=== PATIENT | female | born 1960 | race Caucasian/White ===

== ENCOUNTER 2020-06-01 06:10 | Outpatient (REF) | payer BC, SELFPAY ==
[2020-06-01 11:47] LABS: MANUAL DIFF FLAG NO
[2020-06-01 11:52] LABS: Basophils Absolute Auto 0.1 X10*3/uL (0.0-0.2); Basophils Percent Auto 0.5 % (0-2); Eosinophils Absolute Auto 0.5 X10*3/uL (0.0-0.4); Hematocrit 45.3 % (37-47); Hemoglobin 14.8 g/dl (12.0-16.0); Imm Gran Abs Auto 0.03 X10*3/uL (0.00-0.03); Imm Gran Pct Auto 0.3 % (0.0-0.4); Lymphocytes Percent Auto 22.1 % (20-40); Mean Corpuscular HGB Conc 32.7 g/dl (31.0-35.0); Mean Corpuscular Volume 98.1 fL (80-98); Mean Platelet Volume 10.1 fL (9.4-12.3); Monocytes Absolute Auto 1.1 X10*3/uL (0.1-1.2); Monocytes Percent Auto 11.9 % (2-11); Neutrophils Absolute Auto 5.6 X10*3/uL (2.0-8.3); Neutrophils Percent Auto 60.2 % (45-73); Platelet Count 428 X10*3/uL (160-400); Red Blood Count 4.62 X10*6/uL (4.20-5.50); White Blood Count 9.2 X10*3/uL (4.8-10.8)
[2020-06-01 12:35] LABS: Alanine Aminotransferase 58 U/L (0-31); Albumin Level 4.6 g/dL (3.5-5.0); Alkaline Phosphatase 88 U/L (39-117); Anion Gap 14 (12-20); Aspartate Amino Transferase 56 U/L (5-31); Bilirubin Direct 0.4 mg/dL (0.0-0.5); Blood Urea Nitrogen 12 mg/dL (9-16); Carbon Dioxide 30 mmol/L (22-29); Chloride 101 mmol/L (96-108); Cholesterol 298 mg/dL; Estimated Glomerular Filt Rate > 60; Glucose Fasting 94 mg/dL (60-99); HDL Cholesterol 83 mg/dL; LDL Cholesterol Calculated 194 mg/dl; Potassium 3.8 mmol/L (3.3-5.1); Sodium 141 mmol/L (135-145); Total Protein 7.8 g/dL (6.5-8.0); Triglycerides 105 mg/dL
[2020-06-01 12:50] LABS: TSH reflex Free T4 2.19 uIU/mL (0.32-4.0)
== END 2020-06-01 06:11 | disposition home or self-care (01) ==
LOC: HO.HMGCLDS 06:10
PROVIDERS: PCP Internal Medicine; Visit Provider Internal Medicine
DX: Z00.01 Encounter for general adult medical examination with abnormal findings (principal); R00.0 Tachycardia, unspecified; I10 Essential (primary) hypertension; L50.8 Other urticaria; F41.1 Generalized anxiety disorder; Z91.09 Other allergy status, other than to drugs and biological substances
CPT/HCPCS: 36415; 80048; 80061; 80076; 84443; 85025

== ENCOUNTER → 2020-07-14 09:27 | Outpatient (REF) | payer BC, SELFPAY ==
--- NOTE | 2020-07-14 09:31 | CA_ITS ---
Transthoracic Echocardiogram Patient (Last, First, Middle): Karen Mackenzie C Gender: Female Date of : 1960 Age: 59 Procedure Date: 07/14/2020 Procedure Type: Transthoracic Echocardiogram Location: OP Height: 157.48 cm Weight: 68.04 kg BSA: 1.69 m2 Heart Rate: bpm BP: 213 / 113 mmHg [employer] Teacher: JUAN PABLO Referring MD: Ros Lunsford MD Symptoms: R00.0 - Tachycardia, unspecified Study Quality: Fair ECG Rhythm: Sinus tachycardia Conclusions: - The left ventricular systolic function is normal. The visually estimated ejection fraction is between 60-65%. - No obvious valvular pathology seen on this study. Findings Left Ventricle Normal left ventricular cavity size. There is mildly increased left ventricular wall thickness. The left ventricular systolic function is normal. The visually estimated ejection fraction is between 60-65%. There is no evidence of regional wall motion abnormalities. Diastolic function is indeterminate on the basis of available data. Right Ventricle Normal right ventricular cavity size and systolic function. Atria The left atrium is normal in size. The right atrium is normal in size. Aortic Valve There is a normal trileaflet aortic valve. There is no aortic valve stenosis. There is no aortic valve regurgitation. Mitral Valve The mitral valve appears normal. There is trace mitral valve regurgitation. There is no mitral valve stenosis. Pulmonic Valve The pulmonic valve was not well visualized. Tricuspid Valve Normal tricuspid valve structure. There is trace tricuspid valve regurgitation. The pulmonary artery systolic pressure is normal. Great Vessels The aortic annulus, sinuses of valsalva, asc aorta, and aortic arch are normal in size. Venous The inferior vena cava was not well visualized. Pericardium/Pleural There is no evidence of pericardial effusion. Prior Study Comparison No prior study available for comparison. Recommendations, Care & Conclusions No obvious valvular pathology seen on this study. Measurements M-Mode Liner Measurements Normals - Women/Men AOV Cusps: 1.80 1.5-2.6 cm/m2 2D Linear Measurements IVSd: 1.20 0.6-0.9/0.6-1.0 cm LVIDd: 2.95 3.9-5.3/4.2-5.9 cm LVIDd Index: 1.75 2.4-3.2/2.2-3.1 cm/m2 LVIDs: 1.81 2.0-3.6 cm LVPWd: 1.17 0.7-1.1 cm Ao Root: 2.50 2.1-3.5 cm LA Diam: 3.20 2.7-3.8/3.0-4.0 cm LAIDs Index: 1.89 1.5-2.3 cm/m2 LV Mass: 129.89 67-162/88-224 g LV Mass Index: 76.86 43-95/49-115 g/m2 LVOT Diam: 1.90 3.0+(-)1.3 cm 2D Systolic Function EF 4C: 67.70 >55% EF 2C: 61.10 >55% EF BiP: 65.50 >55% Mitral Valve E'Lateral: 8.49 E'Medial: 8.49 Aortic Valve AoV Pk Jason: 1.51 AoV Pk Grad: 9.00 LVOT LVOT Pk Jason: 1.05 LVOT Mn Jason: 0.84 LVOT VTI: 0.19 LVOT Pk Grad: 4.00 LVOT Mn Grad: 3.00 LVOT Diam: 1.90 LVOT Area: 2.84 Diastolic Function E'Medial: 8.49 E' Laterial: 8.49 Tricuspid Valve TR Pk Jason: 2.58 TR Pk Grad: 27.00 Great Vessels Aorta Ao Root-2D: 2.50 2.0-3.7 cm Ao Asc: 2.80 2.1-3.4 cm Ao Arch: 2.80 Pulmonary Valve PV Pk Jason: 1.52 Peak PV Grad: 9.00 Updated in Other Vendor System with Status of Final Yves Alba MD electronically signed on 07/14/2020 11:59:40 AM with status of Final
== END ==
LOC: HO.CARD 09:27
PROVIDERS: Visit Provider Internal Medicine
DX: R00.0 Tachycardia, unspecified (principal); R94.31 Abnormal electrocardiogram [ECG] [EKG]
CPT/HCPCS: 93306

== ENCOUNTER 2020-07-14 10:31 | Emergency (ER) | payer BC, SELFPAY ==
--- NOTE | ~2020-07-14 | XR_ITS ---
EXAMINATION: XR CHEST CLINICAL INFORMATION: Chest pain COMPARISON: Chest radiographs 02/12/2016, 03/13/2015 TECHNIQUE: Portable upright AP view of the chest was obtained. FINDINGS: The lungs are clear. There is no pneumothorax, pleural reaction, infiltrate, or groundglass opacity. No effusion. The heart is normal in size. The vascularity is normal. The hilar and mediastinal contours are normal. There is calcific tendinosis in region of distal superior rotator cuff left shoulder. XR/XR chest 1V IMPRESSION: 1. Lungs clear. No acute intrathoracic disease. 2. Calcific tendinosis left shoulder.
[2020-07-14 10:41] VITALS: BP 204/112; PULSE 118; RESP 18; TEMP 36.8; O2SAT 96; BMI 28.3
--- NOTE | 2020-07-14 10:48 | ECG_ITS ---
Test Reason : TACHYCARDIA Blood Pressure : / mmHG Vent. Rate : 103 BPM Atrial Rate : 103 BPM P-R Int : 132 ms QRS Dur : 086 ms QT Int : 350 ms P-R-T Axes : 045 003 015 degrees QTc Int : 458 ms Sinus tachycardia Otherwise normal ECG When compared with ECG of 18-NOV-2018 18:36, No significant change was found Referred By: Generic ED Physician Electronically Signed By:ELIZABETH RAGLAND
[2020-07-14 11:09] LABS: MANUAL DIFF FLAG NO
[2020-07-14 11:11] LABS: Basophils Absolute Auto 0.1 X10*3/uL (0.0-0.2); Basophils Percent Auto 0.4 % (0-2); Eosinophils Absolute Auto 0.2 X10*3/uL (0.0-0.4); Eosinophils Percent Auto 1.9 % (0-4); Hematocrit 45.6 % (37-47); Hemoglobin 15.5 g/dl (12.0-16.0); Imm Gran Abs Auto 0.03 X10*3/uL (0.00-0.03); Imm Gran Pct Auto 0.3 % (0.0-0.4); Lymphocytes Absolute Auto 1.3 X10*3/uL (1.2-4.9); Lymphocytes Percent Auto 11.7 % (20-40); Mean Corpuscular Hemoglobin 32.5 pg (27.0-33.0); Mean Corpuscular Volume 95.6 fL (80-98); Mean Platelet Volume 8.9 fL (9.4-12.3); Monocytes Absolute Auto 1.1 X10*3/uL (0.1-1.2); Monocytes Percent Auto 9.6 % (2-11); Neutrophils Absolute Auto 8.5 X10*3/uL (2.0-8.3); Neutrophils Percent Auto 76.1 % (45-73); Platelet Count 366 X10*3/uL (160-400); Red Blood Count 4.77 X10*6/uL (4.20-5.50); Red Cell Distribution Width 11.7 % (11.0-16.0); White Blood Count 11.1 X10*3/uL (4.8-10.8)
[2020-07-14 11:29] LABS: Ethanol < 10 mg/dL
[2020-07-14 11:30] LABS: Anion Gap 19 (12-20); Blood Urea Nitrogen 18 mg/dL (9-16); Calcium 9.6 mg/dL (8.4-10.2); Carbon Dioxide 26 mmol/L (22-29); Chloride 99 mmol/L (96-108); Creatinine Clr Calc Pharmacy 70.4; Estimated Glomerular Filt Rate > 60; Glucose Random 113 mg/dL (60-115); Potassium 3.7 mmol/L (3.3-5.1); Sodium 140 mmol/L (135-145)
--- NOTE | 2020-07-14 11:55 | ED_ITS ---
HPI - Chest Pain General Chief Complaint: Chest Pain Stated Complaint: HIGH BLOOD PRESSURE Time Seen by Provider: 07/14/20 11:36 Source: patient Mode of arrival: wheelchair Limitations: no limitations History of Present Illness HPI narrative: 59 y/o female with history of recently diagnosed HTN, HLD, depression and daily ETOH abuse presents to the ER from ECHO lab with tachcardia w/ HR 110's and severe hypertension with BP 200/100. She was recently started on atenolol in May of this year after she was found to be tachycardic and hypertensive on her yearly visit. On repeat visit 06/24 her BP was still elevated in the 160s systolic so her atenolol was increased to 50 mg per day in combination with chlorthalidone 25 mg. She reports her pharmacy did not have this so she has not been taking it. She admits to continued absue of alcohol, drinking 5-8 nips of vodka per day, last drink was last night. She wants to stop drinking. She has never been through alcohol withdrawal before but is slightly tremulous on arrival. MD complaint: other (high blood pressure) Onset (ago): month(s) Timing of current episode: episodic Prior episodes: Yes Onset: awoke with symptoms and other (after not drinking alcohol since last night) Exacerbating factors: nothing Context: new medications and non compliance with medication Treatment prior to arrival: none Related Data Home Medications Medication Instructions Recorded Confirmed diphenhydramine HCl PO Q12H 05/27/20 06/24/20 omeprazole 20 mg tablet,delayed 20 mg PO DAILY 05/27/20 06/24/20 release Previous Rx's Medication Instructions Recorded cetirizine 10 mg tablet 10 mg PO DAILY PRN 90 Days #90 tab 05/11/20 montelukast 10 mg tablet 10 mg PO DAILY 90 Days #90 tab 05/11/20 venlafaxine 75 mg capsule,extended 75 mg PO DAILY #90 cap 05/11/20 release 24 hr prednisone 5 mg tablet 5 mg PO DAILY PRN 10 Days #10 tab 05/27/20 atenolol 50 mg-chlorthalidone 25 1 tab PO DAILY 90 Days #90 tab 06/24/20 mg tablet atorvastatin 40 mg tablet 40 mg PO BEDTIME 90 Days #90 tab 07/08/20 atenolol-chlorthalidone 1 tab PO DAILY #14 tab 07/14/20 Allergies Allergy/AdvReac Type Severity Reaction Status Date / Time bupropion [From WELLBUTRIN] Allergy Unknown HIVES Verified 06/24/20 12:30 hydroxychloroquine Allergy Unknown hives Verified 06/24/20 12:30 [Plaquenil] tramadol Allergy Unknown hives, rash Verified 06/24/20 12:30 ENVIRONMENTAL Allergy Unknown ITCHY EYES Uncoded 01/09/20 15:34 Review of Systems Review of Systems: Constitutional: No Fever, No Chills ENT/Mouth: No sore throat, No Rhinorrhea, No Swallowing Difficulty Cardiovascular: No Chest Pain, No SOB, No Orthopnea, No Edema Respiratory: No Cough, No Sputum, No Wheezing, No dyspnea Gastrointestinal: No Nausea, No Vomiting, No Diarrhea, No abdominal Pain Genitourinary: No Dysuria, No Urinary Frequency, No Hematuria Musculoskeletal: No joint pain, No Myalgias Skin: No Skin Lesions, No rash Neuro: No Weakness, No Numbness, No Dizziness, No Headache, +tremor Psych: + Anxiety/Panic, + Depression Heme/Lymph: No Bruising, No Lymphadenopathy PMFSH Past Medical History Attestation statement: The following information was validated with the patient. Medical History Anxiety, generalized Hives Surgical History History of left oophorectomy (09/07/11) History of right breast biopsy (10/31/11) Hx of basal cell carcinoma excision (2011) Hx of colonoscopy (08/30/11) Hx of left inguinal hernia repair (02/25/13) Hx of right inguinal hernia repair (2003) Family History Family History Father Cardiac disease Mother Cardiac disease HTN (hypertension) Social History Social History Alcohol intake: current Alcohol intake frequency: 3 or more drinks per day Alcohol type: hard liquor Smoking Status: Former smoker Use of substances other than those prescribed or required for medical reasons: Yes Substance Use Type: Marijuana Advance Directives: Yes Advance Directives Information Provided: Yes Advance Directives on File: No Physical Exam Vital Signs: Vital Signs: Last Vital Signs Temp 98.2 F 07/14/20 10:41 Pulse 82 07/14/20 14:00 Resp 18 07/14/20 10:41 BP 136/106 H 07/14/20 14:00 Pulse Ox 96 07/14/20 10:41 Body Mass Index 28.3 Appearance: Alert. Oriented X3. No acute distress. Eyes: Pupils equal, round and reactive to light. ENT: Pharynx normal. Neck: Normal inspection. Neck supple. CVS: tachycardic, regular rhythm. Pulses normal. Respiratory: No respiratory distress. Breath sounds normal. Abdomen: Soft and nontender. +BS x4 Skin: Skin warm and dry. Normal skin color. Normal skin turgor. No rashes. Extremities: No lower extremity edema. Neuro: Oriented X 3. No motor deficit. No sensory deficit. Mild resting tremor of bilateral hands. Course Course Course Narrative: 59 y/o female with history of recently diagnosed HTN and daily ETOH abuse presents to the ED with tachycardia and severe HTN. She denies chest pain, SOB, headache or vision changes. She has not been taking her newly uptitrated atenolol/chlorthaladone combination and it does not sound like she has been taking the atenolol 25 mg either. She comes with a list of medications that she has been taking daily and it is not on there - she thought her atrovastatin was for blood pressure. HR low 100s with BP 200/110 on arrival, slightly improved 180s/100s. Concern early alcohol withdrawal is contributing. Will give 1 mg PO ativan as well as 50 mg atenolol now and reassess. She does not appear to be in hypertensive crisis. Reevaluation(s) Reevaluation #1: Lab workup is unremarkable. VS improved after atenolol 50 mg PO. HR 70s and BP 167/89 Reevaluation #2: UA showing hematuria - results discussed with patient and need for follow up. Explained importance of compliance with BP meds, monitoring BP at home and f/u with PCP. She agrees with plan and expressed understanding. Stable for d/c. MDM - Chest Pain Medical Records Data Attestation: I reviewed the patient's medical records. Lab Data Attestation: I reviewed the patient's lab results. Result diagrams: 07/14/20 11:02 07/14/20 11:01 Labs: Lab Results 07/14/20 07/14/20 07/14/20 Range/Units 11:01 11:01 11:02 WBC 11.1 H (4.8-10.8) X10*3/uL RBC 4.77 (4.20-5.50) X10*6/uL Hgb 15.5 (12.0-16.0) g/dl Hct 45.6 (37-47) % MCV 95.6 (80-98) fL MCH 32.5 (27.0-33.0) pg MCHC 34.0 (31.0-35.0) g/dl RDW 11.7 (11.0-16.0) % Plt Count 366 (160-400) X10*3/uL MPV 8.9 L (9.4-12.3) fL Immature Gran % (Auto) 0.3 (0.0-0.4) % Neut % (Auto) 76.1 H (45-73) % Lymph % (Auto) 11.7 L (20-40) % Allen % (Auto) 9.6 (2-11) % Eos % (Auto) 1.9 (0-4) % Baso % (Auto) 0.4 (0-2) % Lymph # (Auto) 1.3 (1.2-4.9) X10*3/uL Allen # (Auto) 1.1 (0.1-1.2) X10*3/uL Eos # (Auto) 0.2 (0.0-0.4) X10*3/uL Baso # (Auto) 0.1 (0.0-0.2) X10*3/uL Abs Immat Gran (auto) 0.03 (0.00-0.03) X10*3/uL Absolute Neuts (auto) 8.5 H (2.0-8.3) X10*3/uL Absolute Nucleated RBC 0.000 (0.0-0.012) X10*3/uL Nucleated RBC % (auto) 0.0 (0.0-0.2) /100WBC Hold Blue Top Sodium 140 (135-145) mmol/L Potassium 3.7 (3.3-5.1) mmol/L Chloride 99 (96-108) mmol/L Carbon Dioxide 26 (22-29) mmol/L Anion Gap 19 (12-20) BUN 18 H (9-16) mg/dL Creatinine 0.74 (0.5-1.4) mg/dL Estim Creat Clear Calc 70.4 Estimated GFR > 60 Random Glucose 113 (60-115) mg/dL Calcium 9.6 D (8.4-10.2) mg/dL Troponin I High Sens < 3.5 (<3.5-17.0) ng/L Urine Color Urine Appearance Urine pH (5.0-8.0) Ur Specific [place] (1.005-1.025) Urine Protein (NEG-TRACE) MG/DL Urine Glucose (UA) (NEG) MG/DL Urine Ketones (NEG) MG/DL Urine Blood (NEG) Urine Nitrite (NEG) Ur Leukocyte Esterase (NEG) Urine RBC (0) /HPF Urine WBC (0-4) /HPF Ur Squamous Epith Cells /LPF Urine Bacteria /LPF Urine Mucus /LPF Ethyl Alcohol mg/dL 07/14/20 07/14/20 07/14/20 Range/Units 11:02 11:05 14:19 WBC (4.8-10.8) X10*3/uL RBC (4.20-5.50) X10*6/uL Hgb (12.0-16.0) g/dl Hct (37-47) % MCV (80-98) fL MCH (27.0-33.0) pg MCHC (31.0-35.0) g/dl RDW (11.0-16.0) % Plt Count (160-400) X10*3/uL MPV (9.4-12.3) fL Immature Gran % (Auto) (0.0-0.4) % Neut % (Auto) (45-73) % Lymph % (Auto) (20-40) % Allen % (Auto) (2-11) % Eos % (Auto) (0-4) % Baso % (Auto) (0-2) % Lymph # (Auto) (1.2-4.9) X10*3/uL Allen # (Auto) (0.1-1.2) X10*3/uL Eos # (Auto) (0.0-0.4) X10*3/uL Baso # (Auto) (0.0-0.2) X10*3/uL Abs Immat Gran (auto) (0.00-0.03) X10*3/uL Absolute Neuts (auto) (2.0-8.3) X10*3/uL Absolute Nucleated RBC (0.0-0.012) X10*3/uL Nucleated RBC % (auto) (0.0-0.2) /100WBC Hold Blue Top SEE NOTE Sodium (135-145) mmol/L Potassium (3.3-5.1) mmol/L Chloride (96-108) mmol/L Carbon Dioxide (22-29) mmol/L Anion Gap (12-20) BUN (9-16) mg/dL Creatinine (0.5-1.4) mg/dL Estim Creat Clear Calc Estimated GFR Random Glucose (60-115) mg/dL Calcium (8.4-10.2) mg/dL Troponin I High Sens (<3.5-17.0) ng/L Urine Color DARK YELLOW Urine Appearance HAZY Urine pH 6.5 (5.0-8.0) Ur Specific [place] 1.025 (1.005-1.025) Urine Protein TRACE (NEG-TRACE) MG/DL Urine Glucose (UA) NEG (NEG) MG/DL Urine Ketones 5 (NEG) MG/DL Urine Blood 2+ H (NEG) Urine Nitrite NEG (NEG) Ur Leukocyte Esterase NEG (NEG) Urine RBC 10-14 H (0) /HPF Urine WBC 0 (0-4) /HPF Ur Squamous Epith Cells 1+ /LPF Urine Bacteria NONE /LPF Urine Mucus 2+ /LPF Ethyl Alcohol < 10 mg/dL ECG Data ECG #1: Attestation: I personally reviewed and interpreted this ECG as follows: ECG interpretation date: 07/14/20 ECG interpretation time: 09:59 Interpretation: sinus tachycardia, HR 103 bpm, normal IA interval 132 ms, normal QRS 86 ms, normal QTc, no ST segment elevations Discharge Plan Discharge Clinical Impression: Alcohol abuse, Asymptomatic microscopic hematuria Hypertension Qualifiers: Hypertension type: unspecified Qualified Code(s): I10 - Essential (primary) hypertension Patient Disposition: Home, Self-Care Instructions: Hematuria (ED), Low-Sodium Diet (ED), Hypertension (ED), Alcohol Use Disorder (ED) Additional Instructions: Your lab workup in the ER today was unremarkable. Your blood pressure and heart rate improved significantly after you were given a dose of your increased blood pressure medication. Recommend continuing ATENOLOL-CHLORTHALIDONE 50mg/25mg for BP control. This was previously prescribed by your doctor on 06/24/20. A two week supply was sent to your pharmacy if you cannot locate the bottle at home. Your urine test showed a small amount of blood. You will need follow up for this. Follow up with your doctor this week. DO NOT DRINK ALCOHOL. Recommend detox. If you feel worsening symptoms of alcohol withdrawal or develop chest pain, shortness of breath, or any other concerning symptom come back to the ER for further evaluation. Prescriptions: New atenolol-chlorthalidone 50-25 mg tablet 1 tab PO DAILY Qty: 14 RF: 0 No Action venlafaxine 75 mg capsule,extended release 24hr 75 mg PO DAILY Qty: 90 RF: 0 cetirizine [All Day Allergy (cetirizine)] 10 mg tablet 10 mg PO DAILY PRN (Reason: allergy symptoms) 90 Days Qty: 90 RF: 0 montelukast 10 mg tablet 10 mg PO DAILY 90 Days Qty: 90 RF: 0 atorvastatin 40 mg tablet 40 mg PO BEDTIME 90 Days Qty: 90 RF: 0 omeprazole 20 mg tablet,delayed release (DR/EC) 20 mg PO DAILY RF: 0 diphenhydramine HCl PO Q12H RF: 0 prednisone 5 mg tablet 5 mg PO DAILY PRN (Reason: rash) 10 Days Qty: 10 RF: 0 atenolol-chlorthalidone 50-25 mg tablet 1 tab PO DAILY 90 Days Qty: 90 RF: 0
[2020-07-14 12:24] LABS: Troponin-I High Sensitivity < 3.5 ng/L (<3.5-17.0)
[2020-07-14 12:43] VITALS: BP 202/96; PULSE 100
[2020-07-14] MEDS: LORazepam 1 MG TABLET PO (12:43)
[2020-07-14] MEDS: atenoloL 50 MG TABLET PO (12:43)
[2020-07-14 14:00] VITALS: BP 136/106; PULSE 82
[2020-07-14 14:47] LABS: Glucose Urine UA NEG (NEG); Leukocyte Esterase Urine NEG (NEG); Nitrite Urine NEG (NEG); PH 6.5 (5.0-8.0); Specific Gravity - Urine 1.025 (1.005-1.025); Urine Blood 2+ (NEG); Urine Ketones 5 MG/DL (NEG); Urine Protein TRACE MG/DL (NEG-TRACE)
[2020-07-14 14:52] LABS: Appearance Urine HAZY; Color Urine DARK YELLOW
[2020-07-14 14:59] LABS: Mucus Urine 2+ /LPF; Squamous Epithelial Cell Urine 1+ /LPF; WBC Urine 0 /HPF (0-4)
== END 2020-07-14 15:39 | disposition home or self-care (01) ==
PROVIDERS: Physician Assistant; Emergency Provider Emergency Medicine Emergency Medical Services; PCP Internal Medicine
DX: F10.129 Alcohol abuse with intoxication, unspecified (principal); R07.9 Chest pain, unspecified; R00.0 Tachycardia, unspecified; R31.21 Asymptomatic microscopic hematuria; I10 Essential (primary) hypertension; Y90.0 Blood alcohol level of less than 20 mg/100 ml; Z79.899 Other long term (current) drug therapy; Z87.891 Personal history of nicotine dependence; F12.90 Cannabis use, unspecified, uncomplicated
CPT/HCPCS: 36415; 71045; 80048; 80320; 81001; 84484; 85025; 93005; 99283; 99284

== ENCOUNTER 2020-08-13 10:20 | Outpatient (REF) | payer BC, SELFPAY ==
--- NOTE | ~2020-08-13 | MM_ITS ---
EXAMINATION: MM SCREENING DIGITAL BREAST TOMOSYNTHESIS, BILATERAL CLINICAL INFORMATION: Screening. Asymptomatic. The lifetime risk of breast cancer based on the Tyrer-Cuzick Model is 6%. COMPARISON: Mammography: 05/05/2017, 01/23/2014 TECHNIQUE: Digital breast tomosynthesis is performed in both the craniocaudal and mediolateral oblique views along with computer-aided detection (CAD). Synthesized 2D images are generated from the tomosynthesis. FINDINGS: There are scattered areas of fibroglandular density (ACR BI-RADS breast composition Category b). There are no significant masses, abnormal calcifications, or other abnormalities. There is incidental intramammary node upper outer right breast mid depth. The axilla and skin contours are unremarkable. No significant changes. MM/MM tomosynthesis screening BI IMPRESSION: No mammographic evidence of malignancy. ASSESSMENT: BI-RADS 2: Benign RECOMMENDATION: Routine annual mammography screening. This patient's information was entered into a reminder system with a target due date for their next mammogram.
== END 2020-08-13 10:21 | disposition home or self-care (01) ==
LOC: HO.MAMMO 10:20
PROVIDERS: Visit Provider Internal Medicine
DX: Z12.31 Encounter for screening mammogram for malignant neoplasm of breast (principal)
CPT/HCPCS: 77063; 77067

== ENCOUNTER 2020-12-23 03:03 | Emergency (ER) | payer BC, SELFPAY ==
--- NOTE | ~2020-12-23 | XR_ITS ---
EXAMINATION: XR CHEST CLINICAL INFORMATION: Chest pain COMPARISON: Chest x-ray 07/14/2020 TECHNIQUE: Frontal portable view of the chest was obtained. 0330 hours FINDINGS: No significant abnormality is noted involving the heart, lungs, mediastinum, bony thorax or soft tissues. XR/XR chest 1V IMPRESSION: Unremarkable examination.
--- NOTE | 2020-12-23 03:14 | ECG_ITS ---
Test Reason : CHEST PAIN Blood Pressure : / mmHG Vent. Rate : 084 BPM Atrial Rate : 084 BPM P-R Int : 148 ms QRS Dur : 084 ms QT Int : 394 ms P-R-T Axes : 044 013 000 degrees QTc Int : 465 ms Normal sinus rhythm Nonspecific ST abnormality Abnormal ECG When compared with ECG of 14-JUL-2020 09:54, Nonspecific ST abnormality is now Present Heart rate has decreased Referred By: Radha Dsouza Electronically Signed By:MAJO TORRES
[2020-12-23 03:15] VITALS: BP 144/114; BP 176/116; PULSE 88; PULSE 93; RESP 20; TEMP 37.1; O2SAT 98; BMI 27.4
--- NOTE | 2020-12-23 03:16 | ED_ITS ---
HPI - Chest Pain General Chief Complaint: Chest Pain Stated Complaint: hypertension/cp Time Seen by Provider: 12/23/20 03:14 Source: patient and EMS Mode of arrival: EMS Limitations: no limitations History of Present Illness HPI narrative: 60-year-old female came in for evaluation of hypertension/chest pain. 60-year-old female came in by ambulance after having chest pain 1 hour ago pain lasted for about 2 seconds felt like tension the mid chest, no radiation. No relieving factor, no worsening factor patient was resting when the chest pain happened, no other associated symptoms. Patient also had a history of hypertension and has been compliant with her medication for hypertension, been having high blood pressure. Patient is a daily alcohol drinker last time she would drink was 24 hours ago patient is feeling early symptoms of withdrawal, patient with tremors and tongue fasciculation. Related Data Home Medications Medication Instructions Recorded Confirmed diphenhydramine HCl [Benadryl] PO Q12H 05/27/20 06/24/20 omeprazole 20 mg tablet,delayed 20 mg PO DAILY 05/27/20 06/24/20 release Previous Rx's Medication Instructions Recorded prednisone 5 mg tablet 5 mg PO DAILY PRN 10 Days #10 tab 05/27/20 venlafaxine 75 mg capsule,extended 75 mg PO DAILY #90 cap 09/03/20 release 24 hr atorvastatin 40 mg tablet 40 mg PO BEDTIME 90 Days #90 tab 09/24/20 atenolol 50 mg-chlorthalidone 25 1 tab PO DAILY #90 tab 11/03/20 mg tablet cetirizine 10 mg tablet (All Day 10 mg PO DAILY PRN 90 Days #90 tab 11/10/20 Allergy (cetirizine)) montelukast 10 mg tablet 10 mg PO DAILY #90 tab 11/18/20 atenolol 50 mg-chlorthalidone 25 1 tab PO DAILY #14 tab 12/09/20 mg tablet lorazepam 1 mg tablet (Ativan) 1 mg PO TID PRN #10 tab 12/23/20 Allergies Allergy/AdvReac Type Severity Reaction Status Date / Time bupropion [From WELLBUTRIN] Allergy Unknown HIVES Verified 06/24/20 12:30 hydroxychloroquine Allergy Unknown hives Verified 06/24/20 12:30 [Plaquenil] tramadol Allergy Unknown hives, rash Verified 06/24/20 12:30 ENVIRONMENTAL Allergy Unknown ITCHY EYES Uncoded 01/09/20 15:34 Review of Systems Review of Systems: All other systems are reviewed and are negative Constitutional: Reports as per HPI and Reports no additional constitutional complaints Eyes: Reports as per HPI and Reports no additional eye complaints Reports system reviewed and no additional complaints, except as documented Cardiovascular: Reports as per HPI and Reports no additional cardiovascular complaints Respiratory: Reports as per HPI and Reports no additional respiratory complaints Gastrointestinal: Reports as per HPI and Reports no additional gastrointestinal complaints Genitourinary: Reports no additional female genitourinary complaints Musculoskeletal: Reports no additional musculoskeletal complaints Skin/Breast: Reports system reviewed and no additional complaints, except as docu Psychiatric: Reports no additional psychiatric complaints Endocrine: Reports no additional endocrine complaints Hematologic/Lymphatic: Reports no additional hematologic/lymphatic complaints Allergic/Immunologic: Reports no additional allergic/immunologic complaints Reports system reviewed and no additional complaints, except as documented and Reports Abnormal speech present [facility] Past Medical History Medical History Anxiety, generalized Hives Surgical History History of left oophorectomy (09/07/11) History of right breast biopsy (10/31/11) Hx of basal cell carcinoma excision (2011) Hx of colonoscopy (08/30/11) Hx of left inguinal hernia repair (02/25/13) Hx of right inguinal hernia repair (2003) Family History Family History Father Cardiac disease Mother Cardiac disease HTN (hypertension) Social History Social History Alcohol intake: current Alcohol intake frequency: 3 or more drinks per day Alcohol type: hard liquor Patient Tobacco Use Status: Former Tobacco user Use of substances other than those prescribed or required for medical reasons: No Substance Use Type: Marijuana Any prior treatment program specific to substance use: No Advance Directives: No Advance Directives Information Provided: No Patient : No Physical Exam Vital Signs: Vital Signs: Last Vital Signs Temp 98.7 F 12/23/20 03:15 Pulse 96 12/23/20 06:30 Resp 17 12/23/20 06:30 BP 164/89 H 12/23/20 06:30 Pulse Ox 94 12/23/20 06:30 Body Mass Index 27.4 Vital signs have been reviewed as appeared to be correct. Blood pressure hypertension. Heart rate normal. Respiration rate normal. Temperature normal. Oxygen saturation normal. Appearance: Alert. Oriented X3. No acute distress. Anxious Head: Normal external exam. Normocephalic. Atraumatic. No Yanez signs noted. No raccoon eyes noted Eyes: PERRLA. EOMI. Conjunctiva and sclera normal. Eyelids normal. ENT: TM's Normal. Pharynx normal. Uvula midline. Moist mucous membranes. No trismus noted. No drooling noted. No muffled voice noted. Neck: Normal inspection. Neck supple. FROM. No adenopathy. Thyroid Normal. No meningeal signs. No neck mass noted. CVS: Normal heart rate and rhythm. Heart sound normal. No murmurs noted. Pulses normal throughout. Respiratory: No respiratory distress. Painless inspiration. Breath sounds n ormal. No wheezes/rales/rhonchi noted. Chest nontender. No accessory muscle usage noted or decreased air movement noted. Abdomen: Soft and nontender. Bowel sounds normal in all 4 quadrants. No diste ntion noted. No organomegaly noted. No visible injury noted. Back: No CVA tenderness. Full range of motion noted. Skin: Skin warm and dry. Normal skin color. Normal skin turgor. No rashes/lesions/lacerations noted. Extremities: No lower extremity edema. Extremities exhibit normal range of m otion. Extremities nontender. Neuro: Oriented X 3. With tremors and tongue fasciculation. Cranial nerve exam: II-XII are grossly intact No motor deficit. No sensory deficit. Reflexes normal. Course Course Course Narrative: Assessment and plan. 60-year-old female came in with chest pain and elevated blood pressure, and mild symptoms of alcohol withdrawal. Patient was given Ativan in the ED with resolution of patient's symptoms and improvement of patient's vital signs including blood pressure, also tremor and tongue fasciculation improved with Ativan, patient is asking for help to stop drinking alcohol, patient was offered admission for alcohol withdrawal and she declined admission patient has to care for her at home. Noncardiac chest pain with unremarkable EKG and 2-troponin with 3 hours apart. Will discharge home with prescription of Ativan to help patient's symptoms of quitting alcohol. MDM - Chest Pain Lab Data Attestation: I reviewed the patient's lab results. Result diagrams: 12/23/20 03:38 12/23/20 03:38 Labs: Lab Results 12/23/20 12/23/20 12/23/20 Range/Units 03:38 03:38 03:38 WBC 9.0 (4.8-10.8) X10*3/uL RBC 4.59 (4.20-5.50) X10*6/uL Hgb 14.8 (12.0-16.0) g/dl Hct 42.2 (37-47) % MCV 91.9 (80-98) fL MCH 32.2 (27.0-33.0) pg MCHC 35.1 H (31.0-35.0) g/dl RDW 11.6 (11.0-16.0) % Plt Count 363 (160-400) X10*3/uL MPV 8.7 L (9.4-12.3) fL Immature Gran % (Auto) 0.3 (0.0-0.4) % Neut % (Auto) 63.3 (45-73) % Lymph % (Auto) 18.3 L (20-40) % [place] % (Auto) 13.2 H (2-11) % Eos % (Auto) 4.2 H (0-4) % Baso % (Auto) 0.7 (0-2) % Lymph # (Auto) 1.7 (1.2-4.9) X10*3/uL [place] # (Auto) 1.2 (0.1-1.2) X10*3/uL Eos # (Auto) 0.4 (0.0-0.4) X10*3/uL Baso # (Auto) 0.1 (0.0-0.2) X10*3/uL Abs Immat Gran (auto) 0.03 (0.00-0.03) X10*3/uL Absolute Neuts (auto) 5.7 (2.0-8.3) X10*3/uL Absolute Nucleated RBC 0.000 (0.0-0.012) X10*3/uL Nucleated RBC % (auto) 0.0 (0.0-0.2) /100WBC Sodium 139 (135-145) mmol/L Potassium 2.8 L D (3.3-5.1) mmol/L Chloride 93 L (96-108) mmol/L Carbon Dioxide 29 (22-29) mmol/L Anion Gap 20 (12-20) BUN 16 (9-16) mg/dL Creatinine 0.63 (0.5-1.4) mg/dL Estim Creat Clear Calc 83.7 Estimated GFR > 60 Random Glucose 124 H (60-115) mg/dL Calcium 9.7 (8.4-10.2) mg/dL Troponin I High Sens < 3.5 (<3.5-17.0) ng/L 12/23/20 Range/Units 06:30 WBC (4.8-10.8) X10*3/uL RBC (4.20-5.50) X10*6/uL Hgb (12.0-16.0) g/dl Hct (37-47) % MCV (80-98) fL MCH (27.0-33.0) pg MCHC (31.0-35.0) g/dl RDW (11.0-16.0) % Plt Count (160-400) X10*3/uL MPV (9.4-12.3) fL Immature Gran % (Auto) (0.0-0.4) % Neut % (Auto) (45-73) % Lymph % (Auto) (20-40) % [place] % (Auto) (2-11) % Eos % (Auto) (0-4) % Baso % (Auto) (0-2) % Lymph # (Auto) (1.2-4.9) X10*3/uL [place] # (Auto) (0.1-1.2) X10*3/uL Eos # (Auto) (0.0-0.4) X10*3/uL Baso # (Auto) (0.0-0.2) X10*3/uL Abs Immat Gran (auto) (0.00-0.03) X10*3/uL Absolute Neuts (auto) (2.0-8.3) X10*3/uL Absolute Nucleated RBC (0.0-0.012) X10*3/uL Nucleated RBC % (auto) (0.0-0.2) /100WBC Sodium (135-145) mmol/L Potassium (3.3-5.1) mmol/L Chloride (96-108) mmol/L Carbon Dioxide (22-29) mmol/L Anion Gap (12-20) BUN (9-16) mg/dL Creatinine (0.5-1.4) mg/dL Estim Creat Clear Calc Estimated GFR Random Glucose (60-115) mg/dL Calcium (8.4-10.2) mg/dL Troponin I High Sens < 3.5 (<3.5-17.0) ng/L Imaging Data Chest x-ray: Radiologist's impression: Unremarkable examination. ECG Data ECG #1: Interpretation: Normal sinus rhythm at 84 beats per minutes, normal intervals, nonspecific T-wave changes. Discharge Plan Discharge Clinical Impression: Anxiety, Chest pain Alcohol withdrawal Qualifiers: Complication of substance-induced condition: uncomplicated Qualified Code(s): F10.230 - Alcohol dependence with withdrawal, uncomplicated Patient Disposition: Home, Self-Care Instructions: Alcohol Withdrawal (ED) Prescriptions: New lorazepam [Ativan] 1 mg tablet 1 mg PO TID PRN (Reason: alcohol withdrawal) Qty: 10 RF: 0 No Action venlafaxine 75 mg capsule,extended release 24hr 75 mg PO DAILY Qty: 90 RF: 0 atorvastatin 40 mg tablet 40 mg PO BEDTIME 90 Days Qty: 90 RF: 0 atenolol-chlorthalidone 50-25 mg tablet 1 tab PO DAILY Qty: 90 RF: 0 cetirizine [All Day Allergy (cetirizine)] 10 mg tablet 10 mg PO DAILY PRN (Reason: allergy symptoms) 90 Days Qty: 90 RF: 0 montelukast 10 mg tablet 10 mg PO DAILY Qty: 90 RF: 0 atenolol-chlorthalidone 50-25 mg tablet 1 tab PO DAILY Qty: 14 RF: 0 omeprazole 20 mg tablet,delayed release (DR/EC) 20 mg PO DAILY RF: 0 diphenhydramine HCl PO Q12H RF: 0 prednisone 5 mg tablet 5 mg PO DAILY PRN (Reason: rash) 10 Days Qty: 10 RF: 0 Referrals: Ros Lunsford MD [Primary Care Provider] - 2 days
[2020-12-23] MEDS: LORazepam 2 MG/ML VIAL 1 MG IVPUSH (03:26)
[2020-12-23 03:30] VITALS: PULSE 88
--- NOTE | 2020-12-23 03:41 | PC.NURSE ---
pt a&O, no sob or active chest pain at this time. no n/v. medicated per Emar. pt on monitor. Normal sinus rhythm.
[2020-12-23 03:43] LABS: Basophils Absolute Auto 0.1 X10*3/uL (0.0-0.2); Basophils Percent Auto 0.7 % (0-2); Eosinophils Absolute Auto 0.4 X10*3/uL (0.0-0.4); Eosinophils Percent Auto 4.2 % (0-4); Hematocrit 42.2 % (37-47); Hemoglobin 14.8 g/dl (12.0-16.0); Imm Gran Abs Auto 0.03 X10*3/uL (0.00-0.03); Imm Gran Pct Auto 0.3 % (0.0-0.4); Lymphocytes Absolute Auto 1.7 X10*3/uL (1.2-4.9); Lymphocytes Percent Auto 18.3 % (20-40); MANUAL DIFF FLAG NO; Mean Corpuscular HGB Conc 35.1 g/dl (31.0-35.0); Mean Corpuscular Hemoglobin 32.2 pg (27.0-33.0); Mean Corpuscular Volume 91.9 fL (80-98); Mean Platelet Volume 8.7 fL (9.4-12.3); Monocytes Absolute Auto 1.2 X10*3/uL (0.1-1.2); Monocytes Percent Auto 13.2 % (2-11); Neutrophils Absolute Auto 5.7 X10*3/uL (2.0-8.3); Neutrophils Percent Auto 63.3 % (45-73); Platelet Count 363 X10*3/uL (160-400); Red Blood Count 4.59 X10*6/uL (4.20-5.50); Red Cell Distribution Width 11.6 % (11.0-16.0)
[2020-12-23 03:57] VITALS: BP 164/97; PULSE 81; RESP 18
[2020-12-23 04:13] LABS: Anion Gap 20 (12-20); Blood Urea Nitrogen 16 mg/dL (9-16); Calcium 9.7 mg/dL (8.4-10.2); Carbon Dioxide 29 mmol/L (22-29); Chloride 93 mmol/L (96-108); Creatinine Clr Calc Pharmacy 83.7; Estimated Glomerular Filt Rate > 60; Glucose Random 124 mg/dL (60-115); Potassium 2.8 mmol/L (3.3-5.1); Sodium 139 mmol/L (135-145)
[2020-12-23 04:18] LABS: Troponin-I High Sensitivity < 3.5 ng/L (<3.5-17.0)
[2020-12-23 05:34] VITALS: BP 154/79; PULSE 84; RESP 18; O2SAT 98
--- NOTE | 2020-12-23 05:34 | PC.NURSE ---
pt is sleeping at time. no chest pain at this time. pt shows no signs of distress.
[2020-12-23 06:30] VITALS: BP 164/89; PULSE 96; RESP 17; O2SAT 94
[2020-12-23 06:58] LABS: Troponin-I High Sensitivity < 3.5 ng/L (<3.5-17.0)
== END 2020-12-23 08:20 | disposition home or self-care (01) ==
PROVIDERS: Emergency Provider Emergency Medicine; PCP Internal Medicine
DX: R07.9 Chest pain, unspecified (principal); F41.9 Anxiety disorder, unspecified; F10.230 Alcohol dependence with withdrawal, uncomplicated; Y90.9 Presence of alcohol in blood, level not specified; I10 Essential (primary) hypertension; Z79.899 Other long term (current) drug therapy
CPT/HCPCS: 36415; 71045; 80048; 84484; 85025; 93005; 96374; 99284; 99285; J2060

== ENCOUNTER 2020-12-30 09:26 | Outpatient (REF) | payer BC, SELFPAY ==
[2020-12-30 12:02] LABS: Anion Gap 14 (12-20); Blood Urea Nitrogen 11 mg/dL (9-16); Carbon Dioxide 28 mmol/L (22-29); Chloride 102 mmol/L (96-108); Estimated Glomerular Filt Rate > 60; Potassium 3.4 mmol/L (3.3-5.1); Sodium 141 mmol/L (135-145)
== END 2020-12-30 09:27 | disposition home or self-care (01) ==
LOC: HO.HMGCLDS 09:26
PROVIDERS: PCP Internal Medicine; Visit Provider Internal Medicine
DX: E87.6 Hypokalemia (principal); F41.1 Generalized anxiety disorder
CPT/HCPCS: 36415; 80051; 82565; 84520

== ENCOUNTER 2021-06-04 12:29 | Outpatient (REF) | payer BC, SELFPAY ==
[2021-06-04 14:08] LABS: MANUAL DIFF FLAG NO
[2021-06-04 14:16] LABS: Basophils Absolute Auto 0.1 X10*3/uL (0.0-0.2); Basophils Percent Auto 0.5 % (0-2); Eosinophils Absolute Auto 0.4 X10*3/uL (0.0-0.4); Eosinophils Percent Auto 3.2 % (0-4); Hematocrit 41.7 % (37.0-47.0); Hemoglobin 14.2 g/dl (12.0-16.0); Imm Gran Abs Auto 0.06 X10*3/uL (0.00-0.03); Imm Gran Pct Auto 0.5 % (0.0-0.4); Lymphocytes Absolute Auto 1.8 X10*3/uL (1.2-4.9); Lymphocytes Percent Auto 14.1 % (20-40); Mean Corpuscular HGB Conc 34.1 g/dl (31.0-35.0); Mean Corpuscular Hemoglobin 32.8 pg (27.0-33.0); Mean Corpuscular Volume 96.3 fL (80.0-98.0); Mean Platelet Volume 9.7 fL (9.4-12.3); Monocytes Absolute Auto 1.3 X10*3/uL (0.1-1.2); Monocytes Percent Auto 10.5 % (2-11); Neutrophils Percent Auto 71.2 % (45-73); Platelet Count 480 X10*3/uL (160-400); Red Blood Count 4.33 X10*6/uL (4.20-5.50); Red Cell Distribution Width 11.7 % (11.0-16.0); White Blood Count 12.7 X10*3/uL (4.8-10.8)
[2021-06-04 14:35] LABS: Alanine Aminotransferase 36 U/L (0-31); Albumin Level 4.4 g/dL (3.5-5.0); Alkaline Phosphatase 70 U/L (39-117); Anion Gap 13 (12-20); Aspartate Amino Transferase 33 U/L (5-31); Bilirubin Total 0.7 mg/dL (0.0-1.0); Blood Urea Nitrogen 16 mg/dL (9-16); Calcium 9.9 mg/dL (8.4-10.2); Carbon Dioxide 31 mmol/L (22-29); Chloride 95 mmol/L (96-108); Estimated Glomerular Filt Rate > 60; Glucose Random 103 mg/dL (60-115); Potassium 3.6 mmol/L (3.3-5.1); Sodium 135 mmol/L (135-145); Total Protein 7.6 g/dL (6.5-8.0)
== END 2021-06-04 12:30 | disposition home or self-care (01) ==
LOC: HO.HMGCLDS 12:29
PROVIDERS: Visit Provider Internal Medicine
DX: I10 Essential (primary) hypertension (principal); F41.1 Generalized anxiety disorder; Z91.09 Other allergy status, other than to drugs and biological substances
CPT/HCPCS: 36415; 80053; 85025

== ENCOUNTER 2021-07-28 10:38 | Outpatient (REF) | payer BC, SELFPAY ==
--- NOTE | ~2021-07-28 | XR_ITS ---
EXAMINATION: XR SOFT TISSUE NECK CLINICAL INDICATION: Palpable lump left trapezius COMPARISON: None TECHNIQUE: 2 views of the soft tissue neck were obtained. FINDINGS: Soft tissue films of the neck demonstrate a normal larynx, pharynx and upper trachea. No soft tissue swelling or opaque foreign body is demonstrated. Straightening of normal cervical curvature which may be secondary to patient positioning versus muscle spasm. Grade 1 anterolisthesis of C4 on C5. Multilevel degenerative changes of the cervical spine. XR/XR soft tissue neck IMPRESSION: 1. Straightening of normal cervical curvature which may be secondary to patient positioning versus muscle spasm. 2. Grade 1 anterolisthesis of C4 on C5. 3. Multilevel degenerative changes of the cervical spine.
--- NOTE | ~2021-07-28 | XR_ITS ---
EXAMINATION: XR CHEST CLINICAL INFORMATION: Localized swelling mass lump of trunk COMPARISON: Chest radiograph from 07/14/2020 TECHNIQUE: 2 views of the chest were obtained. FINDINGS: No focal consolidation. No pneumothorax. Trachea is midline. Cardiomediastinal silhouette is not enlarged. Aorta demonstrates mild tortuosity. No large pleural effusion. Degenerative changes of the thoracolumbar spine. Soft tissues are unremarkable. XR/XR chest 2V IMPRESSION: No acute cardiopulmonary process.
== END 2021-07-28 10:39 | disposition home or self-care (01) ==
LOC: HO.XRAY 10:38
PROVIDERS: PCP Internal Medicine; Visit Provider Internal Medicine
DX: R22.2 Localized swelling, mass and lump, trunk (principal)
CPT/HCPCS: 70360; 71046

== ENCOUNTER 2021-08-06 06:24 | Inpatient (IN) | payer BC, SELFPAY ==
[2021-08-06] VITALS (8 sets, daily range): BP systolic 131–163; BP diastolic 69–98; PULSE 56–70; RESP 16–18; TEMP 36.6–37.1; O2SAT 93–98; BMI 25.0
--- NOTE | ~2021-08-06 | CT_ITS ---
Examination: CT gi bleed abd pel wo/w con EXAMINATION: CT ABDOMEN AND PELVIS WITH CONTRAST CLINICAL INFORMATION: lower abdominal pain, bleeding per rectum COMPARISON: None. TECHNIQUE: Multidetector volumetric imaging was performed from the superior aspect of the liver through the pubic symphysis initially without contrast and then following administration of 100 mL Omnipaque 300 intravenous contrast. Arterial phase and portal venous phase timing utilized. Sagittal and coronal reformatted images were obtained on the technologist workstation.. This CT examination was performed using dose optimization techniques as appropriate, variously including the following: *Automated exposure control *Adjustment of mA and/or kV according to patient size (this includes techniques or standardized protocols for targeted exams where dose is matched to indication/reason for exam; i.e. extremities or head) *Use of iterative reconstruction technique DLP: 1173 mGy-cm FINDINGS: LUNG BASES: Bibasilar scarring or atelectasis more so at the right base. LIVER, GALLBLADDER, AND BILIARY TREE: There is diffuse fatty infiltration the liver more so in the right lobe. No suspicious focal hepatic lesions nor biliary ductal dilatation. The gallbladder is unremarkable with no evidence of radiopaque gallstones, gallbladder wall thickening, or obvious pericholecystic inflammatory changes. PANCREAS: Unremarkable. SPLEEN: Unremarkable. ADRENAL GLANDS: Unremarkable. KIDNEYS AND URETERS: Subcentimeter low-attenuation cortical cyst in the lateral midpole of the right kidney. There are several low-attenuation probable cortical cysts in the left kidney but these are too small to characterize as well. Otherwise the kidneys are normal in size, shape, and attenuation. No hydronephrosis, hydroureter, or calculi seen. No perinephric stranding. BLADDER: Unremarkable. GASTROINTESTINAL TRACT: There is diffuse colonic wall thickening with pericolonic inflammatory change more so in the region of the splenic flexure to the sigmoid colon. The distribution suggests more likely infectious or inflammatory causes of colitis. There is scattered diverticulosis seen throughout the colon but no obvious focal diverticulitis. No obstructive changes seen. I do not appreciate any evidence for active contrast extravasation on the arterial phase portion the study and no puddling of blood products on the delayed phases. ABDOMINAL WALL: Small fat-containing periumbilical hernia LYMPHOVASCULAR STRUCTURES: No bulky retroperitoneal or mesenteric adenopathy. Minimal vascular calcification in the aorta PELVIC VISCERA: Unremarkable. OSSEOUS STRUCTURES: Unremarkable. CT/CT gi bleed abd pel wo/w con IMPRESSION: Diffuse colonic wall thickening more so from the splenic flexure to the sigmoid colon with mild associated pericolonic inflammatory change. The distribution and appearance is most consistent with sequela of infectious or inflammatory colitis. There is scattered diverticulosis but no focal evidence for diverticulitis. No obstructive changes to the bowel. I do not appreciate any active contrast extravasation on the arterial phase portion the study or delayed pooling of blood products on the delayed phase imaging. Chronic appearing changes otherwise including fatty infiltration of the liver.
--- NOTE | 2021-08-06 06:34 | ED.GIBLEED ---
HPI - GI Bleed General Chief complaint: Abdominal Pain Stated complaint: vaginal bleeding Time Seen by Provider: 08/06/21 06:34 Source: patient Mode of arrival: ambulatory Limitations: no limitations History of Present Illness MD complaint: gross hematochezia and other (lower abdominal pain) Onset (ago): day(s) (1) Pain Consistency: intermittent Severity: moderate Relieving factors: none Exacerbating factors: none Context: other (denies a known cause) Associated symptoms: abdominal pain and malaise Treatments Prior to Arrival: none Related Data Home Medications Medication Instructions Recorded Confirmed omeprazole 20 mg tablet,delayed 20 mg PO DAILY 05/27/20 07/27/21 release Previous Rx's Medication Instructions Recorded amlodipine 5 mg tablet 5 mg PO DAILY 90 Days #90 tab 06/04/21 atenolol 50 mg-chlorthalidone 25 1 tab PO DAILY 90 Days #90 tab 06/04/21 mg tablet atorvastatin 40 mg tablet 40 mg PO BEDTIME 90 Days #90 tab 06/04/21 cetirizine 10 mg tablet (All Day 10 mg PO DAILY PRN 90 Days #90 tab 06/04/21 Allergy (cetirizine)) montelukast 10 mg tablet 10 mg PO DAILY #90 tab 06/04/21 topiramate 25 mg tablet 25 mg PO BID 90 Days #180 tab 06/04/21 venlafaxine 75 mg capsule,extended 75 mg PO DAILY #90 cap 06/04/21 release 24 hr Allergies Allergy/AdvReac Type Severity Reaction Status Date / Time bupropion [From WELLBUTRIN] Allergy Unknown HIVES Verified 08/06/21 06:32 hydroxychloroquine Allergy Unknown hives Verified 08/06/21 06:32 [Plaquenil] tramadol Allergy Unknown hives, rash Verified 08/06/21 06:32 ENVIRONMENTAL Allergy Unknown ITCHY EYES Uncoded 08/06/21 06:32 Review of Systems Review of Systems: Constitutional : No Weight loss, No Fever, No Chills ENT/Mouth : No sore throat, No Rhinorrhea Eyes: No Swelling, No Redness Cardiovascular : No Chest Pain, No SOB, NoEdema Respiratory : No Cough, No Sputum, No Wheezing Gastrointestinal :no Nausea, no Vomiting, positive Diarrhea, positive abdominal Pain, pos Hematochezia, No Melena Genitourinary : No Dysuria, No Urinary Frequency, No Hematuria, No Urgency Musculoskeletal : No joint pain, No Myalgias, No Joint Swelling Skin : No Skin Lesions, No rash Neuro : No Weakness, No Numbness, No Dizziness, No Headache Psych : No Anxiety/Panic, No Depression Heme/Lymph: No Bruising, No Lymphadenopathy Endocrine : No Polyuria, No Polydipsia All other systems reviewed and are negative. [facility] Past Medical History Attestation statement: The following information was validated with the patient. Medical History Anxiety, generalized Hives Surgical History History of left oophorectomy (09/07/11) History of right breast biopsy (10/31/11) Hx of basal cell carcinoma excision (2011) Hx of colonoscopy (08/30/11) Hx of left inguinal hernia repair (02/25/13) Hx of right inguinal hernia repair (2003) Family History Family History Father Cardiac disease Mother Cardiac disease HTN (hypertension) Other Substance use disorder Social History Social History Housing: House Alcohol intake: former Patient Tobacco Use Status: Former Tobacco user Use of substances other than those prescribed or required for medical reasons: Yes Substance Use Type: Marijuana Advance Directives: No Advance Directives Information Provided: Yes Patient : No Current occupational status: employed Cognitive needs: No Hearing needs: No Vision needs: No Physical Exam Vital Signs: Vital Signs: Last Vital Signs Temp 98.4 F 08/06/21 09:35 Pulse 56 08/06/21 09:35 Resp 17 08/06/21 09:35 BP 132/96 H 08/06/21 09:35 Pulse Ox 96 08/06/21 09:35 BMI result Body Mass Index 25.0 Appearance: Alert. Oriented X3. No acute distress. Eyes: Pupils equal, round and reactive to light. ENT: Pharynx normal. Neck: Normal inspection. Neck supple. CVS: Normal heart rate and rhythm. Pulses normal. Respiratory: No respiratory distress. Breath sounds normal. Abdomen: Soft and mild lower abdominal ttp no rebound or guarding Rectal: brown stool no bleeding hemorrhoids seen Skin: Skin warm and dry. Normal skin color. Normal skin turgor. Extremities: No lower extremity edema. No calf ttp Neuro: Oriented X 3. No motor deficit. No sensory deficit. Course Course Course Narrative: 10am - delay in CT scan reads, repeat calls at this time given leukocytosis and appearance of colitis on CT scan will start antibiotics - infection suspected 1041am K being repleted, given GIB symptoms, diffuse colitis - will admit for observation MDM - GI Bleed MDM Narrative Medical decision making narrative: 60 yo female with hx of HTN, anxiety, alcohol abuse here with c/o lower abdominal pain and feeling like she has to go the bathroom then brbpr several times since yesterday - denies food exposures, prior bouts, prior colonoscopy, no antibiotic use. At this time will need labs, guiac study, CT scan for colitis/diverticulitis. Dispo per results and findings. Lab Data Result diagrams: 08/06/21 06:50 08/06/21 06:50 Labs: Lab Results 08/06/21 08/06/21 08/06/21 Range/Units 06:50 06:50 06:50 WBC 16.2 H (4.8-10.8) X10*3/uL RBC 4.86 (4.20-5.50) X10*6/uL Hgb 15.7 (12.0-16.0) g/dl Hct 44.6 (37.0-47.0) % MCV 91.8 (80.0-98.0) fL MCH 32.3 (27.0-33.0) pg MCHC 35.2 H (31.0-35.0) g/dl RDW 11.3 (11.0-16.0) % Plt Count 442 H (160-400) X10*3/uL MPV 8.6 L (9.4-12.3) fL Immature Gran % (Auto) 0.4 (0.0-0.4) % Neut % (Auto) 81.3 H (45-73) % Lymph % (Auto) 8.1 L (20-40) % [place] % (Auto) 9.4 (2-11) % Eos % (Auto) 0.5 (0-4) % Baso % (Auto) 0.3 (0-2) % Lymph # (Auto) 1.3 (1.2-4.9) X10*3/uL [place] # (Auto) 1.5 H (0.1-1.2) X10*3/uL Eos # (Auto) 0.1 (0.0-0.4) X10*3/uL Baso # (Auto) 0.1 (0.0-0.2) X10*3/uL Abs Immat Gran (auto) 0.07 H (0.00-0.03) X10*3/uL Absolute Neuts (auto) 13.2 H (2.0-8.3) x10*3/uL Absolute Nucleated RBC 0.000 (0.0-0.012) X10*3/uL Nucleated RBC % (auto) 0.0 (0.0-0.2) /100WBC Smear Tech's Comments VERIFIED PT 12.3 (9.9-13.0) SEC INR 1.1 (0.9-1.1) Sodium 134 L (135-145) mmol/L Potassium 2.7 L D (3.3-5.1) mmol/L Chloride 93 L (96-108) mmol/L Carbon Dioxide 26 (22-29) mmol/L Anion Gap 18 (12-20) BUN 18 H (9-16) mg/dL Creatinine 0.75 (0.5-1.4) mg/dL Estim Creat Clear Calc 67.4 Estimated GFR > 60 Random Glucose 145 H (60-115) mg/dL Lactic Acid (0.5-2.0) mmol/L Calcium 10.2 (8.4-10.2) mg/dL Magnesium 2.4 (1.6-2.6) mg/dL Total Bilirubin 2.3 H (0.0-1.0) mg/dL Direct Bilirubin 0.8 H (0.0-0.5) mg/dL AST 39 H (5-31) U/L ALT 31 (0-31) U/L Alkaline Phosphatase 93 D (39-117) U/L Total Protein 8.4 H (6.5-8.0) g/dL Albumin 4.8 (3.5-5.0) g/dL Lipase 37 (8-78) U/L Stool Occult Blood (NEGATIVE) 08/06/21 08/06/21 Range/Units 06:50 07:29 WBC (4.8-10.8) X10*3/uL RBC (4.20-5.50) X10*6/uL Hgb (12.0-16.0) g/dl Hct (37.0-47.0) % MCV (80.0-98.0) fL MCH (27.0-33.0) pg MCHC (31.0-35.0) g/dl RDW (11.0-16.0) % Plt Count (160-400) X10*3/uL MPV (9.4-12.3) fL Immature Gran % (Auto) (0.0-0.4) % Neut % (Auto) (45-73) % Lymph % (Auto) (20-40) % [place] % (Auto) (2-11) % Eos % (Auto) (0-4) % Baso % (Auto) (0-2) % Lymph # (Auto) (1.2-4.9) X10*3/uL [place] # (Auto) (0.1-1.2) X10*3/uL Eos # (Auto) (0.0-0.4) X10*3/uL Baso # (Auto) (0.0-0.2) X10*3/uL Abs Immat Gran (auto) (0.00-0.03) X10*3/uL Absolute Neuts (auto) (2.0-8.3) x10*3/uL Absolute Nucleated RBC (0.0-0.012) X10*3/uL Nucleated RBC % (auto) (0.0-0.2) /100WBC Smear Tech's Comments PT (9.9-13.0) SEC INR (0.9-1.1) Sodium (135-145) mmol/L Potassium (3.3-5.1) mmol/L Chloride (96-108) mmol/L Carbon Dioxide (22-29) mmol/L Anion Gap (12-20) BUN (9-16) mg/dL Creatinine (0.5-1.4) mg/dL Estim Creat Clear Calc Estimated GFR Random Glucose (60-115) mg/dL Lactic Acid 1.6 (0.5-2.0) mmol/L Calcium (8.4-10.2) mg/dL Magnesium (1.6-2.6) mg/dL Total Bilirubin (0.0-1.0) mg/dL Direct Bilirubin (0.0-0.5) mg/dL AST (5-31) U/L ALT (0-31) U/L Alkaline Phosphatase (39-117) U/L Total Protein (6.5-8.0) g/dL Albumin (3.5-5.0) g/dL Lipase (8-78) U/L Stool Occult Blood POSITIVE (NEGATIVE) Discharge Plan Discharge Clinical Impression: Leukocytosis, Acute hypokalemia, Colitis Patient Disposition: Admitted As Inpatient Prescriptions: No Action omeprazole 20 mg tablet,delayed release (DR/EC) 20 mg PO DAILY 0RF amlodipine 5 mg tablet 5 mg PO DAILY 90 Days Qty: 90 0RF atenolol-chlorthalidone 50-25 mg tablet 1 tab PO DAILY 90 Days Qty: 90 0RF atorvastatin 40 mg tablet 40 mg PO BEDTIME 90 Days Qty: 90 0RF cetirizine [All Day Allergy (cetirizine)] 10 mg tablet 10 mg PO DAILY PRN (Reason: allergy symptoms) 90 Days Qty: 90 0RF montelukast 10 mg tablet 10 mg PO DAILY Qty: 90 0RF topiramate 25 mg tablet 25 mg PO BID 90 Days Qty: 180 0RF venlafaxine 75 mg capsule,extended release 24hr 75 mg PO DAILY Qty: 90 0RF
[2021-08-06 06:55] LABS: Basophils Absolute Auto 0.1 X10*3/uL (0.0-0.2); Basophils Percent Auto 0.3 % (0-2); Eosinophils Absolute Auto 0.1 X10*3/uL (0.0-0.4); Eosinophils Percent Auto 0.5 % (0-4); Hematocrit 44.6 % (37.0-47.0); Hemoglobin 15.7 g/dl (12.0-16.0); Imm Gran Abs Auto 0.07 X10*3/uL (0.00-0.03); Imm Gran Pct Auto 0.4 % (0.0-0.4); Lymphocytes Absolute Auto 1.3 X10*3/uL (1.2-4.9); Lymphocytes Percent Auto 8.1 % (20-40); MANUAL DIFF FLAG SCAN; Mean Corpuscular HGB Conc 35.2 g/dl (31.0-35.0); Mean Corpuscular Hemoglobin 32.3 pg (27.0-33.0); Mean Corpuscular Volume 91.8 fL (80.0-98.0); Mean Platelet Volume 8.6 fL (9.4-12.3); Monocytes Absolute Auto 1.5 X10*3/uL (0.1-1.2); Monocytes Percent Auto 9.4 % (2-11); Neutrophils Absolute Auto 13.2 x10*3/uL (2.0-8.3); Neutrophils Percent Auto 81.3 % (45-73); Platelet Count 442 X10*3/uL (160-400); Red Blood Count 4.86 X10*6/uL (4.20-5.50); Red Cell Distribution Width 11.3 % (11.0-16.0); SCAN SMEAR FLAG 1; White Blood Count 16.2 X10*3/uL (4.8-10.8)
[2021-08-06 07:01] LABS: INTERNATIONAL NORM RATIO 1.1 (0.9-1.1); Prothrombin Time 12.3 SEC (9.9-13.0)
[2021-08-06 07:04] LABS: Lactic Acid 1.6 mmol/L (0.5-2.0)
[2021-08-06 07:15] LABS: SLIDE REVIEW VERIFIED
[2021-08-06 07:26] LABS: Alanine Aminotransferase 31 U/L (0-31); Albumin Level 4.8 g/dL (3.5-5.0); Alkaline Phosphatase 93 U/L (39-117); Anion Gap 18 (12-20); Aspartate Amino Transferase 39 U/L (5-31); Bilirubin Direct 0.8 mg/dL (0.0-0.5); Bilirubin Total 2.3 mg/dL (0.0-1.0); Blood Urea Nitrogen 18 mg/dL (9-16); Calcium 10.2 mg/dL (8.4-10.2); Carbon Dioxide 26 mmol/L (22-29); Chloride 93 mmol/L (96-108); Creatinine Clr Calc Pharmacy 67.4; Estimated Glomerular Filt Rate > 60; Glucose Random 145 mg/dL (60-115); Lipase 37 U/L (8-78); Magnesium 2.4 mg/dL (1.6-2.6); Potassium 2.7 mmol/L (3.3-5.1); Sodium 134 mmol/L (135-145); Total Protein 8.4 g/dL (6.5-8.0)
[2021-08-06] MEDS: 0.9 % Sodium Chloride 1,000 ML 999 ML IVCONT (07:26)
[2021-08-06 07:35] LABS: OBS Int Ctl Valid YES; OBS1 POSITIVE (NEGATIVE)
--- NOTE | 2021-08-06 07:37 | PC.NURSE ---
pt axox3. skin pwd. no palor lower conjunctiva. reports hx of daily drinking. had diarrhea with merle blood since yesterday am and since last night only blood. no stool. no tachipnea. denies dizziness/lightheadedness/thinners/ abd pain.
[2021-08-06] MEDS: iohexoL 350 MG/ML 100 ML INFUS..BTL IV (08:09)
[2021-08-06] MEDS: Potassium Chloride/H20 10 MEQ/100 ML PIGGYBACK 100 MEQ IV ×2 (08:58→10:19)
[2021-08-06] MEDS: Potassium Chloride ER 20 MEQ TAB.ER.PRT 40 MEQ PO (08:58)
--- NOTE | 2021-08-06 11:12 | PC.NURSE ---
awaits ct reading. reports feeling hungry. allowed clear liquids. no bleeding since arrival to ed.
[2021-08-06] MEDS: Piperacillin Sodium/Tazobactam 3.375 GM in 0.9 % Sodium Chloride 50 ML IV ×2 (11:38→19:10)
--- NOTE | 2021-08-06 13:31 | PHA.MEDREC ---
Pharmacy Consult ? Medication Reconciliation Pharmacy has completed the medication reconciliation.
--- NOTE | 2021-08-06 13:47 | P.HPHOSP_ITS ---
History of Present Illness Date of Service: 08/06/21 Chief Complaint: abodminal pain, bloody diarrhea This is a 60 yo F with a PMH as outlined below who presents to the ED with complaints of crampy, mid abdominal pain, severe in intensity, non-radiating with associated bright red blood per rectum and nausea (not vomiting) of 3 days duration. Patient reports that prior to this, she was at her baseline. She reports that her and her have eaten the same meals and he does not have symptoms. She denies any fevers or chills. She denies any chest pain or sob. No known sick contacts. She reports a loss of appetite for the previous 2 days. She reports that she presented to the ED today due to continued crampy abdominal pain, bleeding and most importantly she was feeling extremely weak and fatigued. She reports that she has moved her bowels in the ED, and she did not noticed any blood for the first time in several days. Patient endorses that she used to drink daily but tapered herself off and has not had a drink in about 1 month. In the ED, she was found to have leukocytosis and hyperbilirubinemia. She was hypokelamic. CT scan showed diffuse colonic wall thickening from the splenic flexure to the sigmoid colon with pericolonic inflammatory changes. She was given IVF, PO+IV potassium replacement, IV zosyn and admission was requested. Review of Systems Review of Systems: negative except HPI [facility] Medical History Anxiety, generalized GERD (gastroesophageal reflux disease) Hives Hyperlipidemia Hypertension, essential Family History Father Cardiac disease Mother Cardiac disease HTN (hypertension) Other Substance use disorder Surgical History History of left oophorectomy (09/07/11) History of right breast biopsy (10/31/11) Hx of basal cell carcinoma excision (2011) Hx of colonoscopy (08/30/11) Hx of left inguinal hernia repair (02/25/13) Hx of right inguinal hernia repair (2003) Social History Housing: House Alcohol intake: former Patient Tobacco Use Status: Former Tobacco user Use of substances other than those prescribed or required for medical reasons: Yes Substance Use Type: Marijuana Advance Directives: No Advance Directives Information Provided: Yes Patient : No Current occupational status: employed Cognitive needs: No Hearing needs: No Vision needs: No Meds Allergies Allergy/AdvReac Type Severity Reaction Status Date / Time bupropion [From WELLBUTRIN] Allergy Unknown HIVES Verified 08/06/21 06:32 hydroxychloroquine Allergy Unknown hives Verified 08/06/21 06:32 [Plaquenil] tramadol Allergy Unknown hives, rash Verified 08/06/21 06:32 ENVIRONMENTAL Allergy Unknown ITCHY EYES Uncoded 08/06/21 06:32 Active Medications: Current Medications Acetaminophen (Acetaminophen 325 Mg Tablet) 650 mg PO Q6H PRN PRN Reason: Pain, Mild (Pain Scale 1-3) Dextrose/Sodium Chloride (D5ns) 1,000 mls @ 100 mls/hr IVCONT .Q10H [facility] Piperacillin Sod/Tazobactam (Sod 3.375 gm/ Sodium Chloride) 50 mls @ 100 mls/hr IV Q6H [facility] Ondansetron HCl (Ondansetron Hcl 4 Mg/2 Ml Vial) 4 mg IVPUSH Q8H PRN PRN Reason: Nausea and Vomiting Pharmacy Consult (Consult Rx Perform Med Rec) 1 each MISCELLANE ONCE PRN PRN Reason: Consult order Sodium Chloride (0.9 % Sodium Chloride Flush 3 Ml Syringe) 3 ml IVFLUSH QSHIFT [facility] Home Medications Medication Instructions Recorded Confirmed Last Taken Type omeprazole 20 mg tablet,delayed 20 mg PO DAILY 05/27/20 08/06/21 08/06/21 History release Physical Exam Vital Signs and Narrative: Vital Signs: Last Vital Signs Temp 98.4 F 08/06/21 09:35 Pulse 56 08/06/21 09:35 Resp 17 08/06/21 09:35 BP 132/96 H 08/06/21 09:35 Pulse Ox 96 08/06/21 09:35 BMI result Body Mass Index 25.0 Const: Other: Constitutional - Awake and Alert, No apparent distress Eyes - PERRLA, EOMI Cardiovascular - S1S2, RRR, No edema Respiratory - Normal lung expansion, Normal respiratory effort, No respiratory distress, CTA bilaterally Gastrointestinal - mild diffuse TTP without rebound or guarding - No CVA tenderness Extremities - no calf tenderness bilaterally, no swelling Musculoskeletal - Normal inspection, normal ROM Skin - Warm/Dry Neurological - Alert & oriented x3, No focal deficit Psychological - Appropriate affect Results Labs CBC and Chem 7: 08/06/21 06:50 08/06/21 06:50 Labs: Laboratory Results - last 24 hr 08/06/21 08/06/21 08/06/21 06:50 06:50 06:50 MCV 91.8 MCH 32.3 MCHC 35.2 H RDW 11.3 Plt Count 442 H MPV 8.6 L Immature Gran % (Auto) 0.4 Neut % (Auto) 81.3 H Lymph % (Auto) 8.1 L [place] % (Auto) 9.4 Eos % (Auto) 0.5 Baso % (Auto) 0.3 Lymph # (Auto) 1.3 [place] # (Auto) 1.5 H Eos # (Auto) 0.1 Baso # (Auto) 0.1 Abs Immat Gran (auto) 0.07 H Absolute Neuts (auto) 13.2 H Absolute Nucleated RBC 0.000 Nucleated RBC % (auto) 0.0 Smear Tech's Comments VERIFIED PT 12.3 INR 1.1 Anion Gap 18 Estim Creat Clear Calc 67.4 Estimated GFR > 60 Random Glucose 145 H Lactic Acid Calcium 10.2 Magnesium 2.4 Total Bilirubin 2.3 H Direct Bilirubin 0.8 H AST 39 H ALT 31 Alkaline Phosphatase 93 D Total Protein 8.4 H Albumin 4.8 Lipase 37 Stool Occult Blood 08/06/21 08/06/21 06:50 07:29 MCV MCH MCHC RDW Plt Count MPV Immature Gran % (Auto) Neut % (Auto) Lymph % (Auto) [place] % (Auto) Eos % (Auto) Baso % (Auto) Lymph # (Auto) [place] # (Auto) Eos # (Auto) Baso # (Auto) Abs Immat Gran (auto) Absolute Neuts (auto) Absolute Nucleated RBC Nucleated RBC % (auto) Smear Tech's Comments PT INR Anion Gap Estim Creat Clear Calc Estimated GFR Random Glucose Lactic Acid 1.6 Calcium Magnesium Total Bilirubin Direct Bilirubin AST ALT Alkaline Phosphatase Total Protein Albumin Lipase Stool Occult Blood POSITIVE Imaging Radiologist's Impressions: Impressions Abdomen/Pelvis CT 08/06/21 08:11 IMPRESSION: Diffuse colonic wall thickening more so from the splenic flexure to the sigmoid colon with mild associated pericolonic inflammatory change. The distribution and appearance is most consistent with sequela of infectious or inflammatory colitis. There is scattered diverticulosis but no focal evidence for diverticulitis. No obstructive changes to the bowel. I do not appreciate any active contrast extravasation on the arterial phase portion the study or delayed pooling of blood products on the delayed phase imaging. Chronic appearing changes otherwise including fatty infiltration of the liver. Assessment and Plan (1) Colitis: Status: Acute (2) Acute hypokalemia: Status: Acute Plan This is a 60 yo F with a PMH of prior daily EtOH use (now sober >1 month), HTN, GERD, Anxiety/Depression, amongst others who presents to the hospital with a 2 day history of mid-abdominal, crampy pain with associated rectal bleeding, diarrhea and nausea. Her presentation and work up are consistent with significant colitis. She will be admitted for further treatment. 1. Colitis 1a. Acute lower Gi bleed (not anemic, thus far) from splenic flexure to sigmoid infectious vs inflammatory vs ischemic send stool studies, repeat h/h now IV zosyn IVF IV analgesics Trial of clear liquids, if unable to tolerate -- keep NPO GI consult 2. Hyperbilirubinemia No evidence of obstruction on imaging possibly related to acute infection She denies active EtOh use and her prior bili wnl hold statin for now 3. Hypokalemia given 20meq IV and 40 PO in the ED; will give an additional 40meq this evening Mag wnl 4. HTN hold her antihypertensive for now in light of GI bleed if stable, resume likely tomorrow 5. GERD PPI Full Code DVT pptx, mechanical due to GI bleed HCP -- endorses her son. In light of the patients extensive colitis with associated lower GI bleed, I anticipate a medically necessary inpatient admission likely to span at least 2 midnights for treatment, expert consultation and monitoring of response. This cannot be completed in a less acute setting. Quality Stroke Does the patient have a stroke diagnosis?: No VTE Prior VTE?: No VTE Risk Level:: Medical - moderate - high VTE Device Contraindication: N/A - Device Ordered VTE Drug Contraindication: Treatment Not Indicated
[2021-08-06 14:09] LABS: Hematocrit 39.7 % (37.0-47.0); Hemoglobin 13.8 g/dl (12.0-16.0)
[2021-08-06] MEDS: Dextrose 5 % and 0.9 % NaCl 1,000 ML 100 ML IVCONT (14:46)
[2021-08-06 14:51] LABS: COVID-19 Test Negative (Negative)
--- NOTE | 2021-08-06 16:25 | PC.NURSE ---
report Carmen on [employer]
--- NOTE | 2021-08-06 17:50 | PM.EVENT ---
Event Note Date of Service: 08/06/21 Event Note: GI Consult-Full note dictated Imp: I suspect this represents an episode of acute ischemic colitis given the specific distribution of the colonic involvement on the CT scan, the acute onset, and the rapid improvement. A less likely possibility is infectious. I don't think this reflects IBD. She is presently feeling much better already and her abdominal exam is benign. She has had no bleeding nor diarrhea since early this morning. She is hungry. Rec: Advance to clear liqs and F/U labs in AM. Check stool specimens if they become available. If she continues to do well her diet can be advanced tomorrow and she can be discharged over the weekend. I don't think she will need to go home on antibiotics. I will then follow her up in the office to set up a colonoscopy both for screening and in regard to this acute illness. Please call me if problems or questions over the weekend. Thanks.
--- NOTE | 2021-08-06 20:32 | PC.NURSE ---
patient states she took a couple of benadryl from her purse to help her sleep
[2021-08-06] MEDS: Topiramate 25 MG TABLET PO (20:41)
[2021-08-07] MEDS: Piperacillin Sodium/Tazobactam 3.375 GM in 0.9 % Sodium Chloride 50 ML IV ×2 (00:11→06:16)
[2021-08-07] MEDS: Dextrose 5 % and 0.9 % NaCl 1,000 ML 100 ML IVCONT (01:51)
--- NOTE | 2021-08-07 02:10 | CONS_ITS ---
DATE OF SERVICE: 08/06/2021 REASON FOR CONSULTATION: Abdominal pain, diarrhea, hematochezia, and abnormal CT scan of GI tract HISTORY OF PRESENT ILLNESS: This has been obtained from the patient and the medical record. The patient is a 60-year-old female who was in her usual state of health up until early in the morning on the day prior to admission. At that point, she was awakened with abdominal cramping and discomfort. This was followed by diarrhea and rectal bleeding. She describes that the blood was red. These symptoms persisted throughout the whole day prior to admission, and she finally came to the ER this morning due to weakness and ongoing issues with the diarrhea and bleeding. Prior to being awakened with her symptoms, she reports that she had been feeling well. She denies any chronic history of abdominal pain nor diarrhea. Prior to becoming ill, she was enjoying a good appetite without any chronic heartburn nor dysphagia. Her bowel movements have been regular and without any hematochezia nor melena before this illness. She denies any ill contacts at home or at work, antibiotic use, nor any new medication. She does not use any significant amounts of NSAIDs. She does not smoke. She describes that she was a somewhat heavy drinker, but has not used alcohol in at least 1 month. She denies any known family history of colorectal cancer nor inflammatory bowel disease. Since arriving in the ER early this morning she does report that she is definitely feeling better. She is no longer having any abdominal pain. She has had no bowel movements nor any further bleeding. She is hungry. MEDICATIONS: Her medications at home included amlodipine, atenolol with chlorthalidone, atorvastatin, montelukast, omeprazole, and topiramate. Her medications here in the hospital include IV Zosyn, acetaminophen, Claritin, montelukast, omeprazole, Zofran, and Topamax. PAST MEDICAL HISTORY: Hypertension, removal of 1 ovary, inguinal hernia surgery, breast surgery with removal of suspicious cells for which she was treated with tamoxifen. She had a negative screening colonoscopy [place] [address] Luna. She had an upper endoscopy in approximately 2014 with the finding of a distal esophageal ring, but no other significant abnormalities. She has a history of anxiety. Hyperlipidemia. She denies history of [place], diabetes, nor stroke. 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 She is . She does not smoke. Alcohol as above. FAMILY HISTORY: Noncontributory. REVIEW OF SYSTEMS: Constitutional she has been feeling well prior to becoming acutely ill. SKIN: No rash. No pruritus. CARDIAC: No chest pain. PULMONARY: No cough, no hemoptysis. GI: As above. PHYSICAL EXAMINATION: GENERAL: The patient is a pleasant, alert, comfortable-appearing female. She has been afebrile. SKIN: Warm and dry. Anicteric sclerae. NECK: Supple. CARDIAC: Normal S1, S2. ABDOMEN: Soft, nondistended. Normal bowel sounds. Nontender without palpable mass nor organomegaly. LABORATORY DATA: White blood cell count 16.2, hemoglobin 15.7, platelets 442,000 PT 12.3 with INR 1.1. Sodium 134, potassium 2.7, chloride 93, CO2 26, BUN 18, creatinine 0.8, total bilirubin is 2.3 with a direct bilirubin of 0.8, AST 39, ALT 31, alkaline phosphatase 93, albumin 4.8. Stool was Hemoccult positive. She did have a CT scan of the abdomen and pelvis today, which is notable for the finding of some colonic wall thickening, but with the majority of this located in the region of the splenic flexure and reaching down to the sigmoid colon. There is some diverticulosis but no reported diverticulitis. There is no evidence of any intraabdominal abscess nor fluid collection. IMPRESSION: Given the patient's clinical history and CT scan findings, I would be most suspicious that this represents an episode of ischemic colitis. I do not think this represents infectious colitis given the acute onset and very rapid improvement in her symptoms. I do not think this reflects inflammatory bowel disease either given the clinical history. At this point since she is significantly improved and her abdominal exam is benign, I think she can be started on a clear liquid diet. I would check all stool specimens, including C difficile, if they become available. If she continues to improve in this manner and is tolerating her liquid diet then I think she can be started on food tomorrow and then be discharged over the weekend if things are stable. I do not think she will need to go on antibiotics at this point. I did review with her in detail that I would like to see her in the office for a followup visit and could then schedule a followup colonoscopy as she is due for that, anyway as her last exam was about 10 years ago. Certainly if anything changes with recurrent symptoms and persistent problems, we can proceed with inpatient colonoscopy. However in general, I would like to hold off on that until the acute situation is improved. This has been discussed with the patient in detail. Thank you for the consultation. MD MAYA Huang/MELYSSA / [phone] MTDBari
[2021-08-07 03:24] VITALS: BP 116/62; PULSE 63; RESP 18; TEMP 36.4; O2SAT 97
[2021-08-07 06:30] LABS: Hematocrit 41.8 % (37.0-47.0); Hemoglobin 14.3 g/dl (12.0-16.0); Mean Corpuscular HGB Conc 34.2 g/dl (31.0-35.0); Mean Corpuscular Hemoglobin 32.1 pg (27.0-33.0); Mean Corpuscular Volume 93.7 fL (80.0-98.0); Platelet Count 423 X10*3/uL (160-400); Red Blood Count 4.46 X10*6/uL (4.20-5.50); Red Cell Distribution Width 11.3 % (11.0-16.0); White Blood Count 10.6 X10*3/uL (4.8-10.8)
[2021-08-07 06:52] LABS: Anion Gap 14 (12-20); Blood Urea Nitrogen 9 mg/dL (9-16); Calcium 9.2 mg/dL (8.4-10.2); Carbon Dioxide 26 mmol/L (22-29); Chloride 100 mmol/L (96-108); Creatinine Clr Calc Pharmacy 74.3; Estimated Glomerular Filt Rate > 60; Glucose Random 135 mg/dL (60-115); Potassium 3.1 mmol/L (3.3-5.1); Sodium 137 mmol/L (135-145)
[2021-08-07 07:27] VITALS: BP 126/72; PULSE 70; RESP 18; TEMP 36; O2SAT 95
[2021-08-07] MEDS: Topiramate 25 MG TABLET PO (08:11)
[2021-08-07] MEDS: Venlafaxine HCl ER 75 MG CAP.ER.24H PO (08:11)
[2021-08-07] MEDS: Montelukast Sodium 10 MG TABLET PO (08:11)
[2021-08-07] MEDS: Omeprazole 20 MG CAPSULE.DR PO (08:16)
[2021-08-07 08:26] LABS: Leukocytes Stool Qualitative NEGATIVE (NEGATIVE)
[2021-08-07 10:12] LABS: CDiff Gene PCR POSITIVE (Negative)
--- NOTE | 2021-08-07 10:33 | HO.PM.IMPN ---
Subjective Subjective Date of Service: 08/07/21 Review of Systems Follow up abd pain, bloody stool No pain or further blood noted Physical Exam Vital Signs: Vital Signs: Last Vital Signs Temp 96.8 F 08/07/21 07:27 Pulse 70 08/07/21 07:27 Resp 18 08/07/21 07:27 BP 126/72 08/07/21 07:27 Pulse Ox 95 08/07/21 07:27 BMI result Body Mass Index 25.0 Appearing in no acute distress lung sounds are clear to auscultation heart regular rate rhythm, clear S1, S2 positive bowel sounds, abdomen is soft, nontender neuro patient is alert x3, no focal deficits Objective Data Active Medications Acetaminophen (Acetaminophen 325 Mg Tablet) 650 mg PO Q6H PRN PRN Reason: Pain, Mild (Pain Scale 1-3) Dextrose/Sodium Chloride (D5ns) 1,000 mls @ 100 mls/hr IVCONT .Q10H [facility] Last Admin: 08/07/21 01:51 Dose: 100 mls/hr Documented by: HELGA Loratadine (Loratadine 10 Mg Tablet) 10 mg PO DAILY PRN PRN Reason: allergy symptoms Montelukast Sodium (Montelukast Sodium 10 Mg Tablet) 10 mg PO DAILY [facility] Last Admin: 08/07/21 08:11 Dose: 10 mg Documented by: BERNARD Omeprazole (Omeprazole 20 Mg Capsule.Dr) 20 mg PO DAILY [facility] Last Admin: 08/07/21 08:16 Dose: 20 mg Documented by: BERNARD Ondansetron HCl (Ondansetron Hcl 4 Mg/2 Ml Vial) 4 mg IVPUSH Q8H PRN PRN Reason: Nausea and Vomiting Pharmacy Consult (Consult Rx Perform Med Rec) 1 each MISCELLANE ONCE PRN PRN Reason: Consult order Sodium Chloride (0.9 % Sodium Chloride Flush 3 Ml Syringe) 3 ml IVFLUSH QSHIFT [facility] Last Admin: 08/07/21 08:17 Dose: Not Given Documented by: BERNARD Non-Admin Reason: IV Running Topiramate (Topiramate 25 Mg Tablet) 25 mg PO BID [facility] Last Admin: 08/07/21 08:11 Dose: 25 mg Documented by: BERNARD Venlafaxine HCl (Venlafaxine Hcl Er 75 Mg Cap.Er.24h) 75 mg PO DAILY [facility] Last Admin: 08/07/21 08:11 Dose: 75 mg Documented by: BERNARD Labs CBC & Chem 7: 08/07/21 06:09 08/07/21 06:09 Labs: Laboratory Results - last 24 hr 08/06/21 08/07/21 08/07/21 14:10 06:09 06:09 MCV 93.7 MCH 32.1 MCHC 34.2 RDW 11.3 Plt Count 423 H MPV 9.0 L Absolute Nucleated RBC 0.000 Nucleated RBC % (auto) 0.0 Anion Gap 14 Estim Creat Clear Calc 74.3 Estimated GFR > 60 Random Glucose 135 H Calcium 9.2 D Stool Leukocytes, Qual C. difficile Tox B Gene COVID-19 ([facility]USH) Negative COVID-19 Clin Com See Note 08/07/21 08/07/21 07:34 07:34 MCV MCH MCHC RDW Plt Count MPV Absolute Nucleated RBC Nucleated RBC % (auto) Anion Gap Estim Creat Clear Calc Estimated GFR Random Glucose Calcium Stool Leukocytes, Qual NEGATIVE C. 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 Her presentation and work up are consistent with significant colitis. She will be admitted for further treatment. Ischemic Colitis with acute lower Gi bleed (not anemic, thus far) stable HH stop IV zosyn as per GI IVF IV analgesics Trial of clear liquids, if unable to tolerate -- keep NPO Hyperbilirubinemia No evidence of obstruction on imaging possibly related to acute infection She denies active EtOh use and her prior bili wnl hold statin for now Hypokalemia Repleted follow BMP HTN hold her antihypertensive for now in light of GI bleed if stable, resume likely tomorrow GERD PPI Full Code DVT pptx, mechanical due to GI bleed HCP -- endorses her son. Attending Dr. [place] Quality Stroke Does the patient have a stroke diagnosis?: No VTE Prior VTE?: No VTE Risk Level:: Medical - moderate - high VTE Device Contraindication: N/A - Device Ordered VTE Drug Contraindication: Treatment Not Indicated
--- NOTE | 2021-08-07 10:45 | P.DS_ITS ---
DS: Providers Provider Date of Service: 08/07/21 Date of admission: 08/06/21 13:42 Primary care physician: Ros Lunsford MD Consults: 08/06/21 13:46 Consult to Gastroenterology Routine Consulting Provider: Sandeep Thurston Reason for consultation: lower gi bleed, colitis Attending physician on discharge: [facility] Discharging clinician: Stefany Kaiser DS: Diagnosis Discharge Diagnosis (1) Colitis: Status: Acute (2) Acute hypokalemia: Status: Acute DS: Summary Hospital Course Hospital Course: HP as per admitting provider This is a 60 yo F with a PMH as outlined below who presents to the ED with complaints of crampy, mid abdominal pain, severe in intensity, non-radiating with associated bright red blood per rectum and nausea (not vomiting) of 3 days duration. Patient reports that prior to this, she was at her baseline. She reports that her and her have eaten the same meals and he does not have symptoms. She denies any fevers or chills. She denies any chest pain or sob. No known sick contacts. She reports a loss of appetite for the previous 2 days. She reports that she presented to the ED today due to continued crampy abdominal pain, bleeding and most importantly she was feeling extremely weak and fatigued. She reports that she has moved her bowels in the ED, and she did not noticed any blood for the first time in several days. Patient endorses that she used to drink daily but tapered herself off and has not had a drink in about 1 month. In the ED, she was found to have leukocytosis and hyperbilirubinemia. She was hypokelamic. CT scan showed diffuse colonic wall thickening from the splenic flexure to the sigmoid colon with pericolonic inflammatory changes. She was given IVF, PO+IV potassium replacement, IV zosyn and admission was requested . Cdiff positive diarrhea resolved oral vancomycin 4 times daily for 10 days Ischemic Colitis Acute lower Gi bleed without anemia Initially treated with IV zosyn, IVF, IV analgesics Trial of clear liquids advanced to regular diet will need o/p colonoscopy scheduled check as o/p Hyperbilirubinemia No evidence of obstruction on imaging possibly related to acute infection She denies active EtOh use and her prior bili wnl statin held check liver panel as o/p Hypokalemia Repleted HTN antihypetensives held initally but then continued GERD PPI Time Spent with Patient Time attestation: Total time spent providing and/or coordinating discharge services: Discharge coordination time: Greater than 30 minutes Quality: Safe Use of Opioids Does Pt have an Active Cancer Diagnosis on the Problem List?: No Quality: Stroke Does the patient have a stroke diagnosis?: No Physical Exam Vital Signs: Vital Signs: Last Vital Signs Temp 96.8 F 08/07/21 07:27 Pulse 70 08/07/21 07:27 Resp 18 08/07/21 07:27 BP 126/72 08/07/21 07:27 Pulse Ox 95 08/07/21 07:27 BMI result Body Mass Index 25.0 Appearing in no acute distress head is normocephalic atraumatic eyes pupils are PERRLA sclera is anicteric mouth throat mucous membranes are intact and moist neck is supple no lymphadenopathy, no JVD noted lung sounds are clear to auscultation heart regular rate rhythm, clear S1, S2 positive bowel sounds, abdomen is soft, nontender neuro patient is alert x3, no focal deficits DS: Data Data Completed and Pending Labs on day of discharge: Laboratory Results - last 24 hr 08/06/21 08/06/21 08/07/21 14:02 14:10 06:09 WBC 10.6 RBC 4.46 Hgb 13.8 14.3 Hct 39.7 41.8 MCV 93.7 MCH 32.1 MCHC 34.2 RDW 11.3 Plt Count 423 H MPV 9.0 L Absolute Nucleated RBC 0.000 Nucleated RBC % (auto) 0.0 Sodium Potassium Chloride Carbon Dioxide Anion Gap BUN Creatinine Estim Creat Clear Calc Estimated GFR Random Glucose Calcium Stool Leukocytes, Qual C. difficile Tox B Gene COVID-19 ([facility]) Negative COVID-19 Clin Com See Note 08/07/21 08/07/21 08/07/21 06:09 07:34 07:34 WBC RBC Hgb Hct MCV MCH MCHC RDW Plt Count MPV Absolute Nucleated RBC Nucleated RBC % (auto) Sodium 137 Potassium 3.1 L Chloride 100 Carbon Dioxide 26 Anion Gap 14 BUN 9 Creatinine 0.68 Estim Creat Clear Calc 74.3 Estimated GFR > 60 Random Glucose 135 H Calcium 9.2 D Stool Leukocytes, Qual NEGATIVE C. difficile Tox B Gene POSITIVE A* COVID-19 ([facility]) COVID-19 Clin Com Discharge Plan Discharge Anticipated Discharge Date/Time: 08/07/21 10:39 Patient Disposition: Home, Self-Care Discharge Diagnosis: Ischemic colitis Hypokalemia Cdiff Referrals: Ros Lunsford MD [Primary Care Provider] - 1 Week Sandeep Thurston [Physician] - 1 Week ( schedule for colonoscopy) Discharge Medications: New vancomycin 125 mg Capsule 125 mg PO Q6H Qty: 39 0RF Continued omeprazole 20 mg tablet,delayed release (DR/EC) 20 mg PO DAILY 0RF amlodipine 5 mg tablet 5 mg PO DAILY 90 Days Qty: 90 0RF atenolol-chlorthalidone 50-25 mg tablet 1 tab PO DAILY 90 Days Qty: 90 0RF atorvastatin 40 mg tablet 40 mg PO BEDTIME 90 Days Qty: 90 0RF cetirizine [All Day Allergy (cetirizine)] 10 mg tablet 10 mg PO DAILY PRN (Reason: allergy symptoms) 90 Days Qty: 90 0RF montelukast 10 mg tablet 10 mg PO DAILY Qty: 90 0RF topiramate 25 mg tablet 25 mg PO BID 90 Days Qty: 180 0RF venlafaxine 75 mg capsule,extended release 24hr 75 mg PO DAILY Qty: 90 0RF Discharge Orders: Discharge Order (Routine); Ordered 08/07/21 Ordered By: Stefany Kaiser Diet: advance to usual diet Activity on Discharge: As tolerated Stand Alone Forms: Patient Portal Discharge page, Work/School Release Other Ambulatory Orders: Basic Metabolic Panel (Routine) Timeframe: 20210809 Facility: [facility] - Location: Laboratory Ordered By: Stefany Kaiser Hemoglobin and Hematocrit (Routine) Timeframe: 20210809 Facility: [facility] - Location: Laboratory Ordered By: Stefany Kaiser Liver Panel (Routine) Timeframe: 20210809 Facility: [facility] - Location: Laboratory Ordered By: Stefany Kaiser Care Plan Goals: resolution of symptoms Health Concerns: Ischemic colitis Hypokalemia Cdiff: go to this website for more information regarding cdiff https://www.cdc.gov/cdiff/what-is.html C. diff?germs are carried from person to person in poop. If someone with?C. diff?(or caring for someone with?C. diff) doesn?t clean their hands with soap and water after using the bathroom, they can spread the germs to people and things they touch. C. diff?can also live on people?s skin. People who touch an infected person?s skin can [employer] the germs on their hands. Taking a shower with soap and water can reduce the?C. diff?on your skin and lessen the chance of it spreading. C. diff?germs are so small relative to our size that if you were the size of the [facility], a germ would be the size of a baseball home plate. There?s no way you can see?C. diff?germs on your hands, but that doesn?t mean they?re not there. Washing with soap and water is the best way to prevent the spread from person to person. Remember: you can come in contact with?C. diff?germs?and even carry them on, or in, your body?and not get sick. But that doesn?t mean you can?t spread the germs to others. Plan of Treatment: Follow-up with [facility] for scheduling a colonoscopy Check labs next week Take all medications as prescribed Assessment: see discharge summary
[2021-08-07] MEDS: vancomycin HCL 125 MG CAPSULE PO (11:15)
[2021-08-07 11:27] LABS: CDiff Toxin Negative (Negative)
[2021-08-07 11:28] LABS: CDIFF Internal ctrl Dots and bkg OK (V)
[2021-08-07 11:35] VITALS: BP 148/80; PULSE 81; RESP 17; TEMP 36.1; O2SAT 97
--- NOTE | 2021-08-07 13:15 | MHC.CM.PN ---
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
== END 2021-08-07 04:00 | disposition home or self-care (01) | DRG 246 ==
LOC: HO.ED 11:51 → HO.EDOVER 13:52 → HO.S3 14:54
PROVIDERS: Internal Medicine; Admitting Provider Family Medicine; Emergency Provider Emergency Medicine; PCP Internal Medicine; Visit Provider Nurse Practitioner Acute Care
DX: K55.9 Vascular disorder of intestine, unspecified (principal); A04.72 Enterocolitis due to Clostridium difficile, not specified as recurrent; I10 Essential (primary) hypertension; E87.6 Hypokalemia; E78.5 Hyperlipidemia, unspecified; K21.9 Gastro-esophageal reflux disease without esophagitis; Z20.822 Contact with and (suspected) exposure to COVID-19; Z88.5 Allergy status to narcotic agent; Z85.828 Personal history of other malignant neoplasm of skin; Z87.891 Personal history of nicotine dependence; Z79.899 Other long term (current) drug therapy
CPT/HCPCS: 36415; 74178; 80048; 80076; 82272; 83605; 83690; 83735; 85014; 85018; 85025; 85027; 85610; 87040; 87045; 87046; 87324; 87493; 87635; 89055; 96361; 96365; 96366; 96367; 99285; J2543; Q9967

== ENCOUNTER 2021-08-11 08:43 | Outpatient (REF) | payer BC, SELFPAY ==
[2021-08-11 11:23] LABS: MANUAL DIFF FLAG NO
[2021-08-11 11:36] LABS: Basophils Absolute Auto 0.1 X10*3/uL (0.0-0.2); Basophils Percent Auto 0.6 % (0-2); Eosinophils Absolute Auto 0.3 X10*3/uL (0.0-0.4); Eosinophils Percent Auto 3.5 % (0-4); Hematocrit 41.3 % (37.0-47.0); Hemoglobin 14.3 g/dl (12.0-16.0); Imm Gran Abs Auto 0.03 X10*3/uL (0.00-0.03); Imm Gran Pct Auto 0.3 % (0.0-0.4); Lymphocytes Absolute Auto 1.4 X10*3/uL (1.2-4.9); Lymphocytes Percent Auto 14.5 % (20-40); Mean Corpuscular HGB Conc 34.6 g/dl (31.0-35.0); Mean Corpuscular Hemoglobin 32.6 pg (27.0-33.0); Mean Corpuscular Volume 94.1 fL (80.0-98.0); Mean Platelet Volume 9.6 fL (9.4-12.3); Monocytes Absolute Auto 1.3 X10*3/uL (0.1-1.2); Monocytes Percent Auto 13.5 % (2-11); Neutrophils Absolute Auto 6.6 x10*3/uL (2.0-8.3); Neutrophils Percent Auto 67.6 % (45-73); Platelet Count 494 X10*3/uL (160-400); Red Blood Count 4.39 X10*6/uL (4.20-5.50); Red Cell Distribution Width 11.5 % (11.0-16.0); White Blood Count 9.8 X10*3/uL (4.8-10.8)
[2021-08-11 11:53] LABS: Alanine Aminotransferase 39 U/L (0-31); Albumin Level 4.3 g/dL (3.5-5.0); Alkaline Phosphatase 77 U/L (39-117); Anion Gap 12 (12-20); Aspartate Amino Transferase 38 U/L (5-31); Bilirubin Direct 0.4 mg/dL (0.0-0.5); Bilirubin Total 0.9 mg/dL (0.0-1.0); Blood Urea Nitrogen 14 mg/dL (9-16); Calcium 9.8 mg/dL (8.4-10.2); Carbon Dioxide 29 mmol/L (22-29); Chloride 98 mmol/L (96-108); Estimated Glomerular Filt Rate > 60; Glucose Random 129 mg/dL (60-115); Potassium 3.2 mmol/L (3.3-5.1); Sodium 136 mmol/L (135-145); Total Protein 7.6 g/dL (6.5-8.0)
== END 2021-08-11 08:44 | disposition home or self-care (01) ==
LOC: HO.HMGCLDS 08:43
PROVIDERS: Absent Provider Nurse Practitioner Acute Care; PCP Internal Medicine; Visit Provider Internal Medicine
DX: D72.829 Elevated white blood cell count, unspecified (principal); E87.6 Hypokalemia; K52.9 Noninfective gastroenteritis and colitis, unspecified; E80.6 Other disorders of bilirubin metabolism
CPT/HCPCS: 36415; 80053; 82248; 85025

== ENCOUNTER → 2021-09-09 11:25 | Outpatient (BNVA) | payer BC, SELFPAY | PROVIDERS: PCP Internal Medicine; Referring Provider Internal Medicine; Visit Provider Surgery | DX: R22.2 Localized swelling, mass and lump, trunk (principal) ==

== ENCOUNTER 2022-01-07 10:46 | Outpatient (REF) | payer BC, SELFPAY ==
[2022-01-07 14:16] LABS: Alanine Aminotransferase 31 U/L (0-31); Albumin Level 4.7 g/dL (3.5-5.0); Alkaline Phosphatase 131 U/L (39-117); Anion Gap 19 (12-20); Aspartate Amino Transferase 41 U/L (5-31); Bilirubin Total 1.2 mg/dL (0.0-1.0); Blood Urea Nitrogen 14 mg/dL (9-16); Calcium 10.2 mg/dL (8.4-10.2); Carbon Dioxide 28 mmol/L (22-29); Chloride 94 mmol/L (96-108); Estimated Glomerular Filt Rate > 60; Glucose Random 127 mg/dL (60-115); Potassium 3.2 mmol/L (3.3-5.1); Sodium 138 mmol/L (135-145); Total Protein 8.5 g/dL (6.5-8.0)
== END 2022-01-07 10:47 | disposition home or self-care (01) ==
LOC: HO.HMGCLDS 10:46
PROVIDERS: PCP Internal Medicine; Visit Provider Internal Medicine
DX: I10 Essential (primary) hypertension (principal); F41.1 Generalized anxiety disorder; R94.31 Abnormal electrocardiogram [ECG] [EKG]; E87.6 Hypokalemia; F10.20 Alcohol dependence, uncomplicated; Z91.09 Other allergy status, other than to drugs and biological substances
CPT/HCPCS: 36415; 80053

== ENCOUNTER 2022-07-29 10:55 | Outpatient (REF) | payer BC, SELFPAY ==
[2022-07-29 14:04] LABS: Hematocrit 42.9 % (37.0-47.0); Hemoglobin 14.9 g/dl (12.0-16.0)
[2022-07-29 14:21] LABS: Alanine Aminotransferase 38 U/L (0-31); Albumin Level 4.2 g/dL (3.5-5.0); Alkaline Phosphatase 117 U/L (39-117); Anion Gap 14 (12-20); Aspartate Amino Transferase 62 U/L (5-31); Bilirubin Total 0.8 mg/dL (0.0-1.0); Blood Urea Nitrogen 15 mg/dL (9-16); Calcium 9.5 mg/dL (8.4-10.2); Carbon Dioxide 29 mmol/L (22-29); Chloride 99 mmol/L (96-108); Estimated Glomerular Filt Rate > 60; Glucose Random 107 mg/dL (60-115); Potassium 3.3 mmol/L (3.3-5.1); Sodium 139 mmol/L (135-145); Total Protein 7.4 g/dL (6.5-8.0)
[2022-07-30 17:13] LABS: LDL Cholesterol Direct 84 mg/dL (<100)
== END 2022-07-29 10:56 | disposition home or self-care (01) ==
LOC: HO.HMGCLDS 10:55
PROVIDERS: PCP Internal Medicine; Visit Provider Internal Medicine
DX: Z00.01 Encounter for general adult medical examination with abnormal findings (principal); F41.1 Generalized anxiety disorder; E78.9 Disorder of lipoprotein metabolism, unspecified; I10 Essential (primary) hypertension; Z91.09 Other allergy status, other than to drugs and biological substances
CPT/HCPCS: 36415; 80053; 83721; 85014; 85018

== ENCOUNTER 2022-08-05 11:51 | Outpatient (REF) | payer BC, SELFPAY ==
[2022-08-05 14:25] LABS: Appearance Urine Cloudy; Color Urine Yellow; Glucose Urine UA Negative (Negative); Leukocyte Esterase Urine Large (3+) (Negative); Nitrite Urine Negative (Negative); PH 8.5 (5.0-9.0); Specific Gravity - Urine 1.015 (1.005-1.025); UMIC TRIGGER UACC YES; Urine Blood Small (1+) (Negative); Urine Ketones Negative (Negative); Urine Protein 30 (1+) mg/dL (Neg-Trace)
[2022-08-05 14:29] LABS: Bacteria Urine 4+ (None Seen); UACC Culture Trigger YES; WBC Urine >50 /HPF (0-5)
== END 2022-08-05 11:52 | disposition home or self-care (01) ==
LOC: HO.LAB 11:51
PROVIDERS: Visit Provider Internal Medicine
DX: N30.90 Cystitis, unspecified without hematuria (principal)
CPT/HCPCS: 81001; 87086

== ENCOUNTER 2022-11-29 09:54 | Outpatient (AMB) | payer BC, SELFPAY ==
--- NOTE | 2022-11-29 09:57 | A.OFFPC_ITS ---
Vital Signs 11/29/22 10:01 Height 5 ft 2 in Weight 129 lb 4 oz BMI 23.6 BP 124/66 Blood Pressure Location Rt brachial Position Sitting Pulse 84 Pulse Source Pulse Oximeter Pulse Oximetry (%) 95 Oxygen Delivery Method Room Air Intake Visit Reasons: Overdue for Follow Up ~ Allergies bupropion [From WELLBUTRIN] Allergy (Unknown, Verified 11/29/22 10:00) HIVES hydroxychloroquine [Plaquenil] Allergy (Unknown, Verified 11/29/22 10:00) hives tramadol Allergy (Unknown, Verified 11/29/22 10:00) hives, rash ENVIRONMENTAL Allergy (Unknown, Uncoded 08/05/22 11:46) ITCHY EYES Medication List - Last Reconciled 11/29/22 by Ros Lunsford MD amlodipine 5 mg PO DAILY 90 days atenolol-chlorthalidone 50-25 mg 1 tab PO DAILY 90 days atorvastatin 40 mg PO BEDTIME 90 days cetirizine (All Day Allergy (cetirizine)) 10 mg PO DAILY PRN 90 days montelukast 10 mg PO DAILY naproxen 500 mg PO BID nitrofurantoin monohyd/m-cryst 100 mg (Macrobid) 100 mg PO Q12H 5 days omeprazole 20 mg PO DAILY phenazopyridine (Pyridium) 200 mg PO TID PRN 2 days topiramate 25 mg PO BID 90 days venlafaxine ER 75 mg PO DAILY Tobacco use date assessed: 11/29/22 Fall risk assessment: 1 Fall in past year Last assessed Fall Risk: 11/29/22 Dental Screening Dental Screen Date: 11/29/22 Did you have a dental visit in the last 12 months?: No Did you have a dental problem in the last 6 months where you did not have access to dental care?: No Was dental information given to patient?: No HPI Overdue for Follow Up ~ HPI Details Patient is 62-year-old female came in today for her regular follow-up appointment Hypertension: Blood pressure is stable, patient is on amlodipine 5 mg, atenolol chlorthalidone 50-25 mg, tolerating medication. Anxiety is stable with venlafaxine 75 mg and Topamax 25 mg b.i.d. which also helps her with migraine headaches Allergies are stable visit take and montelukast Continue atorvastatin 40 mg for lipid control. Labs were done early August she is due for another set of lab order placed to be done fasting Patient also have elevated liver enzymes She continued to drink and is trying to stop. 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 Follow-up 3 months [facility] Medical History Anxiety, generalized GERD (gastroesophageal reflux disease) Hives Hyperlipidemia Hypertension, essential Supraclavicular mass Surgical History History of left oophorectomy (09/07/11) History of right breast biopsy (10/31/11) Hx of basal cell carcinoma excision (2011) Hx of colonoscopy (08/30/11) Hx of left inguinal hernia repair (02/25/13) Hx of right inguinal hernia repair (2003) Family History Father Cardiac disease Mother Cardiac disease HTN (hypertension) Other Substance use disorder Social History Household Members: Spouse Housing: House Do you presently have visiting nurse or other home services: No Alcohol intake: former Patient Tobacco Use Status: Former Tobacco user e-Cigarette/Vaping Use: Never Used Substance Use Type: Marijuana service: No Current occupational status: employed Cognitive needs: No Hearing needs: No Vision needs: No Questionnaire PHQ-9 Over the last 2 weeks, how often have you been bothered by any of the following problems? 1. Little interest or pleasure in doing things: several days 2. Feeling down, depressed, or hopeless: several days 3. Trouble falling or staying asleep, or sleeping too much: several days 4. Feeling tired or having little energy: several days 5. Poor appetite or overeating: several days 6. Feeling bad about yourself - or that you are a failure or have let yourself or your family down: not at all 7. Trouble concentrating on things, such as reading the newspaper or watching television: not at all 8. Moving or speaking so slowly that other people could have noticed. Or the opposite - being so fidgety or restless that you have been moving around a lot more than usual: not at all 9. Thoughts that you would be better off or of hurting yourself in some way: not at all Total score: 5 Depression Screening Interpretation: Negative 94721 - PHQ-9 Billing: Yes Source: Developed by Drs. Sandeep Fletcher, Karen Fonseca, Adan Calle and colleagues, with an educational la from [employer]. Thrive Questionnaire Date Thrive assessed: 11/29/22 I am a: Patient What is your living situation today?: I have a steady place to live Within the past 12 months, did the food you bought not last and you didn't have the money to get more?: Never true Within the past 12 months, did you worry whether your food would run out before you got money to buy more?: Never true Do you have trouble paying for medicines?: No Do you have trouble getting transportation to medical appointments?: No Do you have trouble paying your heating and electricity bill?: No Do you have trouble taking care of your child, family member or friend?: No Do you have trouble with day-to-day activities such as bathing, preparing meals, shopping, managing finances, etc.?: No Are you currently unemployed and looking for a job?: No Are you interested in more education?: No AUDIT C Alcohol Use Questionnaire (AUDIT-C) 1. How often do you have a drink containing alcohol?: 2-4 times a month 2. How many drinks containing alcohol do you have on a typical day when you are drinking?: 1 or 2 3. How often do you have six or more drinks on one occasion?: Never Total Score: 2 Score Reviewed/Action Taken: Yes RENEE-7 AMB Questionnaire RENEE-7 Date RENEE - 7 assessed: 11/29/22 Feeling nervous, anxious, or on edge: 1 = Several days Not being able to stop or control worryin = Several days Worrying too much about different things: 1 = Several days Trouble relaxin = Several days Being so restless that it is hard to sit still: 1 = Several days Becoming easily annoyed or irritable: 1 = Several days Feeling afraid as if something awful might happen: 1 = Several days Total RENEE-7 score (0-4 normal; 5-9 mild; 10-14 moderate; 15-21 severe): 7 Source: Developed by Drs. Sandeep Fletcher, Karen Fonseca, Adan Calle and colleagues, with an educational la from [employer]. RENEE-7 Assessment Billing RENEE-7 Assessment Tool: RENEE-7 Assessment 21306 Review of Systems Const Denies chills and Denies fever(s) ENT Denies epistaxis and Denies nasal discharge Card Denies chest pain Resp Denies chest congestion, Denies cough and Denies hemoptysis GI Denies diarrhea and Denies nausea Skin/Breast Denies rash Neuro Reports no additional complaints Psych Reports no additional complaints Endo Reports no additional complaints Physical exam (Primary Care) Vital Signs: Last Vital Signs Pulse 84 11/29/22 10:01 BP 124/66 11/29/22 10:01 Pulse Ox 95 11/29/22 10:01 Oxygen Delivery Method Room Air 11/29/22 10:01 BMI result Body Mass Index 23.6 Tobacco/Smoking Status: Tobacco use Status Tobacco use date assessed 11/29/22 11/29/22 10:02 Patient Tobacco Use Status Former Tobacco user 11/29/22 09:58 e-Cigarette/Vaping Use Never Used 11/29/22 09:58 PHQ-9: PHQ-9 Score PHQ-9: Total score 5 11/29/22 10:22 Depression Screening Interpretation: Negative Thrive Assessment: Date of Thrive Assessment Date Thrive assessed 11/29/22 11/29/22 10:22 Const General: cooperative, comfortable and no acute distress Orientation/consciousness: patient oriented x3 HENMT Head: Yes normocephalic Eyes General: appearance normal, both eyes and all related structures Neck Neck: Yes supple Resp Effort & Inspection: normal respiratory effort, no cough and no stridor Cardio Rhythm: regular rhythm Heart sounds: S1 normal heart sound present and S2 normal heart sound present Skin General skin exam: turgor normal Neuro General: patient oriented x3, tone normal and moves all extremities Extrem Right lower extremity: no edema Left lower extremity: no edema Assessment and Plan Assessment & Plan (1) Anxiety, generalized: Code(s): F41.1 - Generalized anxiety disorder (2) Environmental allergies: Code(s): Z91.09 - Other allergy status, other than to drugs and biological substances (3) Lipid disorder: Code(s): E78.9 - Disorder of lipoprotein metabolism, unspecified (4) Alcoholism: Code(s): F10.20 - Alcohol dependence, uncomplicated (5) Dyspepsia: Code(s): R10.13 - Epigastric pain (6) Hypertension, essential: Code(s): I10 - Essential (primary) hypertension Plan Patient is 62-year-old female came in today for her regular follow-up appointment Hypertension: Blood pressure is stable, patient is on amlodipine 5 mg, atenolol chlorthalidone 50-25 mg, tolerating medication. Anxiety is stable with venlafaxine 75 mg and Topamax 25 mg b.i.d. which also helps her with migraine headaches Allergies are stable visit take and montelukast Continue atorvastatin 40 mg for lipid control. Labs were done early August she is due for another set of lab order placed to be done fasting Patient also have elevated liver enzymes She continued to drink and is trying to stop. 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 Follow-up 3 months Orders: Orders Comprehensive [place]. Panel Fast Today E78.9 - Disorder of lipoprotein metabolism, unspecified, F10.20 - Alcohol dependence, uncomplicated, F41.1 - Generalized anxiety disorder, I10 - Essential (primary) hypertension, R10.13 - Epigastric pain, Z91.09 - Other allergy status, other than to drugs and biological substances Lipid Panel Today E78.9 - Disorder of lipoprotein metabolism, unspecified, F10.20 - Alcohol dependence, uncomplicated, F41.1 - Generalized anxiety disorder, I10 - Essential (primary) hypertension, R10.13 - Epigastric pain, Z91.09 - Other allergy status, other than to drugs and biological substances Complete Blood Count Auto Diff Today E78.9 - Disorder of lipoprotein metabolism, unspecified, F10.20 - Alcohol dependence, uncomplicated, F41.1 - Generalized anxiety disorder, I10 - Essential (primary) hypertension, R10.13 - Epigastric pain, Z91.09 - Other allergy status, other than to drugs and biological substances Medications: Refilled amlodipine 5 mg PO DAILY 90 tabs 0RF 90 days atenolol-chlorthalidone 50-25 mg 1 tab PO DAILY 90 tabs 0RF 90 days atorvastatin 40 mg PO BEDTIME 90 tabs 0RF 90 days E78.9 - Disorder of lipoprotein metabolism, unspecified montelukast 10 mg PO DAILY 90 tabs 0RF topiramate 25 mg PO BID 180 tabs 0RF 90 days venlafaxine ER 75 mg PO DAILY 90 caps 0RF Coding Level of Care Code Est Pt Level 4 (88299) Diagnoses Anxiety, generalized F41.1 Environmental allergies Z91.09 Lipid disorder E78.9 Alcoholism F10.20 Dyspepsia R10.13 Hypertension, essential I10 Additional Codes RENEE-7 Assessment Billing - RENEE-7 Assessment Tool: RENEE-7 Assessment [id number] ([id number])
[2022-11-29 10:01] VITALS: BP 124/66; PULSE 84; O2SAT 95; BMI 23.6
== END 2022-11-29 10:22 | disposition home or self-care (01) ==
PROVIDERS: PCP Internal Medicine; Visit Provider Internal Medicine
DX: F41.1 Generalized anxiety disorder (principal); Z91.09 Other allergy status, other than to drugs and biological substances; F10.20 Alcohol dependence, uncomplicated; I10 Essential (primary) hypertension; E78.9 Disorder of lipoprotein metabolism, unspecified; R10.13 Epigastric pain
CPT/HCPCS: 99214

== ENCOUNTER 2023-01-02 06:56 | Outpatient (REF) | payer BC, SELFPAY ==
[2023-01-02 11:16] LABS: MANUAL DIFF FLAG NO
[2023-01-02 11:40] LABS: Appearance Urine Clear; Color Urine Dark Yellow; Glucose Urine UA Negative (Negative); Leukocyte Esterase Urine Trace (Negative); Nitrite Urine Negative (Negative); Specific Gravity - Urine 1.025 (1.005-1.025); UMIC TRIGGER UACC YES; Urine Blood Negative (Negative); Urine Ketones Trace mg/dL (Negative); Urine Protein Trace mg/dL (Neg-Trace)
[2023-01-02 11:57] LABS: Bacteria Urine 1+ (None Seen); Hyaline Casts Urine 0-2 /LPF (0-2); WBC Urine 0-5 /HPF (0-5)
[2023-01-02 12:15] LABS: Alanine Aminotransferase 23 U/L (0-31); Albumin Level 4.6 g/dL (3.5-5.0); Alkaline Phosphatase 108 U/L (39-117); Anion Gap 17 (12-20); Aspartate Amino Transferase 37 U/L (5-31); Bilirubin Total 1.2 mg/dL (0.0-1.0); Blood Urea Nitrogen 13 mg/dL (9-16); Calcium 10.2 mg/dL (8.4-10.2); Carbon Dioxide 29 mmol/L (22-29); Chloride 95 mmol/L (96-108); Cholesterol 211 mg/dL (<200); Estimated Glomerular Filt Rate > 60; Glucose Fasting 98 mg/dL (60-99); HDL Cholesterol 69 mg/dL (>40); LDL Cholesterol Calculated 106 mg/dL (<100); Sodium 138 mmol/L (135-145); Total Protein 8.4 g/dL (6.5-8.0); Triglycerides 184 mg/dL (<150)
[2023-01-02 13:02] LABS: Basophils Absolute Auto 0.1 X10*3/uL (0.0-0.2); Eosinophils Absolute Auto 0.3 X10*3/uL (0.0-0.4); Eosinophils Percent Auto 3.9 % (0-4); Hematocrit 44.7 % (37.0-47.0); Imm Gran Abs Auto 0.11 X10*3/uL (0.00-0.03); Imm Gran Pct Auto 1.4 % (0.0-0.4); Lymphocytes Absolute Auto 1.5 X10*3/uL (1.2-4.9); Lymphocytes Percent Auto 18.6 % (20-40); Mean Corpuscular HGB Conc 33.6 g/dl (31.0-35.0); Mean Corpuscular Volume 98.2 fL (80.0-98.0); Mean Platelet Volume 9.2 fL (9.4-12.3); Monocytes Absolute Auto 1.1 X10*3/uL (0.1-1.2); Neutrophils Absolute Auto 4.9 x10*3/uL (2.0-8.3); Neutrophils Percent Auto 61.1 % (45-73); Platelet Count 502 X10*3/uL (160-400); Red Blood Count 4.55 X10*6/uL (4.20-5.50)
== END 2023-01-02 06:57 | disposition home or self-care (01) ==
LOC: HO.HMGCLDS 06:56
PROVIDERS: PCP Internal Medicine; Visit Provider Internal Medicine
DX: N30.90 Cystitis, unspecified without hematuria (principal); F41.1 Generalized anxiety disorder; Z91.09 Other allergy status, other than to drugs and biological substances; E78.9 Disorder of lipoprotein metabolism, unspecified; F10.20 Alcohol dependence, uncomplicated; R10.13 Epigastric pain; I10 Essential (primary) hypertension
CPT/HCPCS: 36415; 80053; 80061; 81001; 85025

== ENCOUNTER 2023-03-03 04:05 | Emergency (ER) | payer BC, SELFPAY ==
--- NOTE | ~2023-03-03 | XR_ITS ---
EXAMINATION: XR HAND, RIGHT CLINICAL INFORMATION: Pain. COMPARISON: None available. TECHNIQUE: PA, lateral, and oblique views of the right hand. FINDINGS: The bony structures are mildly osteopenic. There is diffuse interphalangeal degenerative change with mild loss of joint space and mild subchondral sclerosis as well as osteophyte formation. There is no fracture. The soft tissues are grossly unremarkable. A surgical pin is seen extending through the distal phalanx distal interphalangeal joint and middle phalanx. XR/XR hand RT min 3V IMPRESSION: Interphalangeal degenerative change. No acute osseous abnormality.
[2023-03-03 04:08] VITALS: BP 139/91; PULSE 77; RESP 16; TEMP 36.7; O2SAT 98; BMI 23.8
--- NOTE | 2023-03-03 04:53 | PC.NURSE ---
Assumed care of pt. Pt sts hit thumb 2-3 days [employer], also sts was scratched by cat on hand several days [employer]. No active bleeding, scabbing over scratch berry. Swelling to R thumb area, pt unable to fully flex/extend thumb.
[2023-03-03 06:21] VITALS: BP 126/69; PULSE 62; RESP 13; TEMP 36.6; O2SAT 94
--- NOTE | 2023-03-03 06:34 | ED_ITS ---
HPI - General Adult General Chief complaint: General Medical Stated complaint: Hand swelling Time Seen by Provider: 03/03/23 06:26 Source: patient Mode of arrival: ambulatory Limitations: no limitations History of Present Illness HPI narrative: Patient is a 62-year-old [id number]-lbvb-ydbrez[place] female presenting with complaint of right thumb pain for the past 2 days. She states that she accidentally jammed her thumb 2 days ago prior to onset of symptoms, but reports that her cat also bites her in her sleep. She reports that her cat bites her often and that the bites typically do not get infected. States that she recently began walking her cat out of her room due to the biting. She states that the cat is indoors and is up-to-date on rabies vaccinations. She denies any fevers. Denies any numbness or tingling to hand or fingers. MD complaint: Right thumb pain Onset (ago): day(s) Location: right and upper extremity Radiation: non-radiation Severity: moderate Quality: aching Pain Consistency: constant Relieving factors: rest Exacerbating factors: movement Associated symptoms: denies other symptoms Treatments prior to arrival: none Related Data Home Medications Medication Instructions Recorded Confirmed omeprazole 20 mg tablet,delayed 20 mg PO DAILY 05/27/20 11/29/22 release Previous Rx's Medication Instructions Recorded naproxen 500 mg tablet 500 mg PO BID #14 tabs 05/04/22 nitrofurantoin 100 mg PO Q12H 5 days #10 caps 08/05/22 monohydrate/macrocrystals 100 mg capsule (Macrobid) phenazopyridine 200 mg tablet 200 mg PO TID PRN pain 2 days #6 08/05/22 (Pyridium) tabs amlodipine 5 mg tablet 5 mg PO DAILY 90 days #90 tabs 11/29/22 atenolol 50 mg-chlorthalidone 25 1 tab PO DAILY 90 days #90 tabs 11/29/22 mg tablet atorvastatin 40 mg tablet 40 mg PO BEDTIME 90 days #90 tabs 11/29/22 montelukast 10 mg tablet 10 mg PO DAILY #90 tabs 11/29/22 topiramate 25 mg tablet 25 mg PO BID 90 days #180 tabs 11/29/22 venlafaxine 75 mg capsule,extended 75 mg PO DAILY #90 caps 11/29/22 release 24 hr cetirizine 10 mg tablet (All Day 10 mg PO DAILY PRN allergy 02/21/23 Allergy (cetirizine)) symptoms 90 days #90 tabs amoxicillin 875 mg-potassium 1 tab PO BID #20 tabs 03/03/23 clavulanate 125 mg tablet naproxen 500 mg tablet 500 mg PO BID #14 tabs 03/03/23 Allergies Allergy/AdvReac Type Severity Reaction Status Date / Time bupropion [From WELLBUTRIN] Allergy Unknown HIVES Verified 11/29/22 10:00 hydroxychloroquine Allergy Unknown hives Verified 11/29/22 10:00 [Plaquenil] tramadol Allergy Unknown hives, rash Verified 11/29/22 10:00 ENVIRONMENTAL Allergy Unknown ITCHY EYES Uncoded 08/05/22 11:46 Review of Systems 2 Review of Systems: As per HPI. Yes all other systems are reviewed and are negative Constitutional: Constitutional: Reports as per HPI PMFSH Past Medical History Medical History Anxiety, generalized GERD (gastroesophageal reflux disease) Hives Hyperlipidemia Hypertension, essential Supraclavicular mass Surgical History History of left oophorectomy (09/07/11) History of right breast biopsy (10/31/11) Hx of basal cell carcinoma excision (2011) Hx of colonoscopy (08/30/11) Hx of left inguinal hernia repair (02/25/13) Hx of right inguinal hernia repair (2003) Family History Family History Father Cardiac disease Mother Cardiac disease HTN (hypertension) Other Substance use disorder Social History Social History Household Members: Spouse Housing: House Do you presently have visiting nurse or other home services: No Alcohol intake: former Patient Tobacco Use Status: Former Tobacco user Smoked in Last 30 Days: No e-Cigarette/Vaping Use: Never Used Use of substances other than those prescribed or required for medical reasons: Yes Substance Use Type: Marijuana Advance Directives: No Advance Directives Information Provided: No Patient : No service: No Current occupational status: employed Cognitive needs: No Hearing needs: No Vision needs: No Physical Exam ED Vital Signs: Vital Signs - 24 hr 03/03/23 04:08 03/03/23 06:21 Temperature 98.1 F 98 F Pulse Rate 77 62 Respiratory Rate 16 13 Blood Pressure 139/91 H 126/69 Pulse Oximetry 98 94 Oxygen Delivery Method Room Air Room Air BMI result Body Mass Index 23.8 Vital signs have been reviewed and appear to be correct. Blood pressure normal. Heart rate normal. Respiratory rate normal. Temperature normal. Oxygen saturation normal. Const General: cooperative, healthy appearing and no acute distress Orientation/consciousness: oriented to person, oriented to place, oriented to time and patient oriented x3 Limitations: no limitations HENMT Head: Yes normocephalic and Yes atraumatic Ears: external ears normal General nose exam: Normal external nose present Face and sinus: Yes face symmetric Mouth: oropharynx normal and moist mucous membranes Throat: Yes uvula midline Eyes Pupils: Equal, round and reactive pupils present Neck Neck: Yes normal visual inspection and Yes supple Resp Effort & Inspection: normal respiratory effort and able to speak in complete sentences Auscultation: clear to auscultation bilaterally Cardio Rate: regular rate Rhythm: regular rhythm Heart sounds: S1 normal heart sound present and S2 normal heart sound present Skin General skin exam: elasticity normal and turgor normal Neuro General: oriented to person, oriented to place, oriented to time, patient oriented x3, moves all extremities, no focal motor deficits and CN's II-XI intact bilaterally Cranial nerves: Yes Equal, round and reactive pupils present Cognition (Neuro): normal cognition Extrem Other: General: Yes full ROM, Yes no pedal edema and Yes no calf tenderness Right upper extremity: Extremity exam: right hand (erythema and mild swelling to thenar eminence as well as 2 puncture wounds) Details: normal capillary refill, neuromotor exam normal, neurosensory exam normal, tendon exam normal, tenderness Location: of the thumb Location: at the thenar eminence and at the MCP joint, vascular exam Details: radial pulse present and normal capillary refill, normal ROM of fingers, warmth Location: of the thumb Location: at the thenar eminence and swelling Location: of the thumb Location: at the MCP joint (mild) Psych Mental Status: mental status grossly normal Affect: normal affect Thought process: Normal thought process present Medical Decision Making Medical Decision Making MDM Narrative: Patient is a 62-year-old oagih-gare-afulvaxc female presenting with complaint of right thumb pain for the past 2 days. On exam patient is awake, A+Ox3, VS WNL, afebrile, normal neurological exam without focal deficits, physical exam findings as above. Given reported symptoms and physical exam findings, initial differential includes cellulitis, contusion, fracture, degenerative changes. X- ray notable for degenerative changes, no fracture. My interpretation is in agreement with the radiologist's interpretation. Given erythema, warmth and mild swelling around puncture wounds will treat cat bites with Augmentin. Will also prescribe naproxen for pain. Advised patient to so can in warm water with Epsom salt several times daily and to monitor the area daily for signs of worsening infection. Strict return precautions discussed with patient. Rabies vaccine deferred as patient states cat is up-to-date on vaccinations. Instructed patient to follow-up with primary care provider. Patient verbalized understanding of and agreement plan. Differential Diagnosis Differential Diagnoses: The differential diagnosis associated with the presentation includes As per MDM. Independent Interpretation I performed an independent interpretation of an: Plain X-Ray Interpretation: No acute fracture, degenerative changes Radiology Impression Discussion of test interpretation with radiology: I have reviewed the radiologist's reading. Radiologist Impression: XR/XR hand RT min 3V IMPRESSION: Interphalangeal degenerative change. No acute osseous abnormality. External Record Review External record reviewed: Inpatient record, Office record and Outpatient record Prescription Management I considered prescription management with: Antibiotic Discharge Plan Discharge Clinical Impression: Cat bite of hand Qualifiers: Encounter type: initial encounter Laterality: right Qualified Code(s): S61.451A - Open bite of right hand, initial encounter Contusion of right thumb Qualifiers: Encounter type: initial encounter Damage to nail status: without damage Q ualified Code(s): S60.011A - Contusion of right thumb without damage to nail, initial encounter Patient Disposition: Home, Self-Care Instructions: Animal Bite (ED), Contusion in Adults (ED), R.I.C.E. Treatment (ED) Additional Instructions: You were evaluated in the emergency department today for right thumb pain which is likely related to a contusion but you are also being treated with antibiotics for cat bite. Please complete the full course of antibiotics as prescribed. You can soak your hand in warm water with Epsom salt several times daily. You should monitor the area daily for any signs of worsening infection. Return to the emergency department if you develop increasing pain, redness, swelling, thick yellow drainage, redness streaking up your arm, fever 100.4? F, or any other concerning symptoms. Please follow-up with your primary care provider this week. Prescriptions: New naproxen 500 mg tablet 500 mg PO BID Qty: 14 0RF amoxicillin-pot clavulanate 875-125 mg tablet 1 tab PO BID Qty: 20 0RF No Action cetirizine [All Day Allergy (cetirizine)] 10 mg tablet 10 mg PO DAILY PRN (Reason: allergy symptoms) 90 Days Qty: 90 0RF omeprazole 20 mg tablet,delayed release (DR/EC) 20 mg PO DAILY phenazopyridine [Pyridium] 200 mg tablet 200 mg PO TID PRN (Reason: pain) 2 Days Qty: 6 0RF nitrofurantoin monohyd/m-cryst [Macrobid] 100 mg capsule 100 mg PO Q12H 5 Days Qty: 10 0RF Rx Instructions: must administer with a meal/food naproxen 500 mg tablet 500 mg PO BID Qty: 14 0RF amlodipine 5 mg tablet 5 mg PO DAILY 90 Days Qty: 90 0RF atenolol-chlorthalidone 50-25 mg tablet 1 tab PO DAILY 90 Days Qty: 90 0RF atorvastatin 40 mg tablet 40 mg PO BEDTIME 90 Days Qty: 90 0RF montelukast 10 mg tablet 10 mg PO DAILY Qty: 90 0RF topiramate 25 mg tablet 25 mg PO BID 90 Days Qty: 180 0RF venlafaxine 75 mg capsule,extended release 24hr 75 mg PO DAILY Qty: 90 0RF Stand Alone Forms: Work/School Release
== END 2023-03-03 06:46 | disposition home or self-care (01) ==
PROVIDERS: Emergency Provider Emergency Medicine Emergency Medical Services; PCP Internal Medicine
DX: S61.451A Open bite of right hand, initial encounter (principal); S60.011A Contusion of right thumb without damage to nail, initial encounter; R60.0 Localized edema; M79.641 Pain in right hand; Z87.891 Personal history of nicotine dependence; W55.01XA Bitten by cat, initial encounter; Y93.9 Activity, unspecified; Y92.003 Bedroom of unspecified non-institutional (private) residence as the place of occurrence of the external cause; Y99.9 Unspecified external cause status
CPT/HCPCS: 73130; 99283; 99284

== ENCOUNTER 2023-03-04 05:51 | Emergency (ER) | payer BC, SELFPAY ==
--- NOTE | ~2023-03-04 | CT_ITS ---
EXAMINATION: CT HEAD WITHOUT CONTRAST CT CERVICAL SPINE WITHOUT CONTRAST CLINICAL INFORMATION: Fall. COMPARISON: None TECHNIQUE: CT of the head and cervical spine were performed without intravenous contrast. Multiplanar reformats were rendered and reviewed. This CT examination was performed using dose optimization techniques as appropriate, variously including the following: *Automated exposure control *Adjustment of mA and/or kV according to patient size (this includes techniques or standardized protocols for targeted exams where dose is matched to indication/reason for exam; i.e. extremities or head) *Use of iterative reconstruction technique DLP: 1448 mGy-cm. FINDINGS: CT head: No intracranial hemorrhage, large infarction, or mass lesion is seen. No extra-axial collection is appreciated. The ventricles are normal in size and configuration without evidence of hydrocephalus. Mild mucosal thickening involving the maxillary sinuses. The mastoid air cells are clear. Deviation of the nasal septum toward the right. CT cervical spine: The vertebral body heights appear maintained. No cervical spine fracture is seen. Moderate to severe disc degenerative change at C5-C7, with mild anterior osteophyte formation at these levels. Facet degenerative changes most notable at C2-C6. Approximately 2 mm anterior subluxation of C4 on C5 and C7 on T1 mild bilateral neuroforaminal narrowing at C6-C7. Mild neuroforaminal narrowing at C3-C4, C4-C5, and C5-C6 on the right. The paraspinal soft tissues appear within normal limits. The partially imaged lung apices appear clear. CT/CT head/brain wo IV con IMPRESSION: CT head: No acute intracranial finding. CT cervical spine: No cervical spine fracture or traumatic malalignment identified.
--- NOTE | ~2023-03-04 | CT_ITS ---
EXAMINATION: CT LUMBAR SPINE WITHOUT CONTRAST CLINICAL INFORMATION: Pain following fall COMPARISON: CT abdomen from 08/06/2021 TECHNIQUE: A spiral CT scan of the lumbar spine was obtained without administration of IV contrast. Contiguous transverse, coronal and sagittal bone algorithm images were reconstructed at 2-mm increments This CT examination was performed using dose optimization techniques as appropriate, variously including the following: *Automated exposure control *Adjustment of mA and/or kV according to patient size (this includes techniques or standardized protocols for targeted exams where dose is matched to indication/reason for exam; i.e. extremities or head) *Use of iterative reconstruction technique DLP; 355 mGy-cm FINDINGS: When compared to the previous examination there is more prominent deformity of L1 vertebral body with approximately 25% loss of height anterior and more prominent Schmorl's hernias. There is no retropulsion. The rest of vertebral bodies reveal diffuse osteopenia but no compression deformities or significant degenerative changes. Partially visualized retroperitoneal is unremarkable. CT/CT lumbar spine wo IV con IMPRESSION: Mild compression deformity of L1 vertebral body with 25% loss of height and as known from CT scan of the chest there is fracture of T10 vertebral body also.
--- NOTE | ~2023-03-04 | CT_ITS ---
EXAMINATION: CT HEAD WITHOUT CONTRAST CT CERVICAL SPINE WITHOUT CONTRAST CLINICAL INFORMATION: Fall. COMPARISON: None TECHNIQUE: CT of the head and cervical spine were performed without intravenous contrast. Multiplanar reformats were rendered and reviewed. This CT examination was performed using dose optimization techniques as appropriate, variously including the following: *Automated exposure control *Adjustment of mA and/or kV according to patient size (this includes techniques or standardized protocols for targeted exams where dose is matched to indication/reason for exam; i.e. extremities or head) *Use of iterative reconstruction technique DLP: 1448 mGy-cm. FINDINGS: CT head: No intracranial hemorrhage, large infarction, or mass lesion is seen. No extra-axial collection is appreciated. The ventricles are normal in size and configuration without evidence of hydrocephalus. Mild mucosal thickening involving the maxillary sinuses. The mastoid air cells are clear. Deviation of the nasal septum toward the right. CT cervical spine: The vertebral body heights appear maintained. No cervical spine fracture is seen. Moderate to severe disc degenerative change at C5-C7, with mild anterior osteophyte formation at these levels. Facet degenerative changes most notable at C2-C6. Approximately 2 mm anterior subluxation of C4 on C5 and C7 on T1 mild bilateral neuroforaminal narrowing at C6-C7. Mild neuroforaminal narrowing at C3-C4, C4-C5, and C5-C6 on the right. The paraspinal soft tissues appear within normal limits. The partially imaged lung apices appear clear. CT/CT cervical spine wo IV con IMPRESSION: CT head: No acute intracranial finding. CT cervical spine: No cervical spine fracture or traumatic malalignment identified.
--- NOTE | ~2023-03-04 | CT_ITS ---
EXAMINATION: CT CHEST WITHOUT CONTRAST CLINICAL INFORMATION: Pain following fall this morning COMPARISON: None available. TECHNIQUE: Multidetector volumetric CT imaging of the chest was done. Axial MIP volume rendering provided. Sagittal and coronal reformatted images were obtained. This CT examination was performed using dose optimization techniques as appropriate, variously including the following: *Automated exposure control *Adjustment of mA and/or kV according to patient size (this includes techniques or standardized protocols for targeted exams where dose is matched to indication/reason for exam; i.e. extremities or head) *Use of iterative reconstruction technique DLP: 214.7 mGy-cm FINDINGS: LABOR RELATIONS SPECIALIST: Unremarkable LUNGS: Lungs are clear with bibasilar atelectasis, no evidence of pneumothorax, pleural effusion, lung nodules or consolidation. MEDIASTINUM: The mediastinum is normal. CORONARY ARTERY CALCIFICATION: None visualized on this study. PLEURA: There is no pleural effusion. No pleural mass or thickening. AXILLA: No lymphadenopathy. UPPER ABDOMEN: Liver is of low attenuation due to hepatic steatosis without hepatic masses or ductal dilatation. Spleen unremarkable. There is small hiatal hernia. There is no adrenal megaly. Visualized pancreas, kidneys are unremarkable. OSSEOUS STRUCTURES: There is compression deformity of T10 vertebral body without retropulsion of fragments, new since CT scan of the abdomen from 08/06/2021. There is healed fracture of ribs #4 on the left with callus formation CT/CT chest wo IV con IMPRESSION: 1. No acute abnormalities. 2. Hepatic steatosis. 3. Small hiatal hernia. 4. Compression deformity of T10 vertebral body, new since 2021. 5. Healed fracture of ribs #4 on the left. Fleischner guidelines were followed.
[2023-03-04 05:59] VITALS: BP 132/76; BP 155/84; PULSE 83; PULSE 86; RESP 14; TEMP 36.7; O2SAT 94; O2SAT 98; BMI 25.6
--- NOTE | 2023-03-04 06:31 | ED.GENADULT ---
HPI - General Adult General Chief complaint: Fall Stated complaint: FALL, LOWER BACK PAIN Time Seen by Provider: 03/04/23 06:31 Source: patient and EMS Mode of arrival: EMS Limitations: no limitations History of Present Illness HPI narrative: Patient is a 62 year old assigned female at with a history of HTN, anxiety, and alcohol abuse presenting to the emergency department today with low back pain after a trip and fall. Patient states that she fell on 03/03/2023, landed on her back, and has been having back pain ever since. Patient denies hitting her head or any loss of consciousness. Patient denies any dizziness, lightheadedness, abdominal pain, nausea, vomiting, fever, chills, blurry vision, double vision, loss of vision, chest pain, difficulty breathing, shortness of breath, night sweats, pain with urination, increased urinary frequency, increased urinary urgency, blood in her urine or stool, syncope or a near syncopal episode, bowel incontinence, bladder incontinence, bowel retention, bladder retention, or any other complaints at this time. Onset (ago): day(s) (1) Location: back Radiation: non-radiation Severity: mild Severity scale (1-10): 3 Quality: aching and dull Pain Consistency: constant Relieving factors: immobilization Exacerbating factors: movement Associated symptoms: denies other symptoms Treatments prior to arrival: none Related Data Home Medications Medication Instructions Recorded Confirmed omeprazole 20 mg tablet,delayed 20 mg PO DAILY 05/27/20 11/29/22 release Previous Rx's Medication Instructions Recorded naproxen 500 mg tablet 500 mg PO BID #14 tabs 05/04/22 nitrofurantoin 100 mg PO Q12H 5 days #10 caps 08/05/22 monohydrate/macrocrystals 100 mg capsule (Macrobid) phenazopyridine 200 mg tablet 200 mg PO TID PRN pain 2 days #6 08/05/22 (Pyridium) tabs amlodipine 5 mg tablet 5 mg PO DAILY 90 days #90 tabs 11/29/22 atenolol 50 mg-chlorthalidone 25 1 tab PO DAILY 90 days #90 tabs 11/29/22 mg tablet atorvastatin 40 mg tablet 40 mg PO BEDTIME 90 days #90 tabs 11/29/22 montelukast 10 mg tablet 10 mg PO DAILY #90 tabs 11/29/22 topiramate 25 mg tablet 25 mg PO BID 90 days #180 tabs 11/29/22 venlafaxine 75 mg capsule,extended 75 mg PO DAILY #90 caps 11/29/22 release 24 hr cetirizine 10 mg tablet (All Day 10 mg PO DAILY PRN allergy 02/21/23 Allergy (cetirizine)) symptoms 90 days #90 tabs amoxicillin 875 mg-potassium 1 tab PO BID #20 tabs 03/03/23 clavulanate 125 mg tablet naproxen 500 mg tablet 500 mg PO BID #14 tabs 03/03/23 oxycodone 5 mg tablet 5 mg PO Q6H PRN pain #5 tabs 03/04/23 Allergies Allergy/AdvReac Type Severity Reaction Status Date / Time bupropion [From WELLBUTRIN] Allergy Unknown HIVES Verified 11/29/22 10:00 hydroxychloroquine Allergy Unknown hives Verified 11/29/22 10:00 [Plaquenil] tramadol Allergy Unknown hives, rash Verified 11/29/22 10:00 ENVIRONMENTAL Allergy Unknown ITCHY EYES Uncoded 08/05/22 11:46 Review of Systems Constitutional: Constitutional: Reports no additional constitutional complaints, Denies chills, Denies fever(s) and Denies night sweats Eyes: Eyes: Reports no additional eye complaints, Denies blurry vision, Denies change in vision, Denies diplopia, Denies eye discharge, Denies loss of vision and Denies eye pain ENT: Denies dizziness Cardiovascular: Cardiovascular: Reports no additional cardiovascular complaints, Denies chest pain, Denies lightheadedness, Denies Loss of Consciousness and Denies dyspnea Respiratory: Respiratory: Reports no additional respiratory complaints and Denies dyspnea Gastrointestinal: Gastrointestinal: Reports no additional gastrointestinal complaints, Denies abdominal pain, Denies melena, Denies hematochezia, Denies change in bowel habits and Denies change in stool character Genitourinary: Genitourinary: Denies hematuria, Denies urinary frequency, Denies dysuria, Denies urinary incontinence, Denies urinary hesitancy and Denies urinary urgency Musculoskeletal: Musculoskeletal: Reports no additional musculoskeletal complaints, Reports back pain, Denies numbness and Denies tingling Neurologic: Denies dizziness, Denies loss of vision, Denies numbness and Denies tingling Psychiatric: Psychiatric: Reports no additional psychiatric complaints Endocrine: Endocrine: Reports no additional endocrine complaints Hematologic/Lymphatic: Hematologic/Lymphatic: Reports no additional hematologic/lymphatic complaints Allergic/Immunologic: Allergic/Immunologic: Reports no additional allergic/immunologic complaints FOR[facility], [facility] Past Medical History Attestation statement: The following information was validated with the patient. Source: old records reviewed and nursing notes reviewed Medical History Positive colorectal cancer screening using Cologuard test Cystitis Papanicolaou smear declined Colonoscopy refused Mammogram declined Muscle spasm Lumbar pain Hospital discharge follow-up Acute hypokalemia Fall Hematoma Alcohol use disorder, mild, in early remission, abuse Alcoholism Hospital discharge follow-up Hypokalemia Uncontrolled hypertension Abnormal EKG Breast screening Encounter for general adult medical examination with abnormal findings Supraclavicular mass Hyperlipidemia GERD (gastroesophageal reflux disease) Hypertension, essential Anxiety, generalized Hives Surgical History Hx of colonoscopy (08/30/11) History of right breast biopsy (10/31/11) Hx of left inguinal hernia repair (02/25/13) Hx of basal cell carcinoma excision (2011) History of left oophorectomy (09/07/11) Hx of right inguinal hernia repair (2003) Family History Family History Father Cardiac disease Mother Cardiac disease HTN (hypertension) Other Substance use disorder Social History Social History Household Members: Spouse Housing: House Do you presently have visiting nurse or other home services: No Alcohol intake: current Alcohol intake frequency: 3 or more drinks per day Alcohol type: hard liquor Patient Tobacco Use Status: Former Tobacco user Smoked in Last 30 Days: No e-Cigarette/Vaping Use: Never Used Use of substances other than those prescribed or required for medical reasons: No Substance Use Type: Marijuana Advance Directives: No Advance Directives Information Provided: No Patient : No service: No Current occupational status: employed Cognitive needs: No Hearing needs: No Vision needs: No Physical Exam ED Vital Signs: Vital Signs - 24 hr 03/04/23 05:59 03/04/23 09:31 03/04/23 11:17 Temperature 98.0 F Pulse Rate 86 95 101 H Respiratory Rate 14 20 18 Blood Pressure 155/84 H 163/86 H 176/101 H Pulse Oximetry 94 95 94 Oxygen Delivery Method Room Air Room Air Room Air BMI result Body Mass Index 25.6 Const General: cooperative, no acute distress, alert and awake Nutritional Appearance: well nourished Orientation/consciousness: patient oriented x3 Limitations: no limitations HENMT Head: Yes normal to inspection and Yes atraumatic Ears: hearing grossly normal bilaterally and external ears normal General nose exam: Normal external nose present, no nasal discharge noted and no epistaxis Face and sinus: Yes normal facial exam, No abrasion and No laceration Mouth: Normal oral and palatal mucosa present, no drooling and no muffled voice Eyes General: appearance normal, both eyes and all related structures Periorbital: periorbital findings normal Eyelids: Yes eyelids normal Conjunctivae: conjunctivae normal Pupils: Equal, round and reactive pupils present EOM: EOMs intact bilaterally Neck Neck: Yes normal visual inspection, Yes full ROM and Yes no lymphadenopathy Chest Chest palpation & inspection: normal inspection of the chest Resp Effort & Inspection: normal respiratory effort and able to speak in complete sentences GI Inspection: Yes normal to inspection General: Yes no CVA tenderness Back/Spine/Pelvis Other: pain with any movement of back Back: no CVA tenderness Cervical Spine: normal cervical lordosis and cervical ROM normal Thoracic/Lumbar Spine: thoracic and lumbar spine normal to inspection and thoraco-lumbar ROM normal Neuro General: patient oriented x3 and moves all extremities Cranial nerves: Yes Equal, round and reactive pupils present Cognition (Neuro): normal cognition Motor exam (neuro): 5/5 motor strength present throughout Sensory Exam: Normal double simultaneous stimulation for sensation Coordination: [id number] test normal Extrem General: Yes normal to inspection, Yes full ROM and Yes capillary refill normal Psych Appearance: grossly normal Mental Status: mental status grossly normal Affect: normal affect Attitude: cooperative Thought process: Normal thought process present Thought content: Normal thought content present Insight: Good insight present (Psych) Medications Administered Discontinued Medications Generic Name Dose Route Start Last Admin Trade Name Freq PRN Reason Stop Dose Admin Amoxicillin/Clavulanate Potassium 875 mg 03/04/23 11:02 03/04/23 11:06 Amoxicillin/Potassium Clav 875 Mg Tablet PO 03/04/23 11:03 875 mg ONCE ONE Administration Hydromorphone HCl 1 mg 03/04/23 09:25 03/04/23 09:33 Hydromorphone Hcl 1 Mg/Ml Syringe IVPUSH 03/04/23 09:26 1 mg ONCE ONE Administration Protocol Morphine Sulfate 4 mg 03/04/23 06:41 03/04/23 06:54 Morphine Sulfate 4 Mg/Ml Cartridge IVPUSH 03/04/23 06:42 4 mg ONCE ONE Administration Protocol Ondansetron HCl 4 mg 03/04/23 06:41 03/04/23 06:54 Ondansetron Hcl 4 Mg/2 Ml Vial IVPUSH 03/04/23 06:42 4 mg ONCE ONE Administration Medical Decision Making Medical Decision Making MDM Narrative: Patient is a 62 year old assigned female at with a history of alcohol abuse and HTN presenting to the emergency department today with back pain after a fall. Patient's physical exam was as noted in the physical exam portion of this note. Patient's head and c-spine CTs showed no acute process. Patient's chest and lumbar CTs showed evidence of a compression fractures of T10 and L1. I explained my physical exam findings as well as all test results to the patient. I answered all questions asked by the patient. Patient received pain medication while in the department which she stated helped her pain significantly. I stressed the importance of the patient taking her medication as prescribed. I stressed the importance of the patient following up with her primary care provider and a recruiting specialist. I stressed the importance of the patient returning to the emergency department immediately if her symptoms were to worsen or if she were to develop any dizziness, shortness of breath, difficulty breathing, chest pain, blurry vision, loss of vision, nausea, vomiting, abdominal pain, fever, chills, back pain, or any other complaints. Patient verbalized agreement and understanding with this treatment plan and discharge. Differential Diagnosis Differential Diagnoses: The differential diagnosis associated with the presentation includes Fall Vertebral fracture Admission/Observation Consideration of admission/observation: Escalation of care including admission/observation considered Patient would have been admitted to the hospital had her work up had any findings where hospital admission was appropriate and her clinical presentation warranted hospital admission. Independent Interpretation I performed an independent interpretation of an: CT Scan Interpretation: My interpretation is in agreement with the radiologist's impression of these imaging studies. EXAMINATION: CT HEAD WITHOUT CONTRAST CT CERVICAL SPINE WITHOUT CONTRAST CLINICAL INFORMATION: Fall. COMPARISON: None TECHNIQUE: CT of the head and cervical spine were performed without intravenous contrast. Multiplanar reformats were rendered and reviewed. This CT examination was performed using dose optimization techniques as appropriate, variously including the following: *Automated exposure control *Adjustment of mA and/or kV according to patient size (this includes techniques or standardized protocols for targeted exams where dose is matched to indication/reason for exam; i.e. extremities or head) *Use of iterative reconstruction technique DLP: 1448 mGy-cm. FINDINGS: CT head: No intracranial hemorrhage, large infarction, or mass lesion is seen. No extra-axial collection is appreciated. The ventricles are normal in size and configuration without evidence of hydrocephalus. Mild mucosal thickening involving the maxillary sinuses. The mastoid air cells are clear. Deviation of the nasal septum toward the right. CT cervical spine: The vertebral body heights appear maintained. No cervical spine fracture is seen. Moderate to severe disc degenerative change at C5-C7, with mild anterior osteophyte formation at these levels. Facet degenerative changes most notable at C2-C6. Approximately 2 mm anterior subluxation of C4 on C5 and C7 on T1 mild bilateral neuroforaminal narrowing at C6-C7. Mild neuroforaminal narrowing at C3-C4, C4-C5, and C5-C6 on the right. The paraspinal soft tissues appear within normal limits. The partially imaged lung apices appear clear. CT/CT cervical spine wo IV con IMPRESSION: CT head: No acute intracranial finding. CT cervical spine: No cervical spine fracture or traumatic malalignment identified. Dictated By: All Vilchis Signed By: Electronically signed by All Vilchis 03/04/23 0904 EXAMINATION: CT CHEST WITHOUT CONTRAST CLINICAL INFORMATION: Pain following fall this morning COMPARISON: None available. TECHNIQUE: Multidetector volumetric CT imaging of the chest was done. Axial MIP volume rendering provided. Sagittal and coronal reformatted images were obtained. This CT examination was performed using dose optimization techniques as appropriate, variously including the following: *Automated exposure control *Adjustment of mA and/or kV according to patient size (this includes techniques or standardized protocols for targeted exams where dose is matched to indication/reason for exam; i.e. extremities or head) *Use of iterative reconstruction technique DLP: 214.7 mGy-cm FINDINGS: HEALTH IT SPECIALIST: Unremarkable LUNGS: Lungs are clear with bibasilar atelectasis, no evidence of pneumothorax, pleural effusion, lung nodules or consolidation. MEDIASTINUM: The mediastinum is normal. CORONARY ARTERY CALCIFICATION: None visualized on this study. PLEURA: There is no pleural effusion. No pleural mass or thickening. AXILLA: No lymphadenopathy. UPPER ABDOMEN: Liver is of low attenuation due to hepatic steatosis without hepatic masses or ductal dilatation. Spleen unremarkable. There is small hiatal hernia. There is no adrenal megaly. Visualized pancreas, kidneys are unremarkable. OSSEOUS STRUCTURES: There is compression deformity of T10 vertebral body without retropulsion of fragments, new since CT scan of the abdomen from 08/06/2021. There is healed fracture of ribs #4 on the left with callus formation CT/CT chest wo IV con IMPRESSION: 1. No acute abnormalities. 2. Hepatic steatosis. 3. Small hiatal hernia. 4. Compression deformity of T10 vertebral body, new since 2021. 5. Healed fracture of ribs #4 on the left. Fleischner guidelines were followed. Dictated By: Keith Gonzales MD Signed By: Electronically signed by Keith Gonzales MD 03/04/23 9837 EXAMINATION: CT LUMBAR SPINE WITHOUT CONTRAST CLINICAL INFORMATION: Pain following fall COMPARISON: CT abdomen from 08/06/2021 TECHNIQUE: A spiral CT scan of the lumbar spine was obtained without administration of IV contrast. Contiguous transverse, coronal and sagittal bone algorithm images were reconstructed at 2-mm increments This CT examination was performed using dose optimization techniques as appropriate, variously including the following: *Automated exposure control *Adjustment of mA and/or kV according to patient size (this includes techniques or standardized protocols for targeted exams where dose is matched to indication/reason for exam; i.e. extremities or head) *Use of iterative reconstruction technique DLP; 355 mGy-cm FINDINGS: When compared to the previous examination there is more prominent deformity of L1 vertebral body with approximately 25% loss of height anterior and more prominent Schmorl's hernias. There is no retropulsion. The rest of vertebral bodies reveal diffuse osteopenia but no compression deformities or significant degenerative changes. Partially visualized retroperitoneal is unremarkable. CT/CT lumbar spine wo IV con IMPRESSION: Mild compression deformity of L1 vertebral body with 25% loss of height and as known from CT scan of the chest there is fracture of T10 vertebral body also. Dictated By: Keith Gonzales MD Signed By: Electronically signed by Keith Gonzales MD 03/04/23 1036 Radiology Impression Discussion of test interpretation with radiology: I have reviewed the radiologist's reading. Independent Historian Clinical information obtained from an independent historian. History obtained from or confirmed by: EMS (EMS provided additional history and confirmed the history provided by the patient.) Prescription Management I considered prescription management with: Pain Medication (patient prescribed pain medication.) Chronic Conditions Patient?s care impacted by: Hypertension and Other (alcohol abuse) Critical Care Time Critical Care Time Critical Care Time: Yes Total Critical Care Time: 45 Attestation: I spent 45 minutes of Critical Care Time with this patient. This does not include time spent on separately reported billable procedures. Discharge Plan Discharge Clinical Impression: Fracture of thoracic spine, Fracture of lumbar spine Patient Disposition: Home, Self-Care Instructions: Vertebral Compression Fracture (ED) Additional Instructions: Follow up with your primary care provider and a recruiting specialist. DO NOT DRINK ALCOHOL OR USE OTHER SUBSTANCES WHILE ON PAIN MEDICATION. Return to the emergency department immediately if your symptoms worsen or if you develop any dizziness, shortness of breath, difficulty breathing, chest pain, blurry vision, loss of vision, nausea, vomiting, abdominal pain, fever, chills, back pain, or any other complaints. Prescriptions: New oxycodone 5 mg tablet 5 mg PO Q6H PRN (Reason: pain) Qty: 5 0RF Rx Instructions: Partial Fill upon patient request. No Action cetirizine [All Day Allergy (cetirizine)] 10 mg tablet 10 mg PO DAILY PRN (Reason: allergy symptoms) 90 Days Qty: 90 0RF naproxen 500 mg tablet 500 mg PO BID Qty: 14 0RF amoxicillin-pot clavulanate 875-125 mg tablet 1 tab PO BID Qty: 20 0RF omeprazole 20 mg tablet,delayed release (DR/EC) 20 mg PO DAILY phenazopyridine [Pyridium] 200 mg tablet 200 mg PO TID PRN (Reason: pain) 2 Days Qty: 6 0RF nitrofurantoin monohyd/m-cryst [Macrobid] 100 mg capsule 100 mg PO Q12H 5 Days Qty: 10 0RF Rx Instructions: must administer with a meal/food naproxen 500 mg tablet 500 mg PO BID Qty: 14 0RF amlodipine 5 mg tablet 5 mg PO DAILY 90 Days Qty: 90 0RF atenolol-chlorthalidone 50-25 mg tablet 1 tab PO DAILY 90 Days Qty: 90 0RF atorvastatin 40 mg tablet 40 mg PO BEDTIME 90 Days Qty: 90 0RF montelukast 10 mg tablet 10 mg PO DAILY Qty: 90 0RF topiramate 25 mg tablet 25 mg PO BID 90 Days Qty: 180 0RF venlafaxine 75 mg capsule,extended release 24hr 75 mg PO DAILY Qty: 90 0RF Referrals: [facility] [Provider Group] (Call to establish and follow up with a recruiting specialist. ) Ros Lunsford MD [Primary Care Provider] - Interventions: ED Discharge Assessment Last Done: 03/04/23 11:18 Discharge Date/Time: 03/04/23 11:19 Print Language: Czech
[2023-03-04] MEDS: Morphine Sulfate 4 MG/ML CARTRIDGE IVPUSH (06:54)
[2023-03-04] MEDS: ondansetron HCL 4 MG/2 ML VIAL IVPUSH (06:54)
--- NOTE | 2023-03-04 07:49 | PC.NURSE ---
ASSUMED CARE OF THIS PT. PT SUPINE IN STRETCHER, STATES SLIGHT RELIEF FROM LUMBAR PAIN AFTER MOP, THOUGH PAIN 10/[address] AWAITING CT SCAN
[2023-03-04 09:31] VITALS: BP 163/86; PULSE 95; RESP 20; O2SAT 95
[2023-03-04] MEDS: HYDROmorphone HCl 1 MG/ML SYRINGE IVPUSH (09:33)
--- NOTE | 2023-03-04 09:57 | PC.NURSE ---
PT UP TO COMMODE, INDEPENDENTLY TRANSFERRING PER PCT. C/O INC PAIN AFTER RETURN TO BED, PROVIDER NOTIFIED. ENDORSES PAIN WRAPPING AROUND TO BILAT RIBS, DENIES PARESTHESIAS.
[2023-03-04] MEDS: Amoxicillin/Potassium Clav 875 MG TABLET PO (11:06)
[2023-03-04 11:17] VITALS: BP 176/101; PULSE 101; RESP 18; O2SAT 94
== END 2023-03-04 11:19 | disposition home or self-care (01) ==
PROVIDERS: Emergency Provider Internal Medicine; PCP Internal Medicine
DX: S22.070A Wedge compression fracture of T9-T10 vertebra, initial encounter for closed fracture (principal); S32.010A Wedge compression fracture of first lumbar vertebra, initial encounter for closed fracture; W18.30XA Fall on same level, unspecified, initial encounter; I10 Essential (primary) hypertension; E78.5 Hyperlipidemia, unspecified; F10.10 Alcohol abuse, uncomplicated; Y90.9 Presence of alcohol in blood, level not specified; Z87.891 Personal history of nicotine dependence; Y93.9 Activity, unspecified; Y92.9 Unspecified place or not applicable; Y99.9 Unspecified external cause status
CPT/HCPCS: 70450; 71250; 72125; 72131; 96374; 96375; 99284; J1170; J2270; J2405

== ENCOUNTER 2023-03-05 11:55 | Emergency (ER) | payer BC, SELFPAY ==
[2023-03-05 11:59] VITALS: BP 167/95; PULSE 121; O2SAT 98
[2023-03-05 12:04] VITALS: BP 155/82; PULSE 100; RESP 18; TEMP 36.8; O2SAT 97; BMI 22.9
[2023-03-05] MEDS: Lidocaine 4 % Patch ADH..PATCH 1 PATCH TRANSDERMA (12:22)
[2023-03-05] MEDS: Ketorolac Tromethamine 15 MG/ML VIAL IM (12:22)
[2023-03-05] MEDS: oxyCODONE HCl Immed Release 5 MG TABLET PO (12:22)
[2023-03-05] MEDS: Cyclobenzaprine HCl 10 MG TABLET PO (12:22)
--- NOTE | 2023-03-05 12:27 | ED_ITS ---
HPI - Back Pain/Injury General Chief Complaint: Back Pain/Injury Stated Complaint: BACK PAIN Time Seen by Provider: 03/05/23 12:06 Source: patient and EMS Mode of arrival: EMS Limitations: no limitations History of Present Illness HPI Narrative: 62-year-old female with history of hypertension, alcohol use disorder presents the ER with complaints of lower back pain. Of note patient reports she was seen here yesterday after fall and was diagnosed with than lumbar compression fracture. She was sent home with 5 tablets of oxycodone with recommendations to follow-up with her primary care doctor. Patient reports she has taken Tylenol and all 5 tablets of her oxycodone since being home with continued pain. She denies any radiation of pain. No numbness or tingling of the extremities. No numbness in the groin. No bowel or bladder incontinence. No fevers or chills. Patient is quite tremulous. Patient reports that she drinks 3 glasses of vodka 3 times a week. Denies additional substance use. Of note, patient was offered additional services for intractable pain yesterday but she declined this. Patient reports that she takes care of her at home who is disabled and this is why she could not stay. Also currently being treated for a cat bite to the right hand with oral Augmentin however patient reports she has been intermittently compliant Related Data Home Medications Medication Instructions Recorded Confirmed omeprazole 20 mg tablet,delayed 20 mg PO DAILY 05/27/20 11/29/22 release Previous Rx's Medication Instructions Recorded naproxen 500 mg tablet 500 mg PO BID #14 tabs 05/04/22 nitrofurantoin 100 mg PO Q12H 5 days #10 caps 08/05/22 monohydrate/macrocrystals 100 mg capsule (Macrobid) phenazopyridine 200 mg tablet 200 mg PO TID PRN pain 2 days #6 08/05/22 (Pyridium) tabs amlodipine 5 mg tablet 5 mg PO DAILY 90 days #90 tabs 11/29/22 atenolol 50 mg-chlorthalidone 25 1 tab PO DAILY 90 days #90 tabs 11/29/22 mg tablet atorvastatin 40 mg tablet 40 mg PO BEDTIME 90 days #90 tabs 11/29/22 montelukast 10 mg tablet 10 mg PO DAILY #90 tabs 11/29/22 topiramate 25 mg tablet 25 mg PO BID 90 days #180 tabs 11/29/22 venlafaxine 75 mg capsule,extended 75 mg PO DAILY #90 caps 11/29/22 release 24 hr cetirizine 10 mg tablet (All Day 10 mg PO DAILY PRN allergy 02/21/23 Allergy (cetirizine)) symptoms 90 days #90 tabs amoxicillin 875 mg-potassium 1 tab PO BID #20 tabs 03/03/23 clavulanate 125 mg tablet naproxen 500 mg tablet 500 mg PO BID #14 tabs 03/03/23 oxycodone 5 mg tablet 5 mg PO Q6H PRN pain #5 tabs 03/04/23 cyclobenzaprine 10 mg tablet 10 mg PO TID PRN muscle spasm #10 03/05/23 tabs ketorolac 10 mg tablet 10 mg PO Q8H PRN pain #10 tabs 03/05/23 lidocaine 5 % topical patch 1 patch topical DAILY #15 ea 03/05/23 (Lidoderm) oxycodone 5 mg tablet 5 mg PO Q8H PRN pain #3 tabs 03/05/23 Allergies Allergy/AdvReac Type Severity Reaction Status Date / Time bupropion [From WELLBUTRIN] Allergy Unknown HIVES Verified 11/29/22 10:00 hydroxychloroquine Allergy Unknown hives Verified 11/29/22 10:00 [Plaquenil] tramadol Allergy Unknown hives, rash Verified 11/29/22 10:00 ENVIRONMENTAL Allergy Unknown ITCHY EYES Uncoded 08/05/22 11:46 Review of Systems Review of Systems: Yes all other systems are reviewed and are negative Constitutional: Constitutional: Reports no additional constitutional complaints, Denies body ache(s), Denies chills, Denies fever(s), Denies headache(s) and Denies weakness Eyes: Eyes: Reports no additional eye complaints and Denies change in vision ENT: Reports system reviewed and no additional complaints, except as documented, Denies dizziness, Denies headache(s), Denies nasal congestion, Denies nasal discharge and Denies neck pain Cardiovascular: Cardiovascular: Reports no additional cardiovascular complaints, Denies chest pain, Denies leg edema and Denies dyspnea Respiratory: Respiratory: Reports no additional respiratory complaints, Denies cough and Denies dyspnea Gastrointestinal: Gastrointestinal: Reports no additional gastrointestinal complaints, Denies abdominal pain, Denies diarrhea, Denies nausea and Denies vomiting Genitourinary: Genitourinary: Reports no additional female genitourinary complaints and Denies urinary incontinence Musculoskeletal: Musculoskeletal: Reports no additional musculoskeletal complaints, Reports back pain, Denies arthralgias, Denies joint swelling, Denies neck pain, Denies numbness and Denies tingling Integumentary/Breasts: Skin/Breast: Reports system reviewed and no additional complaints, except as docu and Denies rash Neurologic: Reports system reviewed and no additional complaints, except as documented, Denies Abnormal speech present, Denies dizziness, Denies headache(s), Denies numbness, Denies tingling and Denies weakness PMFSH Past Medical History Attestation statement: The following information was validated with the patient. Source: old records reviewed and nursing notes reviewed Medical History Positive colorectal cancer screening using Cologuard test Cystitis Papanicolaou smear declined Colonoscopy refused Mammogram declined Muscle spasm Lumbar pain Hospital discharge follow-up Acute hypokalemia Fall Hematoma Alcohol use disorder, mild, in early remission, abuse Alcoholism Hospital discharge follow-up Hypokalemia Uncontrolled hypertension Abnormal EKG Breast screening Encounter for general adult medical examination with abnormal findings Supraclavicular mass Hyperlipidemia GERD (gastroesophageal reflux disease) Hypertension, essential Anxiety, generalized Hives Surgical History Hx of colonoscopy (08/30/11) History of right breast biopsy (10/31/11) Hx of left inguinal hernia repair (02/25/13) Hx of basal cell carcinoma excision (2011) History of left oophorectomy (09/07/11) Hx of right inguinal hernia repair (2003) Family History Family History Father Cardiac disease Mother Cardiac disease HTN (hypertension) Other Substance use disorder Social History Social History Household Members: Spouse Housing: House Do you presently have visiting nurse or other home services: No Alcohol intake: current Alcohol intake frequency: 3 or more drinks per day Alcohol type: hard liquor Patient Tobacco Use Status: Former Tobacco user e-Cigarette/Vaping Use: Never Used Substance Use Type: Marijuana Advance Directives: No Advance Directives Information Provided: No service: No Current occupational status: employed Cognitive needs: No Hearing needs: No Vision needs: No Physical Exam Vital Signs: Vital Signs: Last Vital Signs Temp 98.7 F 03/05/23 13:56 Pulse 92 03/05/23 13:56 Resp 18 03/05/23 13:56 BP 144/82 H 03/05/23 13:56 Pulse Ox 94 03/05/23 13:56 O2 Del Method Room Air 03/05/23 13:56 BMI result Body Mass Index 22.9 Const: General: cooperative, healthy appearing, comfortable and no acute distress Orientation/consciousness: patient oriented x3 Limitations: no limitations HEENT: Head: Yes normal to inspection Ears: hearing grossly normal bilaterally General nose exam: Normal external nose present Face and sinus: Yes normal facial exam Mouth: Normal oral and palatal mucosa present Throat: Yes posterior oropharynx normal Eyes: General: appearance normal, both eyes and all related structures Pupils: Equal, round and reactive pupils present Neck: Neck: Yes normal visual inspection Chest: Chest palpation & inspection: normal inspection of the chest Resp: Effort & Inspection: normal respiratory effort Auscultation: clear to auscultation bilaterally Cardio: Rate: regular rate Rhythm: regular rhythm Peripheral pulses: Peripheral pulses 2+ throughout GI: Inspection: Yes normal to inspection Palpation (GI): Soft to palpation and nontender Auscultation: normal bowel sounds Back/Spine/Pelvis: Other: TTP to lumbar mid spine with no step offs or deformities Thoracic/Lumbar Spine: thoracic and lumbar spine normal to inspection Skin: General skin exam: no rashes or lesions noted Neuro: General: patient oriented x3, no focal motor deficits, normal sensation to monofilament and Unable to assess gait Cranial nerves: Yes Equal, round and reactive pupils present Cognition (Neuro): normal cognition Speech: No Abnormal speech present Gait exam (Neuro): Unable to assess gait Motor exam (neuro): 5/5 motor strength present throughout Sensory Exam: Normal double simultaneous stimulation for sensation Deep tendon reflexes (DTR's): Right patellar reflex intensity grade: 2+ and Left patellar reflex intensity grade: 2+ Extrem: Other: To the right hand there is erythema, swelling over the thenar and the dorsal aspect with full range of motion General: Yes normal to inspection, Yes no pedal edema and Yes no calf tenderness Course Course Course Narrative: 1400-pain is improved, plan for discharge home with additional pain medication. Patient tells me she is not mixing alcohol with her medications. We did discuss that this can be dangerous. Reviewed worrisome signs and symptoms of delfino lawson to return to the emergency room. Comfortable plan for discharge home. Medications Administered Discontinued Medications Generic Name Dose Route Start Last Admin Trade Name Shant PRN Reason Stop Dose Admin Cyclobenzaprine HCl 10 mg 03/05/23 12:14 03/05/23 12:22 Cyclobenzaprine Hcl 10 Mg Tablet PO 03/05/23 12:15 10 mg ONCE ONE Administration Ketorolac Tromethamine 15 mg 03/05/23 12:14 03/05/23 12:22 Ketorolac Tromethamine 15 Mg/Ml Vial IM 03/05/23 12:15 15 mg ONCE ONE Administration Lidocaine 1 patch 03/05/23 12:14 03/05/23 12:22 Lidocaine 4 % Patch Adh..Patch TRANSDERMA 03/05/23 12:15 1 patch ONCE ONE Administration Protocol Oxycodone HCl 5 mg 03/05/23 12:14 03/05/23 12:22 Oxycodone Hcl Immed Release 5 Mg Tablet PO 03/05/23 12:15 5 mg ONCE ONE Administration Medical Decision Making Medical Decision Making MDM Narrative: 62-year-old female with history of hypertension, alcohol use disorder presents the ER with complaints of lower back pain.? Of note patient reports she was seen here yesterday after fall and was diagnosed with than lumbar compression fracture.? She was sent home with 5 tablets of oxycodone with recommendations to follow-up with her primary care doctor.? Patient reports she has taken Tylenol and all 5 tablets of her oxycodone since being home with continued pain.? She denies any radiation of pain.? No numbness or tingling of the extremities.? No numbness in the groin.? No bowel or bladder incontinence.? No fevers or chills.? Patient is quite tremulous.? Patient reports that she drinks 3 glasses of vodka 3 times a week. Denies additional substance use.? Of note, patient was offered additional services for intractable pain yesterday but she declined this.? Patient reports that she takes care of her at home who is disabled and this is why she could not stay.? Also currently being treated for a cat bite to the right hand with oral Augmentin however patient reports she has been intermittently compliant On exam patient has TTP to lumbar mid spine with no step offs or deformities Normal neuro exam with no focal neurological deficits or red flag symptoms. Patient has a mild tremor. Patient is requesting to receive IV Dilaudid as this seemed to help her pain yesterday. She did take all 5 tablets of her oxycodone since being released last evening from our emergency room. She has only tried Tylenol be side this. I am concerned the patient may be drinking more alcohol than she is telling me as well as taking the oxycodone more frequently than prescribed. In this patient be beneficial to try to avoid narcotic pain medicine. Therefore we will give her Toradol, flexeril, oral oxycodone and salon pas. Differential Diagnosis Differential Diagnoses: The differential diagnosis associated with the presentation includes Compression fracture Low concern for cord compression, cauda equina, epidural abscess, malignancy with normal neurological exam, no risk factors, no red flag symptoms Admission/Observation Consideration of admission/observation: Escalation of care including admission/observation considered Pain improved with oral medication. Patient can be discharged home with same Independent Historian Clinical information obtained from an independent historian. History obtained from or confirmed by: EMS External Record Review External record reviewed: Outside ED record Tests considered The following testing was considered but not selected: No neurological deficits or red flag symptoms suggest need for MRI Discharge Plan Discharge Clinical Impression: Compression fx, lumbar spine Patient Disposition: Home, Self-Care Instructions: Vertebral Compression Fracture (ED) Additional Instructions: Please take your antibiotics as prescribed for your hands We do not recommend mixing these medications with alcohol as that could cause you to become quite severe to fall and have an additional injury. You need to call your primary care doctor tomorrow to establish an appointment to follow-up. Prescriptions: New cyclobenzaprine 10 mg tablet 10 mg PO TID PRN (Reason: muscle spasm) Qty: 10 0RF lidocaine [Lidoderm] 5 % adhesive patch,medicated 1 patch topical DAILY Qty: 15 0RF Rx Instructions: leave on most painful area for up to 12 hrs ketorolac 10 mg tablet 10 mg PO Q8H PRN (Reason: pain) Qty: 10 0RF Rx Instructions: received first dose in the ER oxycodone 5 mg tablet 5 mg PO Q8H PRN (Reason: pain) Qty: 3 0RF Rx Instructions: Partial Fill upon patient request. No Action cetirizine [All Day Allergy (cetirizine)] 10 mg tablet 10 mg PO DAILY PRN (Reason: allergy symptoms) 90 Days Qty: 90 0RF naproxen 500 mg tablet 500 mg PO BID Qty: 14 0RF amoxicillin-pot clavulanate 875-125 mg tablet 1 tab PO BID Qty: 20 0RF oxycodone 5 mg tablet 5 mg PO Q6H PRN (Reason: pain) Qty: 5 0RF Rx Instructions: Partial Fill upon patient request. omeprazole 20 mg tablet,delayed release (DR/EC) 20 mg PO DAILY phenazopyridine [Pyridium] 200 mg tablet 200 mg PO TID PRN (Reason: pain) 2 Days Qty: 6 0RF nitrofurantoin monohyd/m-cryst [Macrobid] 100 mg capsule 100 mg PO Q12H 5 Days Qty: 10 0RF Rx Instructions: must administer with a meal/food naproxen 500 mg tablet 500 mg PO BID Qty: 14 0RF amlodipine 5 mg tablet 5 mg PO DAILY 90 Days Qty: 90 0RF atenolol-chlorthalidone 50-25 mg tablet 1 tab PO DAILY 90 Days Qty: 90 0RF atorvastatin 40 mg tablet 40 mg PO BEDTIME 90 Days Qty: 90 0RF montelukast 10 mg tablet 10 mg PO DAILY Qty: 90 0RF topiramate 25 mg tablet 25 mg PO BID 90 Days Qty: 180 0RF venlafaxine 75 mg capsule,extended release 24hr 75 mg PO DAILY Qty: 90 0RF Referrals: Ros Lunsford MD [Primary Care Provider] - 2 days Discharge Date/Time: 03/05/23 14:04
[2023-03-05 13:56] VITALS: BP 144/82; PULSE 92; RESP 18; TEMP 37.1; O2SAT 94
== END 2023-03-05 14:04 | disposition home or self-care (01) ==
PROVIDERS: Emergency Provider Emergency Medicine Emergency Medical Services; PCP Internal Medicine
DX: M54.50 Low back pain, unspecified (principal); M48.56XD Collapsed vertebra, not elsewhere classified, lumbar region, subsequent encounter for fracture with routine healing
CPT/HCPCS: 96372; 99284; J1885

== ENCOUNTER 2023-03-10 14:59 | Outpatient (AMB) | payer BC, SELFPAY ==
[2023-03-10 15:01] VITALS: BP 142/78; PULSE 111; O2SAT 96; BMI 22.7
--- NOTE | 2023-03-10 15:01 | A.OFFPC_ITS ---
Vital Signs 03/10/23 15:01 Height 5 ft 2 in Weight 124 lb BMI 22.7 BP 142/78 H Blood Pressure Location Rt brachial Position Sitting Pulse 111 H Pulse Source Pulse Oximeter Pulse Oximetry (%) 96 Oxygen Delivery Method Room Air Intake Visit Reasons: ED Follow up Allergies bupropion [From WELLBUTRIN] Allergy (Unknown, Verified 03/10/23 15:02) HIVES hydroxychloroquine [Plaquenil] Allergy (Unknown, Verified 03/10/23 15:02) hives tramadol Allergy (Unknown, Verified 03/10/23 15:02) hives, rash ENVIRONMENTAL Allergy (Unknown, Uncoded 08/05/22 11:46) ITCHY EYES Medication List - Last Reconciled 03/10/23 by Ros Lunsford MD amlodipine 5 mg PO DAILY 90 days amoxicillin-pot clavulanate 875-125 mg 1 tab PO BID atenolol-chlorthalidone 50-25 mg 1 tab PO DAILY 90 days atorvastatin 40 mg PO BEDTIME 90 days cetirizine (All Day Allergy (cetirizine)) 10 mg PO DAILY PRN 90 days cyclobenzaprine 10 mg PO TID PRN ketorolac 10 mg PO Q8H PRN lidocaine 5% (Lidoderm) 1 patch topical DAILY montelukast 10 mg PO DAILY naproxen 500 mg PO BID naproxen 500 mg PO BID omeprazole 20 mg PO DAILY oxycodone 5 mg PO Q6H PRN oxycodone 5 mg PO Q8H PRN topiramate 25 mg PO BID 90 days venlafaxine ER 75 mg PO DAILY Tobacco use date assessed: 03/10/23 Fall risk assessment: 1 Fall in past year Last assessed Fall Risk: 03/10/23 Dental Screening Dental Screen Date: 03/10/23 Did you have a dental visit in the last 12 months?: No Did you have a dental problem in the last 6 months where you did not have access to dental care?: No Was dental information given to patient?: Patient has dentist HPI ED Follow up HPI Details 62-year-old female came in today to be e valuated after hospital discharge dated 04 of March at [facility] Patient have a history of alcohol use disorder, presented to emergency room with lower back pain. She fell and had a lumbar compression fracture. She was discharge with oxycodone and was told to follow up with primary care doctor Patient also have history of hypertension, anxiety She had a CT scan of abdomen done in the emergency room, which showed fatty liver Small hiatal hernia In compression deformity of T10 vertebral body which was my since 2021 And healed fracture of 4th rib on left I have sent Percocet for the pain management and cyclobenzaprine I would be booking her appointment with pain management as well I see that she never had bone density scan I will be ordering that once she started feeling better I would recommend to start wearing back brace, she is to get that [id number] Follow-up 2 weeks [facility] Medical History Positive colorectal cancer screening using Cologuard test Cystitis Papanicolaou smear declined Colonoscopy refused Mammogram declined Muscle spasm Lumbar pain Hospital discharge follow-up Acute hypokalemia Fall Hematoma Alcohol use disorder, mild, in early remission, abuse Alcoholism Hospital discharge follow-up Hypokalemia Uncontrolled hypertension Abnormal EKG Breast screening Encounter for general adult medical examination with abnormal findings Supraclavicular mass Hyperlipidemia GERD (gastroesophageal reflux disease) Hypertension, essential Anxiety, generalized Hives Surgical History Hx of colonoscopy (08/30/11) History of right breast biopsy (10/31/11) Hx of left inguinal hernia repair (02/25/13) Hx of basal cell carcinoma excision (2011) History of left oophorectomy (09/07/11) Hx of right inguinal hernia repair (2003) Family History Father Cardiac disease Mother Cardiac disease HTN (hypertension) Other Substance use disorder Social History Household Members: Spouse Housing: House Do you presently have visiting nurse or other home services: No Alcohol intake: current Alcohol intake frequency: 3 or more drinks per day Alcohol type: hard liquor Patient Tobacco Use Status: Former Tobacco user e-Cigarette/Vaping Use: Never Used Substance Use Type: Marijuana service: No Current occupational status: employed Cognitive needs: No Hearing needs: No Vision needs: No Questionnaire Thrive Questionnaire Date Thrive assessed: 11/29/22 RENEE-7 AMB Questionnaire RENEE-7 Date RENEE - 7 assessed: 11/29/22 Source: Developed by Drs. Sandeep Fletcher, Karen Fonseca, Adan Calle and colleagues, with an educational la from [employer]. Review of Systems Const Denies chills and Denies fever(s) ENT Denies epistaxis and Denies nasal discharge Card Denies chest pain Resp Denies chest congestion, Denies cough and Denies hemoptysis GI Denies diarrhea and Denies nausea Skin/Breast Denies rash Neuro Reports no additional complaints Psych Reports no additional complaints Endo Reports no additional complaints Physical exam (Primary Care) Vital Signs: Last Vital Signs Pulse 111 H 03/10/23 15:01 BP 142/78 H 03/10/23 15:01 Pulse Ox 96 03/10/23 15:01 Oxygen Delivery Method Room Air 03/10/23 15:01 BMI result Body Mass Index 22.7 Tobacco/Smoking Status: Tobacco use Status Tobacco use date assessed 03/10/23 03/10/23 15:06 Patient Tobacco Use Status Former Tobacco user 03/10/23 15:06 e-Cigarette/Vaping Use Never Used 03/10/23 15:06 Thrive Assessment: Date of Thrive Assessment Date Thrive assessed 11/29/22 03/10/23 15:06 Const Other: Sitting now in wheelchair hunched forward General: cooperative and no acute distress Orientation/consciousness: patient oriented x3 HENMT Head: Yes normocephalic Eyes General: appearance normal, both eyes and all related structures Neck Neck: Yes supple Resp Effort & Inspection: normal respiratory effort, no cough and no stridor Cardio Rhythm: regular rhythm Heart sounds: S1 normal heart sound present and S2 normal heart sound present Back/Spine/Pelvis Other: Tender over T10 vertebra with pressure Skin General skin exam: turgor normal Neuro General: patient oriented x3, tone normal and moves all extremities Extrem Right lower extremity: no edema Left lower extremity: no edema Assessment and Plan Assessment & Plan (1) Fracture of thoracic spine: Code(s): S22.009A - Unspecified fracture of unspecified thoracic vertebra, initial encounter for closed fracture Qualifiers: Encounter type: initial encounter Fracture morphology: other fracture Fracture type: closed Thoracic vertebra fracture level: T10 Qualified Code(s): S22.078A - Other fracture of T9-T10 vertebra, initial encounter for closed fracture (2) Pain management: Code(s): R52 - Pain, unspecified (3) Thoracic vertebral fracture: Code(s): S22.009A - Unspecified fracture of unspecified thoracic vertebra, initial encounter for closed fracture Plan 62-year-old female came in today to be evaluated after hospital discharge dated 04 of March at [facility] Patient have a history of alcohol use disorder, presented to emergency room with lower back pain. She fell and had a lumbar compression fracture. She was discharge with oxycodone and was told to follow up with primary care doctor Patient also have history of hypertension, anxiety She had a CT scan of abdomen done in the emergency room, which showed fatty liver Small hiatal hernia In compression deformity of T10 vertebral body which was my since 2021 And healed fracture of 4th rib on left I have sent Percocet for the pain management and cyclobenzaprine I would be booking her appointment with pain management as well I see that she never had bone density scan I will be ordering that once she started feeling better I would recommend to start wearing back brace, she is to get that [id number] Follow-up 2 weeks Orders: Referrals Pain Management Referral S22.009A - Unspecified fracture of unspecified thoracic vertebra, initial encounter for closed fracture Medications: New oxycodone-acetaminophen 5-325 mg (Percocet) Partial Fill upon patient request. 1 tab PO TID PRN 21 tabs 0RF pain 7 days cyclobenzaprine 10 mg PO TID PRN 60 tabs 0RF muscle spasm 30 days Coding Level of Care Code Est Pt Level 4 (60244) Diagnoses Other closed fracture of tenth thoracic vertebra, initial encounter S22.078A Encounter type: initial encounter Fracture morphology: other fracture Fracture type: closed Thoracic vertebra fracture level: T10 Pain management R52
== END 2023-03-10 15:26 | disposition home or self-care (01) ==
PROVIDERS: PCP Internal Medicine; Visit Provider Internal Medicine
DX: S22.078A Other fracture of T9-T10 vertebra, initial encounter for closed fracture (principal); R52 Pain, unspecified; S22.009A Unspecified fracture of unspecified thoracic vertebra, initial encounter for closed fracture
CPT/HCPCS: 99214

== ENCOUNTER 2023-03-21 09:10 | Outpatient (AMB) | payer BC, SELFPAY ==
--- NOTE | 2023-03-21 09:20 | A.OFFVIS_ITS ---
Intake Vital Signs 03/21/23 09:21 Height 5 ft 2 in Weight 126 lb 6 oz BMI 23.1 BP 132/82 Blood Pressure Location Lt brachial Position Sitting Respiration 16 Pulse 90 Pulse Source Pulse Oximeter Pulse Oximetry (%) 96 Oxygen Delivery Method Room Air Intake Visit Reasons: Unspecified fracture of thoracic vertabrae/confirm Allergies bupropion [From WELLBUTRIN] Allergy (Unknown, Verified 03/10/23 15:02) HIVES hydroxychloroquine [Plaquenil] Allergy (Unknown, Verified 03/10/23 15:02) hives tramadol Allergy (Unknown, Verified 03/10/23 15:02) hives, rash ENVIRONMENTAL Allergy (Unknown, Uncoded 08/05/22 11:46) ITCHY EYES HPI HPI Comments History of Present Illness Details Karen is a very pleasant 62-year-old female who presents to the office today for evaluation management of her acute back pain. Patient reports on March 04 2023 she tripped and fell at home landing on her back. She was evaluated in the emergency room and underwent a CT scan which revealed compression fracture of her thoracic spine. She subsequently was evaluated in the ER for continued pain and was prescribed oxycodone. Last weeks she had a follow up with her primary care doctor, was prescribed cyclobenzap rine and Percocet. Referral was placed to our office that time. Patient has been using a back brace since her follow-up appoint with her primary care doctor. She reports that the back brace provides her some pain relief. She states the pain medicine only provide short-term relief but then the pain quickly returns. She denies radiation of the pain. Denies weakness, numbness, tingling of the lower extremities. Patient denies red flag symptoms including new loss of bowel, bladder or saddle anesthesia. In terms of muscle damage condition is described as burning, stabbing. Pain is negatively impacting patient's ability to sleep, perform activities daily living, care for self, function normally and work. Patient works at the [employer], she has been out of work due to the injury and is hoping to return as soon as she is feeling better. [facility] Medical History Positive colorectal cancer screening using Cologuard test Cystitis Papanicolaou smear declined Colonoscopy refused Mammogram declined Muscle spasm Lumbar pain Hospital discharge follow-up Acute hypokalemia Fall Hematoma Alcohol use disorder, mild, in early remission, abuse Alcoholism Hospital discharge follow-up Hypokalemia Uncontrolled hypertension Abnormal EKG Breast screening Encounter for general adult medical examination with abnormal findings Supraclavicular mass Hyperlipidemia GERD (gastroesophageal reflux disease) Hypertension, essential Anxiety, generalized Hives Surgical History Hx of colonoscopy (08/30/11) History of right breast biopsy (10/31/11) Hx of left inguinal hernia repair (02/25/13) Hx of basal cell carcinoma excision (2011) History of left oophorectomy (09/07/11) Hx of right inguinal hernia repair (2003) Family History Father Cardiac disease Mother Cardiac disease HTN (hypertension) Other Substance use disorder Household Members: Spouse Housing: House Do you presently have visiting nurse or other home services: No Alcohol intake: current Alcohol intake frequency: 3 or more drinks per day Alcohol type: hard liquor Patient Tobacco Use Status: Former Tobacco user e-Cigarette/Vaping Use: Never Used Substance Use Type: Marijuana service: No Current occupational status: employed Cognitive needs: No Hearing needs: No Vision needs: No Review of Systems Const All systems reviewed & are unremarkable except as noted in HPI and below Physical Exam Vital Signs: Last Vital Signs Pulse 90 03/21/23 09:21 Resp 16 03/21/23 09:21 BP 132/82 03/21/23 09:21 Pulse Ox 96 03/21/23 09:21 Oxygen Delivery Method Room Air 03/21/23 09:21 BMI result Body Mass Index 23.1 General: awake, alert, oriented. Answers questions appropriately. Fully engaged in examination. Skin: warm, dry, intact HEENT: Normocephalic. Hearing intact. Cardiac: External chest normal in appearance. Respiratory: No cough, audible wheezing or stridor. Abdomen: without gross distension. MS: maintains forward flexed siting position during exam Able to stand on bilateral tiptoes and bilateral heels.? Able to transition from sit to stand unassisted. Ambulates with bilaterally normal heel strike and toe off Tender to palpation over Thoracic and lumbar midline vertebrae and paraspinal muscles Neurological: Oriented to person, place, time and situation. Thought process intact. Psychiatric: Appropriate mood and affect. Good judgment and insight. Results Reviewed Results Reviewed: 03/04/2023 CT/CT lumbar spine wo IV con FINDINGS: When compared to the previous examination there is more prominent deformity of L1 vertebral body with approximately 25% loss of height anterior and more prominent Schmorl's hernias. There is no retropulsion. The rest of vertebral bodies reveal diffuse osteopenia but no compression deformities or significant degenerative changes. Partially visualized retroperitoneal is unremarkable. IMPRESSION: Mild compression deformity of L1 vertebral body with 25% loss of height and as known from CT scan of the chest there is fracture of T10 vertebral body also. Assessment & Plan Assessment & Plan (1) Thoracic vertebral fracture: Code(s): S22.009A - Unspecified fracture of unspecified thoracic vertebra, initial encounter for closed fracture Plan Karen presented to the office today for evaluation and management of her acute back pain s/p fall 03/04/2023 with T10 and L1 compression fractures. MRI LS and MRI TS ordered STAT today for further evaluation. Discussed options for treatment, pending MRI will plan for Kyphoplasty. C/W medications as prescribed by pcp Traumatic vertebral fractures, no DEXA scan required for kyphoplasty. Per pcp note plan for DEXA once patient is feeling better. All questions and concerns were answered during the visit, patient agrees with plan. Patient expecting a call to schedule MRI, follow up with the office after MRI to review results. Orders: Orders MR lumbar spine wo con Today S22.009A - Unspecified fracture of unspecified thoracic vertebra, initial encounter for closed fracture MR thoracic spine wo con Today M47.816 - Spondylosis without myelopathy or radiculopathy, lumbar region, S22.009A - Unspecified fracture of unspecified thoracic vertebra, initial encounter for closed fracture Coding Level of Care Code New Pt Level 4 (96956) Diagnoses Thoracic vertebral fracture S22.009A
[2023-03-21 09:21] VITALS: BP 132/82; PULSE 90; RESP 16; O2SAT 96; BMI 23.1
== END 2023-03-21 09:42 | disposition home or self-care (01) ==
PROVIDERS: PCP Internal Medicine; Referring Provider Internal Medicine; Visit Provider Registered Nurse Emergency
DX: S22.009A Unspecified fracture of unspecified thoracic vertebra, initial encounter for closed fracture (principal)
CPT/HCPCS: 99204

== ENCOUNTER → 2023-03-21 09:10 | Outpatient (BNVA) | payer BC, SELFPAY | PROVIDERS: PCP Internal Medicine; Visit Provider Registered Nurse Emergency ==

== ENCOUNTER 2023-03-24 10:43 | Outpatient (AMB) | payer BC, SELFPAY ==
[2023-03-24 10:46] VITALS: BP 146/66; PULSE 110; O2SAT 97
--- NOTE | 2023-03-24 10:46 | A.OFFPC_ITS ---
Vital Signs 03/24/23 10:46 Height 5 ft 2 in BMI Reason not done Patient refused/unable BP 146/66 H Blood Pressure Location Lt brachial Position Sitting Pulse 110 H Pulse Source Pulse Oximeter Pulse Oximetry (%) 97 Oxygen Delivery Method Room Air Intake Visit Reasons: 2 Wk Follow Up~ Allergies amoxicillin Allergy (Mild, Verified 03/24/23 10:56) Rash bupropion [From WELLBUTRIN] Allergy (Unknown, Verified 03/24/23 10:46) HIVES hydroxychloroquine [Plaquenil] Allergy (Unknown, Verified 03/24/23 10:46) hives tramadol Allergy (Unknown, Verified 03/24/23 10:46) hives, rash ENVIRONMENTAL Allergy (Unknown, Uncoded 08/05/22 11:46) ITCHY EYES Medication List - Last Reconciled 03/24/23 by Ros Lunsford MD amlodipine 5 mg PO DAILY 90 days atenolol-chlorthalidone 50-25 mg 1 tab PO DAILY 90 days atorvastatin 40 mg PO BEDTIME 90 days cetirizine (All Day Allergy (cetirizine)) 10 mg PO DAILY PRN 90 days cyclobenzaprine 10 mg PO TID PRN cyclobenzaprine 10 mg PO TID PRN 30 days ketorolac 10 mg PO Q8H PRN lidocaine 5% (Lidoderm) 1 patch topical DAILY montelukast 10 mg PO DAILY naproxen 500 mg PO BID naproxen 500 mg PO BID omeprazole 20 mg PO DAILY oxycodone-acetaminophen 5-325 mg (Percocet) 1 tab PO TID PRN 3 days topiramate 25 mg PO BID 90 days venlafaxine ER 75 mg PO DAILY Tobacco use date assessed: 03/24/23 Fall risk assessment: 1 Fall in past year Last assessed Fall Risk: 03/24/23 Dental Screening Dental Screen Date: 03/24/23 Did you have a dental visit in the last 12 months?: No Did you have a dental problem in the last 6 months where you did not have access to dental care?: No Was dental information given to patient?: Patient has dentist HPI 2 Wk Follow Up~ HPI Details Previous note from March 10 is as following ........ 62-year-old female came in today to be e valuated after hospital discharge dated 04 of March at [facility] [place] Patient have a history of alcohol use disorder, presented to emergency room with lower back pain. She fell and had a lumbar compression fracture. She was discharge with oxycodone and was told to follow up with primary care doctor Patient also have history of hypertension, anxiety She had a CT scan of abdomen done in the emergency room, which showed fatty liver Small hiatal hernia In compression deformity of T10 vertebral body which was my since 2021 And healed fracture of 4th rib on left I have sent Percocet for the pain management and cyclobenzaprine I would be booking her appointment with pain management as well I see that she never had bone density scan I will be ordering that once she started feeling better I would recommend to start wearing back brace, she is to get that over-the- counter ......... Patient had MRI of back scheduled through pain management yesterday but she could not lay down because of pain I see that pain management has sent 7 tablets of Percocet which patient has picked up I would recommend to take 2 Percocet 1 hour before procedure with to Valery which I have sent for her Also placed lidocaine patch before the procedure. [facility] Medical History Positive colorectal cancer screening using Cologuard test Cystitis Papanicolaou smear declined Colonoscopy refused Mammogram declined Muscle spasm Lumbar pain Hospital discharge follow-up Acute hypokalemia Fall Hematoma Alcohol use disorder, mild, in early remission, abuse Alcoholism Hospital discharge follow-up Hypokalemia Uncontrolled hypertension Abnormal EKG Breast screening Encounter for general adult medical examination with abnormal findings Supraclavicular mass Hyperlipidemia GERD (gastroesophageal reflux disease) Hypertension, essential Anxiety, generalized Hives Surgical History Hx of colonoscopy (08/30/11) History of right breast biopsy (10/31/11) Hx of left inguinal hernia repair (02/25/13) Hx of basal cell carcinoma excision (2011) History of left oophorectomy (09/07/11) Hx of right inguinal hernia repair (2003) Family History Father Cardiac disease Mother Cardiac disease HTN (hypertension) Other Substance use disorder Social History Household Members: Spouse Housing: House Do you presently have visiting nurse or other home services: No Alcohol intake: current Alcohol intake frequency: 3 or more drinks per day Alcohol type: hard liquor Patient Tobacco Use Status: Former Tobacco user e-Cigarette/Vaping Use: Never Used Substance Use Type: Marijuana service: No Current occupational status: employed Cognitive needs: No Hearing needs: No Vision needs: No Questionnaire Thrive Questionnaire Date Thrive assessed: 11/29/22 RENEE-7 AMB Questionnaire RENEE-7 Date RENEE - 7 assessed: 11/29/22 Source: Developed by Drs. Sandeep Fletcher, Karen Fonseca, Adan Calle and colleagues, with an educational la from [employer]. Review of Systems Const Denies chills and Denies fever(s) ENT Denies epistaxis and Denies nasal discharge Card Denies chest pain Resp Denies chest congestion, Denies cough and Denies hemoptysis GI Denies diarrhea and Denies nausea Skin/Breast Denies rash Neuro Reports no additional complaints Psych Reports no additional complaints Endo Reports no additional complaints Physical exam (Primary Care) Vital Signs: Last Vital Signs Pulse 110 H 03/24/23 10:46 BP 146/66 H 03/24/23 10:46 Pulse Ox 97 03/24/23 10:46 Oxygen Delivery Method Room Air 03/24/23 10:46 Tobacco/Smoking Status: Tobacco use Status Tobacco use date assessed 03/24/23 03/24/23 10:53 Patient Tobacco Use Status Former Tobacco user 03/24/23 10:53 e-Cigarette/Vaping Use Never Used 03/24/23 10:53 Thrive Assessment: Date of Thrive Assessment Date Thrive assessed 11/29/22 03/24/23 10:53 Const Other: Sitting now in wheelchair hunched forward General: cooperative and no acute distress Orientation/consciousness: patient oriented x3 HENMT Head: Yes normocephalic Eyes General: appearance normal, both eyes and all related structures Neck Neck: Yes supple Resp Effort & Inspection: normal respiratory effort, no cough and no stridor Cardio Rhythm: regular rhythm Heart sounds: S1 normal heart sound present and S2 normal heart sound present Back/Spine/Pelvis Other: Tender over T10 vertebra with pressure Skin General skin exam: turgor normal Neuro General: patient oriented x3, tone normal and moves all extremities Extrem Right lower extremity: no edema Left lower extremity: no edema Assessment and Plan Assessment & Plan (1) Fracture of thoracic spine: Code(s): S22.009A - Unspecified fracture of unspecified thoracic vertebra, initial encounter for closed fracture Qualifiers: Encounter type: initial encounter Fracture morphology: other fracture Fracture type: closed Thoracic vertebra fracture level: T10 Qualified Code(s): S22.078A - Other fracture of T9-T10 vertebra, initial encounter for closed fracture Plan Previous note from March 10 is as following ........ 62-year-old female came in today to be evaluated after hospital discharge dated 04 of March at [facility], [place] Patient have a history of alcohol use disorder, presented to emergency room with lower back pain. She fell and had a lumbar compression fracture. She was discharge with oxycodone and was told to follow up with primary care doctor Patient also have history of hypertension, anxiety She had a CT scan of abdomen done in the emergency room, which showed fatty liver Small hiatal hernia In compression deformity of T10 vertebral body which was my since 2021 And healed fracture of 4th rib on left I have sent Percocet for the pain management and cyclobenzaprine I would be booking her appointment with pain management as well I see that she never had bone density scan I will be ordering that once she started feeling better I would recommend to start wearing back brace, she is to get that [id number] ......... Patient had MRI of back scheduled through pain management yesterday but she could not lay down because of pain I see that pain management has sent 7 tablets of Percocet which patient has picked up I would recommend to take 2 Percocet 1 hour before procedure with to Zofran which I have sent for her Also placed lidocaine patch before the procedure. Medications: New ondansetron HCl 4 mg PO Q8H PRN 14 tabs 0RF nausea and vomiting 7 days R11.0 - N ausea Coding Level of Care Code Est Pt Level 3 (78231) Diagnoses Other closed fracture of tenth thoracic vertebra, initial encounter S22.078A Encounter type: initial encounter Fracture morphology: other fracture Fracture type: closed Thoracic vertebra fracture level: T10
== END 2023-03-24 14:02 | disposition home or self-care (01) ==
PROVIDERS: PCP Internal Medicine; Visit Provider Internal Medicine
DX: S22.078A Other fracture of T9-T10 vertebra, initial encounter for closed fracture (principal)
CPT/HCPCS: 99213

== ENCOUNTER 2023-03-28 13:27 | Outpatient (AMB) | payer BC, SELFPAY ==
--- NOTE | 2023-03-28 13:30 | HO.SPINEOV ---
Intake Intake Visit Reasons: thoracic spine fx Intake Note: Ms. Pan is here today c/o mid back pain. MRI done @ [facility]. Mobile Mechanic Required: No Allergies amoxicillin Allergy (Mild, Verified 03/24/23 10:56) Rash bupropion [From WELLBUTRIN] Allergy (Unknown, Verified 03/24/23 10:46) HIVES hydroxychloroquine [Plaquenil] Allergy (Unknown, Verified 03/24/23 10:46) hives tramadol Allergy (Unknown, Verified 03/24/23 10:46) hives, rash ENVIRONMENTAL Allergy (Unknown, Uncoded 08/05/22 11:46) ITCHY EYES Assessment & Plan Assessment & Plan (1) Back pain: Code(s): M54.9 - Dorsalgia, unspecified (2) Thoracic vertebral fracture: Code(s): S22.009A - Unspecified fracture of unspecified thoracic vertebra, initial encounter for closed fracture Plan Deahoracio Kurtz and Dr Barnett, Thank you for referring MRs Parada to our office today. She is a 62-year-old female who sustained a fall about 3 weeks ago at her home. She tripped over a rug when she was stepping backwards and fell onto her bottom. She was seen in the emergency room [place], diagnosed with a T10 compression fracture, and L1 compression fracture on CT scans and was sent out with conservative treatment. Unfortunately the pain is only continued to escalate. It is centered around her thoracolumbar junction down into her lumbar spine. She had been prescribed some oxycodone by the emergency room but she has ran out of those. She is otherwise just been trying to do Lidoderm patches and get by with avoiding stressors and trying to minimize activity. Unfortunately things are only escalating, she was seen in your office and underwent a thoracic MRI showing further collapse of the T10 vertebrae compared to the previous thoracic CT and some mild retropulsion into the spinal canal. She came to us for surgical opinion. She has no symptoms radiating down the legs, no bowel or bladder incontinence. PMH: She has a history of osteoporosis although it is never been diagnosed, based on her CT scan imaging she has the diagnosis. History of hypertension, cholesterol, depression, asthma, hernia surgery, finger surgery. She denies any heart attacks, strokes, bleeding disorders, kidney problems Social hx: She quit smoking many years ago, but does smoke marijuana daily. Denies any regular alcohol use. Medications: Venlafaxine, omeprazole, atorvastatin, cetirizine, Singulair, atenolol, amlodipine, Topamax Allergies: Wellbutrin and amoxicillin give her rash Physical exam: Frail appearing middle-aged woman no acute distress but sitting uncomfortably in a flexed posture, she has full strength of bilateral lower extremities. Slightly hyper reflexes in the knees. Imaging review: She has Multi Modal imaging done at [place] as well as [facility]. At [place] we can see on her thoracic CT at T10 compression fracture with no extension into the posterior elements. There is also a lumbar CT showing a mild L1 compression fracture. Standing x-rays done in the office today do not show any signs of instability at these segments. However, on her MRI done at [facility] there is evidence of ongoing compression and collapse of the T10 vertebral body with some retropulsion and stir hyperintensity seen along the length of the vertebral body and even some into the posterior elements. There is no spinal cord compression. There is no STIR hyperintensity at the L1 compression fracture meaning otherwise it is an old fracture and not currently involved in her symptoms. Impression: 62-year-old female history of osteoporosis, status post fall 3 weeks ago presents with acute fracture of T10 which is further collapsing over time as seen on her imaging. Her pain levels are severely elevated and she is having a hard time functioning anything getting around. She is neurologically intact. We do not think treatment with just a kyphoplasty would be enough to stabilize this area. Dr. Veliz and I have met with her and discussed the option of T10 kyphoplasty with T9-T11 posterior fusion and pedicle screw placement, we reserve the option to go from T8-T12 at the time of surgery depending on the quality of the screw placement with her deteriorating bone. Pt was given risk and benefits of surgery including but not limited to infection, hematoma , nerve injury,durotomy, weakness,bowel/bladder injury, persistent pain, hardware failure as well as the option to continue with conservative treatment and patient wishes to proceed with surgery. Pt is aware they should stop their motrin, aspirin 7 days prior to surgery. All questions were answered to the best of our ability. If there is anything about this patients medical history that we have overlooked or concerns you have about us proceeding with surgery we would appreciate any input you can offer. Thank you for allowing us to care for your patient. The total time spent with this visit with this patient was 45 minutes reviewing history, physical exam, thoracic and lumbar imaging review, and implementation of treatment plan or further diagnostic testing Thai Veliz MD,PhD [facility] Orders: Orders XR lumbar spine 4V min Today M54.9 - Dorsalgia, unspecified XR thoracic spine 2V Today M54.9 - Dorsalgia, unspecified Medications: New oxycodone Partial Fill upon patient request. 5 mg PO Q6H PRN 30 tabs 0RF pain Coding Level of Care Code New Pt Level 4 (08541) Diagnoses Back pain M54.9 Thoracic vertebral fracture S22.009A
== END 2023-03-28 14:36 | disposition home or self-care (01) ==
PROVIDERS: PCP Internal Medicine; Referring Provider Registered Nurse Emergency; Visit Provider Physician Assistant
DX: M54.9 Dorsalgia, unspecified (principal); S22.009A Unspecified fracture of unspecified thoracic vertebra, initial encounter for closed fracture
CPT/HCPCS: 99204

== ENCOUNTER 2023-03-28 13:27 | Outpatient (REF) | payer BC, SELFPAY ==
--- NOTE | ~2023-03-28 | XR_ITS ---
EXAMINATION: XR THORACOLUMBAR SPINE CLINICAL INFORMATION: Dorsalgia COMPARISON: CT scan from 03/04/2023 TECHNIQUE: AP and lateral views of thoracic spine FINDINGS: There is more than 50% loss of height of T8 T10 vertebral body are consistent with fracture when compared to CT scan degree of compression is more prominent. There is no retropulsion seen on radiograph. The rest of vertebral bodies demonstrate osteopenia but no fractures. XR/XR thoracic spine 2V IMPRESSION: Compression deformity of T10 vertebral body, likely more prominent than on the recent CT scan.
--- NOTE | ~2023-03-28 | XR_ITS ---
EXAMINATION: XR LUMBOSACRAL SPINE WITH OBLIQUES CLINICAL INFORMATION: Low back pain COMPARISON: CT scan of lumbar spine from 03/04/2023 TECHNIQUE: AP, both oblique, and lateral views of the lumbar spine. Lateral view of the lumbosacral junction. FINDINGS: There is mild diffuse osteopenia and mild wedge-shaped compression deformity of L1 vertebral body as seen on CT scan. There is no instability on flexion or extension views. Pedicles are preserved. There is mild levoscoliosis. XR/XR lumbar spine 4V min IMPRESSION: Diffuse osteopenia and stable mild wedge-shaped deformity of L1 vertebral body
== END 2023-03-28 13:28 | disposition home or self-care (01) ==
LOC: HO.HOSX 13:27
PROVIDERS: PCP Internal Medicine; Visit Provider Physician Assistant
DX: M54.9 Dorsalgia, unspecified (principal); S22.009A Unspecified fracture of unspecified thoracic vertebra, initial encounter for closed fracture
CPT/HCPCS: 72070; 72110

== ENCOUNTER → 2023-04-04 13:52 | Outpatient (BNV) | payer BC, SELFPAY | PROVIDERS: Admitting Provider Neurological Surgery; PCP Internal Medicine; Visit Provider Internal Medicine Cardiovascular Disease | DX: R00.1 Bradycardia, unspecified (principal) | CPT/HCPCS: 93010 ==

== ENCOUNTER 2023-04-10 09:21 | Observation (INO) | payer BC, SELFPAY ==
--- NOTE | 2023-04-04 | ECG_ITS ---
Test Reason : PREOP Blood Pressure : / mmHG Vent. Rate : 059 BPM Atrial Rate : 059 BPM P-R Int : 146 ms QRS Dur : 086 ms QT Int : 470 ms P-R-T Axes : 000 -07 -01 degrees QTc Int : 465 ms Sinus bradycardia Otherwise normal ECG When compared with ECG of 23-DEC-2020 03:22, No significant change was found Referred By: Ashli Moss Electronically Signed By:Luis Glez
[2023-04-04 13:10] VITALS: BP 146/83; PULSE 60; RESP 16; O2SAT 97; BMI 22.9
--- NOTE | 2023-04-04 13:24 | P.CONAN_ITS ---
Documented by User: Ashli Moss NP 04/07/23 08:11 HPI - Anesthesia Eval Consult details Narrative: 62yo F for T9-T11 Posterior Fusion Thoracic with pedical screws (poss T8-T12), T 10 Kyphoplasty No recent illness No CP/SOB with >4 mets prior to back injury ETOH. Previous heavy use. Now ~ 2-3 vodkas 3 x weekly GERD. PPI ~QOD with good effect Hx Hypokalemia PMFSH Active Problems Active Problems: All Active Problems (Updated 03/28/23 @ 13:45 by CHARLOTTE Chanel) Back pain (Acute) Lumbar spondylosis (Acute) Thoracic vertebral fracture (Acute) Pain management (Acute) Hypertension, essential (Acute) Hyperbilirubinemia (Acute) Ischemic colitis (Acute) Supraclavicular fossa fullness (Acute) Dyspepsia (Acute) Alcohol abuse (Acute) Lipid disorder (Acute) Tachycardia (Acute) Recurrent urticaria (Acute) Environmental allergies (Acute) Supraclavicular mass (Acute) Anxiety, generalized (Acute) Hives (Acute) Past Medical History Medical History Constipation Positive colorectal cancer screening using Cologuard test Cystitis Papanicolaou smear declined Colonoscopy refused Mammogram declined Muscle spasm Lumbar pain Supraclavicular mass Hospital discharge follow-up Hyperlipidemia GERD (gastroesophageal reflux disease) Acute hypokalemia Fall Hematoma Alcohol use disorder, mild, in early remission, abuse Alcoholism Hospital discharge follow-up Hypokalemia Uncontrolled hypertension Abnormal EKG Hypertension, essential Breast screening Encounter for general adult medical examination with abnormal findings Anxiety, generalized Hives Family History Family History Father Cardiac disease Mother Cardiac disease HTN (hypertension) Other Substance use disorder Family history of problems with anesthesia: No Surgical History Surgical History Hx of hand surgery Hx of colonoscopy (08/30/11) History of right breast biopsy (10/31/11) Hx of left inguinal hernia repair (02/25/13) Hx of basal cell carcinoma excision (2011) History of left oophorectomy (09/07/11) Hx of right inguinal hernia repair (2003) History of Problems with Anesthesia: No Social History Social History Household Members: Spouse Housing: House Are you a primary healthcare management to a significant other at home: Yes () Alcohol intake: current Alcohol intake frequency: 3 or more drinks per day Alcohol type: hard liquor Patient Tobacco Use Status: Former Tobacco user Quit Date: 1991 Tobacco use type: Cigarette e-Cigarette/Vaping Use: Never Used Use of substances other than those prescribed or required for medical reasons: Yes Substance Use Type: Marijuana Substance Use Frequency: Daily Have you been hit, kicked, punched, or otherwise hurt by someone within the past year? If so, by whom?: No Are you DNR?: No Advance Directives: No Advance Directives Information Provided: Yes Advance Directives on File: No Recently lost weight without trying: Yes How much weight loss: 2-13 pounds Eating poorly because of decreased appetite: Yes Nutrition screen score: 4 Nutrition Risks: No Nutritional Risk service: No Current occupational status: employed Cognitive needs: No Hearing needs: No Vision needs: No Meds Allergies Allergy/AdvReac Type Severity Reaction Status Date / Time hydroxychloroquine Allergy Severe hives Verified 04/04/23 13:05 [Plaquenil] bupropion [From WELLBUTRIN] Allergy Intermediate HIVES Verified 04/04/23 13:05 amoxicillin Allergy Mild Rash Verified 04/04/23 13:05 tramadol Allergy Unknown hives, rash Verified 04/04/23 13:05 ENVIRONMENTAL Allergy Unknown ITCHY EYES Uncoded 04/04/23 13:05 Home Medications Medication Instructions Recorded Confirmed Last Taken Type omeprazole 20 mg tablet,delayed 20 mg PO DAILY PRN Gastric Reflux 05/27/20 04/04/23 04/10/23 History release acetaminophen 500 mg tablet 1,000 mg PO Q6H PRN Pain 04/04/23 04/04/23 04/09/23 History Exam Height,Weight and Vital Signs: Height 5 ft 2 in Weight 56.699 kg Last Vital Signs Pulse 60 04/04/23 13:10 Resp 16 04/04/23 13:10 BP 146/83 H 04/04/23 13:10 Pulse Ox 97 04/04/23 13:10 O2 Del Method Room Air 04/04/23 13:10 Pertinent Lab Results Pertinent Lab Results: Lab Results 04/04/23 Range/Units 13:46 WBC 7.7 (4.8-10.8) X10*3/uL RBC 4.24 (4.20-5.50) X10*6/uL Hgb 14.0 (12.0-16.0) g/dl Hct 41.1 (37.0-47.0) % MCV 96.9 (80.0-98.0) fL MCH 33.0 (27.0-33.0) pg MCHC 34.1 (31.0-35.0) g/dl RDW 12.1 (11.0-16.0) % Plt Count 481 H (160-400) X10*3/uL MPV 8.7 L (9.4-12.3) fL Absolute Nucleated RBC 0.000 (0.0-0.012) X10*3/uL Nucleated RBC % (auto) 0.0 (0.0-0.2) /100WBC PT 10.8 L (11.1-13.3) SEC INR 0.9 (0.9-1.1) Sodium 137 (135-145) mmol/L Potassium 3.2 L (3.3-5.1) mmol/L Chloride 95 L (96-108) mmol/L Carbon Dioxide 31 H (22-29) mmol/L Anion Gap 14 (12-20) BUN 14 (9-16) mg/dL Creatinine 0.63 (0.5-1.4) mg/dL Estim Creat Clear Calc 71.3 Estimated GFR > 60 Random Glucose 115 (60-115) mg/dL Calcium 9.7 (8.4-10.2) mg/dL Total Bilirubin 0.6 (0.0-1.0) mg/dL AST 39 H (5-31) U/L ALT 24 (0-31) U/L Alkaline Phosphatase 122 H (39-117) U/L Total Protein 7.5 (6.5-8.0) g/dL Albumin 4.1 (3.5-5.0) g/dL Narrative Narrative: EKG 03/2023 Vent. Rate : 059 BPM Atrial Rate : 059 BPM P-R Int : 146 ms QRS Dur : 086 ms QT Int : 470 ms P-R-T Axes : 000 -07 -01 degrees QTc Int : 465 ms Sinus bradycardia Otherwise normal ECG When compared with ECG of 23-DEC-2020 03:22, No significant change was found Airway Mallampati Class: III TM Dist: >3cm Neck ROM: Full Loose/Missing/Broken Teeth: Yes (missing molar, left upper implant) Heart: RRR Lungs: CTAB Assessment and Plan Assessment Anesthesia Assessment: Anesthesia Plan Discussed and PAT Visit Final Anesthetic Review Family History of Problems with Anesthesia: No History of Problems with Anesthesia: No Documented by User: Lina Sellers MD 04/10/23 10:11 PMFSH Past Medical History Medical History Constipation Positive colorectal cancer screening using Cologuard test Cystitis Papanicolaou smear declined Colonoscopy refused Mammogram declined Muscle spasm Lumbar pain Supraclavicular mass Hospital discharge follow-up Hyperlipidemia GERD (gastroesophageal reflux disease) Acute hypokalemia Fall Hematoma Alcohol use disorder, mild, in early remission, abuse Alcoholism Hospital discharge follow-up Hypokalemia Uncontrolled hypertension Abnormal EKG Hypertension, essential Breast screening Encounter for general adult medical examination with abnormal findings Anxiety, generalized Hives Family History Family History Father Cardiac disease Mother Cardiac disease HTN (hypertension) Other Substance use disorder Surgical History Surgical History Hx of hand surgery Hx of colonoscopy (08/30/11) History of right breast biopsy (10/31/11) Hx of left inguinal hernia repair (02/25/13) Hx of basal cell carcinoma excision (2011) History of left oophorectomy (09/07/11) Hx of right inguinal hernia repair (2003) Social History Social History Household Members: Spouse Housing: House Are you a primary healthcare management to a significant other at home: Yes () Alcohol intake: current Alcohol intake frequency: 3 or more drinks per day Alcohol type: hard liquor Patient Tobacco Use Status: Former Tobacco user Quit Date: 1991 Tobacco use type: Cigarette e-Cigarette/Vaping Use: Never Used Use of substances other than those prescribed or required for medical reasons: Yes Substance Use Type: Marijuana Substance Use Frequency: Daily Have you been hit, kicked, punched, or otherwise hurt by someone within the past year? If so, by whom?: No Are you DNR?: No Advance Directives: No Advance Directives Information Provided: Yes Advance Directives on File: No Recently lost weight without trying: Yes How much weight loss: 2-13 pounds Eating poorly because of decreased appetite: Yes Nutrition screen score: 4 Nutrition Risks: No Nutritional Risk service: No Current occupational status: employed Cognitive needs: No Hearing needs: No Vision needs: No Meds Allergies Allergy/AdvReac Type Severity Reaction Status Date / Time hydroxychloroquine Allergy Severe hives Verified 04/04/23 13:05 [Plaquenil] bupropion [From WELLBUTRIN] Allergy Intermediate HIVES Verified 04/04/23 13:05 amoxicillin Allergy Mild Rash Verified 04/04/23 13:05 tramadol Allergy Unknown hives, rash Verified 04/04/23 13:05 ENVIRONMENTAL Allergy Unknown ITCHY EYES Uncoded 04/04/23 13:05 Home Medications Medication Instructions Recorded Confirmed Last Taken Type omeprazole 20 mg tablet,delayed 20 mg PO DAILY PRN Gastric Reflux 05/27/20 04/04/23 04/10/23 History release acetaminophen 500 mg tablet 1,000 mg PO Q6H PRN Pain 04/04/23 04/04/23 04/09/23 History Assessment and Plan Final Anesthetic Review NPO: Yes ASA Class: III Final Preanesthetic Review: No Changes in Pt Med Stat, Meds/Allgs Chart Reviewed, Consent Obtained/Reviewed and Anes Risks/Benef Reviewed Patient Risk: Intermediate Procedure Risk: Intermediate Anesthetic Plan Anesthetic Plan: GA Disposition: Standard PACU
[2023-04-04 14:04] LABS: Hematocrit 41.1 % (37.0-47.0); Mean Corpuscular HGB Conc 34.1 g/dl (31.0-35.0); Mean Corpuscular Volume 96.9 fL (80.0-98.0); Mean Platelet Volume 8.7 fL (9.4-12.3); Platelet Count 481 X10*3/uL (160-400); Red Blood Count 4.24 X10*6/uL (4.20-5.50); Red Cell Distribution Width 12.1 % (11.0-16.0); White Blood Count 7.7 X10*3/uL (4.8-10.8)
[2023-04-04 14:10] LABS: INTERNATIONAL NORM RATIO 0.9 (0.9-1.1); Prothrombin Time 10.8 SEC (11.1-13.3)
[2023-04-04 14:50] LABS: Alanine Aminotransferase 24 U/L (0-31); Albumin Level 4.1 g/dL (3.5-5.0); Alkaline Phosphatase 122 U/L (39-117); Anion Gap 14 (12-20); Aspartate Amino Transferase 39 U/L (5-31); Bilirubin Total 0.6 mg/dL (0.0-1.0); Blood Urea Nitrogen 14 mg/dL (9-16); Calcium 9.7 mg/dL (8.4-10.2); Carbon Dioxide 31 mmol/L (22-29); Chloride 95 mmol/L (96-108); Creatinine Clr Calc Pharmacy 71.3; Estimated Glomerular Filt Rate > 60; Glucose Random 115 mg/dL (60-115); Potassium 3.2 mmol/L (3.3-5.1); Sodium 137 mmol/L (135-145); Total Protein 7.5 g/dL (6.5-8.0)
[2023-04-10] VITALS (14 sets, daily range): BP systolic 113–170; BP diastolic 58–105; PULSE 88–104; RESP 12–22; TEMP 36.3–37.3; O2SAT 93–99; BMI 22.2
--- NOTE | 2023-04-10 | ECG_ITS ---
Test Reason : hypokalemia Blood Pressure : / mmHG Vent. Rate : 081 BPM Atrial Rate : 081 BPM P-R Int : 154 ms QRS Dur : 090 ms QT Int : 392 ms P-R-T Axes : 031 -08 -07 degrees QTc Int : 455 ms Normal sinus rhythm Normal ECG When compared with ECG of 04-APR-2023 13:52, No significant change was found Referred By: Lina Sellers Electronically Signed By:ANNALISE LOZADA MD
--- NOTE | ~2023-04-10 | FL_ITS ---
EXAMINATION: XR FLUOROSCOPY WITH IMAGES CLINICAL INFORMATION: Fluoroscopic guidance provided to Dr. Veliz during fusion of T9-T12 and placement of vertebroplasty cement in T10. COMPARISON: None available. TECHNIQUE: Fluoroscopy Supervised By: Dr. Veliz. Fluoroscopy Time: 1.4 minutes. Cumulative Dose: 29.8 mGy. DAP: 2.26130 Gycm2. Images: 1. FINDINGS: Solitary lateral image demonstrates transpedicular screws with posterior connecting rods spanning T9-T11, with kyphoplasty of T10. FL/FL guidance in OR IMPRESSION: Fluoroscopic guidance as detailed during lower thoracic fusion. T10 kyphoplasty.
--- NOTE | 2023-04-10 07:12 | P.HPSUR_ITS ---
Pre-Procedural Eval Section A Date of Service: 04/10/23 The patient is an INPATIENT: No Changes since office visit: No Cold of Flu in the past 2 weeks, No New Medical Problems, No Changes in Medication and No Patient answered all questions The History & Physical has been completed within 30 days and I have reviewed it.: No Section B Chief Complaint: Unspecified fracture of unspecified thoracic,dorsa Allergies: Allergies Allergy/AdvReac Type Severity Reaction Status Date / Time hydroxychloroquine Allergy Severe hives Verified 04/04/23 13:05 [Plaquenil] bupropion [From WELLBUTRIN] Allergy Intermediate HIVES Verified 04/04/23 13:05 amoxicillin Allergy Mild Rash Verified 04/04/23 13:05 tramadol Allergy Unknown hives, rash Verified 04/04/23 13:05 ENVIRONMENTAL Allergy Unknown ITCHY EYES Uncoded 04/04/23 13:05 Review of Systems Sugical H&P ROS: Negative: Constitution, Cardiovascular, Respiratory, Neurological, Psychiatric, Hem-Onc, Allergic/Immunologic, Gastrointestinal, Genitourinary, Musculoskeletal, Integumentary, Endocrine and Eyes/Ears/Nose/Throat Exam Surgical H&P Exam: Not Evaluated: HEENT, Not Evaluated: Heart, Not Evaluated: Lungs, Not Evaluated: Extremities, Not Evaluated: Abdomen, Not Evaluated: Skin and Not Evaluated: Neurological Plan Diagnosis/Plan: Unchanged I have reviewed the history and physical and performed a pertinent physical examination on my patient. No changes have occurred unless specified. T10 kyphoplasty with T9-T11 posterior fusion and pedicle screw placement, possible T8-T12 depending on the quality of the screw placement with her de teriorating bone at time of surgery . Time Spent With Patient Time: Total time managing care of this patient today _10___ minutes.
[2023-04-10] MEDS: Gabapentin 300 MG CAPSULE PO (10:16)
[2023-04-10] MEDS: methocarbamoL 750 MG TABLET PO (10:16)
[2023-04-10] MEDS: vancomycin HCL 1,000 MG in 0.9 % Sodium Chloride 250 ML 270 MG IV (10:20)
[2023-04-10 10:36] LABS: Anion Gap 17 (12-20); Carbon Dioxide 26 mmol/L (22-29); Chloride 93 mmol/L (96-108); Potassium 2.7 mmol/L (3.3-5.1); Sodium 133 mmol/L (135-145)
--- NOTE | 2023-04-10 11:01 | PHA.MEDREC ---
Pharmacy Consult ? Medication Reconciliation Pharmacy has completed the medication reconciliation. Reviewed med rec done by nursing
[2023-04-10] MEDS: Potassium Chloride ER 20 MEQ TAB.ER.PRT 40 MEQ PO (11:40)
[2023-04-10] MEDS: Potassium Chloride/H20 10 MEQ/100 ML PIGGYBACK 100 MEQ IV (11:42)
--- NOTE | 2023-04-10 14:26 | W.PM.OPN ---
Operative Note Operative Note Date of Service: 04/10/23 Narrative: Preop diagnosis: T10 traumatic compression fracture with deformity and pain Postop diagnosis: Same Procedure: T9 to T11 posterior instrumented fusion; T10 kyphoplasty Surgeon: Cameron Veliz MD Assist: Thai PORTER Description of procedure: By[age]kk[age]-old female suffered a T10 compression fracture. She continues to suffer from severe amount of thoracic pain. She also has osteoporosis. It was decided to offer her a posterior T9-T11 posterior instrumented fusion and an T10 kyphoplasty to stabilize the fracture and posterior column. The procedure complications were explained. The patient was consented. The patient was brought to the operating room and endotracheally intubated. The patient was turned in a prone position on the Leo spine table. Two C- arms were installed for fluoroscopy. Prepping and draping were done followed by time-out. Two paramedian incisions were made lateral from the T9-T11 pedicles. the following steps were done for pedicle screw placement; First a transpedicular trajectory was made into the vertebral body with a tap; a K-wire was inserted. The steps were done for the bilateral T9 and T11 pedicles. Then preparations were taken for the kyphoplasty. A Jamshidi needle was inserted and advanced transpedicular into the vertebral body. This was done bilaterally. A drill was advanced towards the posterior 1/3 of the vertebral body through the canula bilaterally. Accordingly, dilating balloons were inserted bilaterally and inflated under AP and lateral fluoroscopic guidance. The balloons were deflated and the cavities were filled with cement under fluoroscopic guidance. The injection of cement was stopped when a minimal amount of cement appeared in the disc space . K-wires were placed through the Jamshidi needles after which a 5.5 x 35 mm screws were inserted bilaterally. the posterolateral gutter from T9-T11 was decorticated with a high-speed drill followed by placement of a 6.5 x 40 mm screw in the bilateral T9 and T11 pedicles. The pedicle screws were connected with a 60 mm edy bilaterally. Finally, the posterolateral fusion was completed by laying down allograft in the posterolateral gutter from T9-T11. Hemostasis was done. The paramedianincisions were closed in 2 layers . Steri-Strips were used to approximate the incisions. An Oppsite with tegaderm was used to cover the incision. All sponge and needle counts were correct. Patient was extubated and transported in stable to recovery room. The physician production administrative assistant helped with the interpretation intraoperative x-rays, place pedicle screws and closed the paramedian incisions. Anesthesia: General Estimated blood loss: 20 mL Specimen: None Surgical time: 90 minutes Deposition: Discharged home
[2023-04-10] MEDS: HYDROmorphone HCl 0.5 MG/0.5 ML SYRINGE IVPUSH ×3 (15:10→20:24)
[2023-04-10] MEDS: fentaNYL citrate/PF 100 MCG/2 ML VIAL 25 MCG IVPUSH (15:45)
[2023-04-10] MEDS: Acetaminophen 1,000 MG/100 ML PIGGYBACK 400 MG IV ×2 (17:08→21:50)
[2023-04-10] MEDS: Ketorolac Tromethamine 15 MG/ML VIAL IVPUSH ×2 (17:09→20:20)
[2023-04-10] MEDS: oxyCODONE HCl Immed Release 5 MG TABLET 10 MG PO (17:39)
[2023-04-10] MEDS: 0.9 % Sodium Chloride 1,000 ML 75 ML IVCONT (17:44)
[2023-04-10] MEDS: Docusate Sodium 100 MG CAPSULE PO (20:24)
[2023-04-10] MEDS: Topiramate 25 MG TABLET PO (20:24)
[2023-04-10] MEDS: Atorvastatin Calcium 40 MG TABLET PO (20:24)
[2023-04-10] MEDS: ceFAZolin Sodium/Dextrose,Iso 2 GM/50 ML PIGGYBACK IV (20:30)
[2023-04-11] MEDS: HYDROmorphone HCl 0.5 MG/0.5 ML SYRINGE IVPUSH (00:26)
[2023-04-11] MEDS: ceFAZolin Sodium/Dextrose,Iso 2 GM/50 ML PIGGYBACK IV ×2 (00:26→06:34)
[2023-04-11] MEDS: Ketorolac Tromethamine 15 MG/ML VIAL IVPUSH ×2 (02:52→08:39)
[2023-04-11] MEDS: Acetaminophen 1,000 MG/100 ML PIGGYBACK 400 MG IV (02:52)
[2023-04-11 03:25] VITALS: BP 140/65; PULSE 80; RESP 14; TEMP 36.2; O2SAT 93
[2023-04-11] MEDS: 0.9 % Sodium Chloride 1,000 ML 75 ML IVCONT (06:28)
[2023-04-11] MEDS: oxyCODONE HCl Immed Release 5 MG TABLET 10 MG PO ×3 (06:33→15:16)
[2023-04-11 07:13] VITALS: BP 147/65; PULSE 80; RESP 18; TEMP 36.4; O2SAT 95
[2023-04-11] MEDS: Docusate Sodium 100 MG CAPSULE PO (08:38)
[2023-04-11] MEDS: Topiramate 25 MG TABLET PO (08:38)
[2023-04-11] MEDS: Venlafaxine HCl ER 75 MG CAP.ER.24H PO (08:38)
[2023-04-11] MEDS: atenoloL 50 MG TABLET PO (08:38)
[2023-04-11] MEDS: amLODIPine Besylate 5 MG TABLET PO (08:39)
[2023-04-11] MEDS: Montelukast Sodium 10 MG TABLET PO (08:39)
[2023-04-11 09:17] VITALS: BP 147/65; PULSE 80; O2SAT 95
--- NOTE | 2023-04-11 09:17 | HO.NEURO.PN ---
Neurosurgery Operative Note Date of Service: 04/11/23 Narrative: Status post T10 kyphoplasty with T9-T11 percutaneous pedicle screws patient reports she has back discomfort, denies any tingling weakness or numbness down her legs. She is tolerating a diet. She has been up walking to the bathroom, voiding okay. Afebrile, vital signs stable Physical exam: Patient is awake alert oriented, bilateral lower extremity strength is full, back dressing is clean and dry. Impression: Status post T10 kyphoplasty with T9-T11 percutaneous pedicle screws for burst fracture of the T10 vertebral body. Patient is neurologically intact. Her pain is relatively well managed, she has been up walking around. I will have her see physical therapy at discharge her home today. Patient seen at bedside with Dr. Veliz.
--- NOTE | 2023-04-11 09:18 | P.DS_ITS ---
DS: Providers Provider Date of Service: 04/10/23 Date of admission: 04/10/23 09:21 Date of discharge: 04/11/23 Primary care physician: Ros Lunsford MD Admitting clinician: Cameron Veliz DS: Diagnosis Discharge Diagnosis (1) Thoracic vertebral fracture: Status: Acute DS: Summary Time Attestation Discharge coordination time: Less than 30 minutes Quality: Safe Use of Opioids Does Pt have an Active Cancer Diagnosis on the Problem List?: No Quality: Stroke Does the patient have a stroke diagnosis?: No Physical Exam Vital Signs: Vital Signs: Last Vital Signs Temp 97.5 F 04/11/23 07:13 Pulse 80 04/11/23 07:13 Resp 18 04/11/23 07:13 BP 147/65 H 04/11/23 07:13 Pulse Ox 95 04/11/23 07:13 O2 Del Method Room Air 04/11/23 07:13 O2 Flow Rate 3 04/10/23 16:20 BMI result Body Mass Index 22.2 DS: Data Data Completed and Pending Labs on day of discharge: Laboratory Results - last 24 hr 04/10/23 10:16 Sodium 133 L Potassium 2.7 L Chloride 93 L Carbon Dioxide 26 Anion Gap 17 Discharge Plan Discharge Anticipated Discharge Date/Time: 04/11/23 13:00 Patient Disposition: Home, Self-Care Discharge Diagnosis: T10 burst fracture Hypokalemia Referrals: Ros Lunsford MD [Primary Care Provider] - 1 Week Discharge Medications: New docusate sodium [Colace] 100 mg capsule 100 mg PO BID Qty: 20 0RF oxycodone 5 mg tablet 5 mg PO Q4H PRN (Reason: pain) Qty: 30 0RF Rx Instructions: Partial Fill upon patient request. Continued cetirizine [All Day Allergy (cetirizine)] 10 mg tablet 10 mg PO DAILY PRN (Reason: allergy symptoms) 90 Days Qty: 90 0RF cyclobenzaprine 10 mg tablet 10 mg PO TID PRN (Reason: muscle spasm) Qty: 10 0RF lidocaine [Lidoderm] 5 % adhesive patch,medicated 1 patch topical DAILY Qty: 15 0RF Rx Instructions: leave on most painful area for up to 12 hrs acetaminophen 500 mg Tablet 1,000 mg PO Q6H PRN (Reason: Pain) omeprazole 20 mg tablet,delayed release (DR/EC) 20 mg PO DAILY PRN (Reason: Gastric Reflux) ondansetron HCl 4 mg tablet 4 mg PO Q8H PRN (Reason: nausea and vomiting) 7 Days Qty: 14 0RF amlodipine 5 mg tablet 5 mg PO DAILY 90 Days Qty: 90 0RF atenolol-chlorthalidone 50-25 mg tablet 1 tab PO DAILY 90 Days Qty: 90 0RF atorvastatin 40 mg tablet 40 mg PO BEDTIME 90 Days Qty: 90 0RF montelukast 10 mg tablet 10 mg PO DAILY Qty: 90 0RF topiramate 25 mg tablet 25 mg PO BID 90 Days Qty: 180 0RF venlafaxine 75 mg capsule,extended release 24hr 75 mg PO DAILY Qty: 90 0RF oxycodone 5 mg tablet 5 mg PO Q6H PRN (Reason: pain) Qty: 30 0RF Rx Instructions: Partial Fill upon patient request. Discharge Orders: Discharge Order (Routine); Ordered 04/11/23 Ordered By: Thai Grant Diet: Advance to usual diet Activity on Discharge: As tolerated Stand Alone Forms: Patient Portal Discharge page Activity Restrictions/Additional Instructions: After your spinal surgery we ask you to observe the following restrictions/guidelines: YOUR POTASSIUM WAS FOUND TO BE SLIGHTLY LOW PREOPERATIVELY. WE GAVE YOU SUPPLEMENTS TO HELP IT BUT YOU SHOULD FOLLOW UP WITH YOUR PCP SOMETIME IN THE NEXT FEW WEEKS ABOUT THIS TO DISCUSS Activity: It is normal to feel some discomfort as you increase your activity, but that will improve with time. We ask you avoid heavy lifting or acitivities that cause pain. As a general ru le, 8lbs is a safe limit for lifting right after surgery. Walk as much as you feel comfortable but not to exhaustion. You will feel extra tired the first few days after surgery. Stay well hydrated. It is OK to walk up and down stairs You may return to driving when you are off narcotics (such as vicodin, oxycodone, dilaudid, etc), and you are back to normal functional capacity. If you have any concerns please check with office before driving. Return to work is specific to each patient and each surgery, so please speak with your doctor/PA at first follow up. Please bring paperwork such as FMLA at that time if you need it filled out. Medications: For optimum pain control, it is best to start with a combination of 500 mg of Tylenol every 4 hours with 600 mg of Motrin every 8 hours, and use narcotics as needed in between for breakthrough pain. We will give you a short supply of narcotics after surgery (usually one weeks worth). If you need more please call the office but do not use more than prescribed. You will need to give our office 48 hours notice if you need narcotics refilled and we do not fill narcotics on weekends or evenings. If you are on a narcotic, it is a good idea to take a stool softener such as colace or senna to avoid constipation If you take blood thinner such as aspirin, Plavix, Coumadin, Effient, Eliquis etc for conditions such as Afib, DVT, Pulmonary embolus, coronary disease, stents etc please speak with your surgeon about specific details as to when you can resume these medications. You can resume NSAIDs on post op day 1 (eg: Motrin, Naproxen, etc). Follow up: Please call the office, , after surgery to arrange a 3 week follow up for wound check. Wound Care: You may remove your dressing on the first day after surgery. You may leave open to air. Please do not remove the steri strips underneath. they will fall off on their own in one week. IT IS NORMAL FOR THE WOUND TO OOZE OR BE BLOODY FOR A FEW DAYS AFTER SURGERY. IF THIS HAPPENS JUST PLACE NEW DRESSING OVER IT TO AVOID STAINING CLOTHES. You may shower on post op day # 1 We ask that you do not let the water soak the wound. If it does get wet, just towel dry lightly. Please do not scrub your incision or place any type of chemical/ointment on the wound. No tub baths, pools or jacuzzis for one month. If you have any leaking or redness from your wound, or fevers, please call office Care Plan Goals: discharge home Health Concerns: patient will follow-up with her PCP regarding hypokalemia Plan of Treatment: discharge home Assessment: stable
[2023-04-11] MEDS: hydroCHLOROthiazide 50 MG TABLET PO (09:24)
--- NOTE | 2023-04-11 09:38 | P.DS_ITS ---
DS: Providers Provider Date of Service: 04/11/23 Date of admission: 04/10/23 09:21 Primary care physician: Ros Lunsford MD DS: Diagnosis Discharge Diagnosis (1) Thoracic vertebral fracture: Status: Acute DS: Summary Time Attestation Discharge coordination time: Less than 30 minutes Quality: Safe Use of Opioids Does Pt have an Active Cancer Diagnosis on the Problem List?: No Quality: Stroke Does the patient have a stroke diagnosis?: No Physical Exam Vital Signs: Vital Signs: Last Vital Signs Temp 97.5 F 04/11/23 07:13 Pulse 80 04/11/23 09:17 Resp 18 04/11/23 07:13 BP 147/65 H 04/11/23 09:17 Pulse Ox 95 04/11/23 09:17 O2 Del Method Room Air 04/11/23 07:13 O2 Flow Rate 3 04/10/23 16:20 BMI result Body Mass Index 22.2 DS: Data Data Completed and Pending Labs on day of discharge: Laboratory Results - last 24 hr 04/10/23 10:16 Sodium 133 L Potassium 2.7 L Chloride 93 L Carbon Dioxide 26 Anion Gap 17 Discharge Plan Discharge Anticipated Discharge Date/Time: 04/11/23 13:00 Patient Disposition: Home, Self-Care Discharge Diagnosis: T10 burst fracture Hypokalemia Referrals: Ros Lunsford MD [Primary Care Provider] - 1 Week Discharge Medications: New docusate sodium [Colace] 100 mg capsule 100 mg PO BID Qty: 20 0RF oxycodone 5 mg tablet 5 mg PO Q4H PRN (Reason: pain) Qty: 30 0RF Rx Instructions: Partial Fill upon patient request. Continued cetirizine [All Day Allergy (cetirizine)] 10 mg tablet 10 mg PO DAILY PRN (Reason: allergy symptoms) 90 Days Qty: 90 0RF cyclobenzaprine 10 mg tablet 10 mg PO TID PRN (Reason: muscle spasm) Qty: 10 0RF lidocaine [Lidoderm] 5 % adhesive patch,medicated 1 patch topical DAILY Qty: 15 0RF Rx Instructions: leave on most painful area for up to 12 hrs acetaminophen 500 mg Tablet 1,000 mg PO Q6H PRN (Reason: Pain) omeprazole 20 mg tablet,delayed release (DR/EC) 20 mg PO DAILY PRN (Reason: Gastric Reflux) ondansetron HCl 4 mg tablet 4 mg PO Q8H PRN (Reason: nausea and vomiting) 7 Days Qty: 14 0RF amlodipine 5 mg tablet 5 mg PO DAILY 90 Days Qty: 90 0RF atenolol-chlorthalidone 50-25 mg tablet 1 tab PO DAILY 90 Days Qty: 90 0RF atorvastatin 40 mg tablet 40 mg PO BEDTIME 90 Days Qty: 90 0RF montelukast 10 mg tablet 10 mg PO DAILY Qty: 90 0RF topiramate 25 mg tablet 25 mg PO BID 90 Days Qty: 180 0RF venlafaxine 75 mg capsule,extended release 24hr 75 mg PO DAILY Qty: 90 0RF oxycodone 5 mg tablet 5 mg PO Q6H PRN (Reason: pain) Qty: 30 0RF Rx Instructions: Partial Fill upon patient request. Discharge Orders: Discharge Order (Routine); Ordered 04/11/23 Ordered By: Thai Grant Diet: Advance to usual diet Activity on Discharge: As tolerated Stand Alone Forms: Patient Portal Discharge page Activity Restrictions/Additional Instructions: After your spinal surgery we ask you to observe the following restrictions/guidelines: YOUR POTASSIUM WAS FOUND TO BE SLIGHTLY LOW PREOPERATIVELY. WE GAVE YOU SUPPLEMENTS TO HELP IT BUT YOU SHOULD FOLLOW UP WITH YOUR PCP SOMETIME IN THE NEXT FEW WEEKS ABOUT THIS TO DISCUSS Activity: It is normal to feel some discomfort as you increase your activity, but that will improve with time. We ask you avoid heavy lifting or acitivities that cause pain. As a general rule, 8lbs is a safe limit for lifting right after surgery. Walk as much as you feel comfortable but not to exhaustion. You will feel extra tired the first few days after surgery. Stay well hydrated. It is OK to walk up and down stairs You may return to driving when you are off narcotics (such as vicodin, oxycod one, dilaudid, etc), and you are back to normal functional capacity. If you have any concerns please check with office before driving. Return to work is specific to each patient and each surgery, so please speak with your doctor/PA at first follow up. Please bring paperwork such as FMLA at that time if you need it filled out. Medications: For optimum pain control, it is best to start with a combination of 500 mg of Tylenol every 4 hours with 600 mg of Motrin every 8 hours, and use narcotics as needed in between for breakthrough pain. We will give you a short supply of narcotics after surgery (usually one weeks worth). If you need more please call the office but do not use more than prescribed. You will need to give our office 48 hours notice if you need narcoti cs refilled and we do not fill narcotics on weekends or evenings. If you are on a narcotic, it is a good idea to take a stool softener such as colace or senna to avoid constipation If you take blood thinner such as aspirin, Plavix, Coumadin, Effient, Eliquis etc for conditions such as Afib, DVT, Pulmonary embolus, coronary disease, stents etc please speak with your surgeon about specific details as to when you can resume these medications. You can resume NSAIDs on post op day 1 (eg: Motrin, Naproxen, etc). Follow up: Please call the office, , after surgery to arrange a 3 week follow up for wound check. Wound Care: You may remove your dressing on the first day after surgery. You may leave open to air. Please do not remove the steri strips underneath. they will fall off on their own in one week. IT IS NORMAL FOR THE WOUND TO OOZE OR BE BLOODY FOR A FEW DAYS AFTER SURGERY. IF THIS HAPPENS JUST PLACE NEW DRESSING OVER IT TO AVOID STAINING CLOTHES. You may shower on post op day # 1 We ask that you do not let the water soak the wound. If it does get wet, just towel dry lightly. Please do not scrub your incision or place any type of chemical/ointment on the wound. No tub baths, pools or jacuzzis for one month. If you have any leaking or redness from your wound, or fevers, please call office Care Plan Goals: discharge home Health Concerns: patient will follow-up with her PCP regarding hypokalemia Plan of Treatment: discharge home Assessment: stable
--- NOTE | 2023-04-11 10:08 | MHC.CM.PN ---
FEMALE S/P T10-T11 FUSION She lives by herself. She is independent at baseline. She has access to a walker at home. A new referral has been sent to [facility]. home with new [facility] and family assist. Patient has arranged for transportation home.. She is discharged today.
[2023-04-11 11:48] VITALS: BP 114/53; PULSE 78; RESP 20; TEMP 36.4; O2SAT 95
--- NOTE | 2023-04-11 12:27 | P.DS_ITS ---
DS: Providers Provider Date of Service: 04/11/23 Date of admission: 04/10/23 09:21 Primary care physician: Ros Lunsford MD DS: Diagnosis Discharge Diagnosis (1) Thoracic vertebral fracture: Status: Acute DS: Summary Time Attestation Discharge coordination time: Less than 30 minutes Quality: Safe Use of Opioids Does Pt have an Active Cancer Diagnosis on the Problem List?: No Quality: Stroke Does the patient have a stroke diagnosis?: No Physical Exam Vital Signs: Vital Signs: Last Vital Signs Temp 97.6 F 04/11/23 11:48 Pulse 78 04/11/23 11:48 Resp 20 04/11/23 11:48 BP 114/53 L 04/11/23 11:48 Pulse Ox 95 04/11/23 11:48 O2 Del Method Room Air 04/11/23 11:48 O2 Flow Rate 3 04/10/23 16:20 BMI result Body Mass Index 22.2 Discharge Plan Discharge Anticipated Discharge Date/Time: 04/11/23 13:00 Patient Disposition: Home, Self-Care Discharge Diagnosis: T10 burst fracture Hypokalemia Referrals: Ros Lunsford MD [Primary Care Provider] - 1 Week Discharge Medications: New docusate sodium [Colace] 100 mg capsule 100 mg PO BID Qty: 20 0RF oxycodone 5 mg tablet See Rx Instructions .ROUTE .COMPLEX PRN (Reason: pain) Qty: 40 0RF Rx Instructions: 1-2 tabs po q4 hours prn pain; Partial Fill upon patient request. Continued cetirizine [All Day Allergy (cetirizine)] 10 mg tablet 10 mg PO DAILY PRN (Reason: allergy symptoms) 90 Days Qty: 90 0RF cyclobenzaprine 10 mg tablet 10 mg PO TID PRN (Reason: muscle spasm) Qty: 10 0RF lidocaine [Lidoderm] 5 % adhesive patch,medicated 1 patch topical DAILY Qty: 15 0RF Rx Instructions: leave on most painful area for up to 12 hrs acetaminophen 500 mg Tablet 1,000 mg PO Q6H PRN (Reason: Pain) omeprazole 20 mg tablet,delayed release (DR/EC) 20 mg PO DAILY PRN (Reason: Gastric Reflux) ondansetron HCl 4 mg tablet 4 mg PO Q8H PRN (Reason: nausea and vomiting) 7 Days Qty: 14 0RF amlodipine 5 mg tablet 5 mg PO DAILY 90 Days Qty: 90 0RF atenolol-chlorthalidone 50-25 mg tablet 1 tab PO DAILY 90 Days Qty: 90 0RF atorvastatin 40 mg tablet 40 mg PO BEDTIME 90 Days Qty: 90 0RF montelukast 10 mg tablet 10 mg PO DAILY Qty: 90 0RF topiramate 25 mg tablet 25 mg PO BID 90 Days Qty: 180 0RF venlafaxine 75 mg capsule,extended release 24hr 75 mg PO DAILY Qty: 90 0RF Discontinued oxycodone 5 mg tablet 5 mg PO Q6H PRN (Reason: pain) Qty: 30 0RF Rx Instructions: Partial Fill upon patient request. Discharge Orders: Discharge Order (Routine); Ordered 04/11/23 Ordered By: Thai Grant Diet: Advance to usual diet Activity on Discharge: As tolerated Stand Alone Forms: Patient Portal Discharge page Activity Restrictions/Additional Instructions: After your spinal surgery we ask you to observe the following restr ictions/guidelines: YOUR POTASSIUM WAS FOUND TO BE SLIGHTLY LOW PREOPERATIVELY. WE GAVE YOU SUPPLEMENTS TO HELP IT BUT YOU SHOULD FOLLOW UP WITH YOUR PCP SOMETIME IN THE NEXT FEW WEEKS ABOUT THIS TO DISCUSS Activity: It is normal to feel some discomfort as you increase your activity, but that will improve with time. We ask you avoid heavy lifting or acitivities that cause pain. As a general rule, 8lbs is a safe limit for lifting right after surgery. Walk as much as you feel comfortable but not to exhaustion. You will feel extra tired the first few days after surgery. Stay well hydrated. It is OK to walk up and down stairs You may return to driving when you are off narcotics (such as vicodin, oxycodone, dilaudid, etc), and you are back to normal functional capacity. If you have any concerns please check with office before driving. Return to work is specific to each patient and each surgery, so please speak with your doctor/PA at first follow up. Please bring paperwork such as FMLA at that time if you need it filled out. Medications: For optimum pain control, it is best to start with a combination of 500 mg of Tylenol every 4 hours with 600 mg of Motrin every 8 hours, and use narcotics as needed in between for breakthrough pain. We will give you a short supply of narcotics after surgery (usually one weeks worth). If you need more please call the office but do not use more than prescribed. You will need to give our office 48 hours notice if you need narcotics refilled and we do not fill narcotics on weekends or evenings. If you are on a narcotic, it is a good idea to take a stool softener such as colace or senna to avoid constipation If you take blood thinner such as aspirin, Plavix, Coumadin, Effient, Eliquis etc for conditions such as Afib, DVT, Pulmonary embolus, coronary disease, stents etc please speak with your surgeon about specific details as to when you can resume these medications. You can resume NSAIDs on post op day 1 (eg: Motrin, Naproxen, etc). Follow up: Please call the office, , after surgery to arrange a 3 week follow up for wound check. Wound Care: You may remove your dressing on the first day after surgery. You may leave open to air. Please do not remove the steri strips underneath. they will fall off on their own in one week. IT IS NORMAL FOR THE WOUND TO OOZE OR BE BLOODY FOR A FEW DAYS AFTER SURGERY. IF THIS HAPPENS JUST PLACE NEW DRESSING OVER IT TO AVOID STAINING CLOTHES. You may shower on post op day # 1 We ask that you do not let the water soak the wound. If it does get wet, just towel dry lightly. Please do not scrub your incision or place any type of chemical/ointment on the wound. No tub baths, pools or jacuzzis for one month. If you have any leaking or redness from your wound, or fevers, please call office Care Plan Goals: discharge home Health Concerns: patient will follow-up with her PCP regarding hypokalemia Plan of Treatment: discharge home Assessment: stable
--- NOTE | 2023-04-11 12:32 | PC.NURSE ---
Pt refusing to wear non slip socks.
--- NOTE | 2023-04-11 13:55 | HO.POSTANES ---
Post Anesthesia Evaluation Post Anesthesia Evaluation Date of Service: 04/11/23 Vital Signs: Vital Signs Temp Pulse Resp BP Pulse Ox O2 Del Method 04/11/23 11:48 97.6 F 78 20 114/53 L 95 Room Air 04/11/23 09:17 80 147/65 H 95 04/11/23 07:13 97.5 F 80 18 147/65 H 95 Room Air 04/11/23 03:25 97.2 F 80 14 140/65 H 93 Room Air Anesthesia: General Endotracheal-GETA Mental Status: Awake Pain Control: Satisfactory Nausea/Vomiting: None Hydration: Adequate Anesthesia-Related Issues: No Anes. Related Issues
== END 2023-04-11 15:44 | disposition home or self-care (01) ==
LOC: HO.S3 04-11 09:25 → HO.SSSA 04-11 10:03
PROVIDERS: Anesthesiology; Nurse Practitioner; Admitting Provider Neurological Surgery; PCP Internal Medicine; Visit Provider Neurological Surgery
PROC: (CPT 22513; principal; 2023-04-10 10:50)
PROC: (CPT 22513; 2023-04-10 10:50)
DX: S22.071A Stable burst fracture of T9-T10 vertebra, initial encounter for closed fracture (principal); X58.XXXA Exposure to other specified factors, initial encounter; Y93.9 Activity, unspecified; Y92.9 Unspecified place or not applicable; Y99.9 Unspecified external cause status; E87.6 Hypokalemia; M47.816 Spondylosis without myelopathy or radiculopathy, lumbar region; I10 Essential (primary) hypertension; E80.6 Other disorders of bilirubin metabolism
CPT/HCPCS: 22513; 36415; 80051; 80053; 85027; 85610; 93005; 96361; 96365; 96366; 96367; 96375; 96376; 97162; 99024; 99221; C1713; J0131; J0690; J1100; J1170; J1885; J2250; J2405; J2704; J3010; J3370; J3480; L8699; Q9967

== ENCOUNTER 2023-04-10 09:21 | Outpatient (BNV) | payer BC, SELFPAY | END 2023-04-10 11:33 | PROVIDERS: Admitting Provider Neurological Surgery; PCP Internal Medicine; Visit Provider Internal Medicine Cardiovascular Disease | DX: E87.6 Hypokalemia (principal) | CPT/HCPCS: 93010 ==

== ENCOUNTER → 2023-04-10 09:21 | Outpatient (BNV) | payer BC, SELFPAY | PROVIDERS: Admitting Provider Neurological Surgery; PCP Internal Medicine; Visit Provider Neurological Surgery | DX: S22.070A Wedge compression fracture of T9-T10 vertebra, initial encounter for closed fracture (principal); M54.9 Dorsalgia, unspecified | CPT/HCPCS: 22513; 22612; 22614; 22840; 99499 ==

== ENCOUNTER 2023-04-11 23:09 | Emergency (ER) | payer BC, SELFPAY ==
[2023-04-11 23:13] VITALS: BP 101/66; BP 105/60; PULSE 80; PULSE 89; RESP 20; TEMP 36.6; O2SAT 98; O2SAT 99; BMI 21.9
--- NOTE | 2023-04-11 23:24 | ED.BACK ---
HPI - Back Pain/Injury General Chief Complaint: Back Pain/Injury Stated Complaint: mid back pain, surgery yesterday Source: patient and old records reviewed Mode of arrival: EMS Limitations: no limitations History of Present Illness HPI Narrative: 62 yo female with PMH Of HTN, anxiety, chronic back pain s/p T9 to T11 posterior instrument fusion with pedicle screws and T10 kyphoplasty on 03/[address] Veliz for repair of T10 burst fracture in the setting of pain and osteoporosis. She was discharged home today on PRN 5mg oxycodone. She comes back to the ED with c/o worsening pain. She has no numbness, weakness, loss of control of bowel or bladder. She has had no pain medications since discharge at 3pm. 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 She notes no one could go to the pharmacy to get her medications. She is crying in pain. She isn't sure how she is going to do this. MD elicited complaint: back pain Pertinent past history: other (s/p surgery 04/10) Onset (ago): day(s) (1) Timing: constant Severity: severe Similar Symptoms Previously: Yes Quality: spasming and throbbing Location: thoracic spine Radiation: none Exacerbating factors: movement and coughing/sneezing Relieving factors: immobilization Context: other Associated symptoms: other (nauseated due to pain) Work related injury: No Related Data Home Medications Medication Instructions Recorded Confirmed omeprazole 20 mg tablet,delayed 20 mg PO DAILY PRN Gastric Reflux 05/27/20 04/04/23 release acetaminophen 500 mg tablet 1,000 mg PO Q6H PRN Pain 04/04/23 04/04/23 Previous Rx's Medication Instructions Recorded amlodipine 5 mg tablet 5 mg PO DAILY 90 days #90 tabs 11/29/22 atenolol 50 mg-chlorthalidone 25 1 tab PO DAILY 90 days #90 tabs 11/29/22 mg tablet atorvastatin 40 mg tablet 40 mg PO BEDTIME 90 days #90 tabs 11/29/22 montelukast 10 mg tablet 10 mg PO DAILY #90 tabs 11/29/22 topiramate 25 mg tablet 25 mg PO BID 90 days #180 tabs 11/29/22 venlafaxine 75 mg capsule,extended 75 mg PO DAILY #90 caps 08/08/23 release 24 hr cetirizine 10 mg tablet (All Day 10 mg PO DAILY PRN allergy 02/21/23 Allergy (cetirizine)) symptoms 90 days #90 tabs cyclobenzaprine 10 mg tablet 10 mg PO TID PRN muscle spasm #10 03/05/23 tabs lidocaine 5 % topical patch 1 patch topical DAILY #15 ea 03/05/23 (Lidoderm) ondansetron HCl 4 mg tablet 4 mg PO Q8H PRN nausea and 03/24/23 vomiting 7 days #14 tabs docusate sodium 100 mg capsule 100 mg PO BID #20 caps 04/11/23 (Colace) oxycodone 5 mg tablet 5 mg PO Q4H PRN pain #40 tabs 04/12/23 Allergies Allergy/AdvReac Type Severity Reaction Status Date / Time hydroxychloroquine Allergy Severe hives Verified 04/11/23 23:20 [Plaquenil] bupropion [From WELLBUTRIN] Allergy Intermediate HIVES Verified 04/11/23 23:20 amoxicillin Allergy Mild Rash Verified 04/11/23 23:20 tramadol Allergy Unknown hives, rash Verified 04/11/23 23:20 ENVIRONMENTAL Allergy Unknown ITCHY EYES Uncoded 04/04/23 13:05 Review of Systems Review of Systems: Constitutional : No Weight loss, No Fever, No Chills, ENT/Mouth : No Hearing loss, No Ear Pain, No Nasal Congestion, No Sinus Pain, No Hoarseness, No sore throat, No Rhinorrhea, No Swallowing Difficulty Cardiovascular : No Chest Pain, No SOB Respiratory : No Cough, No Dyspnea Gastrointestinal : pos Nausea, No Vomiting, No Diarrhea, No abdominal Pain, No Hematochezia, No Melena Genitourinary : No Dysuria, No Urinary Frequency, No Hematuria, No Urinary Incontinence, Musculoskeletal : positive back pain Skin : No Skin Lesions, No rash Neuro : No Weakness, No Numbness, No Paresthesias, no loss of bowel or bladder incontinence, no saddle anesthesia All other systems reviewed and are negative [facility] Past Medical History Attestation statement: The following information was validated with the patient. Source: old records reviewed Medical History Constipation Positive colorectal cancer screening using Cologuard test Cystitis Papanicolaou smear declined Colonoscopy refused Mammogram declined Muscle spasm Lumbar pain Supraclavicular mass Hospital discharge follow-up Hyperlipidemia GERD (gastroesophageal reflux disease) Acute hypokalemia Fall Hematoma Alcohol use disorder, mild, in early remission, abuse Alcoholism Hospital discharge follow-up Hypokalemia Uncontrolled hypertension Abnormal EKG Hypertension, essential Breast screening Encounter for general adult medical examination with abnormal findings Anxiety, generalized Hives Surgical History Hx of hand surgery Hx of colonoscopy (08/30/11) History of right breast biopsy (10/31/11) Hx of left inguinal hernia repair (02/25/13) Hx of basal cell carcinoma excision (2011) History of left oophorectomy (09/07/11) Hx of right inguinal hernia repair (2003) Family History Family History Father Cardiac disease Mother Cardiac disease HTN (hypertension) Other Substance use disorder Social History Social History Household Members: Family Housing: House Are you a primary careers adviser to a significant other at home: Yes () Do you presently have visiting nurse or other home services: No Alcohol intake: current Alcohol intake frequency: a few times a week Alcohol type: hard liquor Patient Tobacco Use Status: Former Tobacco user Quit Date: 1991 Tobacco use type: Cigarette Smoked in Last 30 Days: No e-Cigarette/Vaping Use: Never Used Use of substances other than those prescribed or required for medical reasons: No Substance Use Type: Marijuana Advance Directives: No Advance Directives Information Provided: No Patient : No service: No Current occupational status: employed Cognitive needs: No Hearing needs: No Vision needs: No Physical Exam Vital Signs: Vital Signs: Last Vital Signs Temp 98.3 F 04/12/23 05:33 Pulse 80 04/12/23 05:33 Resp 16 04/12/23 05:33 BP 138/77 04/12/23 05:33 Pulse Ox 96 04/12/23 05:33 O2 Del Method Room Air 04/12/23 05:33 BMI result Body Mass Index 21.9 Appearance: Alert. Oriented X3. Mild acute distress. Dry heaving, appears very uncomfortable Eyes: Pupils equal, round and reactive to light. ENT: Pharynx normal. Neck: Normal inspection. Neck supple. CVS: Normal heart rate and rhythm. Pulses normal. Respiratory: No respiratory distress. Breath sounds normal. Abdomen: Soft and nontender. Back: dressing is c/d/i Skin: Skin warm and dry. Normal skin color. Normal skin turgor. Extremities: No lower extremity edema. No calf ttp Neuro: Oriented X 3. No motor deficit. No sensory deficit. intact in both UE and LE Course Course Course Narrative: patient does not want rehab plan will be to fill Rx here at [facility] and they can hand it to her here in AM Reevaluation(s) Reevaluation #1: Physician observation started at 114am. Patient placed in physician observation because the patient needed more time for help with meds in AM- Rx put in [facility] pharmacy will need this filled prior to DC At the time observation was started the patient's vitals were stable, patient is alert and oriented much more comfortable, Neuro: nonfocal, CV RRR, Lungs clear Reevaluation #2: pain markedly improved can be DC after Rx picked up. Marilin PORTER to cancel prior Rx. Medications Administered Generic Name Dose Route Start Last Admin Trade Name Freq PRN Reason Stop Dose Admin Oxycodone HCl 10 mg 04/12/23 01:14 04/12/23 02:08 Oxycodone Hcl Immed Release 5 Mg Tablet PO 10 mg Q4H PRN Administration Pain, Moderate(Pain Scale 4-6) Discontinued Medications Generic Name Dose Route Start Last Admin Trade Name Freq PRN Reason Stop Dose Admin Hydromorphone HCl 0.5 mg 04/11/23 23:29 04/11/23 23:45 Hydromorphone Hcl 0.5 Mg/0.5 Ml Syringe IVPUSH 04/11/23 23:30 0.5 mg ONCE ONE Administration Protocol Ondansetron HCl 4 mg 04/11/23 23:29 04/11/23 23:45 Ondansetron Hcl 4 Mg/2 Ml Vial IVPUSH 04/11/23 23:30 4 mg ONCE ONE Administration Oxycodone HCl 5 mg 04/11/23 23:29 04/11/23 23:45 Oxycodone Hcl Immed Release 5 Mg Tablet PO 04/11/23 23:30 5 mg ONCE ONE Administration Medical Decision Making Medical Decision Making [facility] Narrative: 62 yo female with PMH Of HTN, anxiety, chronic back pain s/p T9 to T11 posterior instrument fusion with pedicle screws and T10 kyphoplasty on 03/[address] Veliz for repair of T10 burst fracture in the setting of pain and osteoporosis here with pain as expected in the setting of no access to post surgical pain medications. She relays she has no help at home and no one filled her Rx. She has no signs of infection she is NV intact, she has not fallen. I am not suspecting hardware failure/fracture or infection/compression she has no signs of radiculopathy or myelopathy. She is just in pain from not having medications and in fact has had pain since surgery and before surgery. IV and PO medications ordered and possible acute rehab discussions. Differential Diagnosis Differential Diagnoses: The differential diagnosis associated with the presentation includes pain post surgery - did not have pain medications at home Admission/Observation Consideration of admission/observation: Escalation of care including admission/observation considered obs until AM with DC plan External Record Review External record reviewed: Inpatient record Prescription Management I considered prescription management with: Pain Medication Discharge Plan Discharge Clinical Impression: Thoracic back pain Qualifiers: Chronicity: acute Back pain laterality: bilateral Qualified Code(s): M54.6 - Pain in thoracic spine Patient Disposition: Still a Patient Instructions: Thoracic Pain (ED) Additional Instructions: return for weakness, numbness, fevers, unable to tolerate pain or any other concerns. if you change your mind about rehab please come back please follow up with your surgeon as planned Prescriptions: New oxycodone 5 mg tablet 5 mg PO Q4H PRN (Reason: pain) Qty: 40 0RF Rx Instructions: Can take 1-2 tabs every 4 hours for pain. Partial Fill upon patient request. Discontinued oxycodone 5 mg tablet See Rx Instructions .ROUTE .COMPLEX PRN (Reason: pain) Qty: 40 0RF Rx Instructions: 1-2 tabs po q4 hours prn pain; Partial Fill upon patient request. No Action cetirizine [All Day Allergy (cetirizine)] 10 mg tablet 10 mg PO DAILY PRN (Reason: allergy symptoms) 90 Days Qty: 90 0RF cyclobenzaprine 10 mg tablet 10 mg PO TID PRN (Reason: muscle spasm) Qty: 10 0RF lidocaine [Lidoderm] 5 % adhesive patch,medicated 1 patch topical DAILY Qty: 15 0RF Rx Instructions: leave on most painful area for up to 12 hrs acetaminophen 500 mg Tablet 1,000 mg PO Q6H PRN (Reason: Pain) docusate sodium [Colace] 100 mg capsule 100 mg PO BID Qty: 20 0RF omeprazole 20 mg tablet,delayed release (DR/EC) 20 mg PO DAILY PRN (Reason: Gastric Reflux) ondansetron HCl 4 mg tablet 4 mg PO Q8H PRN (Reason: nausea and vomiting) 7 Days Qty: 14 0RF amlodipine 5 mg tablet 5 mg PO DAILY 90 Days Qty: 90 0RF atenolol-chlorthalidone 50-25 mg tablet 1 tab PO DAILY 90 Days Qty: 90 0RF atorvastatin 40 mg tablet 40 mg PO BEDTIME 90 Days Qty: 90 0RF montelukast 10 mg tablet 10 mg PO DAILY Qty: 90 0RF topiramate 25 mg tablet 25 mg PO BID 90 Days Qty: 180 0RF venlafaxine 75 mg capsule,extended release 24hr 75 mg PO DAILY Qty: 90 0RF
[2023-04-11] MEDS: HYDROmorphone HCl 0.5 MG/0.5 ML SYRINGE IVPUSH (23:45)
[2023-04-11] MEDS: ondansetron HCL 4 MG/2 ML VIAL IVPUSH (23:45)
[2023-04-11] MEDS: oxyCODONE HCl Immed Release 5 MG TABLET PO (23:45)
[2023-04-12] VITALS (7 sets, daily range): BP systolic 102–138; BP diastolic 56–77; PULSE 80–93; RESP 15–18; TEMP 36.6–36.8; O2SAT 91–98
--- NOTE | 2023-04-12 01:45 | PC.NURSE ---
pt ambulated independently to the bathroom, gait even and steady at this time
[2023-04-12] MEDS: oxyCODONE HCl Immed Release 5 MG TABLET 10 MG PO ×2 (02:08→07:59)
--- NOTE | 2023-04-12 04:46 | PC.NURSE ---
This medical underwriter assumed care of this Pt at 0300. Pt appears to be sleeping comfortably, no apparent distress, equal, non labored respirations.
--- NOTE | 2023-04-12 06:42 | PC.NURSE ---
Pt reports 8/10 mid back pain, ice packs given per request. Pt ambulated to BR with steady gait.
== END 2023-04-12 12:46 | disposition home or self-care (01) ==
PROVIDERS: Emergency Provider Emergency Medicine; PCP Internal Medicine
DX: M54.6 Pain in thoracic spine (principal); I10 Essential (primary) hypertension; E78.5 Hyperlipidemia, unspecified; Z87.891 Personal history of nicotine dependence; Z79.02 Long term (current) use of antithrombotics/antiplatelets; Z79.899 Other long term (current) drug therapy
CPT/HCPCS: 96374; 96375; 99284; J1170; J2405

== ENCOUNTER 2023-05-10 11:27 | Outpatient (REF) | payer BC, SELFPAY ==
--- NOTE | ~2023-05-10 | XR_ITS ---
EXAMINATION: XR THORACIC SPINE CLINICAL INFORMATION: Dorsalgia, unspecified COMPARISON: None available. TECHNIQUE: AP, lateral and lateral flexion and extension views of the thoracic spine were obtained. FINDINGS: Diffuse osteopenia is noted. There is been interval vertebroplasty of a marked compression fracture of the T10 vertebral body. There is now mild compression of the T9 vertebral body. There has been interval placement of transpedicular screws and fusion rods from T8-T11. There is no evidence of hardware complication. No change in mild compression of the L1 vertebral body. There is no change in alignment with flexion and extension. Round back posture is noted. There is no abnormality of the paraspinal soft tissues. XR/XR thoracic spine 3V IMPRESSION: 1. Interval vertebroplasty of T10 vertebral body. 2. Interval placement of transpedicular screws and fusion rods from T8-T11 without evidence of hardware complication. 3. Mild compression of the T9 vertebral body. 4. No change in alignment with flexion and extension.
== END 2023-05-10 11:28 | disposition home or self-care (01) ==
LOC: HO.HOSX 11:27
PROVIDERS: PCP Internal Medicine; Visit Provider Physician Assistant
DX: M54.9 Dorsalgia, unspecified (principal)
CPT/HCPCS: 72072

== ENCOUNTER 2023-05-10 11:27 | Outpatient (AMB) | payer BC, SELFPAY ==
--- NOTE | 2023-05-10 11:33 | MHC.OFFVIS ---
Intake Intake Visit Reasons: pt had sx 04/10/23 never follow up/sever back pain Communications Representative Required: No Allergies hydroxychloroquine [Plaquenil] Allergy (Severe, Verified 04/11/23 23:20) hives bupropion [From WELLBUTRIN] Allergy (Intermediate, Verified 04/11/23 23:20) HIVES amoxicillin Allergy (Mild, Verified 04/11/23 23:20) Rash tramadol Allergy (Unknown, Verified 04/11/23 23:20) hives, rash ENVIRONMENTAL Allergy (Unknown, Uncoded 04/04/23 13:05) ITCHY EYES PFSH Medical History Constipation Positive colorectal cancer screening using Cologuard test Cystitis Papanicolaou smear declined Colonoscopy refused Mammogram declined Muscle spasm Lumbar pain Supraclavicular mass Hospital discharge follow-up Hyperlipidemia GERD (gastroesophageal reflux disease) Acute hypokalemia Fall Hematoma Alcohol use disorder, mild, in early remission, abuse Alcoholism Hospital discharge follow-up Hypokalemia Uncontrolled hypertension Abnormal EKG Hypertension, essential Breast screening Encounter for general adult medical examination with abnormal findings Anxiety, generalized Hives Surgical History Hx of hand surgery Hx of colonoscopy (08/30/11) History of right breast biopsy (10/31/11) Hx of left inguinal hernia repair (02/25/13) Hx of basal cell carcinoma excision (2011) History of left oophorectomy (09/07/11) Hx of right inguinal hernia repair (2003) Family History Father Cardiac disease Mother Cardiac disease HTN (hypertension) Other Substance use disorder Social History Household Members: Family Housing: House Are you a primary managed care director to a significant other at home: Yes () Do you presently have visiting nurse or other home services: No Alcohol intake: current Alcohol intake frequency: a few times a week Alcohol type: hard liquor Patient Tobacco Use Status: Former Tobacco user Quit Date: 1991 Tobacco use type: Cigarette e-Cigarette/Vaping Use: Never Used Substance Use Type: Marijuana service: No Current occupational status: employed Cognitive needs: No Hearing needs: No Vision needs: No Assessment & Plan Assessment & Plan (1) Back pain: Code(s): M54.9 - Dorsalgia, unspecified Plan Procedure: T9 Kyphoplasty with T8-10 posterior instrumented fusion. Karen comes in today for her 1st postoperative visit. She reports that she has had continued pain in her mid back since before her surgery. She reports no relief of her symptoms after surgery. She is concerned that she either has some kind of complication from the surgery, or continues to have an unresolved fracture related problem. She has been attempting to utilize CBD cream and cannabis tincture to help alleviate her symptoms with minimal relief. She reports that she has not followed up with any other providers, and has also not followed up with her primary care provider thus far. She states that the pain is preventing her from sleeping and is limiting her ability to complete her ADLs. No new neurological deficits. Sensation grossly intact. Patient endorses pain with ambulation but was able to walk herself into clinic from her car today. She reports pain to direct palpation of the thoracic spine near her incision sites. On inspection her incision sites are well approximated, well healing, with no signs of drainage or edema. Unfortunately one of the incision site scabs seems to have peeled off, and her surrounding skin was sticky, which she reports is a result of her spreading CBD ointment all over / around her incision sites. The area of scabbing which was pulled off was cleaned with isopropyl alcohol and I applied Exofin over the area. aKren will be sent for a set of thoracic spine x-rays to evaluate for stable placement of her thoracic instrumentation, and to ensure there is no obvious evidence of subsequent fracture. If this is unremarkable I will send her for a thoracic CT scan to get a more definitive view of bone orientation / potential fracture / instrumentation placement. She has no neurological symptoms which tells me this is likely an osseous or muscular issue, which may simply be prolonged pain from fracture healing. I will send her in a short prescription of methocarbamol to aid with muscle spasm/muscular relief. The patient understands that she can not drive or operate machinery while taking this medication as it can sedate her. Solomon Veliz MD,PhD [facility] Orders: Orders XR thoracic spine 3V Today M54.9 - Dorsalgia, unspecified Medications: New methocarbamol 750 mg PO TID PRN 30 tabs 0RF muscle spasms Coding Level of Care Code Global (39076) Diagnoses Back pain M54.9
== END 2023-05-10 12:20 | disposition home or self-care (01) ==
PROVIDERS: PCP Internal Medicine; Visit Provider Physician Assistant
DX: M54.9 Dorsalgia, unspecified (principal)
CPT/HCPCS: 99024

== ENCOUNTER 2023-05-26 11:54 | Outpatient (AMB) | payer BC, SELFPAY ==
--- NOTE | 2023-05-26 11:56 | A.OFFPC_ITS ---
Vital Signs 05/26/23 12:00 Height 5 ft 2 in Weight 119 lb 4 oz BMI 21.8 BP 114/70 Blood Pressure Location Rt brachial Position Sitting Pulse 81 Pulse Source Pulse Oximeter Pulse Oximetry (%) 98 Oxygen Delivery Method Room Air Intake Visit Reasons: 6m f/u Allergies hydroxychloroquine [Plaquenil] Allergy (Severe, Verified 05/26/23 12:02) hives bupropion [From WELLBUTRIN] Allergy (Intermediate, Verified 05/26/23 12:02) HIVES amoxicillin Allergy (Mild, Verified 05/26/23 12:02) Rash tramadol Allergy (Unknown, Verified 05/26/23 12:02) hives, rash ENVIRONMENTAL Allergy (Unknown, Uncoded 04/04/23 13:05) ITCHY EYES Medication List - Last Reconciled 05/26/23 by Ros Lunsford MD acetaminophen 1,000 mg PO Q6H PRN amlodipine 5 mg PO DAILY 90 days atenolol-chlorthalidone 50-25 mg 1 tab PO DAILY 90 days atorvastatin 40 mg PO BEDTIME 90 days cetirizine (All Day Allergy (cetirizine)) 10 mg PO DAILY PRN 90 days cyclobenzaprine 10 mg PO TID PRN docusate sodium (Colace) 100 mg PO BID methocarbamol 750 mg PO TID PRN montelukast 10 mg PO DAILY omeprazole 20 mg PO DAILY PRN ondansetron HCl 4 mg PO Q8H PRN 7 days topiramate 25 mg PO BID 90 days venlafaxine ER 75 mg PO DAILY Tobacco use date assessed: 05/26/23 Fall risk assessment: No Falls in past year Last assessed Fall Risk: 05/26/23 Dental Screening Dental Screen Date: 05/26/23 Did you have a dental visit in the last 12 months?: No Did you have a dental problem in the last 6 months where you did not have access to dental care?: No Was dental information given to patient?: Patient has dentist HPI 6m f/u HPI Details Patient is 62-year-old female came in today for her regular follow-up appointment Patient had vertebral fracture, currently she is being managed through pain management Patient says that she does not have any follow-up appointment coming up and continued to have the pain She is asking me for the pain medication. However she also continued to drink, we had a merle conversation about it As long as patient is drinking I will not be able to help her with strong pain medication. Even after it will be advisable for her to discuss it further with the pain management. Hypertension: Blood pressure is stable, patient is on amlodipine 5 mg, atenolol chlorthalidone 50-25 mg, patient was in hospital mid March and her potassium was 2.7 I am changing her blood pressure medication to atenolol 50 mg, and amlodipine 10 mg we will be stopping the chlorthalidone Anxiety is stable with venlafaxine 75 mg and Topamax 25 mg b.i.d. which also helps her with migraine headaches Allergies are stable visit take and montelukast Continue atorvastatin 40 mg for lipid control. Taking care of her who had stroke Follow-up 3 months [facility] Medical History Constipation Positive colorectal cancer screening using Cologuard test Cystitis Papanicolaou smear declined Colonoscopy refused Mammogram declined Muscle spasm Lumbar pain Supraclavicular mass Hospital discharge follow-up Hyperlipidemia GERD (gastroesophageal reflux disease) Acute hypokalemia Fall Hematoma Alcohol use disorder, mild, in early remission, abuse Alcoholism Hospital discharge follow-up Hypokalemia Uncontrolled hypertension Abnormal EKG Hypertension, essential Breast screening Encounter for general adult medical examination with abnormal findings Anxiety, generalized Hives Surgical History Hx of hand surgery Hx of colonoscopy (08/30/11) History of right breast biopsy (10/31/11) Hx of left inguinal hernia repair (02/25/13) Hx of basal cell carcinoma excision (2011) History of left oophorectomy (09/07/11) Hx of right inguinal hernia repair (2003) Family History Father Cardiac disease Mother Cardiac disease HTN (hypertension) Other Substance use disorder Social History Household Members: Family Housing: House Are you a primary career professional to a significant other at home: Yes () Do you presently have visiting nurse or other home services: No Alcohol intake: current Alcohol intake frequency: a few times a week Alcohol type: hard liquor Patient Tobacco Use Status: Former Tobacco user Quit Date: 1991 Tobacco use type: Cigarette e-Cigarette/Vaping Use: Never Used Substance Use Type: Marijuana service: No Current occupational status: employed Cognitive needs: No Hearing needs: No Vision needs: No Questionnaire Thrive Questionnaire Date Thrive assessed: 04/11/23 AUDIT C Alcohol Use Questionnaire (AUDIT-C) 1. How often do you have a drink containing alcohol?: 2-4 times a month 2. How many drinks containing alcohol do you have on a typical day when you are drinking?: 1 or 2 3. How often do you have six or more drinks on one occasion?: Never Total Score: 2 Score Reviewed/Action Taken: Yes RENEE-7 AMB Questionnaire RENEE-7 Date RENEE - 7 assessed: 11/29/22 Source: Developed by Drs. Sandeep Fletcher, Karen Fonseca, Adan Calle and colleagues, with an educational la from [employer]. Review of Systems Const Denies chills and Denies fever(s) ENT Denies epistaxis and Denies nasal discharge Card Denies chest pain Resp Denies chest congestion, Denies cough and Denies hemoptysis GI Denies diarrhea and Denies nausea Skin/Breast Denies rash Neuro Reports no additional complaints Psych Reports no additional complaints Endo Reports no additional complaints Physical exam (Primary Care) Vital Signs: Last Vital Signs Pulse 81 05/26/23 12:00 BP 114/70 05/26/23 12:00 Pulse Ox 98 05/26/23 12:00 Oxygen Delivery Method Room Air 05/26/23 12:00 BMI result Body Mass Index 21.8 Tobacco/Smoking Status: Tobacco use Status Tobacco use date assessed 05/26/23 05/26/23 12:03 Patient Tobacco Use Status Former Tobacco user 05/26/23 11:58 Tobacco use type Cigarette 05/26/23 11:58 e-Cigarette/Vaping Use Never Used 05/26/23 11:58 Thrive Assessment: Date of Thrive Assessment Date Thrive assessed 04/11/23 05/26/23 11:58 Const General: cooperative, comfortable and no acute distress Orientation/consciousness: patient oriented x3 HENMT Head: Yes normocephalic Eyes General: appearance normal, both eyes and all related structures Neck Neck: Yes supple Resp Effort & Inspection: normal respiratory effort, no cough and no stridor Cardio Rhythm: regular rhythm Heart sounds: S1 normal heart sound present and S2 normal heart sound present Skin General skin exam: turgor normal Neuro General: patient oriented x3, tone normal and moves all extremities Extrem Right lower extremity: no edema Left lower extremity: no edema Assessment and Plan Assessment & Plan (1) Electrolyte abnormality: Code(s): E87.8 - Other disorders of electrolyte and fluid balance, not elsewhere classified (2) Anxiety, generalized: Code(s): F41.1 - Generalized anxiety disorder (3) Environmental allergies: Code(s): Z91.09 - Other allergy status, other than to drugs and biological substances (4) Lipid disorder: Code(s): E78.9 - Disorder of lipoprotein metabolism, unspecified (5) Alcoholism: Code(s): F10.20 - Alcohol dependence, uncomplicated (6) Dyspepsia: Code(s): R10.13 - Epigastric pain (7) Hypertension, essential: Code(s): I10 - Essential (primary) hypertension Plan Patient is 62-year-old female came in today for her regular follow-up appointment Patient had vertebral fracture, currently she is being managed through pain jimmie gaona Patient says that she does not have any follow-up appointment coming up and continued to have the pain She is asking me for the pain medication. However she also continued to drink, we had a merle conversation about it As long as patient is drinking I will not be able to help her with strong pain medication. Even after it will be advisable for her to discuss it further with the pain tj waters. Hypertension: Blood pressure is stable, patient is on amlodipine 5 mg, atenolol chlorthalidone 50-25 mg, patient was in hospital mid March and her potassium was 2.7 I am changing her blood pressure medication to atenolol 50 mg, and amlodipine 10 mg we will be stopping the chlorthalidone Anxiety is stable with venlafaxine 75 mg and Topamax 25 mg b.i.d. which also helps her with migraine headaches Allergies are stable visit take and montelukast Continue atorvastatin 40 mg for lipid control. Taking care of her who had stroke Follow-up 3 months Orders: Orders Basic Metabolic Panel Today E87.8 - Other disorders of electrolyte and fluid balance, not elsewhere classified Medications: Changed From amlodipine 5 mg PO DAILY 90 days 90 tabs 0RF To amlodipine 10 mg PO DAILY 90 tabs 0RF 90 days Discontinued atenolol-chlorthalidone 50-25 mg Discontinued Reason: Doctor's Order 1 tab PO DAILY 90 days 90 tabs 0RF Coding Level of Care Code Est Pt Level 4 (86905) Diagnoses Electrolyte abnormality E87.8 Anxiety, generalized F41.1 Environmental allergies Z91.09 Lipid disorder E78.9 Alcoholism F10.20 Dyspepsia R10.13 Hypertension, essential I10
[2023-05-26 12:00] VITALS: BP 114/70; PULSE 81; O2SAT 98; BMI 21.8
== END 2023-05-26 16:04 | disposition home or self-care (01) ==
PROVIDERS: PCP Internal Medicine; Visit Provider Internal Medicine
DX: E87.8 Other disorders of electrolyte and fluid balance, not elsewhere classified (principal); F10.20 Alcohol dependence, uncomplicated; F41.1 Generalized anxiety disorder; Z91.09 Other allergy status, other than to drugs and biological substances; E78.9 Disorder of lipoprotein metabolism, unspecified; R10.13 Epigastric pain; I10 Essential (primary) hypertension
CPT/HCPCS: 99214

== ENCOUNTER 2023-05-26 12:18 | Outpatient (REF) | payer BC, SELFPAY ==
[2023-05-26 15:20] LABS: Anion Gap 16 (12-20); Blood Urea Nitrogen 14 mg/dL (9-16); Calcium 9.1 mg/dL (8.4-10.2); Carbon Dioxide 32 mmol/L (22-29); Chloride 92 mmol/L (96-108); Estimated Glomerular Filt Rate > 60; Glucose Random 112 mg/dL (60-115); Potassium 2.2 mmol/L (3.3-5.1); Sodium 138 mmol/L (135-145)
== END 2023-05-26 12:19 | disposition home or self-care (01) ==
LOC: HO.HMGCLDS 12:18
PROVIDERS: PCP Internal Medicine; Visit Provider Internal Medicine
DX: E87.8 Other disorders of electrolyte and fluid balance, not elsewhere classified (principal)
CPT/HCPCS: 36415; 80048

== ENCOUNTER 2023-05-26 15:46 | Inpatient (IN) | payer BC, SELFPAY ==
--- NOTE | 2023-05-26 15:51 | ED_ITS ---
HPI - General Adult General Chief complaint: Recheck/Abnormal Lab/Rx Stated complaint: Low potassium Time Seen by Provider: 05/26/23 16:27 Source: patient Mode of arrival: ambulatory Limitations: no limitations History of Present Illness HPI narrative: 62-year-old female with history of hypertension, hyperlipidemia, depression, anxiety, ischemic bowel, hypokalemia of unclear etiology who presents emergency department for evaluation of a low potassium. The patient states that she was not feeling ill but followed up with her PCP to have her potassium checked. She was contacted by your PCP and advised to go to the emergency department for low potassium. Patient's outpatient potassium was 2.2. Repeat here in the emergency department was 2.2 as well pain. The patient states she has not been symptomatic. She denied weakness. Fever, chills, rhinorrhea, sore throat, cough, nausea, vomiting, diarrhea. She states she occasionally has loose runny stools but no more than 1 or 2 per day. She denied dark tarry stools or black stools. She states she has had a 30 lb weight loss (150 lb to 119 lb) over 1 year. She states she has not been dieting or trying to lose weight. Denies any unusual dietary habits and states she does not have a history of anorexia. Patient has had documented low potassium Patient was hospitalized 08/06/2021 until 08/07/2021 and she was diagnosed with ischemic colitis, hypokalemia and C diff colitis Related Data Home Medications Medication Instructions Recorded Confirmed omeprazole 20 mg tablet,delayed 20 mg PO DAILY PRN Gastric Reflux 05/27/20 05/26/23 release acetaminophen 500 mg tablet 1,000 mg PO Q6H PRN Pain 04/04/23 05/26/23 cetirizine 10 mg tablet (All Day 10 mg PO DAILY allergy symptoms 05/26/23 05/26/23 Allergy (cetirizine)) Previous Rx's Medication Instructions Recorded atorvastatin 40 mg tablet 40 mg PO BEDTIME 90 days #90 tabs 11/29/22 montelukast 10 mg tablet 10 mg PO DAILY #90 tabs 11/29/22 venlafaxine 75 mg capsule,extended 75 mg PO DAILY #90 caps 11/29/22 release 24 hr topiramate 25 mg tablet 25 mg PO BID 90 days #180 tabs 05/22/23 amlodipine 10 mg tablet 10 mg PO DAILY 90 days #90 tabs 05/26/23 Allergies Allergy/AdvReac Type Severity Reaction Status Date / Time hydroxychloroquine Allergy Severe hives Verified 05/26/23 16:08 [Plaquenil] bupropion [From WELLBUTRIN] Allergy Intermediate HIVES Verified 05/26/23 16:08 amoxicillin Allergy Mild Rash Verified 05/26/23 16:08 tramadol Allergy Unknown hives, rash Verified 05/26/23 16:08 ENVIRONMENTAL Allergy Unknown ITCHY EYES Uncoded 04/04/23 13:05 Review of Systems 2 Review of Systems: Yes all other systems are reviewed and are negative [facility] Past Medical History [facility] Narrative: Social history: She denies tobacco use. She states she occasionally drinks alcohol. She states she smokes 3 pipes of marijuana per day Medical History Constipation Positive colorectal cancer screening using Cologuard test Cystitis Papanicolaou smear declined Colonoscopy refused Mammogram declined Muscle spasm Lumbar pain Supraclavicular mass Hospital discharge follow-up Hyperlipidemia GERD (gastroesophageal reflux disease) Acute hypokalemia Fall Hematoma Alcohol use disorder, mild, in early remission, abuse Alcoholism Hospital discharge follow-up Hypokalemia Uncontrolled hypertension Abnormal EKG Hypertension, essential Breast screening Encounter for general adult medical examination with abnormal findings Anxiety, generalized Hives Surgical History Hx of hand surgery Hx of colonoscopy (08/30/11) History of right breast biopsy (10/31/11) Hx of left inguinal hernia repair (02/25/13) Hx of basal cell carcinoma excision (2011) History of left oophorectomy (09/07/11) Hx of right inguinal hernia repair (2003) Family History Family History Father Cardiac disease Mother Cardiac disease HTN (hypertension) Other Substance use disorder Social History Social History Household Members: Family Housing: House Are you a primary emergency care tech to a significant other at home: Yes () Do you presently have visiting nurse or other home services: No Alcohol intake: current Alcohol intake frequency: a few times a week Alcohol type: hard liquor Patient Tobacco Use Status: Former Tobacco user Quit Date: 1991 Tobacco use type: Cigarette Smoked in Last 30 Days: Yes e-Cigarette/Vaping Use: Never Used Use of substances other than those prescribed or required for medical reasons: Yes Substance Use Type: Marijuana Substance Use Frequency: Daily Advance Directives: No Advance Directives Information Provided: No Patient : No service: No Current occupational status: employed Cognitive needs: No Hearing needs: No Vision needs: No Physical Exam ED Vital Signs: Vital Signs - 24 hr 05/26/23 16:05 05/26/23 16:54 Temperature 98.8 F 98.7 F Pulse Rate 90 80 Respiratory Rate 18 12 Blood Pressure 117/73 120/72 Pulse Oximetry 98 97 Oxygen Delivery Method Room Air Room Air BMI result Body Mass Index 20.6 Vital signs were Exam General: Awake, alert in no distress Head: Normocephalic, atraumatic EENT: PERRL, Lids normal, sclera normal, conjunctiva normal, nose normal , ears normal, throat without erythema or exudates Neck: Supple, no adenopathy Lung: breath sounds symmetric, no wheezing, rales or rhonchi Chest: symmetric movement, nontender Heart: regular rate and rhythm, normal S1, S2 no murmurs or rubs Abdomen: soft, non-tender, nondistended, normal bowel sounds Back: no vertebral tenderness, no CVAT Extremities: no deformities, moves all extremities symmetrically Neuro: Awake, alert, oriented, normal speech, moves all extremities symmetrically Psych: Pleasant, cooperative Course Course Course Narrative: RME performed by Ashley Tang PA-C. Patient is a 62 year old assigned female at presenting to the emergency department with low potassium. Detailed physical exam and review of systems are deferred to the resident buyer. Labs ordered. Patient placed back in the waiting room pending room availability and results. Medications Administered Discontinued Medications Generic Name Dose Route Start Last Admin Trade Name Freq PRN Reason Stop Dose Admin Potassium Chloride 10 meq in 100 mls @ 100 mls/hr 05/26/23 16:52 05/26/23 19:24 Potassium Chloride/H20 IV 05/26/23 17:51 Infused ONCE ONE Infusion Potassium Chloride 40 meq 05/26/23 16:52 05/26/23 17:01 Potassium Chloride Packet 20 Meq Packet PO 05/26/23 16:53 40 meq ONCE ONE Administration Medical Decision Making Medical Decision Making [facility] Narrative: 62-year-old female with history of hypertension, hyperlipidemia, depression, anxiety, ischemic bowel, hypokalemia of unclear etiology who presents emergency department for evaluation of a low potassium, patient has had similar low potassiums over the past 1-2 years without a clear diagnosis, she states she is taking potassium supplements, she was asymptomatic clear etiology for her symptoms such as vomiting, diarrhea, unusual dietary habits. Patient's out patient potassium today was 2.2 and repeat potassium in the emergency department was 2.2 as well. Vital signs were normal and exam was unremarkable I ordered the following treatment: Potassium chloride 40 mEq orally, potassium chloride 10 mEq IV x2 17:01 My interpretation patient's labs are as follows: WBC elevated 11,400. Platelet count elevated 405,000. Sodium was normal at 135 with a potassium of 2.2. Bicarb was normal at 29. Glucose was elevated 131. LFTs were normal. Magnesium was normal at 1.7 At this time I do not have a clear etiology for the patient's hypokalemia. Given the fact that the potassium is less than 2.5 and she may be at 300 mEq deficient and potassium I recommended admission however the patient states that she has to go home and take care of her who has dementia and she has no other help to care for . 18:55 Patient's TSH was normal patient's urinalysis was unremarkable as well The patient did agree to be admitted for replenishment of her potassium and further diagnostic workup of her hypokalemia The patient's presentation was discussed over tiger text with the covering hospitalist, Dr. Ortiz. Admission/Observation Consideration of admission/observation: Escalation of care including admission/observation considered Consult Healthcare Provider Management of the patient was discussed with: Hospitalist (Dr. Ortiz) Lab Data [facility] Lab Attestation statement: I reviewed the patient's lab results. 05/26/23 16:02 05/26/23 16:02 Labs: Lab Results 05/26/23 05/26/23 Range/Units 16:02 16:52 WBC 11.4 H (4.8-10.8) X10*3/uL RBC 4.12 L (4.20-5.50) X10*6/uL Hgb 13.9 (12.0-16.0) g/dl Hct 39.3 (37.0-47.0) % MCV 95.4 (80.0-98.0) fL MCH 33.7 H (27.0-33.0) pg MCHC 35.4 H (31.0-35.0) g/dl RDW 12.0 (11.0-16.0) % Plt Count 405 H (160-400) X10*3/uL MPV 8.1 L (9.4-12.3) fL Immature Gran % (Auto) 0.5 H (0.0-0.4) % Neut % (Auto) 70.5 (45-73) % Lymph % (Auto) 16.9 L (20-40) % [place] % (Auto) 9.7 (2-11) % Eos % (Auto) 1.8 (0-4) % Baso % (Auto) 0.6 (0-2) % Lymph # (Auto) 1.9 (1.2-4.9) X10*3/uL [place] # (Auto) 1.1 (0.1-1.2) X10*3/uL Eos # (Auto) 0.2 (0.0-0.4) X10*3/uL Baso # (Auto) 0.1 (0.0-0.2) X10*3/uL Abs Immat Gran (auto) 0.06 H (0.00-0.03) X10*3/uL Absolute Neuts (auto) 8.0 (2.0-8.3) x10*3/uL Absolute Nucleated RBC 0.000 (0.0-0.012) X10*3/uL Nucleated RBC % (auto) 0.0 (0.0-0.2) /100WBC Sodium 135 (135-145) mmol/L Potassium 2.2 L* (3.3-5.1) mmol/L Chloride 93 L (96-108) mmol/L Carbon Dioxide 29 (22-29) mmol/L Anion Gap 15 (12-20) BUN 14 (9-16) mg/dL Creatinine 0.67 (0.5-1.4) mg/dL Estim Creat Clear Calc 72.8 Estimated GFR > 60 Random Glucose 131 H (60-115) mg/dL Calcium 8.9 (8.4-10.2) mg/dL Magnesium 1.7 (1.6-2.6) mg/dL Total Bilirubin 0.4 (0.0-1.0) mg/dL AST 23 (5-31) U/L ALT 13 (0-31) U/L Alkaline Phosphatase 106 (39-117) U/L Total Protein 7.5 (6.5-8.0) g/dL Albumin 4.2 (3.5-5.0) g/dL TSH 1.56 (0.32-4.0) uIU/mL Urine Color Yellow Urine Appearance Clear Urine pH 5.5 (5.0-9.0) Ur Specific [place] 1.025 (1.005-1.025) Urine Protein Negative (Neg-Trace) mg/dL Urine Glucose (UA) Negative (Negative) mg/dL Urine Ketones Trace (Negative) mg/dL Urine Blood Negative (Negative) Urine Nitrite Negative (Negative) Ur Leukocyte Esterase Negative (Negative) Independent Interpretation I performed an independent interpretation of an: EKG Interpretation: My independent interpretation patient's 12 EKG done at 15:58 hours is as follows: Normal sinus rhythm rate of 83, normal [place] interval, QRS duration QTC interval, inverted T-wave in lead [address] segment elevation, no ST segment depression, no PACs, no PVCs Critical Care Time Critical Care Time Critical Care Time: Yes Total Critical Care Time: 35 Attestation: Critical Care: The patient was critically ill with a high probability of imminent or life threatening deterioration. I spent greater than 30 minutes of discontinuous time evaluating the patient,delivering critical care at the bedside, discussing and evaluating pertinent data with consultants. Critical care time does not include time spent performing separately billable procedures or teaching. Total time spent performing critical care was 35 minutes. Discharge Plan Discharge Clinical Impression: Acute hypokalemia Patient Disposition: Admitted As Inpatient
[2023-05-26 16:05] VITALS: BP 117/73; PULSE 90; RESP 18; TEMP 37.1; O2SAT 98; BMI 20.6
[2023-05-26 16:07] LABS: MANUAL DIFF FLAG NO
[2023-05-26 16:10] LABS: Basophils Absolute Auto 0.1 X10*3/uL (0.0-0.2); Basophils Percent Auto 0.6 % (0-2); Eosinophils Absolute Auto 0.2 X10*3/uL (0.0-0.4); Eosinophils Percent Auto 1.8 % (0-4); Hematocrit 39.3 % (37.0-47.0); Hemoglobin 13.9 g/dl (12.0-16.0); Imm Gran Abs Auto 0.06 X10*3/uL (0.00-0.03); Imm Gran Pct Auto 0.5 % (0.0-0.4); Lymphocytes Absolute Auto 1.9 X10*3/uL (1.2-4.9); Lymphocytes Percent Auto 16.9 % (20-40); Mean Corpuscular HGB Conc 35.4 g/dl (31.0-35.0); Mean Corpuscular Hemoglobin 33.7 pg (27.0-33.0); Mean Corpuscular Volume 95.4 fL (80.0-98.0); Mean Platelet Volume 8.1 fL (9.4-12.3); Monocytes Absolute Auto 1.1 X10*3/uL (0.1-1.2); Monocytes Percent Auto 9.7 % (2-11); Neutrophils Percent Auto 70.5 % (45-73); Platelet Count 405 X10*3/uL (160-400); Red Blood Count 4.12 X10*6/uL (4.20-5.50); White Blood Count 11.4 X10*3/uL (4.8-10.8)
[2023-05-26 16:31] LABS: Alanine Aminotransferase 13 U/L (0-31); Albumin Level 4.2 g/dL (3.5-5.0); Alkaline Phosphatase 106 U/L (39-117); Anion Gap 15 (12-20); Aspartate Amino Transferase 23 U/L (5-31); Bilirubin Total 0.4 mg/dL (0.0-1.0); Blood Urea Nitrogen 14 mg/dL (9-16); Calcium 8.9 mg/dL (8.4-10.2); Carbon Dioxide 29 mmol/L (22-29); Chloride 93 mmol/L (96-108); Creatinine Clr Calc Pharmacy 72.8; Estimated Glomerular Filt Rate > 60; Glucose Random 131 mg/dL (60-115); Magnesium 1.7 mg/dL (1.6-2.6); Potassium 2.2 mmol/L (3.3-5.1); Sodium 135 mmol/L (135-145); Total Protein 7.5 g/dL (6.5-8.0)
--- NOTE | 2023-05-26 16:51 | ECG_ITS ---
Test Reason : hypokalemia Blood Pressure : / mmHG Vent. Rate : 083 BPM Atrial Rate : 083 BPM P-R Int : 172 ms QRS Dur : 084 ms QT Int : 396 ms P-R-T Axes : 034 -07 -16 degrees QTc Int : 465 ms Normal sinus rhythm Possible Left atrial enlargement Borderline ECG When compared with ECG of 10-APR-2023 11:33, Nonspecific T wave abnormality now evident in Anterior leads Referred By: Luiz Hassan Electronically Signed By:ANNALISE LOZADA MD
[2023-05-26 16:54] VITALS: BP 120/72; PULSE 80; RESP 12; TEMP 37.1; O2SAT 97
[2023-05-26] MEDS: Potassium Chloride/H20 10 MEQ/100 ML PIGGYBACK 100 MEQ IV ×3 (17:01→22:51)
[2023-05-26] MEDS: Potassium Chloride Packet 20 MEQ PACKET 40 MEQ PO ×2 (17:01→20:56)
[2023-05-26 17:07] LABS: Appearance Urine Clear; Color Urine Yellow; Glucose Urine UA Negative (Negative); Leukocyte Esterase Urine Negative (Negative); Nitrite Urine Negative (Negative); PH 5.5 (5.0-9.0); Specific Gravity - Urine 1.025 (1.005-1.025); Urine Blood Negative (Negative); Urine Ketones Trace mg/dL (Negative); Urine Protein Negative (Neg-Trace)
[2023-05-26 17:24] LABS: TSH reflex Free T4 1.56 uIU/mL (0.32-4.0)
--- NOTE | 2023-05-26 19:10 | PHA.MEDREC ---
Pharmacy Consult ? Medication Reconciliation Pharmacy has completed the medication reconciliation. Patient confirm medications based on previous records. Venlafaxine and montelukast have not been filled recently but patient reports taking.
--- NOTE | 2023-05-26 19:34 | P.HPHOSP_ITS ---
History of Present Illness Date of Service: 05/26/23 Attending physician on admission: Tonya Ortiz Chief Complaint: Low potassium Pt is a 62-year-old female with a PMH significant for HTN, HLD, hx of ischemic bowel, hx of hypokalemia, anxiety and depression who presents to the ED for evaluation of low potassium on outpatient labs. Patient presented today to PCP for follow-up appointment after [place] [facility] [place] T9-T10 [place]e and had routine labs drawn. Patient was notified by phone that potassium was critically low and advised to go to the emergency department for further evaluation. Patient states she has been feeling tired and weak for the past few days, though she notes she has not been doing much other than lying down after undergoing back surgery. Also notes she sometimes Will violently twitch when she lays down and relaxes; this has been ongoing for the past few weeks after surgery. Also reports having had a 30 lb unintentional weight loss over the past year. Says she has been eating smaller portions and gets full much more quickly than before. Denies fever, chills, nausea, vomiting, abdominal pain. No diarrhea. Patient not on diuretics. Of note, patient has history of chronic mild hypokalemia dating back to at least 01/11/2021. Pt was also admitted to the hospital on 08/06-08/07 and treated for C diff ischemic colitis and hypokalemia. Potassium was 2.7 at that time. In the ED pt's vitals stable, WNL. Labs were significant for mild leukocytosis of 11.4 and potassium 2.2, otherwise largely unremarkable. Stable H&H of 13.9/39.3. Renal function baseline. Hepatic function baseline. Magnesium 1.7. TSH WNL at 1.56. EKG demonstrated normal sinus rhythm with non specific T-wave inversions and no significant ST elevations or depressions. Pt was treated with potassium chloride 40 mEq p.o. and 10 mEq IV. Pt will be admitted to the hospital for treatment and further evaluation of acute hypokalemia of unclear etiology. Review of Systems 2 Review of Systems: Weakness, fatigue Occasional twitching Chronic lower back pain Early satiety Unintentional 30 lb weight loss during the past year Denies fever, chills, nausea, vomiting, diarrhea, abdominal pain Denies changes to bowel or bladder habits No chest pain/pressure, palpitations Denies shortness Of breath [facility] Medical History Constipation Positive colorectal cancer screening using Cologuard test Cystitis Papanicolaou smear declined Colonoscopy refused Mammogram declined Muscle spasm Lumbar pain Supraclavicular mass Hospital discharge follow-up Hyperlipidemia GERD (gastroesophageal reflux disease) Acute hypokalemia Fall Hematoma Alcohol use disorder, mild, in early remission, abuse Alcoholism Hospital discharge follow-up Hypokalemia Uncontrolled hypertension Abnormal EKG Hypertension, essential Breast screening Encounter for general adult medical examination with abnormal findings Anxiety, generalized Hives Family History Father Cardiac disease Mother Cardiac disease HTN (hypertension) Other Substance use disorder Surgical History Hx of hand surgery Hx of colonoscopy (08/30/11) History of right breast biopsy (10/31/11) Hx of left inguinal hernia repair (02/25/13) Hx of basal cell carcinoma excision (2011) History of left oophorectomy (09/07/11) Hx of right inguinal hernia repair (2003) Social History Household Members: Family Housing: House Are you a primary managed care liaison to a significant other at home: Yes () Do you presently have visiting nurse or other home services: No Alcohol intake: current Alcohol intake frequency: a few times a week Alcohol type: hard liquor Patient Tobacco Use Status: Former Tobacco user Quit Date: 1991 Tobacco use type: Cigarette Smoked in Last 30 Days: Yes e-Cigarette/Vaping Use: Never Used Use of substances other than those prescribed or required for medical reasons: Yes Substance Use Type: Marijuana Substance Use Frequency: Daily Advance Directives: No Advance Directives Information Provided: No Patient : No service: No Current occupational status: employed Cognitive needs: No Hearing needs: No Vision needs: No Meds Allergies Allergy/AdvReac Type Severity Reaction Status Date / Time hydroxychloroquine Allergy Severe hives Verified 05/26/23 16:08 [Plaquenil] bupropion [From WELLBUTRIN] Allergy Intermediate HIVES Verified 05/26/23 16:08 amoxicillin Allergy Mild Rash Verified 05/26/23 16:08 tramadol Allergy Unknown hives, rash Verified 05/26/23 16:08 ENVIRONMENTAL Allergy Unknown ITCHY EYES Uncoded 04/04/23 13:05 Active Medications: Current Medications Acetaminophen (Acetaminophen 325 Mg Tablet) 650 mg PO Q6H PRN PRN Reason: Pain, Mild (Pain Scale 1-3) Enoxaparin Sodium (Enoxaparin Sodium 40 Mg/0.4 Ml Syringe) 40 mg SUBCUT Q24H [facility] Potassium Chloride (Potassium Chloride/H20) 10 meq in 100 mls @ 100 mls/hr IV Q1H [facility] Stop: 05/26/23 23:29 Lactated Ringer's (Lr) 1,000 mls @ 999 mls/hr IV .Q1H1M [facility] Stop: 05/26/23 20:30 Melatonin (Melatonin 3 Mg Tablet) 6 mg PO BEDTIME PRN PRN Reason: Insomnia Ondansetron HCl (Ondansetron Hcl 4 Mg/2 Ml Vial) 4 mg IVPUSH Q8H PRN PRN Reason: Nausea and Vomiting Sodium Chloride (0.9 % Sodium Chloride Flush 3 Ml Syringe) 3 ml IVFLUSH QSHIFT [facility] Home Medications Medication Instructions Recorded Confirmed Last Taken Type omeprazole 20 mg tablet,delayed 20 mg PO DAILY PRN Gastric Reflux 05/27/20 05/26/23 04/10/23 History release acetaminophen 500 mg tablet 1,000 mg PO Q6H PRN Pain 04/04/23 05/26/23 04/09/23 History cetirizine 10 mg tablet (All Day 10 mg PO DAILY allergy symptoms 05/26/23 05/26/23 05/26/23 History Allergy (cetirizine)) Physical Exam 2 Vital Signs and Narrative: Vital Signs: Last Vital Signs Temp 98.7 F 05/26/23 16:54 Pulse 80 05/26/23 16:54 Resp 12 05/26/23 16:54 BP 120/72 05/26/23 16:54 Pulse Ox 97 05/26/23 16:54 O2 Del Method Room Air 05/26/23 16:54 BMI result Body Mass Index 20.6 Constitutional: Alert, in no acute distress. Mental Status: Oriented to person, place and time. Eyes: Pupils are equal, round, and reactive to light. Ear, Nose, and Throat: Oropharynx clear, mucous membranes moist. Ears and nose without deformities. Trachea midline. Respiratory: Clear to auscultation bilaterally. No wheezing, rales, or rhonchi. Cardiovascular: S1, S2 regular. No murmurs, rubs, or gallops. Gastrointestinal: Abdomen soft, non-tender, non-distended. Normal bowel sounds. Neurologic: Cranial nerves II-XII are grossly intact bilaterally. No focal neurological deficits. Moves all extremities spontaneously. Skin: Warm, dry. Musculoskeletal: No cyanosis or clubbing. Extremities: No edema. Psychiatric: Normal mood and affect. Results Labs 05/26/23 16:02 05/26/23 16:02 Labs: Laboratory Results - last 24 hr 05/26/23 05/26/23 16:02 16:52 MCV 95.4 MCH 33.7 H MCHC 35.4 H RDW 12.0 Plt Count 405 H MPV 8.1 L Immature Gran % (Auto) 0.5 H Neut % (Auto) 70.5 Lymph % (Auto) 16.9 L [place] % (Auto) 9.7 Eos % (Auto) 1.8 Baso % (Auto) 0.6 Lymph # (Auto) 1.9 [place] # (Auto) 1.1 Eos # (Auto) 0.2 Baso # (Auto) 0.1 Abs Immat Gran (auto) 0.06 H Absolute Neuts (auto) 8.0 Absolute Nucleated RBC 0.000 Nucleated RBC % (auto) 0.0 Anion Gap 15 Estim Creat Clear Calc 72.8 Estimated GFR > 60 Random Glucose 131 H Calcium 8.9 Magnesium 1.7 Total Bilirubin 0.4 AST 23 ALT 13 Alkaline Phosphatase 106 Total Protein 7.5 Albumin 4.2 TSH 1.56 Urine Color Yellow Urine Appearance Clear Urine pH 5.5 Ur Specific [place] 1.025 Urine Protein Negative Urine Glucose (UA) Negative Urine Ketones Trace Urine Blood Negative Urine Nitrite Negative Ur Leukocyte Esterase Negative Assessment and Plan (1) Acute hypokalemia: Status: Acute Plan Pt is a 62-year-old female with a PMH significant for HTN, HLD, hx of ischemic bowel, hx of hypokalemia, anxiety and depression who presents to the ED for evaluation of low potassium on outpatient labs. Pt will be admitted to the hospital for treatment and further evaluation of acute hypokalemia of unclear etiology. Hypokalemia Potassium 2.2 at time of presentation Patient with chronic mild hypokalemia since at least December 2020 Unclear etiology: Patient denies GI losses, no vomiting, diarrhea, or abdominal pain, not on diuretics Patient received potassium 40 mEq p.o. and 10 mEq IV in ED Will give an additional 40 mEq p.o. and 40 mEq IV Will check urine creatinine and urine potassium Monitor on telemetry Nephrology consult Follow BMP Early satiety Patient endorses unintentional 30 lb weight loss in the past year States gets full quickly, eating smaller portions Follow-up outpatient for further workup HTN Continue amlodipine HLD Continue statin Migraines Continue topiramate GERD Continue PPI Anxiety/depression Continue venlafaxine Full Code Attending:?Dr. Ortiz DVT Prophylaxis: Lovenox Pt will require a hospitalization of at least two nights for treatment of?treatment and further evaluation of acute hypokalemia. Given severity of patient's hypokalemia, patient required hospitalized care for aggressive repletion of potassium with IV and p.o., close monitoring of cardiac function and labs, and specialist consultation. Quality Stroke Does the patient have a stroke diagnosis?: No VTE Prior VTE?: No VTE Risk Level:: Medical - moderate - high VTE Device Contraindication: Treatment Not Indicated VTE Drug Contraindication: N/A - Med Ordered
[2023-05-26] MEDS: Acetaminophen 325 MG TABLET 650 MG PO (19:41)
[2023-05-26] MEDS: Lactated Ringers 1,000 ML 999 ML IV (19:43)
[2023-05-26] MEDS: Potassium Chloride/H20 10 MEQ/100 ML PIGGYBACK 50 MEQ IV (19:43)
[2023-05-26] MEDS: Enoxaparin Sodium 40 MG/0.4 ML SYRINGE SUBCUT (19:44)
--- NOTE | 2023-05-26 20:13 | PC.NURSE ---
I assumed care of the pt at 1900. Pt is resting in bed, complaining of pain in her low back. Unfortunately, at this time, there are no spare pillows to be found. Pt was medicated with tylenol. Pt is getting IV portassium into the left AC. For pt comfort, potassium is running at half speed, diluted with LR. Pt has no other complaints at this time. Pt is pending admission
[2023-05-26] MEDS: Atorvastatin Calcium 40 MG TABLET PO (20:56)
[2023-05-26] MEDS: Topiramate 25 MG TABLET PO (20:56)
[2023-05-26 21:18] VITALS: BP 123/66; PULSE 73; RESP 18; TEMP 36.8; O2SAT 95
[2023-05-26 21:22] LABS: Creatinine Urine 56.72 mg/dL; Potassium Urine Random 46.3 mmol/L
[2023-05-26 21:51] VITALS: BMI 20.4
[2023-05-27] MEDS: Potassium Chloride/H20 10 MEQ/100 ML PIGGYBACK 100 MEQ IV (00:11)
[2023-05-27] MEDS: Acetaminophen 325 MG TABLET 650 MG PO (02:56)
[2023-05-27 03:01] VITALS: BP 131/79; PULSE 76; RESP 16; TEMP 37.1; O2SAT 97
[2023-05-27 06:14] LABS: MANUAL DIFF FLAG NO
[2023-05-27 06:22] LABS: Basophils Absolute Auto 0.1 X10*3/uL (0.0-0.2); Basophils Percent Auto 1.1 % (0-2); Eosinophils Absolute Auto 0.2 X10*3/uL (0.0-0.4); Eosinophils Percent Auto 3.2 % (0-4); Hematocrit 37.1 % (37.0-47.0); Hemoglobin 12.9 g/dl (12.0-16.0); Imm Gran Abs Auto 0.05 X10*3/uL (0.00-0.03); Imm Gran Pct Auto 0.7 % (0.0-0.4); Lymphocytes Absolute Auto 1.8 X10*3/uL (1.2-4.9); Lymphocytes Percent Auto 24.6 % (20-40); Mean Corpuscular HGB Conc 34.8 g/dl (31.0-35.0); Mean Corpuscular Hemoglobin 34.2 pg (27.0-33.0); Mean Corpuscular Volume 98.4 fL (80.0-98.0); Mean Platelet Volume 8.7 fL (9.4-12.3); Monocytes Absolute Auto 1.1 X10*3/uL (0.1-1.2); Monocytes Percent Auto 14.6 % (2-11); Neutrophils Absolute Auto 4.1 x10*3/uL (2.0-8.3); Neutrophils Percent Auto 55.8 % (45-73); Platelet Count 383 X10*3/uL (160-400); Red Blood Count 3.77 X10*6/uL (4.20-5.50); Red Cell Distribution Width 12.2 % (11.0-16.0); White Blood Count 7.3 X10*3/uL (4.8-10.8)
[2023-05-27 06:53] LABS: Anion Gap 14 (12-20); Blood Urea Nitrogen 9 mg/dL (9-16); Calcium 9.2 mg/dL (8.4-10.2); Carbon Dioxide 30 mmol/L (22-29); Chloride 97 mmol/L (96-108); Creatinine Clr Calc Pharmacy 83.5; Estimated Glomerular Filt Rate > 60; Glucose Random 93 mg/dL (60-115); Potassium 3.2 mmol/L (3.3-5.1); Sodium 138 mmol/L (135-145)
[2023-05-27 07:45] VITALS: BP 138/82; PULSE 74; RESP 16; TEMP 36.6; O2SAT 96
[2023-05-27 07:51] VITALS: BP 106/55; PULSE 93; RESP 16; TEMP 36.2; O2SAT 97
--- NOTE | 2023-05-27 08:36 | P.DS_ITS ---
DS: Providers Provider Date of Service: 05/27/23 Date of admission: 05/26/23 19:32 Primary care physician: Ros Lunsford MD DS: Diagnosis Discharge Diagnosis (1) Acute hypokalemia: Status: Acute DS: Summary Hospital Course Hospital Course: from initial hpi: 62-year-old female with a PMH significant for HTN, HLD, hx of ischemic bowel, hx of hypokalemia, anxiety and depression who presents to the ED for evaluation of low potassium on outpatient labs. Patient presented today to PCP for follow-up appointment after [place] [facility] [place] of T9-T10 vertebrae and had routine labs drawn. Patient was notified by phone that potassium was critically low and advised to go to the emergency department for further evaluation. Patient states she has been feeling tired and weak for the past few days, though she notes she has not been doing much other than lying down after undergoing back surgery. Also notes she sometimes Will violently twitch when she lays down and relaxes; this has been ongoing for the past few weeks after surgery. Also reports having had a 30 lb unintentional weight loss over the past year. Says she has been eating smaller portions and gets full much more quickly than before. Denies fever, chills, nausea, vomiting, abdominal pain. No diarrhea. Patient not on diuretics. Of note, patient has history of chronic mild hypokalemia dating back to at least 01/11/2021. Pt was also admitted to the hospital on 08/06-08/07 and treated for C diff ischemic colitis and hypokalemia. Potassium was 2.7 at that time. In the ED pt's vitals stable, WNL. Labs were significant for mild leukocytosis of 11.4 and potassium 2.2, otherwise largely unremarkable. Stable H&H of 13.9/39.3. Renal function baseline. Hepatic function baseline. Magnesium 1.7. TSH WNL at 1.56. EKG demonstrated normal sinus rhythm with non specific T-wave inversions and no significant ST elevations or depressions. Pt was treated with potassium chloride 40 mEq p.o. and 10 mEq IV. Pt will be admitted to the hospital for treatment and further evaluation of acute hypokalemia of unclear etiology. hospital course: Patient was admitted for severe hypokalemia. She was given supplement and potassium improved to 3.2 at time of discharge. Also noted to have mild hypo magnesemia of 1.7. She will continue on potassium and magnesium supplements as outpatient. Most likely etiology is alcohol dependence. Patient vague with quantity, but reports purchasing several nips of vodka multiple times per week. She was noted to have steatohepatitis on previous CT scan. For patient's unintentional weight loss, most likely this is due to poor caloric intake in the setting of alcohol dependence, however, age-appropriate cancer screening should be pursued as outpatient. For hypertension was continued on amlodipine. For hyperlipidemia was continued on statin. For migraines was continued on Topamax. For GERD was continued on PPI. For anxiety/depression was continued on venlafaxine. Patient reports being at her baseline and will be discharged home. Time Attestation Discharge coordination time: Greater than 30 minutes Quality: Safe Use of Opioids Does Pt have an Active Cancer Diagnosis on the Problem List?: No Quality: Stroke Does the patient have a stroke diagnosis?: No Physical Exam Vital Signs: Vital Signs: Last Vital Signs Temp 97.1 F 05/27/23 07:51 Pulse 93 05/27/23 07:51 Resp 16 05/27/23 07:51 BP 106/55 L 05/27/23 07:51 Pulse Ox 97 05/27/23 07:51 O2 Del Method Room Air 05/27/23 07:51 BMI result Body Mass Index 20.4 General: AO X 3, no acute distress Resp: CTA bilateral, no accessory muscles used CVS: S1,S2,RRR GI: soft, non tender, non distended Neuro: motor grossly intact, alert Psych: appropriate affect, appropriate insight DS: Data Data Completed and Pending Labs on day of discharge: Laboratory Results - last 24 hr 05/26/23 05/26/23 05/26/23 16:02 16:52 21:03 WBC 11.4 H RBC 4.12 L Hgb 13.9 Hct 39.3 MCV 95.4 MCH 33.7 H MCHC 35.4 H RDW 12.0 Plt Count 405 H MPV 8.1 L Immature Gran % (Auto) 0.5 H Neut % (Auto) 70.5 Lymph % (Auto) 16.9 L [place] % (Auto) 9.7 Eos % (Auto) 1.8 Baso % (Auto) 0.6 Lymph # (Auto) 1.9 [place] # (Auto) 1.1 Eos # (Auto) 0.2 Baso # (Auto) 0.1 Abs Immat Gran (auto) 0.06 H Absolute Neuts (auto) 8.0 Absolute Nucleated RBC 0.000 Nucleated RBC % (auto) 0.0 Sodium 135 Potassium 2.2 L* Chloride 93 L Carbon Dioxide 29 Anion Gap 15 BUN 14 Creatinine 0.67 Estim Creat Clear Calc 72.8 Estimated GFR > 60 Random Glucose 131 H Calcium 8.9 Magnesium 1.7 Total Bilirubin 0.4 AST 23 ALT 13 Alkaline Phosphatase 106 Total Protein 7.5 Albumin 4.2 TSH 1.56 Urine Color Yellow Urine Appearance Clear Urine pH 5.5 Ur Specific [place] 1.025 Urine Protein Negative Urine Glucose (UA) Negative Urine Ketones Trace Urine Blood Negative Urine Nitrite Negative Ur Leukocyte Esterase Negative Ur Random Potassium 46.3 Urine Creatinine 56.72 05/27/23 05:31 WBC 7.3 RBC 3.77 L Hgb 12.9 Hct 37.1 MCV 98.4 H MCH 34.2 H MCHC 34.8 RDW 12.2 Plt Count 383 MPV 8.7 L Immature Gran % (Auto) 0.7 H Neut % (Auto) 55.8 Lymph % (Auto) 24.6 [place] % (Auto) 14.6 H Eos % (Auto) 3.2 Baso % (Auto) 1.1 Lymph # (Auto) 1.8 [place] # (Auto) 1.1 Eos # (Auto) 0.2 Baso # (Auto) 0.1 Abs Immat Gran (auto) 0.05 H Absolute Neuts (auto) 4.1 Absolute Nucleated RBC 0.000 Nucleated RBC % (auto) 0.0 Sodium 138 Potassium 3.2 L D Chloride 97 Carbon Dioxide 30 H Anion Gap 14 BUN 9 Creatinine 0.58 Estim Creat Clear Calc 83.5 Estimated GFR > 60 Random Glucose 93 Calcium 9.2 Magnesium Total Bilirubin AST ALT Alkaline Phosphatase Total Protein Albumin TSH Urine Color Urine Appearance Urine pH Ur Specific [place] Urine Protein Urine Glucose (UA) Urine Ketones Urine Blood Urine Nitrite Ur Leukocyte Esterase Ur Random Potassium Urine Creatinine Discharge Plan Discharge Anticipated Discharge Date/Time: 05/27/23 08:32 Patient Disposition: Home, Self-Care Discharge Diagnosis: alcohol dependence, low potassium, weight loss Referrals: Ros Lunsford MD [Primary Care Provider] - 1 Week Discharge Medications: New magnesium oxide 400 mg (241.3 mg magnesium) Tablet 400 mg PO BIDPC Qty: 60 0RF potassium chloride 20 mEq tablet extended release 20 meq PO DAILY Qty: 30 0RF Continued topiramate 25 mg tablet 25 mg PO BID 90 Days Qty: 180 0RF cetirizine [All Day Allergy (cetirizine)] 10 mg tablet 10 mg PO DAILY acetaminophen 500 mg Tablet 1,000 mg PO Q6H PRN (Reason: Pain) omeprazole 20 mg tablet,delayed release (DR/EC) 20 mg PO DAILY PRN (Reason: Gastric Reflux) amlodipine 10 mg tablet 10 mg PO DAILY 90 Days Qty: 90 0RF atorvastatin 40 mg tablet 40 mg PO BEDTIME 90 Days Qty: 90 0RF montelukast 10 mg tablet 10 mg PO DAILY Qty: 90 0RF venlafaxine 75 mg capsule,extended release 24hr 75 mg PO DAILY Qty: 90 0RF Discharge Orders: Discharge Order (Routine); Ordered 05/27/23 Ordered By: Carlos Escobedo Diet: avoid alcohol Activity on Discharge: As tolerated Stand Alone Forms: Patient Portal Discharge page Other Ambulatory Orders: Basic Metabolic Panel (Routine) Timeframe: 1 Week Facility: [facility] - Location: Laboratory Ordered By: Carlos Escobedo Magnesium (Routine) Timeframe: 1 Week Facility: [facility] - Location: Laboratory Ordered By: Carlos Escobedo Care Plan Goals: recovery Health Concerns: alcohol dependence, low potassium, low mangesemium, weight loss Plan of Treatment: avoid alcohol, return for withdrawal symptoms, potassium and magnesium supplements, follow up pcp/gi for work up of unintentional weight loss Assessment: see above
[2023-05-27] MEDS: amLODIPine Besylate 10 MG TABLET PO (09:03)
[2023-05-27] MEDS: Venlafaxine HCl ER 75 MG CAP.ER.24H PO (09:04)
[2023-05-27] MEDS: Magnesium Oxide 400 MG TABLET PO (09:04)
[2023-05-27] MEDS: Loratadine 10 MG TABLET PO (09:04)
[2023-05-27] MEDS: Topiramate 25 MG TABLET PO (09:04)
[2023-05-27] MEDS: Montelukast Sodium 10 MG TABLET PO (09:04)
[2023-05-27] MEDS: 0.9 % Sodium Chloride Flush 3 ML SYRINGE IVFLUSH (09:06)
--- NOTE | 2023-05-27 10:11 | MHC.CM.PN ---
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
[2023-05-27] MEDS: Potassium Chloride ER 20 MEQ TAB.ER.PRT 40 MEQ PO (10:38)
--- NOTE | 2023-05-29 09:21 | PM.EVENT ---
Event Note Date of Service: 05/29/23 Event Note: Karen was admittined on 05/26/23 with hypokalemia K was increase to 3.2 and discharged on 05/27/23 I shall arrange for out pt follow up Time Spent With Patient Time: Total time managing care of this patient today ____ minutes.
== END 2023-05-27 11:02 | disposition home or self-care (01) | DRG 425 ==
LOC: HO.ED 18:59 → HO.EDOVER 20:11 → HO.S3 20:43
PROVIDERS: Physician Assistant Medical; Admitting Provider Student in an Organized Health Care Education/Training Program; Emergency Provider Emergency Medicine Emergency Medical Services; PCP Internal Medicine; Visit Provider Internal Medicine
DX: E87.6 Hypokalemia (principal); E83.42 Hypomagnesemia; K75.81 Nonalcoholic steatohepatitis (NASH); I10 Essential (primary) hypertension; F10.20 Alcohol dependence, uncomplicated; E78.5 Hyperlipidemia, unspecified; F41.9 Anxiety disorder, unspecified; F32.A Depression, unspecified; G43.909 Migraine, unspecified, not intractable, without status migrainosus; K21.9 Gastro-esophageal reflux disease without esophagitis; Z87.891 Personal history of nicotine dependence; Z79.899 Other long term (current) drug therapy
CPT/HCPCS: 36415; 80048; 80053; 81003; 82570; 83735; 84133; 84443; 85025; 93005; 99285; J1650; J3480; J7120

== ENCOUNTER → 2023-05-26 16:51 | Outpatient (BNV) | payer BC, SELFPAY | PROVIDERS: Admitting Provider Student in an Organized Health Care Education/Training Program; Emergency Provider Emergency Medicine Emergency Medical Services; PCP Internal Medicine; Visit Provider Internal Medicine Cardiovascular Disease | DX: E87.6 Hypokalemia (principal); R94.31 Abnormal electrocardiogram [ECG] [EKG] | CPT/HCPCS: 93010 ==

== ENCOUNTER → 2023-05-26 19:32 | Outpatient (BNV) | payer BC, SELFPAY | PROVIDERS: Admitting Provider Student in an Organized Health Care Education/Training Program; Emergency Provider Emergency Medicine Emergency Medical Services; PCP Internal Medicine; Visit Provider Student in an Organized Health Care Education/Training Program | DX: E87.6 Hypokalemia (principal); R68.81 Early satiety | CPT/HCPCS: 99223; 99239 ==

== ENCOUNTER 2023-06-19 07:33 | Inpatient (IN) | payer BC, SELFPAY ==
[2023-06-19] VITALS (7 sets, daily range): BP systolic 126–160; BP diastolic 73–92; PULSE 97–123; RESP 12–20; TEMP 36.1–37.3; O2SAT 96–98; BMI 21.9
--- NOTE | ~2023-06-19 | XR_ITS ---
EXAMINATION: XR CHEST CLINICAL INFORMATION: Leukocytosis COMPARISON: Chest x-ray on 07/28/2021 TECHNIQUE: 2 views of the chest were obtained. FINDINGS: vascularity. LUNGS: Lungs are clear. No pneumothorax is seen. BONES: Severe compression fracture of T10, producing vertebra planum, vertebroplasty with injection of methylmethacrylate is seen. Posterior T9-T11 spinal fixation with transpedicular screws is seen. XR/XR chest 2V IMPRESSION: 1. Unchanged no radiographic signs of acute cardiopulmonary process. 2. Interval development of severe T10 compression fracture, performance of vertebroplasty and posterior T9-T11 spinal fixation.
--- NOTE | 2023-06-19 07:57 | ED.GENADULT ---
HPI - General Adult General Chief complaint: General Medical Stated complaint: NAUSEA,VOMITING,DIZZY PER EMS Time Seen by Provider: 06/19/23 07:53 Source: patient Mode of arrival: ambulatory Limitations: no limitations History of Present Illness HPI narrative: This is 62 years old female presented to the emergency department complaining of nausea vomiting since yesterday she has history of alcohol abuse last drink was June 17, she has not interested in detox Onset (ago): day(s) (1) Radiation: non-radiation Severity: moderate Pain Consistency: constant Relieving factors: none Exacerbating factors: none Associated symptoms: denies other symptoms Related Data Home Medications Medication Instructions Recorded Confirmed omeprazole 20 mg tablet,delayed 20 mg PO DAILY PRN Gastric Reflux 05/27/20 05/26/23 release acetaminophen 500 mg tablet 1,000 mg PO Q6H PRN Pain 04/04/23 05/26/23 cetirizine 10 mg tablet (All Day 10 mg PO DAILY allergy symptoms 05/26/23 05/26/23 Allergy (cetirizine)) Previous Rx's Medication Instructions Recorded atorvastatin 40 mg tablet 40 mg PO BEDTIME 90 days #90 tabs 11/29/22 montelukast 10 mg tablet 10 mg PO DAILY #90 tabs 11/29/22 venlafaxine 75 mg capsule,extended 75 mg PO DAILY #90 caps 11/29/22 release 24 hr topiramate 25 mg tablet 25 mg PO BID 90 days #180 tabs 05/22/23 amlodipine 10 mg tablet 10 mg PO DAILY 90 days #90 tabs 05/26/23 magnesium oxide 400 mg (241.3 mg 400 mg PO BIDPC #60 tabs 05/27/23 magnesium) tablet potassium chloride 20 mEq 20 meq PO DAILY #30 tabs 05/27/23 tablet,extended release Allergies Allergy/AdvReac Type Severity Reaction Status Date / Time hydroxychloroquine Allergy Severe hives Verified 05/26/23 16:08 [Plaquenil] bupropion [From WELLBUTRIN] Allergy Intermediate HIVES Verified 05/26/23 16:08 amoxicillin Allergy Mild Rash Verified 05/26/23 16:08 tramadol Allergy Unknown hives, rash Verified 05/26/23 16:08 ENVIRONMENTAL Allergy Unknown ITCHY EYES Uncoded 04/04/23 13:05 Review of Systems Constitutional: Constitutional: Reports no additional constitutional complaints ENT: Reports system reviewed and no additional complaints, except as documented [facility] Past Medical History [facility] Narrative: Alcohol abuse Medical History Constipation Positive colorectal cancer screening using Cologuard test Cystitis Papanicolaou smear declined Colonoscopy refused Mammogram declined Muscle spasm Lumbar pain Supraclavicular mass Hospital discharge follow-up Hyperlipidemia GERD (gastroesophageal reflux disease) Acute hypokalemia Fall Hematoma Alcohol use disorder, mild, in early remission, abuse Alcoholism Hospital discharge follow-up Hypokalemia Uncontrolled hypertension Abnormal EKG Hypertension, essential Breast screening Encounter for general adult medical examination with abnormal findings Anxiety, generalized Hives Surgical History Hx of hand surgery Hx of colonoscopy (08/30/11) History of right breast biopsy (10/31/11) Hx of left inguinal hernia repair (02/25/13) Hx of basal cell carcinoma excision (2011) History of left oophorectomy (09/07/11) Hx of right inguinal hernia repair (2003) Family History Family History Father Cardiac disease Mother Cardiac disease HTN (hypertension) Other Substance use disorder Social History Social History Household Members: Spouse and Family Housing: House 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 at 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: Yes () Do you presently have visiting nurse or other home services: No Alcohol intake: current Alcohol intake frequency: 3 or more drinks per day Alcohol type: hard liquor Patient Tobacco Use Status: Former Tobacco user Quit Date: 30 years ago Tobacco use type: Cigarette Years Smoked: 20 Smoked in Last 30 Days: No e-Cigarette/Vaping Use: Never Used Use of substances other than those prescribed or required for medical reasons: Yes Substance Use Type: Marijuana Advance Directives: No Advance Directives Information Provided: Yes service: No Current occupational status: employed Cognitive needs: No Hearing needs: No Vision needs: No Physical Exam ED Vital Signs: Vital Signs - 24 hr 06/19/23 07:42 06/19/23 07:58 Temperature 98.5 F 98.5 F Pulse Rate 120 H 119 H Respiratory Rate 18 18 Blood Pressure 160/92 H 160/92 H Pulse Oximetry 97 96 Oxygen Delivery Method Room Air Room Air BMI result Body Mass Index 21.9 Const General: cooperative Nutritional Appearance: well nourished Orientation/consciousness: patient oriented x3 Limitations: no limitations HENMT Head: Yes normal to inspection Ears: hearing grossly normal bilaterally General nose exam: Normal external nose present Face and sinus: Yes normal facial exam Mouth: Normal oral and palatal mucosa present Throat: Yes posterior oropharynx normal Neck Neck: Yes normal visual inspection Resp Effort & Inspection: normal respiratory effort Auscultation: clear to auscultation bilaterally Cardio Jugular venous distension: no JVD Rate: regular rate GI Inspection: Yes normal to inspection Palpation (GI): Soft to palpation, not firm and nontender Auscultation: normal bowel sounds Skin General skin exam: no rashes or lesions noted Lesions: no lesions Rashes: no rashes Neuro General: patient oriented x3 Extrem General: Yes normal to inspection and Yes full ROM Course Reevaluation(s) Reevaluation #1: no better ,received IV ativan w/o improvement will start phenobarbital Time: 09:30 Medications Administered Discontinued Medications Generic Name Dose Route Start Last Admin Trade Name Freq PRN Reason Stop Dose Admin Sodium Chloride 1,000 mls @ 999 mls/hr 06/19/23 08:00 06/19/23 08:40 Ns IVCONT 06/19/23 09:00 999 mls/hr .Q1H1M SORAYA Administration Lorazepam 1 mg 06/19/23 07:54 06/19/23 08:43 Lorazepam 2 Mg/Ml Vial IVPUSH 06/19/23 07:55 1 mg ONCE ONE Administration Ondansetron HCl 4 mg 06/19/23 07:54 06/19/23 08:41 Ondansetron Hcl 4 Mg/2 Ml Vial IVPUSH 06/19/23 07:55 4 mg ONCE ONE Administration Potassium Chloride 40 meq 06/19/23 08:18 06/19/23 08:44 Potassium Chloride Packet 20 Meq Packet PO 06/19/23 08:19 40 meq ONCE ONE Administration Medical Decision Making Medical Decision Making [facility] Narrative: Patient presented nausea vomiting since yesterday will insert an IV administer benzos and reassess Differential Diagnosis Differential Diagnoses: The differential diagnosis associated with the presentation includes Alcohol withdrawal syndrome/gastroenteritis Admission/Observation Consideration of admission/observation: Escalation of care including admission/observation considered Consult Healthcare Provider Management of the patient was discussed with: Hospitalist Lab Data MDM Lab Attestation statement: I reviewed the patient's lab results. 06/19/23 07:57 06/19/23 07:57 Labs: Lab Results 06/19/23 Range/Units 07:57 WBC 15.1 H (4.8-10.8) X10*3/uL RBC 4.02 L (4.20-5.50) X10*6/uL Hgb 14.0 (12.0-16.0) g/dl Hct 38.6 (37.0-47.0) % MCV 96.0 (80.0-98.0) fL MCH 34.8 H (27.0-33.0) pg MCHC 36.3 H (31.0-35.0) g/dl RDW 12.0 (11.0-16.0) % Plt Count 381 (160-400) X10*3/uL MPV 7.9 L (9.4-12.3) fL Immature Gran % (Auto) 0.3 (0.0-0.4) % Neut % (Auto) 88.8 H (45-73) % Lymph % (Auto) 3.3 L (20-40) % [place] % (Auto) 7.3 (2-11) % Eos % (Auto) 0.1 (0-4) % Baso % (Auto) 0.2 (0-2) % Lymph # (Auto) 0.5 L (1.2-4.9) X10*3/uL [place] # (Auto) 1.1 (0.1-1.2) X10*3/uL Eos # (Auto) 0.0 (0.0-0.4) X10*3/uL Baso # (Auto) 0.0 (0.0-0.2) X10*3/uL Abs Immat Gran (auto) 0.04 H (0.00-0.03) X10*3/uL Absolute Neuts (auto) 13.4 H (2.0-8.3) x10*3/uL Absolute Nucleated RBC 0.000 (0.0-0.012) X10*3/uL Nucleated RBC % (auto) 0.0 (0.0-0.2) /100WBC Sodium 138 (135-145) mmol/L Potassium 2.7 L* (3.3-5.1) mmol/L Chloride 102 (96-108) mmol/L Carbon Dioxide 23 (22-29) mmol/L Anion Gap 16 (12-20) BUN 9 (9-16) mg/dL Creatinine 0.59 (0.5-1.4) mg/dL Estim Creat Clear Calc 76.2 Estimated GFR > 60 Random Glucose 159 H (60-115) mg/dL Calcium 9.5 (8.4-10.2) mg/dL Magnesium 1.5 L (1.6-2.6) mg/dL Total Bilirubin 2.1 H (0.0-1.0) mg/dL AST 34 H (5-31) U/L ALT 15 (0-31) U/L Alkaline Phosphatase 124 H (39-117) U/L Total Protein 7.7 (6.5-8.0) g/dL Albumin 4.3 (3.5-5.0) g/dL Ethyl Alcohol < 10 mg/dL Independent Interpretation I performed an independent interpretation of an: EKG Critical Care Time Critical Care Time Critical Care Time: Yes Total Critical Care Time: 60 Attestation: IV ativan/phenobarbital for alcohol withdrawal Discharge Plan Discharge Clinical Impression: Acute hypokalemia, Hypomagnesemia Alcohol withdrawal Qualifiers: Complication of substance-induced condition: uncomplicated Qualified Code(s): F10.930 - Alcohol use, unspecified with withdrawal, uncomplicated Patient Disposition: Admitted As Inpatient
[2023-06-19 08:00] LABS: MANUAL DIFF FLAG NO
--- NOTE | 2023-06-19 08:01 | PC.NURSE ---
Pt presents to ED via EMS from home. Pt reports N/V/D since yesterday. Pt endorses drinking alcohol daily, 10+ nips a day. Pt reports last drink was this past Saturday 06/17, pt wants to quit using alcohol. Pt endorses marijuana use, no other drugs. Pt reports she is unsure if she has ever had withdrawal seizures in the past. Pt does report similar episode of N/V 1 month ago and was found to have low potassium at her doctors. Pt denies fevers, SOB, CP. Pt alert and oriented, breathing even and unlabored, skin warm and dry. Pt appears anxious, noted to have a tremor. Pt placed on bedside weight analyst, sinus tachycardia. Seizure pads in place as precaution. CIWA at this time is 10, provider at bedside.
[2023-06-19 08:03] LABS: Basophils Percent Auto 0.2 % (0-2); Eosinophils Percent Auto 0.1 % (0-4); Hematocrit 38.6 % (37.0-47.0); Imm Gran Abs Auto 0.04 X10*3/uL (0.00-0.03); Imm Gran Pct Auto 0.3 % (0.0-0.4); Lymphocytes Absolute Auto 0.5 X10*3/uL (1.2-4.9); Lymphocytes Percent Auto 3.3 % (20-40); Mean Corpuscular HGB Conc 36.3 g/dl (31.0-35.0); Mean Corpuscular Hemoglobin 34.8 pg (27.0-33.0); Mean Platelet Volume 7.9 fL (9.4-12.3); Monocytes Absolute Auto 1.1 X10*3/uL (0.1-1.2); Monocytes Percent Auto 7.3 % (2-11); Neutrophils Absolute Auto 13.4 x10*3/uL (2.0-8.3); Neutrophils Percent Auto 88.8 % (45-73); Platelet Count 381 X10*3/uL (160-400); Red Blood Count 4.02 X10*6/uL (4.20-5.50); White Blood Count 15.1 X10*3/uL (4.8-10.8)
[2023-06-19 08:19] LABS: Alanine Aminotransferase 15 U/L (0-31); Albumin Level 4.3 g/dL (3.5-5.0); Alkaline Phosphatase 124 U/L (39-117); Anion Gap 16 (12-20); Aspartate Amino Transferase 34 U/L (5-31); Bilirubin Total 2.1 mg/dL (0.0-1.0); Blood Urea Nitrogen 9 mg/dL (9-16); Calcium 9.5 mg/dL (8.4-10.2); Carbon Dioxide 23 mmol/L (22-29); Chloride 102 mmol/L (96-108); Creatinine Clr Calc Pharmacy 76.2; Estimated Glomerular Filt Rate > 60; Ethanol < 10 mg/dL; Glucose Random 159 mg/dL (60-115); Magnesium 1.5 mg/dL (1.6-2.6); Potassium 2.7 mmol/L (3.3-5.1); Sodium 138 mmol/L (135-145); Total Protein 7.7 g/dL (6.5-8.0)
[2023-06-19] MEDS: 0.9 % Sodium Chloride 1,000 ML 999 ML IVCONT (08:40)
[2023-06-19] MEDS: ondansetron HCL 4 MG/2 ML VIAL IVPUSH ×2 (08:41→16:09)
[2023-06-19] MEDS: LORazepam 2 MG/ML VIAL 1 MG IVPUSH (08:43)
[2023-06-19] MEDS: Potassium Chloride Packet 20 MEQ PACKET 40 MEQ PO (08:44)
[2023-06-19] MEDS: Magnesium Sulfate/H2O 2 GM/50 ML PIGGYBACK IV (10:34)
[2023-06-19] MEDS: PHENobarbitaL sodium 130 MG/ML IM ONCE 200 MG IM (10:38)
[2023-06-19] MEDS: Potassium Chloride/H20 10 MEQ/100 ML PIGGYBACK 100 MEQ IV ×4 (11:44→16:07)
--- NOTE | 2023-06-19 11:51 | PHA.MEDREC ---
Pharmacy Consult ? Medication Reconciliation Pharmacy has completed the medication reconciliation. Patient was a poor historian. Patient stated she sees Dr Lunsford and to speak to them. Used last follow up note from from 05/2023 to finish med rec.
--- NOTE | 2023-06-19 12:11 | PC.NURSE ---
Pt sleeping in bed at this time, appears much more comfortable. VSS.
--- NOTE | 2023-06-19 12:27 | P.HPHOSP_ITS ---
History of Present Illness Date of Service: 06/19/23 Attending physician on admission: Richard Rockwell Chief Complaint: Alcohol withdrawal, multiple electrolytic abnormalities 62 y/o F with a PMH significant for HTN, HLD, hx of ischemic bowel, hx of hypokalemia, anxiety and depression: Patient drinks few nips of vodka every day, she says last use was on 06/17-afterwards patient started having nausea vomiting and tremulous, anxious-so decided to come to the hospital: In the ED patient was found to have multiple electrolytic abnormalities including hypokalemia, hypomagnesemia, and also seems to be in alcohol withdrawal. Patient denies any abdominal pain or fever or chills . Denies chest pain or shortness of breath or cough or weakness or numbness. Denies any diarrhea or constipation. Lab reviewed: WBC count 15.1 Potassium 2.7, magnesium 1.5 Mild LFT elevated In ED: Received lorazepam, phenobarb, potassium, magnesium and requested admission for multiple electrolytic abnormalities as well as alcohol withdrawal. Review of Systems 2 Review of Systems: Yes all other systems are reviewed and are negative [facility] Medical History Constipation Positive colorectal cancer screening using Cologuard test Cystitis Papanicolaou smear declined Colonoscopy refused Mammogram declined Muscle spasm Lumbar pain Supraclavicular mass Hospital discharge follow-up Hyperlipidemia GERD (gastroesophageal reflux disease) Acute hypokalemia Fall Hematoma Alcohol use disorder, mild, in early remission, abuse Alcoholism Hospital discharge follow-up Hypokalemia Uncontrolled hypertension Abnormal EKG Hypertension, essential Breast screening Encounter for general adult medical examination with abnormal findings Anxiety, generalized Hives Family History Father Cardiac disease Mother Cardiac disease HTN (hypertension) Other Substance use disorder Surgical History Hx of hand surgery Hx of colonoscopy (08/30/11) History of right breast biopsy (10/31/11) Hx of left inguinal hernia repair (02/25/13) Hx of basal cell carcinoma excision (2011) History of left oophorectomy (09/07/11) Hx of right inguinal hernia repair (2003) Social History Household Members: Spouse and Family Housing: House Are you a primary hemodialysis patient care specialist to a significant other at home: Yes () Do you presently have visiting nurse or other home services: No Alcohol intake: current Alcohol intake frequency: 3 or more drinks per day Alcohol type: hard liquor Patient Tobacco Use Status: Former Tobacco user Quit Date: 30 years ago Tobacco use type: Cigarette Years Smoked: 20 Smoked in Last 30 Days: No e-Cigarette/Vaping Use: Never Used Use of substances other than those prescribed or required for medical reasons: Yes Substance Use Type: Marijuana Advance Directives: No Advance Directives Information Provided: Yes service: No Current occupational status: employed Cognitive needs: No Hearing needs: No Vision needs: No Meds Allergies Allergy/AdvReac Type Severity Reaction Status Date / Time hydroxychloroquine Allergy Severe hives Verified 05/26/23 16:08 [Plaquenil] bupropion [From WELLBUTRIN] Allergy Intermediate HIVES Verified 05/26/23 16:08 amoxicillin Allergy Mild Rash Verified 05/26/23 16:08 tramadol Allergy Unknown hives, rash Verified 05/26/23 16:08 ENVIRONMENTAL Allergy Unknown ITCHY EYES Uncoded 04/04/23 13:05 Active Medications: Current Medications Atenolol (Atenolol 50 Mg Tablet) 50 mg PO DAILY [facility]; Protocol Atorvastatin Calcium (Atorvastatin Calcium 40 Mg Tablet) 40 mg PO BEDTIME [facility] Potassium Chloride (Potassium Chloride/H20) 10 meq in 100 mls @ 100 mls/hr IV Q1H SORAYA Stop: 06/19/23 14:59 Last Admin: 06/19/23 11:44 Dose: 100 mls/hr Loratadine (Loratadine 10 Mg Tablet) 10 mg PO DAILY [facility] Magnesium Oxide (Magnesium Oxide 400 Mg Tablet) 400 mg PO BIDPC [facility] Montelukast Sodium (Montelukast Sodium 10 Mg Tablet) 10 mg PO DAILY [facility] Omeprazole (Omeprazole 20 Mg Capsule.Dr) 20 mg PO DAILY PRN PRN Reason: Gastric Reflux Pharmacy Consult (Consult Rx Etoh Phenob Im/Po) 1 each MISCELLANE ONCE PRN; Protocol PRN Reason: Consult order Phenobarbital (Phenobarbital 15 Mg Tablet) 45 mg PO BID [facility] Stop: 06/21/23 09:01 Phenobarbital (Phenobarbital 15 Mg Tablet) 15 mg PO BID [facility] Stop: 06/23/23 09:01 Phenobarbital (Phenobarbital 15 Mg Tablet) 15 mg PO DAILY [facility] Stop: 06/25/23 09:01 Phenobarbital Sodium (Phenobarbital Sodium 130 Mg/Ml Vial Im Q3hx2) 150 mg IM Q3H [facility] Stop: 06/19/23 16:01 Potassium Chloride (Potassium Chloride Er 20 Meq Tab.Er.Prt) 20 meq PO DAILY [facility] Sodium Chloride (0.9 % Sodium Chloride Flush 3 Ml Syringe) 3 ml IVFLUSH QSHIFT [facility] Topiramate (Topiramate 25 Mg Tablet) 25 mg PO BID [facility] Venlafaxine HCl (Venlafaxine Hcl Er 75 Mg Cap.Er.24h) 75 mg PO DAILY [facility] Home Medications Medication Instructions Recorded Confirmed Last Taken Type omeprazole 20 mg tablet,delayed 20 mg PO DAILY PRN Gastric Reflux 05/27/20 06/19/23 04/10/23 History release acetaminophen 500 mg tablet 1,000 mg PO Q6H PRN Pain 04/04/23 06/19/23 04/09/23 History cetirizine 10 mg tablet (All Day 10 mg PO DAILY allergy symptoms 05/26/23 06/19/23 05/26/23 History Allergy (cetirizine)) atenolol 50 mg-chlorthalidone 25 1 tab PO DAILY 06/19/23 06/19/23 Unknown History mg tablet topiramate 25 mg tablet 25 mg PO BID 06/19/23 06/19/23 Unknown History venlafaxine 75 mg capsule,extended 75 mg PO DAILY 06/19/23 06/19/23 Unknown History release 24 hr Physical Exam 2 Vital Signs and Narrative: Vital Signs: Last Vital Signs Temp 98.8 F 06/19/23 12:17 Pulse 97 06/19/23 12:17 Resp 15 06/19/23 12:17 BP 126/78 06/19/23 12:17 Pulse Ox 96 06/19/23 12:17 O2 Del Method Room Air 06/19/23 12:17 BMI result Body Mass Index 21.9 Appearance: Alert.? Oriented X3.anxious /tramulous. Eyes: Pupils equal, round and reactive to light.? Sclera nonicteric.? ENT: Pharynx normal.? Moist mucous membranes. cvs: rrr, [id number] , no murmur res: clear to auscultation ,no rhonchii or wheezing abd: no rebound or guarding ,nt, bs present. ext pulses present , no cyanosis . neuro: axo3 , nonfocal. Results Labs 06/19/23 07:57 06/19/23 07:57 Labs: Laboratory Results - last 24 hr 06/19/23 07:57 MCV 96.0 MCH 34.8 H MCHC 36.3 H RDW 12.0 Plt Count 381 MPV 7.9 L Immature Gran % (Auto) 0.3 Neut % (Auto) 88.8 H Lymph % (Auto) 3.3 L [place] % (Auto) 7.3 Eos % (Auto) 0.1 Baso % (Auto) 0.2 Lymph # (Auto) 0.5 L [place] # (Auto) 1.1 Eos # (Auto) 0.0 Baso # (Auto) 0.0 Abs Immat Gran (auto) 0.04 H Absolute Neuts (auto) 13.4 H Absolute Nucleated RBC 0.000 Nucleated RBC % (auto) 0.0 Anion Gap 16 Estim Creat Clear Calc 76.2 Estimated GFR > 60 Random Glucose 159 H Calcium 9.5 Magnesium 1.5 L Total Bilirubin 2.1 H AST 34 H ALT 15 Alkaline Phosphatase 124 H Total Protein 7.7 Albumin 4.3 Ethyl Alcohol < 10 Assessment and Plan (1) Hypomagnesemia: Status: Acute (2) Acute hypokalemia: Status: Acute (3) Alcohol withdrawal: Qualifiers: Complication of substance-induced condition: uncomplicated Qualified Code(s): F10.930 - Alcohol use, unspecified with withdrawal, uncomplicated Status: Acute Plan 62 y/o F with a PMH significant for HTN, HLD, hx of ischemic bowel, hx of hypokalemia, anxiety and depression-came with nausea ,vomiting ,multiple electrolytic abnormalities and alcohol withdrawals. Alcohol withdrawals: drinks few nips of vodka everday ciwa mild transamnitis -possible sec to alcohol use -moniter lfts nausea/vomiting resolved-possible sec to alcohol gastritis ,no abd pain or diarrhae or other and symptoms . continue phenobarbital, Iv Fluids ,ppi,antiemtics. Multiple electrolytic abnormalities: Potassium p.o. and IV replaced as well as magnesium replacement. Monitor BMP and magnesium levels. HTn: blood pressure stable continue atenolol,hold hctz and amlodipine hlp: hold atorvastatin for today moniter lft's and start statin accordingly. leucocytosis : possible recative asymptomatic will add ua /cxr to complete workrup, Patient will benefit from 48-72 hour stay considering as alcohol withdrawal electrolytic abnormalities need IV hydration, phenobarb protocol, aggressive electrolytic replacement and renal function and electrolyte monitoring. Above management with discussed with the patient in detail length she understand the plan, time spent 70 minute. Quality Stroke Does the patient have a stroke diagnosis?: No VTE Prior VTE?: No VTE Risk Level:: Medical - moderate - high VTE Device Contraindication: N/A - Device Ordered VTE Drug Contraindication: N/A - Med Ordered
[2023-06-19 13:14] LABS: Appearance Urine Clear; Color Urine Yellow; Glucose Urine UA Negative (Negative); Leukocyte Esterase Urine Negative (Negative); Nitrite Urine Negative (Negative); PH 7.5 (5.0-9.0); UMIC TRIGGER UA YES; Urine Blood Small (1+) (Negative); Urine Ketones 15 mg/dL (Negative); Urine Protein Trace mg/dL (Neg-Trace)
[2023-06-19 13:26] LABS: Bacteria Urine None Seen (None Seen); Hyaline Casts Urine 0-2 /LPF (0-2); RBC Urine 0-2 /HPF (0-2); WBC Urine 0-5 /HPF (0-5)
[2023-06-19] MEDS: Enoxaparin Sodium 40 MG/0.4 ML SYRINGE SUBCUT (13:51)
[2023-06-19] MEDS: PHENobarbitaL sodium 130 MG/ML VIAL IM Q3Hx2 150 MG IM ×2 (13:53→16:08)
[2023-06-19] MEDS: Topiramate 25 MG TABLET PO ×2 (13:56→21:49)
[2023-06-19] MEDS: Pantoprazole Sodium 40 MG/10 ML VIAL IVPUSH (13:57)
[2023-06-19] MEDS: 0.9 % Sodium Chloride 1,000 ML 80 ML IVCONT (14:00)
[2023-06-19] MEDS: Venlafaxine HCl ER 75 MG CAP.ER.24H PO (14:12)
[2023-06-19] MEDS: Magnesium Oxide 400 MG TABLET PO (16:08)
--- NOTE | 2023-06-19 19:34 | PC.NURSE ---
assumed care of pt at 1900, pt transported upstairs by tech.
[2023-06-19] MEDS: PHENobarbitaL 15 MG TABLET 45 MG PO (21:45)
[2023-06-19] MEDS: Atorvastatin Calcium 40 MG TABLET PO (21:49)
[2023-06-20] VITALS (7 sets, daily range): BP systolic 117–133; BP diastolic 64–79; PULSE 74–88; RESP 18–20; TEMP 36.1–37.1; O2SAT 95–97; BMI 22.6
[2023-06-20] MEDS: Acetaminophen 325 MG TABLET 650 MG PO ×2 (03:09→20:53)
[2023-06-20] MEDS: 0.9 % Sodium Chloride 1,000 ML 80 ML IVCONT ×2 (03:15→16:22)
[2023-06-20] MEDS: Pantoprazole Sodium 40 MG/10 ML VIAL IVPUSH (06:06)
[2023-06-20 06:33] LABS: Hematocrit 38.2 % (37.0-47.0); Hemoglobin 13.4 g/dl (12.0-16.0); Mean Corpuscular HGB Conc 35.1 g/dl (31.0-35.0); Mean Corpuscular Hemoglobin 34.4 pg (27.0-33.0); Mean Corpuscular Volume 97.9 fL (80.0-98.0); Mean Platelet Volume 8.1 fL (9.4-12.3); Platelet Count 285 X10*3/uL (160-400); Red Cell Distribution Width 11.9 % (11.0-16.0); White Blood Count 9.8 X10*3/uL (4.8-10.8)
[2023-06-20 06:52] LABS: Alanine Aminotransferase 12 U/L (0-31); Albumin Level 3.7 g/dL (3.5-5.0); Alkaline Phosphatase 107 U/L (39-117); Anion Gap 13 (12-20); Aspartate Amino Transferase 27 U/L (5-31); Bilirubin Total 2.4 mg/dL (0.0-1.0); Blood Urea Nitrogen 3 mg/dL (9-16); Calcium 8.6 mg/dL (8.4-10.2); Carbon Dioxide 22 mmol/L (22-29); Chloride 105 mmol/L (96-108); Creatinine Clr Calc Pharmacy 86.4; Estimated Glomerular Filt Rate > 60; Glucose Random 103 mg/dL (60-115); Potassium 3.1 mmol/L (3.3-5.1); Sodium 137 mmol/L (135-145); Total Protein 6.8 g/dL (6.5-8.0)
[2023-06-20 08:44] LABS: Magnesium 2.1 mg/dL (1.6-2.6)
[2023-06-20] MEDS: Venlafaxine HCl ER 75 MG CAP.ER.24H PO (09:16)
[2023-06-20] MEDS: atenoloL 50 MG TABLET PO (09:16)
[2023-06-20] MEDS: PHENobarbitaL 15 MG TABLET 45 MG PO ×2 (09:16→20:50)
[2023-06-20] MEDS: Loratadine 10 MG TABLET PO (09:17)
[2023-06-20] MEDS: Potassium Chloride ER 20 MEQ TAB.ER.PRT PO ×2 (09:17)
[2023-06-20] MEDS: Montelukast Sodium 10 MG TABLET PO (09:17)
[2023-06-20] MEDS: Topiramate 25 MG TABLET PO ×2 (09:17→20:53)
[2023-06-20] MEDS: Magnesium Oxide 400 MG TABLET PO ×2 (09:17→16:22)
--- NOTE | 2023-06-20 09:56 | MHC.CM.PN ---
Patient lives with her and Son. Home vs Recovery Team intervention R/T ETOH is the tentative plan and CM has initiated and will follow for dc planning. PCP is Dr. Ros Lunsford.
--- NOTE | 2023-06-20 11:04 | MHC.RECOVRN ---
Met with pt in 452 after consult placed to Addiction Medicine for alcohol use. Pt had presented to the ED reporting n/v/d, alcohol use (last drink 06/17). Upon evaluation, pt admitted for treatment of hypomagnesemia, hypokalemia, and alcohol withdrawal. Pt sitting in bed, awake, alert, crying upon entering room. Pt reports she is stressed because she is unable to discharge today. Pt reports her is 75 and home alone with early Alzheimer's. Pt reports her son is attempting to leave work early to go help. 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 In regards to alcohol use, pt reports 10+ nips vodka daily x nearly 11 years. Pt reports in 2012 she went to the [facility] where she drank heavily and continued drinking when she returned home. Pt reports it has been at the current amount (10 nips daily) for about 7 years. Pt reports she has 2 sons who are supportive, does not have other family or friend support. Pt reports one ATS admission years ago where she did not complete treatment. Pt reports receiving Vivitrol x 1 years ago and experiencing n/v after consuming alcohol. Denies other AUD tx. Pt reports longest period in recovery has been about one day. Pt reports she typically experiences tremors when she does not drink. Pt currently feeling okay in regards to withdrawal, is on phenobarb protocol. Discussed recovery supports and options, including inpatient, outpatient, [facility], recovery coaching, therapy. Pt is interested in naltrexone and following up with the [facility]. Pt would like to find out what [facility] copay would be prior to making appt. Pt denies other questions or concerns. Pt provided with t/w contact information as well as written recovery resources. Discussed with Qing Unger APRN.
--- NOTE | 2023-06-20 13:48 | P.PNIM_ITS ---
Subjective Subjective Date of Service: 06/20/23 Interval History: Denies tremors Interested in stopping EtOH Review of Systems Review of Systems: Yes all other systems are reviewed and are negative Physical Exam 2 Vital Signs: Vital Signs: Last Vital Signs Temp 98.3 F 06/20/23 10:56 Pulse 74 06/20/23 10:56 Resp 20 06/20/23 10:56 BP 122/79 06/20/23 10:56 Pulse Ox 95 06/20/23 10:56 O2 Del Method Room Air 06/20/23 10:56 BMI result Body Mass Index 22.6 Gen: in no acute distress HEENT: sclera anicteric, moist mucus membranes Neck: supple Lungs: clear to auscultation bilaterally Heart: regular rate and rhythm, no murmurs Abd: soft, non-tender, non-distended Ext: no edema Skin: warm/well-perfused Neuro: alert and oriented x3, no focal findings Psych: appropriate affect Objective Data Active Medications Acetaminophen (Acetaminophen 325 Mg Tablet) 650 mg PO Q4H PRN PRN Reason: Pain, Mild (Pain Scale 1-3) Last Admin: 06/20/23 03:09 Dose: 650 mg Documented By: ANAID Atenolol (Atenolol 50 Mg Tablet) 50 mg PO DAILY [facility]; Protocol Last Admin: 06/20/23 09:16 Dose: 50 mg Documented By: CINDY Atorvastatin Calcium (Atorvastatin Calcium 40 Mg Tablet) 40 mg PO BEDTIME [facility] Last Admin: 06/19/23 21:49 Dose: 40 mg Documented By: ANAID Enoxaparin Sodium (Enoxaparin Sodium 40 Mg/0.4 Ml Syringe) 40 mg SUBCUT Q24H [facility] Sodium Chloride (Ns) 1,000 mls @ 80 mls/hr IVCONT .[id number] [facility] Last Admin: 06/20/23 03:15 Dose: 80 mls/hr Documented By: ANAID Loratadine (Loratadine 10 Mg Tablet) 10 mg PO DAILY [facility] Last Admin: 06/20/23 09:17 Dose: 10 mg Documented By: CINDY Magnesium Oxide (Magnesium Oxide 400 Mg Tablet) 400 mg PO BIDPC [facility] Last Admin: 06/20/23 09:17 Dose: 400 mg Documented By: CINDY Montelukast Sodium (Montelukast Sodium 10 Mg Tablet) 10 mg PO DAILY [facility] Last Admin: 06/20/23 09:17 Dose: 10 mg Documented By: CINDY Ondansetron HCl (Ondansetron Hcl 4 Mg/2 Ml Vial) 4 mg IVPUSH Q8H PRN PRN Reason: Nausea and Vomiting Last Admin: 06/19/23 16:09 Dose: 4 mg Documented By: LYNDON Pantoprazole Sodium (Pantoprazole Sodium 40 Mg/10 Ml Vial) 40 mg IVPUSH DAILY@0630 [facility] Last Admin: 06/20/23 06:06 Dose: 40 mg Documented By: ANAID Pharmacy Consult (Consult Rx Etoh Phenob Im/Po) 1 each MISCELLANE ONCE PRN; Protocol PRN Reason: Consult order Phenobarbital (Phenobarbital 15 Mg Tablet) 45 mg PO BID [facility] Stop: 06/21/23 09:01 Last Admin: 06/20/23 09:16 Dose: 45 mg Documented By: CINDY Phenobarbital (Phenobarbital 15 Mg Tablet) 15 mg PO BID [facility] Stop: 06/23/23 09:01 Phenobarbital (Phenobarbital 15 Mg Tablet) 15 mg PO DAILY [facility] Stop: 06/25/23 09:01 Potassium Chloride (Potassium Chloride Er 20 Meq Tab.Er.Prt) 20 meq PO DAILY [facility] Last Admin: 06/20/23 09:17 Dose: 20 meq Documented By: CINDY Sodium Chloride (0.9 % Sodium Chloride Flush 3 Ml Syringe) 3 ml IVFLUSH QSHIFT [facility] Last Admin: 06/20/23 09:20 Dose: Not Given Documented By: CINDY Non-Admin Reason: IV Running Topiramate (Topiramate 25 Mg Tablet) 25 mg PO BID [facility] Last Admin: 06/20/23 09:17 Dose: 25 mg Documented By: CINDY Venlafaxine HCl (Venlafaxine Hcl Er 75 Mg Cap.Er.24h) 75 mg PO DAILY [facility] Last Admin: 06/20/23 09:16 Dose: 75 mg Documented By: CINDY Labs 06/20/23 06:26 06/20/23 06:26 Labs: Laboratory Results - last 24 hr 06/20/23 06:26 MCV 97.9 MCH 34.4 H MCHC 35.1 H RDW 11.9 Plt Count 285 D MPV 8.1 L Absolute Nucleated RBC 0.000 Nucleated RBC % (auto) 0.0 Anion Gap 13 Estim Creat Clear Calc 86.4 Estimated GFR > 60 Random Glucose 103 Calcium 8.6 D Magnesium 2.1 Total Bilirubin 2.4 H AST 27 ALT 12 Alkaline Phosphatase 107 Total Protein 6.8 Albumin 3.7 Assessment and Plan (1) Acute hypokalemia: Status: Acute (2) Alcohol withdrawal: Status: Acute (3) Hypomagnesemia: Status: Acute Plan d2 62yo F with AUD, HTN, HLD, hx ischemic bowel, hypoK, mood disorder presented with N/V, admitted for EtOH withdrawal with hypoK/hypoMg AUD with withdrawal syndrome - phenobarbital taper, Addiction Medicine consultation hypoK - replete- give extra PO dose today, recheck level in AM hypoMg - repleted HTN - atenolol HLD - statin mood disorder - venlafaxine VTE ppx - LMWH dispo - eventual home In my clinical judgment, the patient requires continued inpatient hospitalization for the following reasons: inpatient management of EtOH withdrawal Total time managing care of this patient today: 35 minutes. Quality Stroke Does the patient have a stroke diagnosis?: No VTE Prior VTE?: No VTE Risk Level:: Medical - moderate - high VTE Device Contraindication: N/A - Device Ordered VTE Drug Contraindication: N/A - Med Ordered
[2023-06-20] MEDS: 0.9 % Sodium Chloride Flush 3 ML SYRINGE IVFLUSH (16:22)
[2023-06-20] MEDS: Enoxaparin Sodium 40 MG/0.4 ML SYRINGE SUBCUT (16:22)
[2023-06-20] MEDS: Atorvastatin Calcium 40 MG TABLET PO (20:53)
[2023-06-21 03:51] VITALS: BP 125/64; PULSE 68; RESP 18; TEMP 36.5; O2SAT 95
[2023-06-21] MEDS: 0.9 % Sodium Chloride 1,000 ML 80 ML IVCONT (06:00)
[2023-06-21] MEDS: Acetaminophen 325 MG TABLET 650 MG PO ×2 (06:12→20:24)
[2023-06-21] MEDS: Pantoprazole Sodium 40 MG/10 ML VIAL IVPUSH (06:15)
[2023-06-21 06:26] LABS: Anion Gap 12 (12-20); Blood Urea Nitrogen 6 mg/dL (9-16); Calcium 8.4 mg/dL (8.4-10.2); Carbon Dioxide 20 mmol/L (22-29); Chloride 106 mmol/L (96-108); Creatinine Clr Calc Pharmacy 81.7; Estimated Glomerular Filt Rate > 60; Glucose Random 88 mg/dL (60-115); Potassium 3.2 mmol/L (3.3-5.1); Sodium 135 mmol/L (135-145)
[2023-06-21 07:29] VITALS: BP 120/70; PULSE 67; RESP 18; TEMP 36.1; O2SAT 96
[2023-06-21 08:03] LABS: Alanine Aminotransferase 10 U/L (0-31); Albumin Level 3.6 g/dL (3.5-5.0); Alkaline Phosphatase 99 U/L (39-117); Aspartate Amino Transferase 26 U/L (5-31); Bilirubin Direct 0.3 mg/dL (0.0-0.5); Bilirubin Total 1.2 mg/dL (0.0-1.0); Total Protein 6.5 g/dL (6.5-8.0)
[2023-06-21] MEDS: Montelukast Sodium 10 MG TABLET PO (08:41)
[2023-06-21] MEDS: Venlafaxine HCl ER 75 MG CAP.ER.24H PO (08:41)
[2023-06-21] MEDS: Topiramate 25 MG TABLET PO ×2 (08:41→20:24)
[2023-06-21] MEDS: atenoloL 50 MG TABLET PO (08:41)
[2023-06-21] MEDS: Loratadine 10 MG TABLET PO (08:41)
[2023-06-21] MEDS: Magnesium Oxide 400 MG TABLET PO (08:41)
[2023-06-21] MEDS: PHENobarbitaL 15 MG TABLET 45 MG PO (08:41)
[2023-06-21] MEDS: Potassium Chloride ER 20 MEQ TAB.ER.PRT 40 MEQ PO (08:41)
[2023-06-21] MEDS: 0.9 % Sodium Chloride Flush 3 ML SYRINGE IVFLUSH ×3 (08:42→20:25)
--- NOTE | 2023-06-21 10:47 | HO.PM.IMPN ---
Subjective Subjective Date of Service: 06/21/23 Interval History: no tremor K low at 3.2 interested in naltrexone Review of Systems Review of Systems: Yes all other systems are reviewed and are negative Physical Exam Vital Signs: Vital Signs: Last Vital Signs Temp 96.9 F 06/21/23 07:29 Pulse 67 06/21/23 07:29 Resp 18 06/21/23 07:29 BP 120/70 06/21/23 07:29 Pulse Ox 96 06/21/23 07:29 O2 Del Method Room Air 06/21/23 07:29 BMI result Body Mass Index 22.6 Gen: in no acute distress HEENT: sclera anicteric, moist mucus membranes Neck: supple Lungs: clear to auscultation bilaterally Heart: regular rate and rhythm, no murmurs Abd: soft, non-tender, non-distended Ext: no edema Skin: warm/well-perfused Neuro: alert and oriented x3, no focal findings Psych: appropriate affect Objective Data Active Medications Acetaminophen (Acetaminophen 325 Mg Tablet) 650 mg PO Q4H PRN PRN Reason: Pain, Mild (Pain Scale 1-3) Last Admin: 06/21/23 06:12 Dose: 650 mg Documented By: STEWART Atenolol (Atenolol 50 Mg Tablet) 50 mg PO DAILY [facility]; Protocol Last Admin: 06/21/23 08:41 Dose: 50 mg Documented By: ZAYDA Atorvastatin Calcium (Atorvastatin Calcium 40 Mg Tablet) 40 mg PO BEDTIME [facility] Last Admin: 06/20/23 20:53 Dose: 40 mg Documented By: STEWART Enoxaparin Sodium (Enoxaparin Sodium 40 Mg/0.4 Ml Syringe) 40 mg SUBCUT Q24H [facility] Last Admin: 06/20/23 16:22 Dose: 40 mg Documented By: CINDY Sodium Chloride (Ns) 1,000 mls @ 80 mls/hr IVCONT .[id number] [facility] Last Admin: 06/21/23 06:00 Dose: 80 mls/hr Documented By: STEWART Loratadine (Loratadine 10 Mg Tablet) 10 mg PO DAILY [facility] Last Admin: 06/21/23 08:41 Dose: 10 mg Documented By: ZAYDA Magnesium Oxide (Magnesium Oxide 400 Mg Tablet) 400 mg PO BIDPC [facility] Last Admin: 06/21/23 08:41 Dose: 400 mg Documented By: ZAYDA Montelukast Sodium (Montelukast Sodium 10 Mg Tablet) 10 mg PO DAILY [facility] Last Admin: 06/21/23 08:41 Dose: 10 mg Documented By: ZAYDA Ondansetron HCl (Ondansetron Hcl 4 Mg/2 Ml Vial) 4 mg IVPUSH Q8H PRN PRN Reason: Nausea and Vomiting Last Admin: 06/19/23 16:09 Dose: 4 mg Documented By: LYNDON Pantoprazole Sodium (Pantoprazole Sodium 40 Mg/10 Ml Vial) 40 mg IVPUSH DAILY@0630 [facility] Last Admin: 06/21/23 06:15 Dose: 40 mg Documented By: STEWART Pharmacy Consult (Consult Rx Etoh Phenob Im/Po) 1 each MISCELLANE ONCE PRN; Protocol PRN Reason: Consult order Phenobarbital (Phenobarbital 15 Mg Tablet) 15 mg PO BID [facility] Stop: 06/23/23 09:01 Phenobarbital (Phenobarbital 15 Mg Tablet) 15 mg PO DAILY [facility] Stop: 06/25/23 09:01 Potassium Chloride (Potassium Chloride Er 20 Meq Tab.Er.Prt) 40 meq PO DAILY [facility] Last Admin: 06/21/23 08:41 Dose: 40 meq Documented By: ZAYDA Sodium Chloride (0.9 % Sodium Chloride Flush 3 Ml Syringe) 3 ml IVFLUSH QSHIFT [facility] Last Admin: 06/21/23 08:42 Dose: 3 ml Documented By: ZAYDA Topiramate (Topiramate 25 Mg Tablet) 25 mg PO BID [facility] Last Admin: 06/21/23 08:41 Dose: 25 mg Documented By: ZAYDA Venlafaxine HCl (Venlafaxine Hcl Er 75 Mg Cap.Er.24h) 75 mg PO DAILY [facility] Last Admin: 06/21/23 08:41 Dose: 75 mg Documented By: ZAYDA Labs 06/20/23 06:26 06/21/23 05:48 Labs: Laboratory Results - last 24 hr 06/21/23 05:48 Hold Purple Top SEE NOTE Anion Gap 12 Estim Creat Clear Calc 81.7 Estimated GFR > 60 Random Glucose 88 Calcium 8.4 Magnesium 2.0 Total Bilirubin 1.2 H Direct Bilirubin 0.3 AST 26 ALT 10 Alkaline Phosphatase 99 Total Protein 6.5 Albumin 3.6 Assessment and Plan (1) Acute hypokalemia: Status: Acute (2) Alcohol withdrawal: Status: Acute (3) Hypomagnesemia: Status: Acute Plan d3 62yo F with AUD, HTN, HLD, hx ischemic bowel, hypoK, mood disorder presented with N/V, admitted for EtOH withdrawal with hypoK/hypoMg AUD with withdrawal syndrome - phenobarbital taper, Addiction Medicine consultation, give thiamine hypoK - increase maintenance dose, recheck in AM hypoMg - repleted HTN - atenolol HLD - statin mood disorder - venlafaxine VTE ppx - LMWH dispo - eventual home In my clinical judgment, the patient requires continued inpatient hospitalization for the following reasons: inpatient management of EtOH withdrawal Total time managing care of this patient today: 35 minutes. Quality Stroke Does the patient have a stroke diagnosis?: No VTE Prior VTE?: No VTE Risk Level:: Medical - moderate - high VTE Device Contraindication: N/A - Device Ordered VTE Drug Contraindication: N/A - Med Ordered
[2023-06-21 11:13] VITALS: BP 127/69; PULSE 72; RESP 20; TEMP 36.3; O2SAT 98
[2023-06-21] MEDS: Multivitamin TABLET 1 TAB PO (12:29)
[2023-06-21] MEDS: Thiamine HCL 100 MG TABLET PO (12:29)
[2023-06-21] MEDS: Folic Acid 1 MG TABLET PO (12:29)
--- NOTE | 2023-06-21 12:38 | PC.NURSE ---
Patient requesting to be discharged. 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 Dr. Lorenzo aware. Patient agrees to leave [place].
--- NOTE | 2023-06-21 13:31 | P.DS_ITS ---
DS: Providers Provider Date of Service: 06/21/23 Date of admission: 06/19/23 10:30 Date of discharge: 06/21/23 Primary care physician: Ros Lunsford MD Consults: 06/20/23 08:02 Addiction Medicine Routine Consulting Provider: Addiction Covering Reason for consultation: etoh DS: Diagnosis Discharge Diagnosis (1) Acute hypokalemia: Status: Acute (2) Alcohol withdrawal: Status: Acute (3) Hypomagnesemia: Status: Acute DS: Summary Hospital Course Hospital Course: From the history and physical by the admitting hospitalist, Morena Rockwell, 06/19/23: 62 y/o F with a PMH significant for HTN, HLD, hx of ischemic bowel, hx of hypokalemia, anxiety and depression: Patient drinks few nips of vodka every day, she says last use was on 06/17-afterwards patient started having nausea vomiting and tremulous, anxious-so decided to come to the hospital: In the ED patient was found to have multiple electrolytic abnormalities including hypokalemia, hypomagnesemia, and also seems to be in alcohol withdrawal. Patient denies any abdominal pain or fever or chills . Denies chest pain or shortness of breath or cough or weakness or numbness. Denies any diarrhea or constipation. Lab reviewed: WBC count 15.1 Potassium 2.7, magnesium 1.5 Mild LFT elevated In ED: Received lorazepam, phenobarb, potassium, magnesium and requested admission for multiple electrolytic abnormalities as well as alcohol withdrawal. 62yo F with AUD, HTN, HLD, hx ischemic bowel, hypoK, mood disorder who presented with N/V and was admitted for EtOH withdrawal with hypoK/hypoMg. She was treated with phenobarbital taper. Potassium and magnesium were repleted. Addiction Medicine was consulted and she expressed interested in naltrexone MAT. She was provided a prescription for naltrexone and follow-up at [facility] was arranged. Time Attestation Total time managing care of this patient today: 35 mintues. Discharge coordination time: Greater than 30 minutes Quality: Safe Use of Opioids Does Pt have an Active Cancer Diagnosis on the Problem List?: No Quality: Stroke Does the patient have a stroke diagnosis?: No Physical Exam Vital Signs: Vital Signs: Temp Pulse Resp BP Pulse Ox O2 Del Method 98.0 F 72 17 138/80 100 Room Air 06/22/23 07:52 02/29/24 07:52 06/22/23 07:52 06/22/23 07:52 06/22/23 07:52 06/22/23 07:52 Gen: in no acute distress HEENT: sclera anicteric, moist mucus membranes Neck: supple Lungs: clear to auscultation bilaterally Heart: regular rate and rhythm, no murmurs Abd: soft, non-tender, non-distended Ext: no edema Skin: warm/well-perfused Neuro: alert and oriented x3, no focal findings Psych: appropriate affect DS: Data Data Completed and Pending Completed studies during hospitalization [Text1]: Laboratory Results WBC 9.8 X10*3/uL (4.8-10.8) 06/20/23 06:26 RBC 3.90 X10*6/uL (4.20-5.50) L 06/20/23 06:26 Hgb 13.4 g/dl (12.0-16.0) 06/20/23 06:26 Hct 38.2 % (37.0-47.0) 06/20/23 06:26 MCV 97.9 fL (80.0-98.0) 06/20/23 06:26 MCH 34.4 pg (27.0-33.0) H 06/20/23 06:26 MCHC 35.1 g/dl (31.0-35.0) H 06/20/23 06:26 RDW 11.9 % (11.0-16.0) 06/20/23 06:26 Plt Count 285 X10*3/uL (160-400) D 06/20/23 06:26 MPV 8.1 fL (9.4-12.3) L 06/20/23 06:26 Immature Gran % (Auto) 0.3 % (0.0-0.4) 06/19/23 07:57 Neut % (Auto) 88.8 % (45-73) H 06/19/23 07:57 Lymph % (Auto) 3.3 % (20-40) L 06/19/23 07:57 [place] % (Auto) 7.3 % (2-11) 06/19/23 07:57 Eos % (Auto) 0.1 % (0-4) 06/19/23 07:57 Baso % (Auto) 0.2 % (0-2) 06/19/23 07:57 Lymph # (Auto) 0.5 X10*3/uL (1.2-4.9) L 06/19/23 07:57 [place] # (Auto) 1.1 X10*3/uL (0.1-1.2) 06/19/23 07:57 Eos # (Auto) 0.0 X10*3/uL (0.0-0.4) 06/19/23 07:57 Baso # (Auto) 0.0 X10*3/uL (0.0-0.2) 06/19/23 07:57 Abs Immat Gran (auto) 0.04 X10*3/uL (0.00-0.03) H 06/19/23 07:57 Absolute Neuts (auto) 13.4 x10*3/uL (2.0-8.3) H 06/19/23 07:57 Absolute Nucleated RBC 0.000 X10*3/uL (0.0-0.012) 06/20/23 06:26 Nucleated RBC % (auto) 0.0 /100WBC (0.0-0.2) 06/20/23 06:26 Hold Purple Top SEE NOTE 06/22/23 06:16 Sodium 138 mmol/L (135-145) 06/22/23 06:16 Potassium 3.5 mmol/L (3.3-5.1) 06/22/23 06:16 Chloride 110 mmol/L (96-108) H 06/22/23 06:16 Carbon Dioxide 20 mmol/L (22-29) L 06/22/23 06:16 Anion Gap 12 (12-20) 06/22/23 06:16 BUN 8 mg/dL (9-16) L 06/22/23 06:16 Creatinine 0.56 mg/dL (0.5-1.4) 06/22/23 06:16 Estim Creat Clear Calc 80.2 06/22/23 06:16 Estimated GFR > 60 06/22/23 06:16 Random Glucose 92 mg/dL (60-115) 06/22/23 06:16 Calcium 8.7 mg/dL (8.4-10.2) 06/22/23 06:16 Magnesium 2.0 mg/dL (1.6-2.6) 06/21/23 05:48 Total Bilirubin 1.2 mg/dL (0.0-1.0) H 06/21/23 05:48 Direct Bilirubin 0.3 mg/dL (0.0-0.5) 06/21/23 05:48 AST 26 U/L (5-31) 06/21/23 05:48 ALT 10 U/L (0-31) 06/21/23 05:48 Alkaline Phosphatase 99 U/L (39-117) 06/21/23 05:48 Total Protein 6.5 g/dL (6.5-8.0) 06/21/23 05:48 Albumin 3.6 g/dL (3.5-5.0) 06/21/23 05:48 Urine Color Yellow 06/19/23 13:02 Urine Appearance Clear 06/19/23 13:02 Urine pH 7.5 (5.0-9.0) 06/19/23 13:02 Ur Specific [place] 1.010 (1.005-1.025) 06/19/23 13:02 Urine Protein Trace mg/dL (Neg-Trace) 06/19/23 13:02 Urine Glucose (UA) Negative mg/dL (Negative) 06/19/23 13:02 Urine Ketones 15 mg/dL (Negative) 06/19/23 13:02 Urine Blood Small (1+) (Negative) H 06/19/23 13:02 Urine Nitrite Negative (Negative) 06/19/23 13:02 Ur Leukocyte Esterase Negative (Negative) 06/19/23 13:02 Urine RBC 0-2 /HPF (0-2) 06/19/23 13:02 Urine WBC 0-5 /HPF (0-5) 06/19/23 13:02 Ur Squamous Epith Cells 3-5 /HPF (0-2) 06/19/23 13:02 Urine Bacteria None Seen (None Seen) 06/19/23 13:02 Hyaline Casts 0-2 /LPF (0-2) 06/19/23 13:02 Ethyl Alcohol < 10 mg/dL 06/19/23 07:57 Impressions Chest X-Ray 06/19/23 13:20 IMPRESSION: 1. Unchanged no radiographic signs of acute cardiopulmonary process. 2. Interval development of severe T10 compression fracture, performance of vertebroplasty and posterior T9-T11 spinal fixation. Discharge Plan Discharge Anticipated Discharge Date/Time: 06/22/23 09:28 Patient Disposition: Home, Self-Care Discharge Diagnosis: alcohol withdrawal, hypokalemia, hypomagnesemia Referrals: [facility] Appointment is Monday,06/26/23 @ 2 PM. [Other] - 1 Week Ros Lunsford MD [Primary Care Provider] - 1 Week Qing Unger CNP [Nurse Practitioner] - 1 Week Discharge Medications: New naltrexone 50 mg tablet 50 mg PO DAILY Qty: 30 0RF Rx Instructions: Take half tab daily for 2 days, then 1 tab daily Continued venlafaxine 75 mg capsule,extended release 24hr 75 mg PO DAILY atenolol-chlorthalidone 50-25 mg tablet 1 tab PO DAILY topiramate 25 mg tablet 25 mg PO BID cetirizine [All Day Allergy (cetirizine)] 10 mg tablet 10 mg PO DAILY magnesium oxide 400 mg (241.3 mg magnesium) Tablet 400 mg PO BIDPC Qty: 60 0RF potassium chloride 20 mEq tablet extended release 20 meq PO DAILY Qty: 30 0RF acetaminophen 500 mg Tablet 1,000 mg PO Q6H PRN (Reason: Pain) omeprazole 20 mg tablet,delayed release (DR/EC) 20 mg PO DAILY PRN (Reason: Gastric Reflux) amlodipine 10 mg tablet 10 mg PO DAILY 90 Days Qty: 90 0RF atorvastatin 40 mg tablet 40 mg PO BEDTIME 90 Days Qty: 90 0RF montelukast 10 mg tablet 10 mg PO DAILY Qty: 90 0RF Discharge Orders: Discharge Order (Routine); Ordered 06/22/23 Ordered By: Wade Lorenzo Diet: Advance to usual diet Activity on Discharge: As tolerated Stand Alone Forms: Patient Portal Discharge page Care Plan Goals: sobriety Health Concerns: alcohol withdrawal, hypokalemia, hypomagnesemia Plan of Treatment: Avoid alcohol Naltrexone 50 mg daily to decrease craving for alcohol Follow up with primary care and [facility], [address] [place] [address] [phone], as scheduled Please follow up with your primary care doctor within 1 week. Return to the hospital if you experience recurrent or worsening symptoms. Assessment: See Discharge Summary.
[2023-06-21] MEDS: ondansetron HCL 4 MG/2 ML VIAL IVPUSH (14:22)
--- NOTE | 2023-06-21 14:24 | MHC.RECOVRN ---
Pt has [facility] appt on Sunday 06/25 at 2pm. RN and CM aware.
[2023-06-21 15:22] VITALS: BP 124/68; PULSE 71; RESP 18; TEMP 36.3; O2SAT 97
--- NOTE | 2023-06-21 16:46 | HO.ADDICTPRO ---
Subjective Subjective Date of Service: 06/21/23 Reason For Visit: Alcohol Withdrawal Mult Electrolytic Abnormalities Interim History: Patient seen in follow up with fire protection equipment technician. History and fire protection equipment technician note reviewed. Patient expressed interest in starting Naltrexone to address alcohol use. Seen in room 452. Awake, alert, engaged in interview. Tearful, somewhat shy and slow to answer questions. She states she has never taken medication before, but is open to it. She expressed being done, I'm not drinking anymore, this is scary . This proposal lead writer provided supportive listening, and encouraged patient to consider strategies to support her decision once she is home. Discussed medication, how it works and overall goal. Patient verbalized understanding. fire protection equipment technician had provided her with resources and other recovery information--encouraged her to review when she felt ready to. Review of Systems Medical Review of Systems: unchanged Mental Status Exam Mental Status Exam Patient Appearance: Appropriate Level of Consciousness: Awake and Alert Patient Behavior: Guarded, Passive, Anxious and Crying Diagnostics Vital Signs (24Hr): Vital Signs - 24 hr 06/20/23 19:07 06/20/23 23:52 06/21/23 03:51 Temperature 97.0 F 97.5 F 97.7 F Pulse Rate 77 76 68 Respiratory Rate 20 18 18 Blood Pressure 132/74 133/75 125/64 Pulse Oximetry 96 97 95 Oxygen Delivery Method Room Air Room Air Room Air 06/21/23 07:29 06/21/23 11:13 06/21/23 15:22 Temperature 96.9 F 97.3 F 97.4 F Pulse Rate 67 72 71 Respiratory Rate 18 20 18 Blood Pressure 120/70 127/69 124/68 Pulse Oximetry 96 98 97 Oxygen Delivery Method Room Air Room Air Room Air BMI result Body Mass Index 22.6 Labs 06/20/23 06:26 06/21/23 05:48 Labs: Laboratory Results - last 48 hr 06/20/23 06/21/23 06:26 05:48 WBC 9.8 RBC 3.90 L Hgb 13.4 Hct 38.2 MCV 97.9 MCH 34.4 H MCHC 35.1 H RDW 11.9 Plt Count 285 D MPV 8.1 L Absolute Nucleated RBC 0.000 Nucleated RBC % (auto) 0.0 Hold Purple Top SEE NOTE Sodium 137 135 Potassium 3.1 L 3.2 L Chloride 105 106 Carbon Dioxide 22 20 L Anion Gap 13 12 BUN 3 L 6 L Creatinine 0.52 0.55 Estim Creat Clear Calc 86.4 81.7 Estimated GFR > 60 > 60 Random Glucose 103 88 Calcium 8.6 D 8.4 Magnesium 2.1 2.0 Total Bilirubin 2.4 H 1.2 H Direct Bilirubin 0.3 AST 27 26 ALT 12 10 Alkaline Phosphatase 107 99 Total Protein 6.8 6.5 Albumin 3.7 3.6 Imaging Radiology Impressions: ITS Impressions Chest X-Ray 06/19/23 13:20 IMPRESSION: 1. Unchanged no radiographic signs of acute cardiopulmonary process. 2. Interval development of severe T10 compression fracture, performance of vertebroplasty and posterior T9-T11 spinal fixation. Medications Medications Current Medications Acetaminophen (Acetaminophen 325 Mg Tablet) 650 mg PO Q4H PRN PRN Reason: Pain, Mild (Pain Scale 1-3) Last Admin: 06/21/23 06:12 Dose: 650 mg Atenolol (Atenolol 50 Mg Tablet) 50 mg PO DAILY PENDING SALE TO [facility]; Protocol Last Admin: 06/21/23 08:41 Dose: 50 mg Atorvastatin Calcium (Atorvastatin Calcium 40 Mg Tablet) 40 mg PO BEDTIME PENDING SALE TO [facility] Last Admin: 06/20/23 20:53 Dose: 40 mg Enoxaparin Sodium (Enoxaparin Sodium 40 Mg/0.4 Ml Syringe) 40 mg SUBCUT Q24H PENDING SALE TO [facility] Last Admin: 06/20/23 16:22 Dose: 40 mg Folic Acid (Folic Acid 1 Mg Tablet) 1 mg PO DAILY PENDING SALE TO [facility] Last Admin: 06/21/23 12:29 Dose: 1 mg Loratadine (Loratadine 10 Mg Tablet) 10 mg PO DAILY PENDING SALE TO [facility] Last Admin: 06/21/23 08:41 Dose: 10 mg Magnesium Oxide (Magnesium Oxide 400 Mg Tablet) 400 mg PO BIDPC PENDING SALE TO [facility] Last Admin: 06/21/23 08:41 Dose: 400 mg Montelukast Sodium (Montelukast Sodium 10 Mg Tablet) 10 mg PO DAILY PENDING SALE TO [facility] Last Admin: 06/21/23 08:41 Dose: 10 mg Multivitamins/Vitamin C (Multivitamin Tablet) 1 tab PO DAILY PENDING SALE TO [facility] Last Admin: 06/21/23 12:29 Dose: 1 tab Naltrexone HCl (Naltrexone Hcl 50 Mg Tablet) 25 mg PO DAILY PENDING SALE TO [facility] Ondansetron HCl (Ondansetron Hcl 4 Mg/2 Ml Vial) 4 mg IVPUSH Q8H PRN PRN Reason: Nausea and Vomiting Last Admin: 06/21/23 14:22 Dose: 4 mg Pantoprazole Sodium (Pantoprazole Sodium 40 Mg/10 Ml Vial) 40 mg IVPUSH DAILY@0630 PENDING SALE TO [facility] Last Admin: 06/21/23 06:15 Dose: 40 mg Pharmacy Consult (Consult Rx Etoh Phenob Im/Po) 1 each MISCELLANE ONCE PRN; Protocol PRN Reason: Consult order Phenobarbital (Phenobarbital 15 Mg Tablet) 15 mg PO BID PENDING SALE TO [facility] Stop: 06/23/23 09:01 Phenobarbital (Phenobarbital 15 Mg Tablet) 15 mg PO DAILY PENDING SALE TO [facility] Stop: 06/25/23 09:01 Potassium Chloride (Potassium Chloride Er 20 Meq Tab.Er.Prt) 40 meq PO DAILY PENDING SALE TO [facility] Last Admin: 06/21/23 08:41 Dose: 40 meq Sodium Chloride (0.9 % Sodium Chloride Flush 3 Ml Syringe) 3 ml IVFLUSH QSHIFT PENDING SALE TO [facility] Last Admin: 06/21/23 12:30 Dose: 3 ml Thiamine HCl (Thiamine Hcl 100 Mg Tablet) 100 mg PO DAILY PENDING SALE TO [facility] Last Admin: 06/21/23 12:29 Dose: 100 mg Topiramate (Topiramate 25 Mg Tablet) 25 mg PO BID PENDING SALE TO [facility] Last Admin: 06/21/23 08:41 Dose: 25 mg Venlafaxine HCl (Venlafaxine Hcl Er 75 Mg Cap.Er.24h) 75 mg PO DAILY PENDING SALE TO [facility] Last Admin: 06/21/23 08:41 Dose: 75 mg Allergies Allergies Allergy/AdvReac Type Severity Reaction Status Date / Time hydroxychloroquine Allergy Severe hives Verified 05/26/23 16:08 [Plaquenil] bupropion [From WELLBUTRIN] Allergy Intermediate HIVES Verified 05/26/23 16:08 amoxicillin Allergy Mild Rash Verified 05/26/23 16:08 tramadol Allergy Unknown hives, rash Verified 05/26/23 16:08 ENVIRONMENTAL Allergy Unknown ITCHY EYES Uncoded 04/04/23 13:05 Assessment & Plan Assessment & Plan (1) Alcohol use disorder, severe, dependence: Status: Acute Code(s): F10.20 - Alcohol dependence, uncomplicated Assessment and Plan: Naltrexone 25mg QD X3 days then increase to 50mg daily fire protection equipment technician scheduled follow up with [facility] Total time managing care of this patient today _35___ minutes.
[2023-06-21] MEDS: Enoxaparin Sodium 40 MG/0.4 ML SYRINGE SUBCUT (17:35)
[2023-06-21] MEDS: Naltrexone HCl 50 MG TABLET 25 MG PO (17:35)
[2023-06-21 19:47] VITALS: BP 111/64; PULSE 65; RESP 18; TEMP 37; O2SAT 97
[2023-06-21] MEDS: Atorvastatin Calcium 40 MG TABLET PO (20:24)
[2023-06-21] MEDS: PHENobarbitaL 15 MG TABLET PO (20:24)
[2023-06-21 23:37] VITALS: BP 101/57; PULSE 65; RESP 18; TEMP 36.2; O2SAT 98
[2023-06-22 03:46] VITALS: BP 115/72; PULSE 67; RESP 18; TEMP 36.4; O2SAT 99
[2023-06-22] MEDS: Acetaminophen 325 MG TABLET 650 MG PO (04:55)
[2023-06-22] MEDS: Pantoprazole Sodium 40 MG/10 ML VIAL IVPUSH (04:55)
[2023-06-22 06:43] LABS: Anion Gap 12 (12-20); Blood Urea Nitrogen 8 mg/dL (9-16); Calcium 8.7 mg/dL (8.4-10.2); Carbon Dioxide 20 mmol/L (22-29); Chloride 110 mmol/L (96-108); Creatinine Clr Calc Pharmacy 80.2; Estimated Glomerular Filt Rate > 60; Glucose Random 92 mg/dL (60-115); Potassium 3.5 mmol/L (3.3-5.1); Sodium 138 mmol/L (135-145)
[2023-06-22 07:52] VITALS: BP 138/80; PULSE 72; RESP 17; TEMP 36.7; O2SAT 100
[2023-06-22] MEDS: Folic Acid 1 MG TABLET PO (09:14)
[2023-06-22] MEDS: PHENobarbitaL 15 MG TABLET PO (09:14)
[2023-06-22] MEDS: Multivitamin TABLET 1 TAB PO (09:14)
[2023-06-22] MEDS: Thiamine HCL 100 MG TABLET PO (09:15)
[2023-06-22] MEDS: Venlafaxine HCl ER 75 MG CAP.ER.24H PO (09:15)
[2023-06-22] MEDS: Naltrexone HCl 50 MG TABLET 25 MG PO (09:15)
[2023-06-22] MEDS: atenoloL 50 MG TABLET PO (09:16)
[2023-06-22] MEDS: Magnesium Oxide 400 MG TABLET PO (09:16)
[2023-06-22] MEDS: Montelukast Sodium 10 MG TABLET PO (09:16)
[2023-06-22] MEDS: 0.9 % Sodium Chloride Flush 3 ML SYRINGE IVFLUSH (09:16)
[2023-06-22] MEDS: Potassium Chloride ER 20 MEQ TAB.ER.PRT 40 MEQ PO (09:16)
[2023-06-22] MEDS: Loratadine 10 MG TABLET PO (09:16)
[2023-06-22] MEDS: Topiramate 25 MG TABLET PO (09:16)
--- NOTE | 2023-06-22 09:36 | MHC.CM.PN ---
PT MEDICALLY CLEARED FOR DC HOME SELF-CARE AND OUTPT FOLLOW UP W/CCC 06/25 AT 2PM FOR ETOH/NALTREXONE, PT'S SON FOR TRANSPORT
== END 2023-06-22 09:47 | disposition home or self-care (01) | DRG 775 ==
LOC: HO.ED 09:06 → HO.EDOVER 10:57 → HO.IMC 17:20
PROVIDERS: Admitting Provider Internal Medicine; Emergency Provider Emergency Medicine; PCP Internal Medicine; Visit Provider Family Medicine
DX: F10.239 Alcohol dependence with withdrawal, unspecified (principal); E83.42 Hypomagnesemia; I10 Essential (primary) hypertension; K29.20 Alcoholic gastritis without bleeding; E87.6 Hypokalemia; E78.5 Hyperlipidemia, unspecified; Z87.891 Personal history of nicotine dependence; Z79.899 Other long term (current) drug therapy
CPT/HCPCS: 36415; 71046; 80048; 80053; 80076; 80307; 81001; 83735; 85025; 85027; 99285; C9113; J1650; J2060; J2405; J2560; J3475; J3480

== ENCOUNTER → 2023-06-19 10:30 | Outpatient (BNV) | payer BC, SELFPAY | PROVIDERS: Admitting Provider Internal Medicine; Emergency Provider Emergency Medicine; PCP Internal Medicine; Visit Provider Nurse Practitioner Psychiatric/Mental Health | DX: F10.20 Alcohol dependence, uncomplicated (principal) | CPT/HCPCS: 99232 ==

== ENCOUNTER → 2023-06-19 10:30 | Outpatient (BNV) | payer BC, SELFPAY | PROVIDERS: Admitting Provider Internal Medicine; Emergency Provider Emergency Medicine; PCP Internal Medicine; Visit Provider Internal Medicine | DX: E87.6 Hypokalemia (principal); F10.930 Alcohol use, unspecified with withdrawal, uncomplicated; E83.42 Hypomagnesemia | CPT/HCPCS: 99222; 99232; 99239 ==

== ENCOUNTER 2023-06-29 11:09 | Outpatient (AMB) | payer BC, SELFPAY ==
--- NOTE | 2023-06-29 11:13 | A.SPINEOV_ITS ---
Intake Intake Visit Reasons: Back pain Intake Note: Ms. Mackenzie is here today c/o mid to low back pain. 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 I previously evaluated her for this and ordered a CT scan of her thoracic spine. When our office called her to confirm her appointment for the imaging she stated that she did not want to have it done and did not feel it was useful. She comes back in today stating that she has the same pain that has worsened. I offered her the same plan which would be a CT scan of her thoracic spine to evaluate for potential pathology. She reported that she would prefer not to do this, and would prefer to have medication to treat her pain. On exam the patient reports severe pain and is slightly tremulous. She points directly to her midthoracic spine when describing her pain. She has pain to direct palpation of the thoracic spine diffusely, and is unable to pinpoint an area that is worse. She is able to ambulate well and rises from a seated position without difficulty. Karen was informed that she will need to have the CT scan of her thoracic spine completed if she would like us to continue evaluating her. We are not able to provide her with narcotic pain medications at this time as we have not performed a recent surgery. She inquired if I could call the attending neurosurgeon to see if he would give her pain medication, and I informed her that this is not possible as he is in the OR today, and also informed her that he is the individual who developed the guidelines for our practice. She did eventually agree to have the CT scan of thoracic spine completed. We will follow up with her again after she has had her CT scan via a phone call. Total amount of time spent in this visit was 20 minutes in discussion of symptoms, patient education, and subsequent plan of care. Solomon Veliz MD,PhD [facility] Orders: Orders CT thoracic spine wo IV con Today M54.50 - Low back pain, unspecified Coding Level of Care Code Est Pt Level 3 (66625) Diagnoses Lumbago M54.50
== END 2023-06-29 11:54 | disposition home or self-care (01) ==
PROVIDERS: PCP Internal Medicine; Visit Provider Physician Assistant
DX: M54.50 Low back pain, unspecified (principal)
CPT/HCPCS: 99024

== ENCOUNTER → 2023-06-29 11:11 | Outpatient (BNVA) | payer BC, SELFPAY | PROVIDERS: PCP Internal Medicine; Visit Provider Physician Assistant ==

== ENCOUNTER 2023-07-05 12:53 | Emergency (ER) | payer BC, SELFPAY ==
--- NOTE | ~2023-07-05 | CT_ITS ---
EXAMINATION: CT THORACIC SPINE WITHOUT CONTRAST CLINICAL INFORMATION: Back pain post surgery COMPARISON: None available. TECHNIQUE: Axial 2 mm thin and reformatted 2 mm thin sagittal coronal images of thoracic spine were obtained without contrast. This CT examination was performed using dose optimization techniques as appropriate, variously including the following: *Automated exposure control *Adjustment of mA and/or kV according to patient size (this includes techniques or standardized protocols for targeted exams where dose is matched to indication/reason for exam; i.e. extremities or head) *Use of iterative reconstruction technique DLP: 413 mGy-cm FINDINGS: On sagittal reconstructed images there is normal thoracic kyphosis. There are bilateral T9, T10 and T11 pedicle screws stabilizing T10 fracture. In addition there is a T10 cement augmentation performed. The hardware at T9, T10 and T11 vertebra is intact. There is a new T7 superior endplate compression fracture deformity without any posterior bony component. There is diffuse osteopenia involving the entire thoracic spine. There is no evidence of disc bulge, herniation or spinal canal stenosis at any of the thoracic disc levels. The paravertebral soft tissues are normal. CT/CT thoracic spine wo IV con IMPRESSION: 1. T9, T10 and T11 pedicle screws stabilizing T10 fracture. There is cement augmentation of T10 vertebra. The hardware is intact. 2. There is a new T7 superior endplate compression fracture deformity without any posterior bony component. 3. There is diffuse osteopenia involving the entire thoracic spine. 4. There is no disc bulge, herniation or spinal canal stenosis at any of the thoracic disc levels. Fleischner guidelines were followed.
[2023-07-05 13:21] VITALS: BP 164/98; PULSE 118; RESP 16; TEMP 36.9; O2SAT 98; BMI 21.9
[2023-07-05 13:38] VITALS: BP 131/81; PULSE 114; RESP 18; TEMP 37.2; O2SAT 95
--- NOTE | 2023-07-05 13:48 | ECG_ITS ---
Test Reason : BACK PAIN Blood Pressure : / mmHG Vent. Rate : 107 BPM Atrial Rate : 107 BPM P-R Int : 176 ms QRS Dur : 066 ms QT Int : 344 ms P-R-T Axes : 049 000 -08 degrees QTc Int : 459 ms Sinus tachycardia Possible Left atrial enlargement Borderline ECG When compared with ECG of 26-MAY-2023 15:58, Nonspecific T wave abnormality, improved in Anterior leads Referred By: Rodolfo Magdaleno Electronically Signed By:ANNALISE LOZADA MD
--- NOTE | 2023-07-05 14:00 | PC.NURSE ---
Pt coming from home. Pt reports chronic back pain that has worsened over past 3 weeks, denies any new falls or injuries. Pt has hx of compression fractures with surgery years ago. Pt is alert and oriented, breathing even and unlabored, skin WNL. Pt reports 10/10 back pain, medial area radiating to the right, reports stabbing pain. Pt appears obviously uncomfortable, noted to be tachycardic. Pt denies any other symptoms, does report poor sleep and PO intake due to the pain.
[2023-07-05 14:02] VITALS: RESP 18
[2023-07-05] MEDS: Morphine Sulfate 4 MG/ML CARTRIDGE IVPUSH (14:02)
[2023-07-05] MEDS: Ketorolac Tromethamine 15 MG/ML VIAL IVPUSH (14:02)
[2023-07-05] MEDS: Lidocaine 4 % Patch ADH..PATCH 1 PATCH TRANSDERMA (14:03)
[2023-07-05 14:06] LABS: MANUAL DIFF FLAG NO
--- NOTE | 2023-07-05 14:08 | ED_ITS ---
HPI - Back Pain/Injury General Chief Complaint: Back Pain/Injury Stated Complaint: INCR BACK PAIN X5 WEEKS,H/O BACK SURG 3MONTHS AGO Time Seen by Provider: 07/05/23 13:39 History of Present Illness HPI Narrative: 62 years old with history of T 10 fracture sp t9-11 vertebroplasty, 3 months ago, osteoporosis hypertension, hyperlipidemia, history of ischemic bowel, history of hypokalemia, anxiety and depression presents emergency room for back pain. Patient reports that she had surgery 3 months ago for compression fracture at the level of T10 and that she was doing well for the first month. She reports that over the past 3 4 weeks she has been having increasingly worsening back pain. She is being seen by her spine surgeon last week who told her that he suspected her to have another compression fracture and told her that she would require imaging however patient has been unable to schedule a follow-up. Patient denies urinary symptoms, reports that the pain is localized right to the midline just at the level of the scapula tip. Worsened by palpation. She can not recall any recent trauma that prompt the events. She denies chest pain, abdominal pain No episodes of urinary or fecal incontinence. No episodes of urinary retention. Patient denies chills or fever. Related Data Home Medications Medication Instructions Recorded Confirmed omeprazole 20 mg tablet,delayed 20 mg PO DAILY PRN Gastric Reflux 05/27/20 06/19/23 release acetaminophen 500 mg tablet 1,000 mg PO Q6H PRN Pain 04/04/23 06/19/23 cetirizine 10 mg tablet (All Day 10 mg PO DAILY allergy symptoms 05/26/23 06/19/23 Allergy (cetirizine)) atenolol 50 mg-chlorthalidone 25 1 tab PO DAILY 06/19/23 06/19/23 mg tablet topiramate 25 mg tablet 25 mg PO BID 06/19/23 06/19/23 venlafaxine 75 mg capsule,extended 75 mg PO DAILY 06/19/23 06/19/23 release 24 hr Previous Rx's Medication Instructions Recorded atorvastatin 40 mg tablet 40 mg PO BEDTIME 90 days #90 tabs 11/29/22 montelukast 10 mg tablet 10 mg PO DAILY #90 tabs 11/29/22 amlodipine 10 mg tablet 10 mg PO DAILY 90 days #90 tabs 05/26/23 magnesium oxide 400 mg (241.3 mg 400 mg PO BIDPC #60 tabs 05/27/23 magnesium) tablet potassium chloride 20 mEq 20 meq PO DAILY #30 tabs 05/27/23 tablet,extended release naltrexone 50 mg tablet 50 mg PO DAILY #30 tabs 06/27/23 oxycodone 5 mg capsule 5 mg PO Q6H PRN pain #14 caps 07/05/23 Allergies Allergy/AdvReac Type Severity Reaction Status Date / Time hydroxychloroquine Allergy Severe hives Verified 05/26/23 16:08 [Plaquenil] bupropion [From WELLBUTRIN] Allergy Intermediate HIVES Verified 05/26/23 16:08 amoxicillin Allergy Mild Rash Verified 05/26/23 16:08 tramadol Allergy Unknown hives, rash Verified 05/26/23 16:08 ENVIRONMENTAL Allergy Unknown ITCHY EYES Uncoded 04/04/23 13:05 Review of Systems 2 Review of Systems: Yes all other systems are reviewed and are negative PMFSH Past Medical History Medical History (Updated 07/05/23 @ 14:27 by Rodolfo Magdaleno MD) Constipation Positive colorectal cancer screening using Cologuard test Cystitis Papanicolaou smear declined Colonoscopy refused Mammogram declined Muscle spasm Lumbar pain Supraclavicular mass Hospital discharge follow-up Hyperlipidemia GERD (gastroesophageal reflux disease) Acute hypokalemia Fall Hematoma Alcohol use disorder, mild, in early remission, abuse Alcoholism Hospital discharge follow-up Hypokalemia Uncontrolled hypertension Abnormal EKG Hypertension, essential Breast screening Encounter for general adult medical examination with abnormal findings Anxiety, generalized Hives Surgical History Hx of hand surgery Hx of colonoscopy (08/30/11) History of right breast biopsy (10/31/11) Hx of left inguinal hernia repair (02/25/13) Hx of basal cell carcinoma excision (2011) History of left oophorectomy (09/07/11) Hx of right inguinal hernia repair (2003) Family History Family History Father Cardiac disease Mother Cardiac disease HTN (hypertension) Other Substance use disorder Social History Social History Household Members: Spouse and Children Housing: House Are you a primary director of career resources to a significant other at home: Yes () Do you presently have visiting nurse or other home services: Yes ([facility] comes for , sven davis) Alcohol intake: former Patient Tobacco Use Status: Former Tobacco user Quit Date: 30 years ago Tobacco use type: Cigarette Cigarette Packs Per Day: 1 Cigarettes Per Day: 20.0 Years Smoked: 20 Smoked in Last 30 Days: No e-Cigarette/Vaping Use: Never Used Second Hand Smoke Exposure: No Use of substances other than those prescribed or required for medical reasons: Yes Substance Use Type: Marijuana Advance Directives: No Advance Directives Information Provided: No service: No Current occupational status: employed Cognitive needs: No Hearing needs: No Vision needs: No Physical Exam 2 Vital Signs: Vital Signs: Last Vital Signs Temp 98.8 F 07/05/23 17:48 Pulse 102 H 07/05/23 17:48 Resp 16 07/05/23 17:48 BP 136/81 07/05/23 17:48 Pulse Ox 94 07/05/23 17:48 O2 Del Method Room Air 07/05/23 17:48 BMI result Body Mass Index 21.9 General: Alert, in moderate distress for pain Skin: No rash, warm HEENT: Atraumatic, No Exudate or Pharyngeal Erythema Resp: Normal Breath sounds bilaterally Cardio: Regular rate and Rhythm, Normal S1, S2 ABD: Abd soft, non tender, no guarding or rebound. Normal Bowel sounds. : No cva tenderness Neuro: Alert, oriented x4, PERRL Strenght 5/5 on all extremities Sensation is preserved in both lower and upper extremities Index to nose: normal Cranial Nerves II-XII grossly intact No dysarthria, or aphasia No neglet. Visual echavarria are normal bilaterally Psych: Cooperative, NO SI MSk: Tenderness on palpation at the level of T10-T12 just below patient's surgical scar 1 or 2 cm right of the midline. No lumbar spine tenderness. Course Reevaluation(s) Reevaluation #1: Patient's imaging showed new T7 fracture. Patient receive an extra dose of oxycodone 5 mg and reports that at this time she feels fine to be discharged. I am going to prescribe oxycodone 5 mg to use at home, I also recommended the patient to follow-up with her primary care doctor. At this time there are no neurological symptoms and I think patient can be treated as an outpatient. Time: 18:26 Medications Administered Discontinued Medications Generic Name Dose Route Start Last Admin Trade Name Shant PRN Reason Stop Dose Admin Ketorolac Tromethamine 15 mg 07/05/23 13:46 07/05/23 14:02 Ketorolac Tromethamine 15 Mg/Ml Vial IVPUSH 07/05/23 13:47 15 mg ONCE ONE Administration Lidocaine 1 patch 07/05/23 13:46 07/05/23 14:03 Lidocaine 4 % Patch Adh..Patch TRANSDERMA 07/05/23 13:47 1 patch ONCE ONE Administration Protocol Morphine Sulfate 4 mg 07/05/23 13:46 07/05/23 14:02 Morphine Sulfate 4 Mg/Ml Cartridge IVPUSH 07/05/23 13:47 4 mg ONCE ONE Administration Protocol Oxycodone HCl 5 mg 07/05/23 17:31 07/05/23 17:43 Oxycodone Hcl Immed Release 5 Mg Tablet PO 07/05/23 17:32 5 mg ONCE ONE Administration Medical Decision Making Medical Decision Making [facility] Narrative: Presented to the emergency room for back pain, possible differential diagnosis include the muscular pain, muscle strain, fracture. Plan CT spine thorax Analgesia CBC and BMP Admission/Observation Consideration of admission/observation: Escalation of care including admission/observation considered Lab Data [facility] Lab Attestation statement: I reviewed the patient's lab results. Unremarkable CBC regarding please presentation however there is incidental finding of thrombocythemia which patient had already in 2022 but never at this level which I will recommend patient to follow-up with primary care physician 07/05/23 14:01 07/05/23 14:51 Labs: Lab Results 07/05/23 07/05/23 Range/Units 14:01 14:51 WBC 11.3 H (4.8-10.8) X10*3/uL RBC 4.22 (4.20-5.50) X10*6/uL Hgb 14.3 (12.0-16.0) g/dl Hct 42.4 (37.0-47.0) % MCV 100.5 H (80.0-98.0) fL MCH 33.9 H (27.0-33.0) pg MCHC 33.7 (31.0-35.0) g/dl RDW 12.5 (11.0-16.0) % Plt Count 674 H D (160-400) X10*3/uL MPV 8.2 L (9.4-12.3) fL Immature Gran % (Auto) 0.4 (0.0-0.4) % Neut % (Auto) 82.1 H (45-73) % Lymph % (Auto) 9.1 L (20-40) % [place] % (Auto) 6.9 (2-11) % Eos % (Auto) 1.0 (0-4) % Baso % (Auto) 0.5 (0-2) % Lymph # (Auto) 1.0 L (1.2-4.9) X10*3/uL [place] # (Auto) 0.8 (0.1-1.2) X10*3/uL Eos # (Auto) 0.1 (0.0-0.4) X10*3/uL Baso # (Auto) 0.1 (0.0-0.2) X10*3/uL Abs Immat Gran (auto) 0.04 H (0.00-0.03) X10*3/uL Absolute Neuts (auto) 9.3 H (2.0-8.3) x10*3/uL Absolute Nucleated RBC 0.000 (0.0-0.012) X10*3/uL Nucleated RBC % (auto) 0.0 (0.0-0.2) /100WBC Sodium 140 (135-145) mmol/L Potassium 3.2 L (3.3-5.1) mmol/L Chloride 111 H (96-108) mmol/L Carbon Dioxide 20 L (22-29) mmol/L Anion Gap 12 (12-20) BUN 8 L (9-16) mg/dL Creatinine 0.47 L (0.5-1.4) mg/dL Estim Creat Clear Calc 95.6 Estimated GFR > 60 Random Glucose 93 (60-115) mg/dL Calcium 8.4 (8.4-10.2) mg/dL Independent Interpretation I performed an independent interpretation of an: EKG (Personally reviewed the EKG sinus tachycardia ) and CT Scan Radiology Impression Discussion of test interpretation with radiology: I have reviewed the radiologist's reading. Radiologist Impression: 1. T9, T10 and T11 pedicle screws stabilizing T10 fracture. There is cement augmentation of T10 vertebra. The hardware is intact. 2. There is a new T7 superior endplate compression fracture deformity without any posterior bony component. 3. There is diffuse osteopenia involving the entire thoracic spine. 4. There is no disc bulge, herniation or spinal canal stenosis at any of the thoracic disc levels. External Record Review External record reviewed: Inpatient record and Office record Discharge Plan Discharge Clinical Impression: Back pain, Thrombocythemia Patient Disposition: Home, Self-Care Additional Instructions: CT of your spine showed a new fracture at the level of T7 see report below At home for pain we recommend using Tylenol 1000 mg every 6 hours and oxycodone 5 mg every 6 hours if pain is not controlled. If oral medication are not controlling your pain please return to the emergency room for evaluation Follow-up with your spine surgeon as soon as possible. During your workup it was noted that your platelets were elevated this does not require hospitalization however we will like you to follow-up this finding with your primary care physician. 1. T9, T10 and T11 pedicle screws stabilizing T10 fracture. There is cement augmentation of T10 vertebra. The hardware is intact. 2. There is a new T7 superior endplate compression fracture deformity without any posterior bony component. 3. There is diffuse osteopenia involving the entire thoracic spine. 4. There is no disc bulge, herniation or spinal canal stenosis at any of the thoracic disc levels. Prescriptions: New oxycodone 5 mg capsule 5 mg PO Q6H PRN (Reason: pain) Qty: 14 0RF Rx Instructions: Partial Fill upon patient request. No Action venlafaxine 75 mg capsule,extended release 24hr 75 mg PO DAILY atenolol-chlorthalidone 50-25 mg tablet 1 tab PO DAILY topiramate 25 mg tablet 25 mg PO BID naltrexone 50 mg tablet 50 mg PO DAILY Qty: 30 0RF Rx Instructions: Take half tab daily for 2 days, then 1 tab daily cetirizine [All Day Allergy (cetirizine)] 10 mg tablet 10 mg PO DAILY magnesium oxide 400 mg (241.3 mg magnesium) Tablet 400 mg PO BIDPC Qty: 60 0RF potassium chloride 20 mEq tablet extended release 20 meq PO DAILY Qty: 30 0RF acetaminophen 500 mg Tablet 1,000 mg PO Q6H PRN (Reason: Pain) omeprazole 20 mg tablet,delayed release (DR/EC) 20 mg PO DAILY PRN (Reason: Gastric Reflux) amlodipine 10 mg tablet 10 mg PO DAILY 90 Days Qty: 90 0RF atorvastatin 40 mg tablet 40 mg PO BEDTIME 90 Days Qty: 90 0RF montelukast 10 mg tablet 10 mg PO DAILY Qty: 90 0RF
[2023-07-05 14:13] LABS: Basophils Absolute Auto 0.1 X10*3/uL (0.0-0.2); Basophils Percent Auto 0.5 % (0-2); Eosinophils Absolute Auto 0.1 X10*3/uL (0.0-0.4); Hematocrit 42.4 % (37.0-47.0); Hemoglobin 14.3 g/dl (12.0-16.0); Imm Gran Abs Auto 0.04 X10*3/uL (0.00-0.03); Imm Gran Pct Auto 0.4 % (0.0-0.4); Lymphocytes Percent Auto 9.1 % (20-40); Mean Corpuscular HGB Conc 33.7 g/dl (31.0-35.0); Mean Corpuscular Hemoglobin 33.9 pg (27.0-33.0); Mean Corpuscular Volume 100.5 fL (80.0-98.0); Mean Platelet Volume 8.2 fL (9.4-12.3); Monocytes Absolute Auto 0.8 X10*3/uL (0.1-1.2); Monocytes Percent Auto 6.9 % (2-11); Neutrophils Absolute Auto 9.3 x10*3/uL (2.0-8.3); Neutrophils Percent Auto 82.1 % (45-73); Platelet Count 674 X10*3/uL (160-400); Red Blood Count 4.22 X10*6/uL (4.20-5.50); Red Cell Distribution Width 12.5 % (11.0-16.0); White Blood Count 11.3 X10*3/uL (4.8-10.8)
[2023-07-05 15:13] LABS: Anion Gap 12 (12-20)
[2023-07-05 15:16] LABS: Blood Urea Nitrogen 8 mg/dL (9-16); Calcium 8.4 mg/dL (8.4-10.2); Carbon Dioxide 20 mmol/L (22-29); Chloride 111 mmol/L (96-108); Creatinine Clr Calc Pharmacy 95.6; Estimated Glomerular Filt Rate > 60; Glucose Random 93 mg/dL (60-115); Potassium 3.2 mmol/L (3.3-5.1); Sodium 140 mmol/L (135-145)
[2023-07-05 17:43] VITALS: PULSE 96; RESP 16; TEMP 36.9; O2SAT 97
[2023-07-05] MEDS: oxyCODONE HCl Immed Release 5 MG TABLET PO (17:43)
[2023-07-05 17:45] VITALS: BP 165/81
[2023-07-05 17:48] VITALS: BP 136/81; PULSE 102; RESP 16; TEMP 37.1; O2SAT 94
--- NOTE | 2023-07-05 18:36 | MHC.EDTECH ---
Brought patient a tuna sandwich and a orange jello.
== END 2023-07-05 19:13 | disposition home or self-care (01) ==
PROVIDERS: Emergency Provider Student in an Organized Health Care Education/Training Program; PCP Internal Medicine
DX: M54.50 Low back pain, unspecified (principal); R00.0 Tachycardia, unspecified; M54.6 Pain in thoracic spine; Z87.891 Personal history of nicotine dependence; Z79.899 Other long term (current) drug therapy
CPT/HCPCS: 36415; 72128; 80048; 85025; 93005; 96374; 96375; 99284; 99285; J1885; J2270

== ENCOUNTER → 2023-07-05 13:48 | Outpatient (BNV) | payer BC, SELFPAY | PROVIDERS: Emergency Provider Student in an Organized Health Care Education/Training Program; PCP Internal Medicine; Visit Provider Internal Medicine Cardiovascular Disease | DX: M54.9 Dorsalgia, unspecified (principal) | CPT/HCPCS: 93010 ==

== ENCOUNTER 2023-07-14 11:32 | Outpatient (AMB) | payer BC, SELFPAY ==
[2023-07-14 11:36] VITALS: BP 178/84; PULSE 122; RESP 14; O2SAT 95; BMI 21.9
--- NOTE | 2023-07-14 11:36 | MHC.OFFVIS ---
Intake Vital Signs 07/14/23 11:36 Height 5 ft 2 in Weight 120 lb BMI 21.9 BP 178/84 H Blood Pressure Location Lt brachial Position Sitting Respiration 14 Pulse 122 H Pulse Source Pulse Oximeter Pulse Oximetry (%) 95 Oxygen Delivery Method Room Air Intake Visit Reasons: eval for kypho Allergies hydroxychloroquine [Plaquenil] Allergy (Severe, Verified 07/14/23 11:37) hives bupropion [From WELLBUTRIN] Allergy (Intermediate, Verified 07/14/23 11:37) HIVES amoxicillin Allergy (Mild, Verified 07/14/23 11:37) Rash tramadol Allergy (Unknown, Verified 07/14/23 11:37) hives, rash ENVIRONMENTAL Allergy (Unknown, Uncoded 07/14/23 11:37) ITCHY EYES Medication List - Last Reconciled 07/14/23 by Ashley Bonilla LPN acetaminophen 1,000 mg PO Q6H PRN amlodipine 10 mg PO DAILY 90 days atenolol-chlorthalidone 50-25 mg 1 tab PO DAILY atorvastatin 40 mg PO BEDTIME 90 days cetirizine (All Day Allergy (cetirizine)) 10 mg PO DAILY ibuprofen 400 mg PO Q8H magnesium oxide 400 mg PO BIDPC montelukast 10 mg PO DAILY naltrexone 50 mg PO DAILY omeprazole 20 mg PO DAILY PRN potassium chloride ER 20 mEq PO DAILY topiramate 25 mg PO BID venlafaxine ER 75 mg PO DAILY HPI eval for kypho HPI Details 62-year-old female who presents today to the office for an evaluation for kypho. The patient had T9 kyphoplasty with T8-10 posterior instrumented fusion by Dr. Cameron Veliz on 04/10/2023. She has had continued pain in her mid-back since before her surgery. She reports no relief of her symptoms after surgery. The patient reports continued low back pain. She states that the pain is preventing her from sleeping and is limiting her ability to complete her ADLs. She has been attempting to utilize CBD cream and cannabis tincture to help alleviate her symptoms with minimal relief. She was previously evaluated by Solomon Dalton PA-C, and ordered a CT scan of her thoracic spine, but it was not completed as she did not feel it was useful. PENDING SALE TO [facility] Medical History (Updated 07/25/23 @ 16:45 by Saurav Barnett MD) Constipation Positive colorectal cancer screening using Cologuard test Cystitis Papanicolaou smear declined Colonoscopy refused Mammogram declined Muscle spasm Lumbar pain Supraclavicular mass Hospital discharge follow-up Hyperlipidemia GERD (gastroesophageal reflux disease) Acute hypokalemia Fall Hematoma Alcohol use disorder, mild, in early remission, abuse Alcoholism Hospital discharge follow-up Hypokalemia Uncontrolled hypertension Abnormal EKG Hypertension, essential Breast screening Encounter for general adult medical examination with abnormal findings Anxiety, generalized Hives Surgical History Hx of hand surgery Hx of colonoscopy (08/30/11) History of right breast biopsy (10/31/11) Hx of left inguinal hernia repair (02/25/13) Hx of basal cell carcinoma excision (2011) History of left oophorectomy (09/07/11) Hx of right inguinal hernia repair (2003) Family History Father Cardiac disease Mother Cardiac disease HTN (hypertension) Other Substance use disorder Social History Household Members: Spouse and Children Housing: House Are you a primary direct care supervisor to a significant other at home: Yes () Do you presently have visiting nurse or other home services: Yes ([facility] , jeroers ryan) Alcohol intake: former Patient Tobacco Use Status: Former Tobacco user Quit Date: 30 years ago Tobacco use type: Cigarette Cigarette Packs Per Day: 1 Cigarettes Per Day: 20.0 Years Smoked: 20 e-Cigarette/Vaping Use: Never Used Second Hand Smoke Exposure: No Substance Use Type: Marijuana service: No Current occupational status: employed Cognitive needs: No Hearing needs: No Vision needs: No Review of Systems Const All systems reviewed & are unremarkable except as noted in HPI and below Physical Exam Vital Signs: Last Vital Signs Pulse 122 H 07/14/23 11:36 Resp 14 07/14/23 11:36 BP 178/84 H 07/14/23 11:36 Pulse Ox 95 07/14/23 11:36 Oxygen Delivery Method Room Air 07/14/23 11:36 BMI result Body Mass Index 21.9 General: Appears afebrile. Alert and oriented. Mood and affect appropriate. Follows and participates in conversation appropriately. Respiratory effort is unlabored. Able to transition from sit to stand unassisted. Ambulates with bilaterally normal heel strike and toe off. Exquisite tenderness to palpation overlying the T7 vertebral body. Moderate tenderness with palpation overlying the previous surgical site. Results Reviewed Results Reviewed: 07/05/2023: CT THORACIC SPINE WITHOUT CONTRAST FINDINGS: On sagittal reconstructed images there is normal thoracic kyphosis. There are bilateral T9, T10 and T11 pedicle screws stabilizing T10 fracture. In addition there is a T10 cement augmentation performed. The hardware at T9, T10 and T11 vertebra is intact. There is a new T7 superior endplate compression fracture deformity without any posterior bony component. There is diffuse osteopenia involving the entire thoracic spine. There is no evidence of disc bulge, herniation or spinal canal stenosis at any of the thoracic disc levels. The paravertebral soft tissues are normal. IMPRESSION: 1. T9, T10 and T11 pedicle screws stabilizing T10 fracture. There is cement augmentation of T10 vertebra. The hardware is intact. 2. There is a new T7 superior endplate compression fracture deformity without any posterior bony component. 3. There is diffuse osteopenia involving the entire thoracic spine. 4. There is no disc bulge, herniation or spinal canal stenosis at any of the thoracic disc levels. 05/10/2023: XR THORACIC SPINE FINDINGS: Diffuse osteopenia is noted. There is been interval vertebroplasty of a marked compression fracture of the T10 vertebral body. There is now mild compression of the T9 vertebral body. There has been interval placement of transpedicular screws and fusion rods from T8-T11. There is no evidence of hardware complication. No change in mild compression of the L1 vertebral body. There is no change in alignment with flexion and extension. Round back posture is noted. There is no abnormality of the paraspinal soft tissues. IMPRESSION: 1. Interval vertebroplasty of T10 vertebral body. 2. Interval placement of transpedicular screws and fusion rods from T8-T11 without evidence of hardware complication. 3. Mild compression of the T9 vertebral body. 4. No change in alignment with flexion and extension. Assessment & Plan Assessment & Plan (1) Compression fracture of T7 vertebra: Code(s): S22.060A - Wedge compression fracture of T7-T8 vertebra, initial encounter for closed fracture (2) Osteoporosis: Code(s): M81.0 - Age-related osteoporosis without current pathological fracture Plan I ordered an MRI scan of the spine to assess if her T7 compression fracture is still a candidate for the kyphoplasty procedure. It appears that it is a relatively recent fracture. She is exquisitely tender to palpation, so she would benefit from a kyphoplasty, but I would like to get more emitting before proceeding. I also ordered a DEXA scan of the lumbar spine part of the axial skeleton to assess for osteoporosis and setting off repeated multiple compression factors, the most recent one being a nontraumatic compression factor. Once the DEXA scan on the MRI is done, we will schedule her for a T7 kyphoplasty. Scribed for Dr. Barnett by Jacob Ca, medical support specialist, on 07/14/2023. I, Dr. Barnett, have personally reviewed and agree with the information entered by the scribe. Orders: Orders MR lumbar spine wo con 07/19/23 S22.060A - Wedge compression fracture of T7-T8 vertebra, initial encounter for closed fracture XR DEXA axial skeleton 07/14/23 S22.060A - Wedge compression fracture of T7-T8 vertebra, initial encounter for closed fracture Medications: New oxycodone Take 1-2 pills 1 hour before MR exam to help tolerate supine positioning 5 mg PO BID PRN 5 tabs 0RF pain (scale score 7-10) Coding Level of Care Code Est Pt Level 4 (56728) Diagnoses Compression fracture of T7 vertebra S22.060A Osteoporosis M81.0
== END 2023-07-14 12:02 | disposition home or self-care (01) ==
PROVIDERS: PCP Internal Medicine; Visit Provider Internal Medicine
DX: S22.060A Wedge compression fracture of T7-T8 vertebra, initial encounter for closed fracture (principal); M81.0 Age-related osteoporosis without current pathological fracture
CPT/HCPCS: 99214

== ENCOUNTER → 2023-07-14 11:32 | Outpatient (BNVA) | payer BC, SELFPAY | PROVIDERS: PCP Internal Medicine; Visit Provider Internal Medicine ==

== ENCOUNTER 2023-07-19 07:08 | Outpatient (REF) | payer BC, SELFPAY ==
--- NOTE | ~2023-07-19 | MR_ITS ---
MR THORACIC SPINE WITHOUT CONTRAST CLINICAL INFORMATION: Compression fracture at T7 back pain. COMPARISON: Thoracic spine CT 07/05/2023. TECHNIQUE: MRI of the thoracic spine was obtained using routine sequences without contrast. FINDINGS: There is an acute edematous biconcave compression fracture at T7 exhibiting similar 60% vertebral body height loss and right upper endplate retropulsion that minimally indents the ventral thecal sac without resulting in mass effect on the thoracic cord. There is an indeterminate age upper endplate compression fracture at T9, better seen on the prior CT study with a small avulsion fragment off the anterior aspect of the upper T9 endplate. I cannot assess for bone marrow edema within the T9 vertebral body secondary to artifact from the pedicle screws. There are postoperative changes following posterior instrumented fusion at T9-T11 and vertebral body augmentation at T10 where there is stable appearing chronic compression deformity. Lucency surrounding the T11 screws bilaterally compatible with hardware loosening is better demonstrated on the prior CT study. There is a midthoracic kyphosis. Chronic upper and lower endplate Schmorl's nodes at L1. No significant thoracic disc herniations. No extra MR/MR thoracic spine wo con IMPRESSION: - There is an acute edematous biconcave compression fracture at T7 exhibiting similar 60% vertebral body height loss and right upper endplate retropulsion that minimally indents the ventral thecal sac without resulting in mass effect on the thoracic cord. - There is an indeterminate age upper endplate compression fracture at T9, better seen on the prior CT study with a small avulsion fragment off the anterior aspect of the upper T9 endplate. I cannot assess for bone marrow edema within the T9 vertebral body secondary to artifact from the pedicle screws. - There are postoperative changes following posterior instrumented fusion at T9-T11 and vertebral body augmentation at T10 where there is stable appearing chronic compression deformity. Lucency surrounding the T11 transpedicular screws bilaterally compatible with hardware loosening better demonstrated on the prior CT study. Surgical hardware is not diagnostically assessed on MRI.
== END 2023-07-19 07:09 | disposition home or self-care (01) ==
LOC: HO.MRI 07:08
PROVIDERS: PCP Internal Medicine; Visit Provider Internal Medicine
DX: S22.060A Wedge compression fracture of T7-T8 vertebra, initial encounter for closed fracture (principal)
CPT/HCPCS: 72146

== ENCOUNTER 2023-08-11 14:07 | Outpatient (REF) | payer BC, SELFPAY ==
--- NOTE | ~2023-08-11 | MM_ITS ---
EXAMINATION: BONE DENSITOMETRY CLINICAL INDICATION: Wedge compression fracture of T7-T8 vertebra, initial encounter. COMPARISON: Baseline BD dated 01/23/2014. TECHNIQUE: Using a Flared3D DXA System (software version: 13.1) manufactured by [employer], dual-energy x-ray absorptiometry was performed of the lumbar spine and left hip. The images are of good technical quality. Summary results are attached. FINDINGS: AP SPINE L1-L4: Current: BMD 0.749 g/cm2, Z-score -1.7, T-score -3.6, osteoporosis, 11.2% decrease from baseline (<5% change is not significant). Baseline: BMD 0.843 g/cm2. LEFT FEMUR, NECK: Current: BMD 0.713 g/cm2, Z-score -0.7, T-score -2.3, osteopenia. Baseline: BMD 0.807 g/cm2. LEFT FEMUR, TOTAL: Current: BMD 0.673 g/cm2, Z-score -1.2, T-score -2.7, osteoporosis, 14.8% decrease from baseline (<5% change is not significant). Baseline: BMD 0.790 g/cm2. IDENTIFIED RISK FACTORS: Family history (parent hip fracture), history of fracture (adult), left oophorectomy, menopause, osteoporosis. HISTORY OF FRACTURE: Spine. MEDICATIONS: None listed. MM/XR DEXA axial skeleton IMPRESSION: 1. DIAGNOSIS: Severe osteoporosis based on the lowest T-score value of -3.6 in the lumbar spine, and the history of a spine fracture, applying World Health Organization criteria. 2. 10-YEAR FRACTURE RISK PREDICTION, FRAX: According to the guidelines, FRAX calculation should only be performed on patients in the osteopenia bone density category. Therefore, FRAX was not performed on this patient. 3. Treatment Recommendations: NOF guidelines recommend consideration for treatment in postmenopausal women and men age 50 and older presenting with the following: -A hip or vertebral (clinical or morphometric) fracture. -T-score less than or equal to -2.5 at the femoral neck or spine after appropriate evaluation to exclude secondary causes. -Low bone mass at the hip or spine and a 10-year fracture probability by FRAX of greater than or equal to 3% for hip fracture or greater than or equal to 20% for major osteoporotic fracture based on the [place] adapted WHO algorithm. 4. Other Recommendations: All treatment decisions require clinical judgment and consideration of individual patient factors, including patient preferences, comorbidities, previous drug use, risk factors not captured in the FRAX model (e.g. frailty, falls, vitamin D deficiency, increased bone turnover, interval significant decline in bone density) and possible under or overestimation of fracture risk by FRAX. Additional medical evaluation for secondary cause of low bone mineral density may be appropriate. FUTURE SCAN RECOMMENDATION: People with diagnosed cases of osteoporosis or at high risk for fracture should have regular bone mineral density tests. For patients eligible for Medicare, routine testing is allowed once every 2 years. The testing frequency can be increased to one year for patients who have rapidly progressing disease, those who are receiving or discontinuing medical therapy to restore bone mass, or have additional risk factors.
== END 2023-08-11 14:08 | disposition home or self-care (01) ==
LOC: HO.MAMMO 14:07
PROVIDERS: PCP Internal Medicine; Visit Provider Internal Medicine
DX: Z12.31 Encounter for screening mammogram for malignant neoplasm of breast (principal); Z13.820 Encounter for screening for osteoporosis; Z78.0 Asymptomatic menopausal state; S22.060A Wedge compression fracture of T7-T8 vertebra, initial encounter for closed fracture
CPT/HCPCS: 77063; 77067; 77080

== ENCOUNTER → 2023-08-11 14:30 | Outpatient (BNV) | payer BC, SELFPAY | PROVIDERS: PCP Internal Medicine; Visit Provider Radiology Diagnostic Radiology | DX: Z12.31 Encounter for screening mammogram for malignant neoplasm of breast (principal) | CPT/HCPCS: 77063; 77067 ==

== ENCOUNTER 2023-08-11 15:03 | Outpatient (AMB) | payer BC, SELFPAY ==
[2023-08-11 15:34] VITALS: BP 166/80; PULSE 115; O2SAT 96; BMI 22.7
--- NOTE | 2023-08-11 15:34 | HO.NEPHOV_ITS ---
Vital Signs 08/11/23 15:34 Height 5 ft 2 in Weight 124 lb 6 oz BMI 22.7 BP 166/80 H Blood Pressure Location Lt brachial Position Sitting Pulse 115 H Pulse Source Pulse Oximeter Pulse Oximetry (%) 96 Oxygen Delivery Method Room Air Intake Visit Reasons: Hypertension/ Confirmed will try to come in 3:15 Manager Transfusion Required: No Accompanied by: Self / Same As Patient Allergies hydroxychloroquine [Plaquenil] Allergy (Severe, Verified 08/11/23 15:36) hives bupropion [From WELLBUTRIN] Allergy (Intermediate, Verified 08/11/23 15:36) HIVES amoxicillin Allergy (Mild, Verified 08/11/23 15:36) Rash tramadol Allergy (Unknown, Verified 08/11/23 15:36) hives, rash ENVIRONMENTAL Allergy (Unknown, Uncoded 07/14/23 11:37) ITCHY EYES HPI Comments Details: I would the delight of seeing Karen who is a 62-year-old female in consultation for her hypertension. She has hypertension for a while and has been taking amlodipine. She has history of excess alcohol intake. She had a fall and had sustained vertebral fracture. She is currently being managed through pain management. She feels her pain is not well controlled and is asking whether I can provide some pain medication. she also continues to drink in excessive amounts daily. In the past she has been on amlodipine 5 mg, atenolol chlorthalidone 50-25 mg. patient was in hospital mid March and her potassium was 2.7 . She takes potassium replacement. Her chlorthalidone was discontinued at that time. 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 She denies shortness of breath, chest pain, paroxysmal nocturnal dyspnea, orthopnea, pedal edema, history of renal dysfunction, uncontrolled thyroid disorders. Her blood pressure has been labile. [facility] Medical History (Updated 08/25/23 @ 11:15 by Dmitriy Pino MD) Hypokalemia Constipation Positive colorectal cancer screening using Cologuard test Cystitis Papanicolaou smear declined Colonoscopy refused Mammogram declined Muscle spasm Lumbar pain Supraclavicular mass Hospital discharge follow-up Hyperlipidemia GERD (gastroesophageal reflux disease) Acute hypokalemia Fall Hematoma Alcohol use disorder, mild, in early remission, abuse Alcoholism Hospital discharge follow-up Uncontrolled hypertension Abnormal EKG Hypertension, essential Breast screening Encounter for general adult medical examination with abnormal findings Anxiety, generalized Hives Surgical History Hx of hand surgery Hx of colonoscopy (08/30/11) History of right breast biopsy (10/31/11) Hx of left inguinal hernia repair (02/25/13) Hx of basal cell carcinoma excision (2011) History of left oophorectomy (09/07/11) Hx of right inguinal hernia repair (2003) Family History Father Cardiac disease Mother Cardiac disease HTN (hypertension) Other Substance use disorder Social History Household Members: Spouse and Children Housing: House Are you a primary health care legal assistant to a significant other at home: Yes () Do you presently have visiting nurse or other home services: Yes ([facility] , sven davis) Alcohol intake: former Patient Tobacco Use Status: Former Tobacco user Quit Date: 30 years ago Tobacco use type: Cigarette Cigarette Packs Per Day: 1 Cigarettes Per Day: 20.0 Years Smoked: 20 e-Cigarette/Vaping Use: Never Used Second Hand Smoke Exposure: No Substance Use Type: Marijuana service: No Current occupational status: employed Cognitive needs: No Hearing needs: No Vision needs: No Physical Exam Vital Signs: Last Vital Signs Pulse 115 H 08/11/23 15:34 BP 166/80 H 08/11/23 15:34 Pulse Ox 96 08/11/23 15:34 Oxygen Delivery Method Room Air 08/11/23 15:34 BMI result Body Mass Index 22.7 Const General: comfortable and no acute distress Orientation/consciousness: patient oriented x3 HEENT Head: Yes normocephalic Mouth: Normal oral and palatal mucosa present Eyes EOM: EOMs intact bilaterally Neck Neck: Yes supple Resp Auscultation: clear to auscultation bilaterally Cardio Jugular venous distension: no JVD Rate: regular rate GI Palpation (GI): Soft to palpation Auscultation: normal bowel sounds General: Yes no CVA tenderness Back/Spine/Pelvis Back: no CVA tenderness Skin General skin exam: no rashes or lesions noted Neuro General: patient oriented x3 and moves all extremities Extrem General: Yes no pedal edema Results Reviewed Nephrology Results: Hgb 14.3 g/dl (12.0-16.0) 07/05/23 WBC 11.3 X10*3/uL (4.8-10.8) H 07/05/23 Plt Count 674 X10*3/uL (160-400) H 07/05/23 Sodium 140 mmol/L (135-145) 07/05/23 Potassium 3.2 mmol/L (3.3-5.1) L 07/05/23 Chloride 111 mmol/L (96-108) H 07/05/23 Carbon Dioxide 20 mmol/L (22-29) L 07/05/23 BUN 8 mg/dL (9-16) L 07/05/23 Creatinine 0.47 mg/dL (0.5-1.4) L 07/05/23 Calcium 8.4 mg/dL (8.4-10.2) 07/05/23 Assessment & Plan Assessment & Plan (1) Hypertension, essential: Code(s): I10 - Essential (primary) hypertension Category: Medical (2) Hypomagnesemia: Code(s): E83.42 - Hypomagnesemia Category: Medical (3) Hypokalemia: Code(s): E87.6 - Hypokalemia Category: Medical Plan Karen has longstanding hypertension and has been on multiple antihypertensive medications. She was taking atenolol, amlodipine and chlorthalidone. Her chlorthalidone was discontinued when she developed significant hypokalemia. She has been on potassium replacement since. She likely has potassium and magnesium wasting from tubules given her excessive daily alcohol use. She also had been on chlorthalidone which has been discontinued. She claims that she is taking only amlodipine now. I ordered 24 hour ambulatory blood pressure monitor for her. If her potassium continues to be low I plan to check renin and aldosterone levels. She could continue her current potassium and magnesium replacements. She was encouraged to maintain low-sodium diet. Her renal functions are normal. We will work her up a bit more for hypertension based on evolving data. I did not make any medication changes today. Answered all questions. Follow-up appointment given. Orders: Orders AMB 24 Hour Blood Pressure Monitor PLACEMENT 08/11/23 I10 - Essential (primary) hypertension Coding Level of Care Code New Pt Level 4 (31730) Diagnoses Hypertension, essential I10 Hypomagnesemia E83.42 Hypokalemia E87.6
== END 2023-08-11 16:14 | disposition home or self-care (01) ==
PROVIDERS: PCP Internal Medicine; Referring Provider Internal Medicine; Visit Provider Internal Medicine Nephrology
DX: I10 Essential (primary) hypertension (principal); E83.42 Hypomagnesemia; E87.6 Hypokalemia
CPT/HCPCS: 99204

== ENCOUNTER → 2023-08-24 11:32 | Outpatient (BNVA) | payer BC, SELFPAY | PROVIDERS: PCP Internal Medicine; Visit Provider Internal Medicine Nephrology ==

== ENCOUNTER 2023-08-25 11:29 | Outpatient (AMB) | payer BC, SELFPAY ==
--- NOTE | 2023-08-25 11:37 | HO.NEPHOV_ITS ---
Vital Signs 08/25/23 11:38 Height 5 ft 2 in Weight 124 lb 6 oz BMI 22.7 BP 152/82 H Blood Pressure Location Lt brachial Position Sitting Pulse 119 H Pulse Source Pulse Oximeter Pulse Oximetry (%) 97 Oxygen Delivery Method Room Air Intake Visit Reasons: HTN/ 2 weeks fu/ LVM Diversity Specialist Required: No Accompanied by: Self / Same As Patient Allergies hydroxychloroquine [Plaquenil] Allergy (Severe, Verified 08/25/23 11:39) hives bupropion [From WELLBUTRIN] Allergy (Intermediate, Verified 08/25/23 11:39) HIVES amoxicillin Allergy (Mild, Verified 08/25/23 11:39) Rash tramadol Allergy (Unknown, Verified 08/25/23 11:39) hives, rash ENVIRONMENTAL Allergy (Unknown, Uncoded 07/14/23 11:37) ITCHY EYES HPI Comments Details: I had the delight of seeing Karen who is a 62-year-old female in follow up of her hypertension. She has hypertension for a while and has been taking amlodipine. She has history of excess alcohol intake. She had a fall and had sustained vertebral fracture. She is currently being managed through pain management. In the past she has been on amlodipine 5 mg, atenolol chlorthalidone 50-25 mg. patient was in hospital mid March and her potassium was 2.7 . She takes potassium replacement. Her chlorthalidone was discontinued at that time. 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 She denies shortness of breath, chest pain, paroxysmal nocturnal dyspnea, orthopnea, pedal edema, history of renal dysfunction, uncontrolled thyroid disorders. Her blood pressure has been labile. So she underwent a BP monitor which showed higher readings in the evenings [facility] Medical History (Updated 08/25/23 @ 11:15 by Dmitriy Pino MD) Hypokalemia Constipation Positive colorectal cancer screening using Cologuard test Cystitis Papanicolaou smear declined Colonoscopy refused Mammogram declined Muscle spasm Lumbar pain Supraclavicular mass Hospital discharge follow-up Hyperlipidemia GERD (gastroesophageal reflux disease) Acute hypokalemia Fall Hematoma Alcohol use disorder, mild, in early remission, abuse Alcoholism Hospital discharge follow-up Uncontrolled hypertension Abnormal EKG Hypertension, essential Breast screening Encounter for general adult medical examination with abnormal findings Anxiety, generalized Hives Surgical History Hx of hand surgery Hx of colonoscopy (08/30/11) History of right breast biopsy (10/31/11) Hx of left inguinal hernia repair (02/25/13) Hx of basal cell carcinoma excision (2011) History of left oophorectomy (09/07/11) Hx of right inguinal hernia repair (2003) Family History Father Cardiac disease Mother Cardiac disease HTN (hypertension) Other Substance use disorder Social History Household Members: Spouse and Children Housing: House Are you a primary lawn care specialist to a significant other at home: Yes () Do you presently have visiting nurse or other home services: Yes ([facility] , [facility]) Alcohol intake: former Patient Tobacco Use Status: Former Tobacco user Quit Date: 30 years ago Tobacco use type: Cigarette Cigarette Packs Per Day: 1 Cigarettes Per Day: 20.0 Years Smoked: 20 e-Cigarette/Vaping Use: Never Used Second Hand Smoke Exposure: No Substance Use Type: Marijuana service: No Current occupational status: employed Cognitive needs: No Hearing needs: No Vision needs: No Physical Exam Const General: comfortable and no acute distress Orientation/consciousness: patient oriented x3 HEENT Head: Yes normocephalic Mouth: Normal oral and palatal mucosa present Eyes EOM: EOMs intact bilaterally Neck Neck: Yes supple Resp Auscultation: clear to auscultation bilaterally Cardio Jugular venous distension: no JVD Rate: regular rate GI Palpation (GI): Soft to palpation Auscultation: normal bowel sounds General: Yes no CVA tenderness Back/Spine/Pelvis Back: no CVA tenderness Skin General skin exam: no rashes or lesions noted Neuro General: patient oriented x3 and moves all extremities Extrem General: Yes no pedal edema Results Reviewed Nephrology Results: Hgb 14.3 g/dl (12.0-16.0) 07/05/23 WBC 11.3 X10*3/uL (4.8-10.8) H 07/05/23 Plt Count 674 X10*3/uL (160-400) H 07/05/23 Sodium 140 mmol/L (135-145) 07/05/23 Potassium 3.2 mmol/L (3.3-5.1) L 07/05/23 Chloride 111 mmol/L (96-108) H 07/05/23 Carbon Dioxide 20 mmol/L (22-29) L 07/05/23 BUN 8 mg/dL (9-16) L 07/05/23 Creatinine 0.47 mg/dL (0.5-1.4) L 07/05/23 Calcium 8.4 mg/dL (8.4-10.2) 07/05/23 Assessment & Plan Assessment & Plan (1) Hypokalemia: Code(s): E87.6 - Hypokalemia Category: Medical (2) Hypomagnesemia: Code(s): E83.42 - Hypomagnesemia Category: Medical (3) Hypertension, essential: Code(s): I10 - Essential (primary) hypertension Category: Medical Plan Karen has longstanding hypertension and has been on multiple antihypertensive medications. She was taking atenolol, amlodipine and chlorthalidone. Her chlorthalidone was discontinued when she developed significant hypokalemia. She has been on potassium replacement since. She likely has potassium and magnesium wasting from tubules given her excessive daily alcohol use. She also had been on chlorthalidone which has been discontinued. She claims that she is taking only amlodipine in the morning. I reviewed 24 hour ambulatory blood pressure monitor which showed higher readings in the evenings. I started her on Metoprolol XL 25 mg daily to be taken in the evening. I also ordered renin and aldosterone levels. She could continue her current potassium and magnesium replacements. She was encouraged to maintain low-sodium diet. Her renal f unctions are normal. We will work her up a bit more for hypertension based on evolving data. I did not make any other medication changes today. Answered all questions. Follow-up appointment given. Orders: Orders Magnesium Today E83.42 - Hypomagnesemia, E87.6 - Hypokalemia, I10 - Essential (primary) hypertension Electrolytes Today E83.42 - Hypomagnesemia, E87.6 - Hypokalemia, I10 - Essential (primary) hypertension Blood Urea Nitrogen Today E83.42 - Hypomagnesemia, E87.6 - Hypokalemia, I10 - Essential (primary) hypertension Creatinine Today E83.42 - Hypomagnesemia, E87.6 - Hypokalemia, I10 - Essential (primary) hypertension Aldosterone Today E83.42 - Hypomagnesemia, E87.6 - Hypokalemia, I10 - Essential (primary) hypertension Renin Today E83.42 - Hypomagnesemia, E87.6 - Hypokalemia, I10 - Essential (primary) hypertension Aldost/Renin Today E83.42 - Hypomagnesemia, E87.6 - Hypokalemia, I10 - Essential (primary) hypertension Medications: New metoprolol succinate ER 12.5 mg (1/2 x 25 mg) PO DAILY 30 days 15 tabs 4RF Coding Level of Care Code Est Pt Level 4 (61341) Diagnoses Hypokalemia E87.6 Hypomagnesemia E83.42 Hypertension, essential I10
[2023-08-25 11:38] VITALS: BP 152/82; PULSE 119; O2SAT 97; BMI 22.7
== END 2023-08-25 12:00 | disposition home or self-care (01) ==
PROVIDERS: PCP Internal Medicine; Visit Provider Internal Medicine Nephrology
DX: E87.6 Hypokalemia (principal); E83.42 Hypomagnesemia; I10 Essential (primary) hypertension
CPT/HCPCS: 93790; 99214

== ENCOUNTER → 2023-08-25 11:29 | Outpatient (BNVA) | payer BC, SELFPAY | PROVIDERS: PCP Internal Medicine; Visit Provider Internal Medicine Nephrology ==

== ENCOUNTER 2023-09-20 06:54 | Day surgery (SDC) | payer BC, SELFPAY ==
[2023-09-20] VITALS (11 sets, daily range): BP systolic 105–139; BP diastolic 64–93; PULSE 69–91; RESP 15–18; TEMP 36.6–36.9; O2SAT 95–100; BMI 21.9
--- NOTE | ~2023-09-20 | FL_ITS ---
EXAMINATION: XR FLUOROSCOPY WITH IMAGES CLINICAL INFORMATION: Kyphoplasty. COMPARISON: None available. TECHNIQUE: Fluoroscopy Supervised By: Dr. Saurav Barnett. Fluoroscopy Time: 2 minutes, 28 seconds. Cumulative Dose: 45.449 mGy. DAP: 4.1128 Gycm2. Images: 4. FINDINGS: Intraoperative fluoroscopy and spot films were performed during a procedure in the OR. Kyphoplasty cannulas are seen overlying the region of a compression fracture in what is likely the L2 vertebral body. Exact positioning is difficult to ascertain because of the more coning of the images. Please see Dr. Saurav Barnett's report for complete details. FL/FL guidance in OR IMPRESSION: Intraoperative fluoroscopy and spot films were obtained. Please see Dr. Saurav Barnett's report for complete details.
[2023-09-20] MEDS: Lactated Ringers 1,000 ML 50 ML IVCONT (08:00)
[2023-09-20 08:01] LABS: Anion Gap 17 (12-20); Carbon Dioxide 22 mmol/L (22-29); Chloride 104 mmol/L (96-108); Potassium 2.9 mmol/L (3.3-5.1); Sodium 140 mmol/L (135-145)
--- NOTE | 2023-09-20 08:29 | HO.ANESPROP2 ---
[facility] Active Problems Active Problems: All Active Problems Hypokalemia (Acute) Osteoporosis (Acute) Compression fracture of T7 vertebra (Acute) Lumbago (Acute) Alcohol use disorder, severe, dependence (Acute) Hypomagnesemia (Acute) Acute hypokalemia (Acute) Alcohol withdrawal (Acute) Acute hypokalemia (Acute) Electrolyte abnormality (Acute) Back pain (Acute) Lumbar spondylosis (Acute) Thoracic vertebral fracture (Acute) Pain management (Acute) Hypertension, essential (Acute) Hyperbilirubinemia (Acute) Ischemic colitis (Acute) Supraclavicular fossa fullness (Acute) Dyspepsia (Acute) Alcohol abuse (Acute) Lipid disorder (Acute) Tachycardia (Acute) Recurrent urticaria (Acute) Environmental allergies (Acute) Supraclavicular mass (Acute) Anxiety, generalized (Acute) Hives (Acute) Past Medical History Medical History (Updated 08/25/23 @ 11:15 by Dmitriy Pino MD) Hypokalemia Constipation Positive colorectal cancer screening using Cologuard test Cystitis Papanicolaou smear declined Colonoscopy refused Mammogram declined Muscle spasm Lumbar pain Supraclavicular mass Hospital discharge follow-up Hyperlipidemia GERD (gastroesophageal reflux disease) Acute hypokalemia Fall Hematoma Alcohol use disorder, mild, in early remission, abuse Alcoholism Hospital discharge follow-up Uncontrolled hypertension Abnormal EKG Hypertension, essential Breast screening Encounter for general adult medical examination with abnormal findings Anxiety, generalized Hives Family History Family History Father Cardiac disease Mother Cardiac disease HTN (hypertension) Other Substance use disorder Family history of problems with anesthesia: No Surgical History Surgical History Hx of hand surgery Hx of colonoscopy (08/30/11) History of right breast biopsy (10/31/11) Hx of left inguinal hernia repair (02/25/13) Hx of basal cell carcinoma excision (2011) History of left oophorectomy (09/07/11) Hx of right inguinal hernia repair (2003) History of Problems with Anesthesia: No Social History Social History Household Members: Spouse and Children Housing: House Are you a primary customer care voice consultant to a significant other at home: Yes () Do you presently have visiting nurse or other home services: Yes ([facility] comes [facility] , [facility]) Alcohol intake: former Patient Tobacco Use Status: Former Tobacco user Quit Date: 30 years ago Tobacco use type: Cigarette Cigarette Packs Per Day: 1 Cigarettes Per Day: 20.0 Years Smoked: 20 e-Cigarette/Vaping Use: Never Used Second Hand Smoke Exposure: No Substance Use Type: Marijuana Are you DNR?: No Advance Directives: No Advance Directives Information Provided: Yes service: No Current occupational status: employed Cognitive needs: No Hearing needs: No Vision needs: No Meds Allergies Allergy/AdvReac Type Severity Reaction Status Date / Time hydroxychloroquine Allergy Severe hives Verified 08/25/23 11:39 [Plaquenil] bupropion [From WELLBUTRIN] Allergy Intermediate HIVES Verified 08/25/23 11:39 amoxicillin Allergy Mild Rash Verified 08/25/23 11:39 tramadol Allergy Unknown hives, rash Verified 08/25/23 11:39 ENVIRONMENTAL Allergy Unknown ITCHY EYES Uncoded 07/14/23 11:37 Active Medications: Current Medications Fentanyl (Fentanyl Citrate/Pf 100 Mcg/2 Ml Vial) 25 mcg IVPUSH Q5M PRN; Protocol PRN Reason: Pain, Moderate(Pain Scale 4-6) Stop: 09/20/23 14:29 Hydromorphone HCl (Hydromorphone Hcl 0.5 Mg/0.5 Ml Syringe) 0.5 mg IVPUSH Q5M PRN; Protocol PRN Reason: Pain, Severe (Pain Scale 7-10) Stop: 09/20/23 14:29 Lactated Ringer's (Lr) 1,000 mls @ 50 mls/hr IVCONT .Q20H SORAYA Potassium Chloride (Potassium Chloride/H20) 20 meq in 100 mls @ 100 mls/hr IV ONCE ONE Stop: 09/20/23 09:24 Ondansetron HCl (Ondansetron Hcl 4 Mg/2 Ml Vial) 4 mg IVPUSH ONCE PRN PRN Reason: Nausea and Vomiting Stop: 09/20/23 14:29 Home Medications ?Medication ?Instructions ?Recorded ?Confirmed ?Last Taken ?Type omeprazole 20 mg tablet,delayed 20 mg PO DAILY PRN Gastric Reflux 05/27/20 09/20/23 09/20/23 History release acetaminophen 500 mg tablet 1,000 mg PO Q6H PRN Pain 04/04/23 07/14/23 04/09/23 History topiramate 25 mg tablet 25 mg PO BID 06/19/23 09/20/23 09/20/23 History ibuprofen 200 mg capsule 400 mg PO Q8H 07/14/23 09/20/23 Unknown History magnesium oxide 400 mg (241.3 mg 400 mg PO BID 08/24/23 09/20/23 Unknown History magnesium) tablet Exam Height,Weight and Vital Signs: Height 5 ft 2 in Weight 54.431 kg Last Vital Signs Temp 98.5 F 09/20/23 08:00 Pulse 88 09/20/23 08:00 Resp 18 09/20/23 08:00 BP 139/93 H 09/20/23 08:00 Pulse Ox 98 09/20/23 08:00 O2 Del Method Room Air 09/20/23 08:00 Pertinent Lab Results Pertinent Lab Results: Laboratory Tests 09/20/23 07:41 Sodium 140 Potassium 2.9 L* Chloride 104 Carbon Dioxide 22 Anion Gap 17 Airway Mallampati Class: III TM Dist: <=3cm Neck ROM: Full Loose/Missing/Broken Teeth: No Heart: rrr Lungs: cta Assessment and Plan Assessment Anesthesia Assessment: Anesthesia Plan Discussed and Chart Reviewed Final Anesthetic Review Family History of Problems with Anesthesia: No History of Problems with Anesthesia: No NPO: Yes ASA Class: III Final Preanesthetic Review: Meds/Allgs Chart Reviewed, Consent Obtained/Reviewed and Anes Risks/Benef Reviewed Patient Risk: Intermediate Procedure Risk: Low Anesthetic Plan Anesthetic Plan: GA Disposition: Standard PACU
--- NOTE | 2023-09-20 08:36 | SUR.OPER ---
orders rec'd by neeraj matthews rn for potassium replacement. awaiting pharmacy.
[2023-09-20] MEDS: Potassium Chloride/H20 10 MEQ/100 ML PIGGYBACK 100 MEQ IV (08:43)
--- NOTE | 2023-09-20 08:58 | MHC.SHP ---
Pre-Procedural Eval Section A - 24 Hr Update-Section A only Date of Service: 09/20/23 The patient is an INPATIENT: No Changes since office visit: Yes Patient answered all questions The patient has been examined within 24 hours of the surgical procedure. The History & Physical has been completed within 30 days and I have reviewed it.: No Section B - Complete if H&P > 30 days Chief Complaint: Wedge compression fracture of T7 vertebra Relevant Family History (Specify if Yes): No Relevant Social History: None Present Medications: see Short Stay Collaborative assessment Medical History: No relevant PMH History of Previous Operations: No relevant previous surgery Allergies: Allergies Allergy/AdvReac Type Severity Reaction Status Date / Time hydroxychloroquine Allergy Severe hives Verified 08/25/23 11:39 [Plaquenil] bupropion [From WELLBUTRIN] Allergy Intermediate HIVES Verified 08/25/23 11:39 amoxicillin Allergy Mild Rash Verified 08/25/23 11:39 tramadol Allergy Unknown hives, rash Verified 08/25/23 11:39 ENVIRONMENTAL Allergy Unknown ITCHY EYES Uncoded 07/14/23 11:37 Review of Systems Sugical H&P ROS: Negative: Constitution, Cardiovascular and Respiratory Exam Surgical H&P Exam: Normal: HEENT, Normal: Heart and Normal: Lungs Plan Diagnosis/Plan: Unchanged I have reviewed the history and physical and performed a pertinent physical examination on my patient. No changes have occurred unless specified. Time Spent With Patient Time: Total time managing care of this patient today ____ minutes.
--- NOTE | 2023-09-20 11:01 | P.BOP_ITS ---
Brief Operative Note Date of Service: 09/20/23 Pre-op diagnosis: Osteoporotic compression fracture T7 Post-op diagnosis: same Procedure: Kyphon Balloon Kyphoplasty with Insertion of HV-R Bone Cement, T7 Vertebral Body Implants: None Surgeon: Saurav Barnett MD Anesthesia: GETA Was an Loss Prevention Consultant used for this Procedure?: No Estimated blood loss (mL): 5 Pathology: none sent Condition: stable Disposition: PACU
--- NOTE | 2023-09-20 11:02 | W.PM.OPN ---
Operative Note Operative Note Date of Service: 09/20/23 Narrative: Bipedicular Balloon Kyphoplasty with Insertion of HV-R Bone Cement, T7 Vertebral Body The patient was brought to the operating room and general anesthesia with endotracheal intubation was induced. The patient was positioned prone on the table. The back was prepped and draped. Two image intensifiers (C-arms) were brought into the AP and lateral positions and the level pedicles were identified and marked with a skin marker. A transpedicular approach to the vertebral body was deemed appropriate. A spinal needle was advanced along the expected course of the introducer up to the pedicle and the tract was anesthetized with 0.25% bupivacaine with epinephrine. A stab incision was made 3 cm lateral to the pedicle with a 15 blade. A 10-gauge bevel introducer was advanced through the T7 pedicle to the junction of the pedicle and vertebral body on the left side first. Positioning was confirmed on the AP and lateral plane at regular intervals to ensure bevel position within the cortical boundaries of the pedicle until the body of the vertebra was accessed. Following satisfactory placement of the osteointroducer, the bevel tip was removed, leaving the cannula in place, positioned approximately 1 cm past the posterior vertebral body wall. Through the cannula, a drill was advanced into the vertebral body under fluoroscopic guidance toward the anterior cortex to create a channel, stopping approximately 3-5 mm posterior to the anterior cortical wall in the lateral view and approaching the ipsilateral edge of the spinous process in the AP view. The anterior cortex was probed with the guide pin to ensure no perforations in the anterior cortex. After completing the entry into the vertebral body, a 15 mm inflatable bone tamp was inserted through the cannula and advanced under fluoroscopic guidance into the vertebral body near the anterior cortex. The radiopaque marker bands on the bone tamp were identified using AP and lateral images and confirmed to be within the anterior 2/3rd of the body. . The above sequence of instrument placement was then repeated on the right side. Once both bone tamps were in position, they were inflated sequentially in increments of 0.25 to 0.5 cc of contrast, with careful attention being paid to the inflation pressures and balloon position. The inflation was monitored with AP and lateral imaging. The final balloon volume was 3 cc on the left and 1 cc on the right side. Maximum pressure applied on either side was approximately 250-300 psi. There was no breach of the lateral wall or anterior cortex of the vertebral body. Direct reduction of the fracture was achieved and end plate movement was noted. Under fluoroscopic imaging, and the use of the bone void fillers, internal fixation was achieved through a low-pressure injection of appropriately cured KYPHON HV-R methylmethacrylate bone cement. The cavity was filled with a total volume of 2cc on the left side and 1.5cc on the right side. No vascular, disc or spinal extravasation of the cement was noted. Once the bone cement had hardened, the bevel tip was reinserted into each of the cannulas to clear it and they were were then removed. Post-procedure, the incisions were closed with 2 silk sutures. The patient was kept in the prone position for approximately 10 minutes post cement injection. She was then turned supine, extubated and brought to the PACU where she reported minimal back pain. She was able to move both her lower extremities at this time. She was subsequently discharged with postprocedure and follow-up instructions. Estimated blood loss was rougly 5 mL.
--- NOTE | 2023-09-20 19:52 | PC.NURSE ---
Pt admitted to PACU with 2nd bag of 10 meq of KCl infusing. bag was finished at 1300
== END 2023-09-20 15:23 | disposition home or self-care (01) ==
PROVIDERS: Anesthesiology; PCP Internal Medicine; Visit Provider Internal Medicine
PROC: (CPT 22513; principal; 2023-09-20 09:20)
DX: S22.060A Wedge compression fracture of T7-T8 vertebra, initial encounter for closed fracture (principal); X58.XXXA Exposure to other specified factors, initial encounter; M81.0 Age-related osteoporosis without current pathological fracture; I10 Essential (primary) hypertension; E78.5 Hyperlipidemia, unspecified; K21.9 Gastro-esophageal reflux disease without esophagitis; Z87.891 Personal history of nicotine dependence; Y93.9 Activity, unspecified; Y92.9 Unspecified place or not applicable; Y99.9 Unspecified external cause status
CPT/HCPCS: 22513; 36415; 80051; C1713; J0690; J0736; J2704; J3010; J3480; Q9967

== ENCOUNTER → 2023-09-20 06:54 | Outpatient (BNV) | payer BC, SELFPAY | PROVIDERS: PCP Internal Medicine; Visit Provider Internal Medicine | DX: M80.08XA Age-related osteoporosis with current pathological fracture, vertebra(e), initial encounter for fracture (principal) | CPT/HCPCS: 22513 ==

== ENCOUNTER 2023-09-21 07:35 | Outpatient (AMB) | payer BC, SELFPAY ==
--- NOTE | 2023-09-21 08:41 | MHC.PC.OV ---
Intake Visit Reasons: Follow Up~ [phone] Allergies hydroxychloroquine [Plaquenil] Allergy (Severe, Verified 09/21/23 08:42) hives bupropion [From WELLBUTRIN] Allergy (Intermediate, Verified 09/21/23 08:42) HIVES amoxicillin Allergy (Mild, Verified 09/21/23 08:42) Rash tramadol Allergy (Unknown, Verified 09/21/23 08:42) hives, rash ENVIRONMENTAL Allergy (Unknown, Uncoded 07/14/23 11:37) ITCHY EYES Medication List - Last Reconciled 09/21/23 by Ros Lunsford MD acetaminophen 1,000 mg PO Q6H PRN amlodipine 10 mg PO DAILY 90 days atorvastatin 40 mg PO BEDTIME 90 days cetirizine 10 mg PO DAILY PRN ibuprofen 400 mg PO Q8H magnesium oxide 400 mg PO BID metoprolol succinate ER 12.5 mg (1/2 x 25 mg) PO DAILY 30 days montelukast 10 mg PO DAILY omeprazole 20 mg PO DAILY PRN potassium chloride ER 20 mEq PO DAILY topiramate 25 mg PO BID venlafaxine ER 75 mg PO DAILY Tobacco use date assessed: 09/21/23 Fall risk assessment: 1 Fall in past year Last assessed Fall Risk: 09/21/23 Dental Screening Dental Screen Date: 09/21/23 Did you have a dental visit in the last 12 months?: No Did you have a dental problem in the last 6 months where you did not have access to dental care?: No Was dental information given to patient?: No HPI Follow Up~ [phone] HPI Details This is a telemedicine visit Patient had a kyphoplasty procedure T7 recently, she said that she was not given anything for the pain other than Tylenol She is suffering, unable to take tramadol because of reaction however taken oxycodone in the past and did well I have sent oxycodone 5 mg to be taken up to 2 times a day 14 tablets She is feeling very depressed these days because she is dealing with her own pain and also her who is very ill has urine incontinence patient says that her house smells like urine and she does not know what to do She has no desire to do anything feeling sad and crying easily She is taking Topamax 25 mg b.i.d. as a mood stabilizer I am increasing the dose to 50 mg b.i.d. She is to continue venlafaxine I have also sent message to our behavior health coordinator to reach out to patient as soon as possible Patient have a follow-up appointment coming up next week as well in house. [facility] Medical History Hypokalemia Constipation Positive colorectal cancer screening using Cologuard test Cystitis Papanicolaou smear declined Colonoscopy refused Mammogram declined Muscle spasm Lumbar pain Supraclavicular mass Hospital discharge follow-up Hyperlipidemia GERD (gastroesophageal reflux disease) Acute hypokalemia Fall Hematoma Alcohol use disorder, mild, in early remission, abuse Alcoholism Hospital discharge follow-up Uncontrolled hypertension Abnormal EKG Hypertension, essential Breast screening Encounter for general adult medical examination with abnormal findings Anxiety, generalized Hives Surgical History Hx of hand surgery Hx of colonoscopy (08/30/11) History of right breast biopsy (10/31/11) Hx of left inguinal hernia repair (02/25/13) Hx of basal cell carcinoma excision (2011) History of left oophorectomy (09/07/11) Hx of right inguinal hernia repair (2003) Family History Father Cardiac disease Mother Cardiac disease HTN (hypertension) Other Substance use disorder Social History Household Members: Spouse and Children Housing: House Are you a primary auto care center manager to a significant other at home: Yes () Do you presently have visiting nurse or other home services: Yes ([place] comes for , showers [facility]) Alcohol intake: former Patient Tobacco Use Status: Former Tobacco user Quit Date: 30 years ago Tobacco use type: Cigarette Cigarette Packs Per Day: 1 Cigarettes Per Day: 20.0 Years Smoked: 20 Packs Per Year: 20 Packs per year/per ci.00 e-Cigarette/Vaping Use: Never Used Second Hand Smoke Exposure: No Substance Use Type: Marijuana service: No Current occupational status: employed Cognitive needs: No Hearing needs: No Vision needs: No Questionnaire Thrive Questionnaire Date Thrive assessed: 06/20/23 AUDIT C Alcohol Use Questionnaire (AUDIT-C) 1. How often do you have a drink containing alcohol?: Monthly or less 2. How many drinks containing alcohol do you have on a typical day when you are drinking?: 1 or 2 3. How often do you have six or more drinks on one occasion?: Never Total Score: 1 Score Reviewed/Action Taken: Yes RENEE-7 AMB Questionnaire RENEE-7 Date RENEE - 7 assessed: 11/29/22 Source: Developed by Drs. Sandeep Fletcher, Karen Fonseca, Adan Calle and colleagues, with an educational la from [employer]. Review of Systems Const Denies chills and Denies fever(s) ENT Denies epistaxis and Denies nasal discharge Card Denies chest pain Resp Denies chest congestion, Denies cough and Denies hemoptysis GI Denies diarrhea and Denies nausea Skin/Breast Denies rash Neuro Reports no additional complaints Psych Reports no additional complaints Endo Reports no additional complaints Physical exam (Primary Care) Tobacco/Smoking Status: Tobacco use Status Tobacco use date assessed 09/21/23 09/21/23 08:43 Patient Tobacco Use Status Former Tobacco user 09/21/23 08:43 Tobacco use type Cigarette 09/21/23 08:43 e-Cigarette/Vaping Use Never Used 09/21/23 08:43 Thrive Assessment: Date of Thrive Assessment Date Thrive assessed 06/20/23 09/21/23 08:43 Telehealth Telehealth Telehealth Platform: [employer] Location of provider rendering services: practice address Location of patient: address on file Patient Identification confirmed using: Name, : Yes Telehealth method: voice only Patient verbally consented to treatment: Yes Patient verbally consented to billing insurance company: Yes Patient informed of any privacy concerns related to visit: Yes Assessment and Plan Assessment & Plan (1) Compression fracture of T7 vertebra: Code(s): S22.060A - Wedge compression fracture of T7-T8 vertebra, initial encounter for closed fracture Qualifiers: Encounter type: subsequent encounter Fracture healing: with routine healing Qualified Code(s): S22.060D - Wedge compression fracture of T7-T8 vertebra, subsequent encounter for fracture with routine healing (2) Depression, major, severe recurrence: Code(s): F33.2 - Major depressive disorder, recurrent severe without psychotic features Qualifiers: Psychotic features: without psychotic features Qualified Code(s): F33.2 - Major depressive disorder, recurrent severe without psychotic features (3) Osteoporosis: Code(s): M81.0 - Age-related osteoporosis without current pathological fracture Qualifiers: Encounter type: subsequent encounter Osteoporosis type: age-related Presence of current pathological fracture: with current pathological fracture Fracture healing: with routine healing Qualified Code(s): M80.00XD - Age-related osteoporosis with current pathological fracture, unspecified site, subsequent encounter for fracture with routine healing (4) Pain management: Code(s): R52 - Pain, unspecified (5) Anxiety, generalized: Code(s): F41.1 - Generalized anxiety disorder (6) Stress at home: Code(s): F43.9 - Reaction to severe stress, unspecified Plan This is a telemedicine visit Patient had a kyphoplasty procedure T7 recently, she said that she was not given anything for the pain other than Tylenol She is suffering, unable to take tramadol because of reaction however taken oxycodone in the past and did well I have sent oxycodone 5 mg to be taken up to 2 times a day 14 tablets She is feeling very depressed these days because she is dealing with her own pain and also her who is very ill has urine incontinence patient says that her house smells like urine and she does not know what to do She has no desire to do anything feeling sad and crying easily She is taking Topamax 25 mg b.i.d. as a mood stabilizer I am increasing the dose to 50 mg b.i.d. She is to continue venlafaxine I have also sent message to our behavior health coordinator to reach out to patient as soon as possible Patient have a follow-up appointment coming up next week as well in house. Medications: New oxycodone Partial Fill upon patient request. 5 mg PO BID PRN 14 tabs 0RF pain 7 days topiramate (Topamax) 50 mg PO BID 60 tabs 0RF Coding Level of Care Code Tele Est Pt Level 3 (04241) Diagnoses Compression fracture of T7 vertebra with routine healing, subsequent encounter S22.060D Encounter type: subsequent encounter Fracture healing: with routine healing Severe episode of recurrent major depressive disorder, without psychotic features F33.2 Psychotic features: without psychotic features Age-related osteoporosis with current pathological fracture with routine healing, subsequent encounter M80.00XD Encounter type: subsequent encounter Osteoporosis type: age-related Presence of current pathological fracture: with current pathological fracture Fracture healing: with routine healing Pain management R52 Anxiety, generalized F41.1 Stress at home F43.9
== END 2023-09-21 10:40 | disposition home or self-care (01) ==
PROVIDERS: PCP Internal Medicine; Visit Provider Internal Medicine
DX: M80.00XD Age-related osteoporosis with current pathological fracture, unspecified site, subsequent encounter for fracture with routine healing (principal); S22.060D Wedge compression fracture of T7-T8 vertebra, subsequent encounter for fracture with routine healing; F33.2 Major depressive disorder, recurrent severe without psychotic features; R52 Pain, unspecified; F41.1 Generalized anxiety disorder; F43.9 Reaction to severe stress, unspecified
CPT/HCPCS: 99442

== ENCOUNTER 2023-10-04 09:33 | Outpatient (AMB) | payer BC, SELFPAY ==
--- NOTE | 2023-10-04 09:49 | MHC.OFFVIS ---
Vital Signs 10/04/23 09:54 Height 5 ft 2 in Weight 120 lb 2 oz BMI 22.0 BP 140/90 H Blood Pressure Location Lt brachial Position Sitting Respiration 14 Pulse 100 Pulse Source Pulse Oximeter Pulse Oximetry (%) 97 Oxygen Delivery Method Room Air Intake Visit Reasons: S/p T7 Kyphoplasty 09/20/23 Allergies hydroxychloroquine [Plaquenil] Allergy (Severe, Verified 10/04/23 09:55) hives bupropion [From WELLBUTRIN] Allergy (Intermediate, Verified 10/04/23 09:55) HIVES amoxicillin Allergy (Mild, Verified 10/04/23 09:55) Rash tramadol Allergy (Unknown, Verified 10/04/23 09:55) hives, rash ENVIRONMENTAL Allergy (Unknown, Uncoded 07/14/23 11:37) ITCHY EYES HPI HPI S/p T7 Kyphoplasty 09/20/23: Details: 62-year-old female who presents to the office for status post T7 kyphoplasty 09/20/23. The patient reports significant relief of her back pain symptoms following the procedure. She states she had fell again about 4 days after the surgery and injured her ribs. She has been feeling dizzy at times and has pain in the ribs and back. She is taking oxycodone to help with the pain. She has difficulty taking a breath while coughing or sneezing. She is unable to rollover in bed because of pain. She is interested in getting a nerve block injection on today's visit. She has been started on Fosamax by her primary care provider. [facility] Medical History Hypokalemia Constipation Positive colorectal cancer screening using Cologuard test Cystitis Papanicolaou smear declined Colonoscopy refused Mammogram declined Muscle spasm Lumbar pain Supraclavicular mass Hospital discharge follow-up Hyperlipidemia GERD (gastroesophageal reflux disease) Acute hypokalemia Fall Hematoma Alcohol use disorder, mild, in early remission, abuse Alcoholism Hospital discharge follow-up Uncontrolled hypertension Abnormal EKG Hypertension, essential Breast screening Encounter for general adult medical examination with abnormal findings Anxiety, generalized Hives Surgical History Hx of hand surgery Hx of colonoscopy (08/30/11) History of right breast biopsy (10/31/11) Hx of left inguinal hernia repair (02/25/13) Hx of basal cell carcinoma excision (2011) History of left oophorectomy (09/07/11) Hx of right inguinal hernia repair (2003) Family History Father Cardiac disease Mother Cardiac disease HTN (hypertension) Other Substance use disorder Social History Household Members: Spouse and Children Housing: House Are you a primary home health care case manager to a significant other at home: Yes () Do you presently have visiting nurse or other home services: Yes ([place] comes for , showers [place]) Alcohol intake: former Patient Tobacco Use Status: Former Tobacco user Tobacco use type: Cigarette Cigarette Packs Per Day: 1 Cigarettes Per Day: 20.0 Years Smoked: 20 e-Cigarette/Vaping Use: Never Used Second Hand Smoke Exposure: No Substance Use Type: Marijuana service: No Current occupational status: employed Cognitive needs: No Hearing needs: No Vision needs: No Review of Systems Const All systems reviewed & are unremarkable except as noted in HPI and below Physical Exam Vital Signs: Last Vital Signs Pulse 100 10/04/23 09:54 Resp 14 10/04/23 09:54 BP 140/90 H 10/04/23 09:54 Pulse Ox 97 10/04/23 09:54 Oxygen Delivery Method Room Air 10/04/23 09:54 BMI result Body Mass Index 22.0 General: Appears afebrile. Alert and oriented. Mood and affect appropriate. Follows and participates in conversation appropriately. Respiratory effort is unlabored. Able to transition from sit to stand unassisted. Incision?sites?are?healed. Sutures were?removed?in?the?office?today. Tenderness to palpation overlying the left lower thoracic ribs. Office Procedures Nerve Block Details: Intercoastal nerve block, left T7, T8, T9 After obtaining written consent, pre-procedure time-out was completed. The patient was placed in a left lateral position. The relevant levels of the intercostal nerves were physically palpated corresponding to the patient's pain and marked. Using ultrasound, the appropriate landmarks including the rib, intercostal muscles and pleura were identified. The skin was anesthetized with 1% lidocaine. A 21-gauge 80 mm echostim needle was advanced under sonographic guidance in proximity to each of the intercostal nerves. Aspiration was negative for heme and air. 3 cc of ropivacaine 0.5% was injected around each of the targeted nerves. The needle was removed, skin cleansed and a sterile bandage was applied. The patient tolerated the procedure well and no complications were encountered. Following the procedure, the patient's vital signs and respiration were stable. The patient was discharged home in good condition with post-procedural instructions. Time Out: Immediately prior to the procedure, the following was verbally confirmed that there is a signed consent form and that the correct patient, planned procedure, site and side are consistent with documentation and that necessary equipment and/or blood products are available prior to the start of the case. Complications: none EBL: <1 cc Procedure code (CPT) selection complete Results Reviewed Results Reviewed: 08/11/23: BONE DENSITOMETRY FINDINGS: AP SPINE L1-L4: Current: BMD 0.749 g/cm2, Z-score -1.7, T-score -3.6, osteoporosis, 11.2% decrease from baseline (<5% change is not significant). Baseline: BMD 0.843 g/cm2. LEFT FEMUR, NECK: Current: BMD 0.713 g/cm2, Z-score -0.7, T-score -2.3, osteopenia. Baseline: BMD 0.807 g/cm2. LEFT FEMUR, TOTAL: Current: BMD 0.673 g/cm2, Z-score -1.2, T-score -2.7, osteoporosis, 14.8% decrease from baseline (<5% change is not significant). Baseline: BMD 0.790 g/cm2. IMPRESSION: 1. DIAGNOSIS: Severe osteoporosis based on the lowest T-score value of -3.6 in the lumbar spine, and the history of a spine fracture, applying World Health Organization criteria. 2. 10-YEAR FRACTURE RISK PREDICTION, FRAX: According to the guidelines, FRAX calculation should only be performed on patients in the osteopenia bone density category. Therefore, FRAX was not performed on this patient. 3. Treatment Recommendations: NOF guidelines recommend consideration for treatment in postmenopausal women and men age 50 and older presenting with the following: -A hip or vertebral (clinical or morphometric) fracture. -T-score less than or equal to -2.5 at the femoral neck or spine after appropriate evaluation to exclude secondary causes. -Low bone mass at the hip or spine and a 10-year fracture probability by FRAX of greater than or equal to 3% for hip fracture or greater than or equal to 20% for major osteoporotic fracture based on the [place] adapted WHO algorithm. 4. Other Recommendations: All treatment decisions require clinical judgment and consideration of individual patient factors, including patient preferences, comorbidities, previous drug use, risk factors not captured in the FRAX model (e.g. frailty, falls, vitamin D deficiency, increased bone turnover, interval significant decline in bone density) and possible under or overestimation of fracture risk by FRAX. Additional medical evaluation for secondary cause of low bone mineral density may be appropriate. FUTURE SCAN RECOMMENDATION: People with diagnosed cases of osteoporosis or at high risk for fracture should have regular bone mineral density tests. For patients eligible for Medicare, routine testing is allowed once every 2 years. The testing frequency can be increased to one year for patients who have rapidly progressing disease, those who are receiving or discontinuing medical therapy to restore bone mass, or have additional risk factors. Assessment & Plan Assessment & Plan (1) Compression fracture of T7 vertebra: Code(s): S22.060A - Wedge compression fracture of T7-T8 vertebra, initial encounter for closed fracture Category: Medical Qualifiers: Encounter type: subsequent encounter Fracture healing: with routine healing Qualified Code(s): S22.060D - Wedge compression fracture of T7-T8 vertebra, subsequent encounter for fracture with routine healing (2) Rib fracture: Code(s): S22.39XA - Fracture of one rib, unspecified side, initial encounter for closed fracture Category: Medical Plan Patient is status post left T7-T8-T9 intercostal nerve blocks for likely rib fractures in setting of severe untreated osteoporosis and fall. Patient tolerated procedure well and was discharged home in stable condition with discharge instructions. All questions were answered. Her back pain following the most recent kyphoplasty is improved. She will follow-up as needed. Scribed for Dr. Barnett by Dioni Terna durable medical equipment technician, on 10/04/2023. I, Dr. Barnett, have personally reviewed and agree with the information entered by the scribe. Coding Level of Care Code Est Pt Level 4 (89047) Diagnoses Compression fracture of T7 vertebra with routine healing, subsequent encounter S22.060D Encounter type: subsequent encounter Fracture healing: with routine healing Rib fracture S22.39XA
[2023-10-04 09:54] VITALS: BP 140/90; PULSE 100; RESP 14; O2SAT 97; BMI 22.0
== END 2023-10-04 10:27 | disposition home or self-care (01) ==
PROVIDERS: PCP Internal Medicine; Visit Provider Internal Medicine
DX: S22.060D Wedge compression fracture of T7-T8 vertebra, subsequent encounter for fracture with routine healing (principal); S22.39XA Fracture of one rib, unspecified side, initial encounter for closed fracture
CPT/HCPCS: 99024

== ENCOUNTER → 2023-10-04 09:33 | Outpatient (BNVA) | payer BC, SELFPAY | PROVIDERS: PCP Internal Medicine; Visit Provider Internal Medicine | DX: S22.39XA Fracture of one rib, unspecified side, initial encounter for closed fracture (principal); S22.060D Wedge compression fracture of T7-T8 vertebra, subsequent encounter for fracture with routine healing; M81.0 Age-related osteoporosis without current pathological fracture | CPT/HCPCS: 64420; 64421; J2795 ==

== ENCOUNTER 2024-03-05 13:59 | Outpatient (REF) | payer MEDICARE, BC, SELFPAY ==
[2024-03-05 16:16] LABS: MANUAL DIFF FLAG NO
[2024-03-05 16:25] LABS: Basophils Absolute Auto 0.1 X10*3/uL (0.0-0.2); Basophils Percent Auto 0.6 % (0-2); Eosinophils Absolute Auto 0.2 X10*3/uL (0.0-0.4); Eosinophils Percent Auto 2.6 % (0-4); Hematocrit 39.8 % (37.0-47.0); Hemoglobin 13.3 g/dl (12.0-16.0); Imm Gran Abs Auto 0.04 X10*3/uL (0.00-0.03); Imm Gran Pct Auto 0.5 % (0.0-0.4); Lymphocytes Absolute Auto 1.2 X10*3/uL (1.2-4.9); Lymphocytes Percent Auto 13.8 % (20-40); Mean Corpuscular HGB Conc 33.4 g/dl (31.0-35.0); Mean Corpuscular Volume 98.8 fL (80.0-98.0); Monocytes Percent Auto 12.1 % (2-11); Neutrophils Percent Auto 70.4 % (45-73); Platelet Count 429 X10*3/uL (160-400); Red Blood Count 4.03 X10*6/uL (4.20-5.50); Red Cell Distribution Width 13.6 % (11.0-16.0); White Blood Count 8.6 X10*3/uL (4.8-10.8)
[2024-03-05 16:42] LABS: Alanine Aminotransferase 16 U/L (0-31); Albumin Level 4.1 g/dL (3.5-5.0); Alkaline Phosphatase 89 U/L (39-117); Anion Gap 14 (12-20); Aspartate Amino Transferase 19 U/L (5-31); Bilirubin Total 0.5 mg/dL (0.0-1.0); Blood Urea Nitrogen 10 mg/dL (9-16); Calcium 9.3 mg/dL (8.4-10.2); Carbon Dioxide 23 mmol/L (22-29); Chloride 109 mmol/L (96-108); Estimated Glomerular Filt Rate > 60; Glucose Random 91 mg/dL (60-115); Magnesium 1.8 mg/dL (1.6-2.6); Sodium 143 mmol/L (135-145); Total Protein 7.3 g/dL (6.5-8.0)
== END 2024-03-05 14:00 | disposition home or self-care (01) ==
LOC: HO.HMGCLDS 13:59
PROVIDERS: PCP Internal Medicine; Visit Provider Internal Medicine
DX: I10 Essential (primary) hypertension (principal); F41.1 Generalized anxiety disorder; Z91.09 Other allergy status, other than to drugs and biological substances; E78.9 Disorder of lipoprotein metabolism, unspecified; F10.10 Alcohol abuse, uncomplicated; R10.13 Epigastric pain; E87.8 Other disorders of electrolyte and fluid balance, not elsewhere classified; E83.42 Hypomagnesemia; M80.00XD Age-related osteoporosis with current pathological fracture, unspecified site, subsequent encounter for fracture with routine healing; F43.9 Reaction to severe stress, unspecified; F33.2 Major depressive disorder, recurrent severe without psychotic features
CPT/HCPCS: 36415; 80053; 83735; 85025; 96127

== ENCOUNTER 2024-03-05 13:59 | Outpatient (AMB) | payer BC, SELFPAY ==
--- NOTE | 2024-03-05 14:03 | A.OFFPC_ITS ---
Vital Signs 03/05/24 14:04 Height 5 ft 2 in Weight 132 lb 4 oz BMI 24.2 BP 130/72 Blood Pressure Location Rt brachial Position Sitting Pulse 104 H Pulse Source Pulse Oximeter Pulse Oximetry (%) 94 Oxygen Delivery Method Room Air Intake Visit Reasons: follow up Allergies hydroxychloroquine [Plaquenil] Allergy (Severe, Verified 03/05/24 14:08) hives bupropion [From WELLBUTRIN] Allergy (Intermediate, Verified 03/05/24 14:08) HIVES amoxicillin Allergy (Mild, Verified 03/05/24 14:08) Rash tramadol Allergy (Unknown, Verified 03/05/24 14:08) hives, rash ENVIRONMENTAL Allergy (Unknown, Uncoded 07/14/23 11:37) ITCHY EYES Medication List - Last Reconciled 03/05/24 by Ros Lunsford MD acetaminophen 1,000 mg PO Q6H PRN alendronate (Fosamax) 70 mg PO QWEEK 90 days amlodipine 10 mg PO DAILY 90 days atorvastatin 40 mg PO BEDTIME 90 days cetirizine 10 mg PO DAILY PRN ibuprofen 400 mg PO Q8H magnesium oxide 400 mg PO BID metoprolol succinate ER 12.5 mg (1/2 x 25 mg) PO DAILY 30 days montelukast 10 mg PO DAILY omeprazole 20 mg PO DAILY PRN oxycodone 5 mg PO BID PRN 7 days potassium chloride ER 10 mEq PO DAILY topiramate 25 mg PO BID topiramate 50 mg PO BID venlafaxine ER 75 mg PO DAILY Tobacco use date assessed: 03/05/24 Fall risk assessment: No Falls in past year Last assessed Fall Risk: 03/05/24 Dental Screening Dental Screen Date: 03/05/24 Did you have a dental visit in the last 12 months?: Yes Did you have a dental problem in the last 6 months where you did not have access to dental care?: No Was dental information given to patient?: Patient has dentist HPI follow up HPI Details Patient is 63-year-old female came in today after a long time Patient missed her appointment as there was lot of stress going on at home And she started drinking heavily was feeling very depressed Finally she stopped drinking and is attending [employer] meetings Blood pressure is stable with amlodipine 10 mg metoprolol 12.5 mg She need a refill on her allergy medications which I have sent Labs are needed last time her potassium was low She is established with Nephrology however did not go for follow-up Patient says that she owes money to hospital and she can not go to a Nephrology office Patient suffers from osteoporosis, taking Fosamax Continue simvastatin for lipid control She is also on venlafaxine for anxiety and depression Topamax for headache and as a mood stabilizer GERD is stable with omeprazole 20 mg Follow-up 3 months [facility] Medical History Hypokalemia Constipation Positive colorectal cancer screening using Cologuard test Cystitis Papanicolaou smear declined Colonoscopy refused Mammogram declined Muscle spasm Lumbar pain Supraclavicular mass Hospital discharge follow-up Hyperlipidemia GERD (gastroesophageal reflux disease) Acute hypokalemia Fall Hematoma Alcohol use disorder, mild, in early remission, abuse Alcoholism Hospital discharge follow-up Uncontrolled hypertension Abnormal EKG Hypertension, essential Breast screening Encounter for general adult medical examination with abnormal findings Anxiety, generalized Hives Surgical History Hx of hand surgery Hx of colonoscopy (08/30/11) History of right breast biopsy (10/31/11) Hx of left inguinal hernia repair (02/25/13) Hx of basal cell carcinoma excision (2011) History of left oophorectomy (09/07/11) Hx of right inguinal hernia repair (2003) Family History Father Cardiac disease Mother Cardiac disease HTN (hypertension) Other Substance use disorder Social History Household Members: Spouse and Children Housing: House Are you a primary resident care coordinator to a significant other at home: Yes () Do you presently have visiting nurse or other home services: Yes (MT comes for , showers igor) Alcohol intake: former Patient Tobacco Use Status: Former Tobacco user Tobacco use type: Cigarette Cigarette Packs Per Day: 1 Cigarettes Per Day: 20.0 Years Smoked: 20 e-Cigarette/Vaping Use: Never Used Second Hand Smoke Exposure: No Substance Use Type: Marijuana service: No Current occupational status: employed Cognitive needs: No Hearing needs: No Vision needs: No Questionnaire Thrive Questionnaire Date Thrive assessed: 06/20/23 AUDIT C Alcohol Use Questionnaire (AUDIT-C) 1. How often do you have a drink containing alcohol?: Monthly or less 2. How many drinks containing alcohol do you have on a typical day when you are drinking?: 1 or 2 3. How often do you have six or more drinks on one occasion?: Never Total Score: 1 Score Reviewed/Action Taken: Yes RENEE-7 AMB Questionnaire RENEE-7 Date RENEE - 7 assessed: 03/05/24 Feeling nervous, anxious, or on edge: 0 = Not at all Not being able to stop or control worryin = Not at all Worrying too much about different things: 0 = Not at all Trouble relaxin = Not at all Being so restless that it is hard to sit still: 0 = Not at all Becoming easily annoyed or irritable: 0 = Not at all Feeling afraid as if something awful might happen: 0 = Not at all Total RENEE-7 score (0-4 normal; 5-9 mild; 10-14 moderate; 15-21 severe): 0 Source: Developed by Drs. Sandeep Fletcher, Karen Fonseca, Adan Calle and colleagues, with an educational la from [employer]. RENEE-7 Assessment Billing RENEE-7 Assessment Tool: RENEE-7 Assessment 87451 Review of Systems Const Denies chills and Denies fever(s) ENT Denies epistaxis and Denies nasal discharge Card Denies chest pain Resp Denies chest congestion, Denies cough and Denies hemoptysis GI Denies diarrhea and Denies nausea Skin/Breast Denies rash Neuro Reports no additional complaints Psych Reports no additional complaints Endo Reports no additional complaints Physical exam (Primary Care) Vital Signs: Last Vital Signs Pulse 104 H 03/05/24 14:04 BP 130/72 03/05/24 14:04 Pulse Ox 94 03/05/24 14:04 Oxygen Delivery Method Room Air 03/05/24 14:04 BMI result Body Mass Index 24.2 Tobacco/Smoking Status: Tobacco use Status Tobacco use date assessed 03/05/24 03/05/24 14:10 Patient Tobacco Use Status Former Tobacco user 03/05/24 14:10 Tobacco use type Cigarette 03/05/24 14:10 e-Cigarette/Vaping Use Never Used 03/05/24 14:10 Thrive Assessment: Date of Thrive Assessment Date Thrive assessed 06/20/23 03/05/24 14:10 Const General: cooperative, comfortable and no acute distress Orientation/consciousness: patient oriented x3 HENMT Head: Yes normocephalic Eyes General: appearance normal, both eyes and all related structures Neck Neck: Yes supple Resp Effort & Inspection: normal respiratory effort, no cough and no stridor Cardio Rhythm: regular rhythm Heart sounds: S1 normal heart sound present and S2 normal heart sound present Skin General skin exam: turgor normal Neuro General: patient oriented x3, tone normal and moves all extremities Extrem Right lower extremity: no edema Left lower extremity: no edema Coding Level of Care Code Est Pt Level 4 (32217) Diagnoses Hypertension, essential I10 Anxiety, generalized F41.1 Environmental allergies Z91.09 Lipid disorder E78.9 Alcohol abuse F10.10 Dyspepsia R10.13 Electrolyte abnormality E87.8 Hypomagnesemia E83.42 Age-related osteoporosis with current pathological fracture with routine healing, subsequent encounter M80.00XD Encounter type: subsequent encounter Fracture healing: with routine healing Osteoporosis type: age-related Presence of current pathological fracture: with current pathological fracture Stress at home F43.9 Severe episode of recurrent major depressive disorder, without psychotic features F33.2 Psychotic features: without psychotic features Additional Codes RENEE-7 Assessment Billing - RENEE-7 Assessment Tool: RENEE-7 Assessment [id number] ([id number]) Assessment & Plan Assessment & Plan (1) Hypertension, essential: Code(s): I10 - Essential (primary) hypertension Category: Medical (2) Anxiety, generalized: Code(s): F41.1 - Generalized anxiety disorder Category: Medical (3) Environmental allergies: Code(s): Z91.09 - Other allergy status, other than to drugs and biological substances Category: Medical (4) Lipid disorder: Code(s): E78.9 - Disorder of lipoprotein metabolism, unspecified Category: Medical (5) Alcohol abuse: Code(s): F10.10 - Alcohol abuse, uncomplicated Category: Social Hx (6) Dyspepsia: Code(s): R10.13 - Epigastric pain Category: Medical (7) Electrolyte abnormality: Code(s): E87.8 - Other disorders of electrolyte and fluid balance, not elsewhere classified Category: Medical (8) Hypomagnesemia: Code(s): E83.42 - Hypomagnesemia Category: Medical (9) Osteoporosis: Code(s): M81.0 - Age-related osteoporosis without current pathological fracture Category: Medical Qualifiers: Encounter type: subsequent encounter Fracture healing: with routine healing Osteoporosis type: age-related Presence of current pathological fracture: with current pathological fracture Qualified Code(s): M80.00XD - Age- related osteoporosis with current pathological fracture, unspecified site, subsequent encounter for fracture with routine healing (10) Stress at home: Code(s): F43.9 - Reaction to severe stress, unspecified Category: Social Hx (11) Depression, major, severe recurrence: Code(s): F33.2 - Major depressive disorder, recurrent severe without psychotic features Category: Medical Qualifiers: Psychotic features: without psychotic features Qualified Code(s): F33.2 - Major depressive disorder, recurrent severe without psychotic features Plan Patient is 63-year-old female came in today after a long time Patient missed her appointment as there was lot of stress going on at home And she started drinking heavily was feeling very depressed Finally she stopped drinking and is attending [employer] meetings Blood pressure is stable with amlodipine 10 mg metoprolol 12.5 mg She need a refill on her allergy medications which I have sent Labs are needed last time her potassium was low She is established with Nephrology however did not go for follow-up Patient says that she owes money to hospital and she can not go to a Nephrology office Patient suffers from osteoporosis, taking Fosamax Continue simvastatin for lipid control She is also on venlafaxine for anxiety and depression Topamax for headache and as a mood stabilizer GERD is stable with omeprazole 20 mg Follow-up 3 months Orders: Orders Complete Blood Count Auto Diff Today E78.9 - Disorder of lipoprotein metabolism, unspecified, E83.42 - Hypomagnesemia, E87.8 - Other disorders of electrolyte and fluid balance, not elsewhere classified, F10.10 - Alcohol abuse, uncomplicated, F33.2 - Major depressive disorder, recurrent severe without psychotic features, F41.1 - Generalized anxiety disorder, F43.9 - Reaction to severe stress, unspecified, I10 - Essential (primary) hypertension, M80.00XD - Age-related osteoporosis with current pathological fracture, unspecified site, subsequent encounter for fracture with routine healing, R10.13 - Epigastric pain, Z91.09 - Other allergy status, other than to drugs and biological substances Comprehensive Met. Panel Today E78.9 - Disorder of lipoprotein metabolism, unspecified, E83.42 - Hypomagnesemia, E87.8 - Other disorders of electrolyte and fluid balance, not elsewhere classified, F10.10 - Alcohol abuse, uncomplicated, F33.2 - Major depressive disorder, recurrent severe without psychotic features, F41.1 - Generalized anxiety disorder, F43.9 - Reaction to severe stress, unspecified, I10 - Essential (primary) hypertension, M80.00XD - Age-related osteoporosis with current pathological fracture, unspecified site, subsequent encounter for fracture with routine healing, R10.13 - Epigastric pain, Z91.09 - Other allergy status, other than to drugs and biological substances Magnesium Today E78.9 - Disorder of lipoprotein metabolism, unspecified, E83.42 - Hypomagnesemia, E87.8 - Other disorders of electrolyte and fluid balance, not elsewhere classified, F10.10 - Alcohol abuse, uncomplicated, F33.2 - Major depressive disorder, recurrent severe without psychotic features, F41.1 - Generalized anxiety disorder, F43.9 - Reaction to severe stress, unspecified, I10 - Essential (primary) hypertension, M80.00XD - Age-related osteoporosis with current pathological fracture, unspecified site, subsequent encounter for fracture with routine healing, R10.13 - Epigastric pain, Z91.09 - Other allergy status, other than to drugs and biological substances Medications: Refilled montelukast 10 mg PO DAILY 90 tabs 0RF alendronate (Fosamax) 70 mg PO QWEEK 90 days 13 tabs 0RF cetirizine 10 mg PO DAILY PRN 90 tabs 0RF for allergies
[2024-03-05 14:04] VITALS: BP 130/72; PULSE 104; O2SAT 94; BMI 24.2
== END 2024-03-05 14:20 | disposition home or self-care (01) ==
PROVIDERS: PCP Internal Medicine; Visit Provider Internal Medicine
DX: I10 Essential (primary) hypertension (principal); F41.1 Generalized anxiety disorder; Z91.09 Other allergy status, other than to drugs and biological substances; F33.2 Major depressive disorder, recurrent severe without psychotic features; F10.10 Alcohol abuse, uncomplicated; E78.9 Disorder of lipoprotein metabolism, unspecified; R10.13 Epigastric pain; E87.8 Other disorders of electrolyte and fluid balance, not elsewhere classified; E83.42 Hypomagnesemia; M80.00XD Age-related osteoporosis with current pathological fracture, unspecified site, subsequent encounter for fracture with routine healing; F43.9 Reaction to severe stress, unspecified

== ENCOUNTER 2024-04-08 19:37 | Inpatient (IN) | payer MEDICARE, BC, SELFPAY ==
[2024-04-08 19:39] VITALS: BP 154/97; PULSE 150; RESP 18; TEMP 37.2; O2SAT 98; BMI 23.7
--- NOTE | 2024-04-08 19:42 | ECG_ITS ---
Test Reason : SEISURES Blood Pressure : / mmHG Vent. Rate : 146 BPM Atrial Rate : 000 BPM P-R Int : 000 ms QRS Dur : 064 ms QT Int : 288 ms P-R-T Axes : 000 -01 -21 degrees QTc Int : 448 ms Atrial fibrillation with rapid ventricular response Septal infarct , age undetermined Nonspecific ST and T wave abnormality Abnormal ECG When compared with ECG of 05-JUL-2023 14:17, Referred By: Vibha Desai Electronically Signed By:ELIZABETH RAGLAND
--- NOTE | 2024-04-08 19:45 | ED_ITS ---
HPI - General Adult General Chief complaint: General Medical Stated complaint: Had Seizure earlier Time Seen by Provider: 04/08/24 20:04 History of Present Illness ED Provider: Dr. Gallego HPI narrative: 63 y/o F patient; PMH hypokalemia, alcohol use disorder, HTN; presents from home with concern for possible seizure event at 1630. The patient states she has been feeling unwell since yesterday with nausea and vomiting. Today she walked into the bathroom to vomit. While standing at the sick she felt herself become lightheaded and lost consciousness. She has generalized mild shaking of her upper extremities and a small amount of urinary incontinence. She did not have tongue bitting. She was not post-ictal after the episode. She denies prior seizure history, does report once previously losing consciousness in the kitchen several years ago and was uncertain if that was a seizure or passing out. Her last drink was yesterday. She also smokes marijuana but denies any history of IV drug abuse. Related Data Home Medications ?Medication ?Instructions ?Recorded ?Confirmed omeprazole 20 mg tablet,delayed 20 mg PO DAILY PRN Gastric Reflux 05/27/20 04/08/24 release acetaminophen 500 mg tablet 1,000 mg PO Q6H PRN Pain 04/04/23 04/08/24 alendronate 70 mg tablet (Fosamax) 70 mg PO FR 04/08/24 04/08/24 Previous Rx's ?Medication ?Instructions ?Recorded metoprolol succinate 25 mg 12.5 mg (1/2 x 25 mg) PO DAILY 30 08/25/23 tablet,extended release 24 hr days #15 tabs atorvastatin 40 mg tablet 40 mg PO BEDTIME 90 days #90 tabs 09/20/23 venlafaxine 75 mg capsule,extended 75 mg PO DAILY #90 caps 01/14/24 release 24 hr magnesium oxide 400 mg (241.3 mg 400 mg PO BID #60 tabs 01/22/24 magnesium) tablet cetirizine 10 mg tablet 10 mg PO DAILY PRN for allergies 03/05/24 #90 tabs montelukast 10 mg tablet 10 mg PO DAILY #90 tabs 03/05/24 potassium chloride 10 mEq 10 meq PO DAILY #90 tabs 03/06/24 tablet,extended release amlodipine 10 mg tablet 10 mg PO DAILY 90 days #90 tabs 03/12/24 Allergies Allergy/AdvReac Type Severity Reaction Status Date / Time hydroxychloroquine Allergy Severe hives Verified 04/08/24 19:51 [Plaquenil] bupropion [From WELLBUTRIN] Allergy Intermediate HIVES Verified 04/08/24 19:51 amoxicillin Allergy Mild Rash Verified 04/08/24 19:51 tramadol Allergy Unknown hives, rash Verified 04/08/24 19:51 ENVIRONMENTAL Allergy Unknown ITCHY EYES Uncoded 04/08/24 19:51 Review of Systems 2 Review of Systems: Yes all other systems are reviewed and are negative [facility] Past Medical History Attestation statement: The following information was validated with the patient. Source: old records reviewed Medical History Hypokalemia Constipation Positive colorectal cancer screening using Cologuard test Cystitis Papanicolaou smear declined Colonoscopy refused Mammogram declined Muscle spasm Lumbar pain Supraclavicular mass Hospital discharge follow-up Hyperlipidemia GERD (gastroesophageal reflux disease) Acute hypokalemia Fall Hematoma Alcohol use disorder, mild, in early remission, abuse Alcoholism Hospital discharge follow-up Uncontrolled hypertension Abnormal EKG Hypertension, essential Breast screening Encounter for general adult medical examination with abnormal findings Anxiety, generalized Hives Surgical History Hx of hand surgery Hx of colonoscopy (08/30/11) History of right breast biopsy (10/31/11) Hx of left inguinal hernia repair (02/25/13) Hx of basal cell carcinoma excision (2011) History of left oophorectomy (09/07/11) Hx of right inguinal hernia repair (2003) Family History Family History Father Cardiac disease Mother Cardiac disease HTN (hypertension) Other Substance use disorder Social History Social History Household Members: Spouse and Children Housing: House Are you a primary patient care technician to a significant other at home: Yes () Do you presently have visiting nurse or other home services: Yes ([facility] comes for , showers [facility]) Alcohol intake: former Patient Tobacco Use Status: Former Tobacco user Tobacco use type: Cigarette Cigarette Packs Per Day: 1 Cigarettes Per Day: 20.0 Years Smoked: 20 e-Cigarette/Vaping Use: Never Used Second Hand Smoke Exposure: No Substance Use Type: Marijuana Advance Directives: No Advance Directives Information Provided: Yes Do you have a plan to hurt others: No Plan service: No Current occupational status: employed Cognitive needs: No Hearing needs: No Vision needs: No Physical Exam ED Vital Signs: Vital Signs - 24 hr 04/08/24 19:39 04/08/24 20:00 04/08/24 22:00 Temperature 98.9 F 98.3 F 98.1 F Pulse Rate 150 H 88 88 Respiratory Rate 18 16 14 Blood Pressure 154/97 H 130/80 121/69 Pulse Oximetry 98 95 92 Oxygen Delivery Method Room Air Room Air Room Air BMI result Body Mass Index 23.7 Patient is afebrile, tachycardic, and hypertensive. Const General: cooperative and other (shaking in all extremities ) Orientation/consciousness: patient oriented x3 HENMT Head: Yes normal to inspection and Yes atraumatic Eyes General: appearance normal, both eyes and all related structures Pupils: Equal, round and reactive pupils present EOM: EOMs intact bilaterally Neck Neck: Yes normal visual inspection, Yes full ROM, Yes supple and No tender Chest Chest palpation & inspection: normal inspection of the chest and normal palpation of entire chest wall Resp Effort & Inspection: normal respiratory effort, able to speak in complete sentences, no cough and no respiratory distress Auscultation: clear to auscultation bilaterally Cardio Rate: tachycardic Rhythm: regular rhythm Peripheral pulses: Peripheral pulses 2+ throughout GI Inspection: Yes normal to inspection, No Abdominal wall edema and No distended Palpation (GI): Soft to palpation, not firm, nontender, no guarding and not rigid Auscultation: normal bowel sounds Back/Spine/Pelvis Back: No back tenderness Neuro General: patient oriented x3 Cranial nerves: Yes Equal, round and reactive pupils present Course Course Course Narrative: This is an RME done by CHARLOTTE Desai: Additional HPI, ROS, PE not included below will be deferred to primary provider. 63-year-old female presents with seizure she reports she recently stopped drinking because she has not been feeling well she typically drinks asleep of hard liquor a day last drink was last night. Reports earlier today she thinks she had a seizure. She does not feel well at all. He reports she feels shaky, fatigue, malaise, myalgias and she is sweaty. Denies chest pain, shortness of breath, hallucinations. Not suicidal or homicidal Charge nurse aware of patient will try to find a room Reevaluation(s) Reevaluation #1: Patient is afebrile and tachycardic. I became aware of this patient at time of EKG - and patient was immediately placed into a room. EKG concerning of atrial fibrillation with RVR at 146BPM. Significant concern for alcohol withdrawal and new onset atrial fibrillation. Patient loaded with 10mg/kg IV Phenobarbitol. HR improved to NSR in the low 100BPM. Repeat EKG: NSR 89BPM without ischemic changes Providing 1L IVF and 500mg IV high dose thiamine. I do think patient's episode today is more fitting with a syncopal episode in the setting of alcohol withdrawal given that she did not have a post-ictal period and has full memory from waking up on the ground with her son above her. Regardless she will require admission for new onset atrial fibrillation and severe alcohol withdrawal. Plan: Admit to hospitalist Condition: Stable Reevaluation #2: Dr. Araujo: The patient received a dose of IV phenobarbital and will be admitted to the hospitalist service. Time: 23:31 Medications Administered Generic Name Dose Route Start Last Admin Trade Name Freq PRN Reason Stop Dose Admin Sodium Chloride 3 ml 04/09/24 00:00 04/08/24 23:02 0.9 % Sodium Chloride Flush 3 Ml Syringe IVFLUSH 3 ml QSHIFT SORAYA Administration Discontinued Medications Generic Name Dose Route Start Last Admin Trade Name Freq PRN Reason Stop Dose Admin Phenobarbital Sodium 520 mg/ 104 mls @ 200 mls/hr 04/08/24 20:22 04/08/24 22:05 Sodium Chloride IV 04/08/24 20:53 Infused ONCE ONE Infusion Thiamine HCl 500 mg/ Sodium 105 mls @ 210 mls/hr 04/08/24 20:24 04/08/24 21:52 Chloride IV 04/08/24 20:53 Infused ONCE ONE Infusion Sodium Chloride 1,000 mls @ 999 mls/hr 04/08/24 20:30 04/08/24 21:23 Ns IV 04/08/24 21:30 999 mls/hr .Q1H1M SORAYA Administration Potassium Chloride 40 meq 04/08/24 22:23 04/08/24 23:02 Potassium Chloride Packet 20 Meq Packet PO 04/08/24 22:24 40 meq ONCE ONE Administration Medical Decision Making Lab Data 04/08/24 21:04 04/08/24 21:04 Labs: Lab Results 04/08/24 Range/Units 21:04 WBC 20.6 H (4.8-10.8) X10*3/uL RBC 4.18 L (4.20-5.50) X10*6/uL Hgb 14.1 (12.0-16.0) g/dl Hct 39.8 (37.0-47.0) % MCV 95.2 (80.0-98.0) fL MCH 33.7 H (27.0-33.0) pg MCHC 35.4 H (31.0-35.0) g/dl RDW 14.6 (11.0-16.0) % Plt Count 388 (160-400) X10*3/uL MPV 8.3 L (9.4-12.3) fL Immature Gran % (Auto) 0.4 (0.0-0.4) % Neut % (Auto) 90.7 H (45-73) % Lymph % (Auto) 2.6 L (20-40) % [place] % (Auto) 6.1 (2-11) % Eos % (Auto) 0.0 (0-4) % Baso % (Auto) 0.2 (0-2) % Lymph # (Auto) 0.5 L (1.2-4.9) X10*3/uL [place] # (Auto) 1.3 H (0.1-1.2) X10*3/uL Eos # (Auto) 0.0 (0.0-0.4) X10*3/uL Baso # (Auto) 0.0 (0.0-0.2) X10*3/uL Abs Immat Gran (auto) 0.09 H (0.00-0.03) X10*3/uL Absolute Neuts (auto) 18.7 H (2.0-8.3) x10*3/uL Absolute Nucleated RBC 0.000 (0.0-0.012) X10*3/uL Nucleated RBC % (auto) 0.0 (0.0-0.2) /100WBC Smear Tech's Comments VERIFIED Sodium 139 (135-145) mmol/L Potassium 3.0 L (3.3-5.1) mmol/L Chloride 104 (96-108) mmol/L Carbon Dioxide 27 (22-29) mmol/L Anion Gap 11 L (12-20) BUN 8 L (9-16) mg/dL Creatinine 0.57 (0.5-1.4) mg/dL Estim Creat Clear Calc 77.8 Estimated GFR > 60 Random Glucose 167 H (60-115) mg/dL Lactic Acid 1.9 (0.5-2.0) mmol/L Calcium 8.9 (8.4-10.2) mg/dL Magnesium 1.9 (1.6-2.6) mg/dL Total Bilirubin 1.4 H (0.0-1.0) mg/dL AST 22 (5-31) U/L ALT 14 (0-31) U/L Alkaline Phosphatase 102 (39-117) U/L Total Creatine Kinase 46 (26-140) U/L Troponin I High Sens 6.4 (<3.5-17.0) ng/L Total Protein 7.9 (6.5-8.0) g/dL Albumin 4.4 (3.5-5.0) g/dL Ethyl Alcohol < 10 mg/dL Influenza Type A (PCR) NEGATIVE (Negative) Influenza Type B (PCR) NEGATIVE (Negative) RSV RNA Qual (PCR) NEGATIVE (Negative) SARS-CoV-2 RNA (RT-PCR) NEGATIVE (Negative) Critical Care Time Critical Care Time Critical Care Time: Yes Total Critical Care Time: 36 Attestation: Total critical care time: Approximately?36?minutes Due to a high probability of clinically significant, life threatening deterioration, the patient required my highest level of preparedness to intervene emergently and I personally spent this critical care time directly and personally managing the patient. This critical care time included obtaining a history; examining the patient; pulse oximetry; ordering and review of studies; arranging urgent treatment with development of a management plan; evaluation of patient's response to treatment; frequent reassessment; and, discussions with other providers. This critical care time was performed to assess and manage the high probability of imminent, life-threatening deterioration that could result in multi-organ failure. It was exclusive of separately billable procedures and treating other patients. Discharge Plan Discharge Clinical Impression: Atrial fibrillation, Alcohol withdrawal, Syncope Patient Disposition: Admitted As Inpatient
[2024-04-08 20:00] VITALS: BP 130/80; PULSE 88; RESP 16; TEMP 36.8; O2SAT 95
--- NOTE | 2024-04-08 20:24 | ECG_ITS ---
Test Reason : HEART SCREENING Blood Pressure : / mmHG Vent. Rate : 089 BPM Atrial Rate : 089 BPM P-R Int : 150 ms QRS Dur : 086 ms QT Int : 390 ms P-R-T Axes : 037 -09 -08 degrees QTc Int : 474 ms Normal sinus rhythm Normal ECG When compared with ECG of 08-APR-2024 19:59, Sinus rhythm has replaced Atrial fibrillation Vent. rate has decreased BY 57 BPM Referred By: Shelli Gallego Electronically Signed By:ELIZABETH RAGLAND
--- NOTE | 2024-04-08 21:11 | PC.NURSE ---
Pharmacy is preparing Phenobarbital drip at this time. Will administer medication to patient upon receipt. Spoke with Everette Lopez in pharmacy department.
[2024-04-08 21:12] LABS: Basophils Percent Auto 0.2 % (0-2); Hematocrit 39.8 % (37.0-47.0); Hemoglobin 14.1 g/dl (12.0-16.0); Imm Gran Abs Auto 0.09 X10*3/uL (0.00-0.03); Imm Gran Pct Auto 0.4 % (0.0-0.4); Lymphocytes Absolute Auto 0.5 X10*3/uL (1.2-4.9); Lymphocytes Percent Auto 2.6 % (20-40); MANUAL DIFF FLAG SCAN; Mean Corpuscular HGB Conc 35.4 g/dl (31.0-35.0); Mean Corpuscular Hemoglobin 33.7 pg (27.0-33.0); Mean Corpuscular Volume 95.2 fL (80.0-98.0); Mean Platelet Volume 8.3 fL (9.4-12.3); Monocytes Absolute Auto 1.3 X10*3/uL (0.1-1.2); Monocytes Percent Auto 6.1 % (2-11); Neutrophils Absolute Auto 18.7 x10*3/uL (2.0-8.3); Neutrophils Percent Auto 90.7 % (45-73); Platelet Count 388 X10*3/uL (160-400); Red Blood Count 4.18 X10*6/uL (4.20-5.50); Red Cell Distribution Width 14.6 % (11.0-16.0); SCAN SMEAR FLAG 1; White Blood Count 20.6 X10*3/uL (4.8-10.8)
--- NOTE | 2024-04-08 21:12 | PC.NURSE ---
20g IV access established in left forearm. Labs drawn and sent for analysis. Awaiting results. aware.
[2024-04-08] MEDS: Thiamine HCL 500 MG in 0.9 % Sodium Chloride 100 ML 210 MG IV (21:22)
[2024-04-08] MEDS: 0.9 % Sodium Chloride 1,000 ML 999 ML IV (21:23)
[2024-04-08 21:30] LABS: Ethanol < 10 mg/dL
[2024-04-08 21:32] LABS: Lactic Acid 1.9 mmol/L (0.5-2.0)
[2024-04-08 21:33] LABS: Alanine Aminotransferase 14 U/L (0-31); Albumin Level 4.4 g/dL (3.5-5.0); Alkaline Phosphatase 102 U/L (39-117); Anion Gap 11 (12-20); Aspartate Amino Transferase 22 U/L (5-31); Bilirubin Total 1.4 mg/dL (0.0-1.0); Blood Urea Nitrogen 8 mg/dL (9-16); Calcium 8.9 mg/dL (8.4-10.2); Carbon Dioxide 27 mmol/L (22-29); Chloride 104 mmol/L (96-108); Creatinine Clr Calc Pharmacy 77.8; Estimated Glomerular Filt Rate > 60; Glucose Random 167 mg/dL (60-115); Magnesium 1.9 mg/dL (1.6-2.6); Sodium 139 mmol/L (135-145); Total Protein 7.9 g/dL (6.5-8.0)
[2024-04-08] MEDS: PHENOBARBITAL SODIUM IV (21:33)
[2024-04-08] MEDS: SODIUM CHLORIDE 0.9% IV (21:33)
[2024-04-08 21:41] LABS: Troponin-I High Sensitivity 6.4 ng/L (<3.5-17.0)
--- NOTE | 2024-04-08 21:41 | PHA.MEDREC ---
Addendum entered by Go Contreras RPh 04/08/24 22:36: Med rec was reviewed by Benigno. Original Note: Pharmacy Consult ? Medication Reconciliation Pharmacy has completed the medication reconciliation. Spoke with patient and confirmed her medications. Patient confirmed her Alendronate 70mg tab once a week and confirmed she takes it on Fridays and took it this past Thursday 04/05. She also confirmed she is still taking the Atorvastatin 40mg tab once a day for high cholesterol and confirmed she is still filling it at [facility]. She confirmed she took her medications this morning.
[2024-04-08 21:43] LABS: SLIDE REVIEW VERIFIED
[2024-04-08 21:49] LABS: Influenza A PCR NEGATIVE (Negative); Influenza B PCR NEGATIVE (Negative); Resp Syncy Virus RNA Qual PCR NEGATIVE (Negative); SARS COV2 PCR INHOUSE NEGATIVE (Negative)
[2024-04-08 22:00] VITALS: BP 121/69; PULSE 88; RESP 14; TEMP 36.7; O2SAT 92
--- NOTE | 2024-04-08 22:18 | PC.NURSE ---
PA at bedside speaking with patient. Patient is alert & oriented, calm/cooperative. Care ongoing by this RN.
--- NOTE | 2024-04-08 22:56 | PM.IMHP ---
History of Present Illness Date of Service: 04/08/24 <Lyndsay Nicholson PA-C - Last Filed: 04/08/24 23:09> Attending physician on admission: Tonya Ortiz <FRANC Nunez Last Filed: 04/08/24 23:09> Chief Complaint: ? seizure <FRANC Nunez Last Filed: 04/08/24 23:09> Patient is a 63-year-old female with a past medical history significant for hypokalemia, alcohol use disorder, HTN, HLD, who reported to the ED today for concern for a possible seizure at 1630. She reports that she has not been feeling well x1 day with persistent nausea and vomiting. She reports that her vomit has been foamy liquid as she has not been able to eat or drink much. She denies any blood in the vomit. She feels that she vomited about 4 times today. She had 1 episode where she went to the sink in her bathroom to spit up and had a possible seizure-like episode. She reports small amount of urinary incontinence and and upper extremity convulsion witnessed by her son. She reports that she could remember before and after the episode and did not wake him with any grogginess, headache or confusion. She reports 1 other episode many years ago the was very similar in she thought it was a seizure. She does drink 1 sleeve of alcohol per day, she reports her last drink was yesterday. She denies any chest pain, shortness of breath, nausea or vomiting currently. She was found to be in AFib which then converted 1 hour later back to normal sinus rhythm, she denies any previous history of AFib. She denies any headache, confusion, auditory or visual hallucinations currently. <Lyndsay Nicholson PA-C - Last Filed: 04/08/24 23:09> Review of Systems Constitutional: Constitutional: Denies chills, Denies fatigue, Denies fever(s) and Denies headache(s) <FRANC Nunez Last Filed: 04/08/24 23:09> Eyes: Eyes: Denies change in vision <FRANC Nunez Last Filed: 04/08/24 23:09> ENT: Denies headache(s), Denies nasal congestion, Denies nasal discharge and Denies sore throat <KAYLA Nunez Last Filed: 04/08/24 23:09> Cardiovascular: Cardiovascular: Denies chest pain, Denies rapid heart rate, Denies lightheadedness and Denies dyspnea <CHARLOTTE Nunez Last Filed: 04/08/24 23:09> Respiratory: Respiratory: Denies chest congestion, Denies cough, Denies dyspnea and Denies wheezing <Lyndsay Nicholson [facility] Last Filed: 04/08/24 23:09> Gastrointestinal: Gastrointestinal: Denies coffee ground emesis, Denies constipation, Denies diarrhea, Reports nausea, Reports vomiting and Denies hematemesis <CHARLOTTE Nunez Filed: 04/08/24 23:09> Genitourinary: Genitourinary: Denies dysuria <CHARLOTTE Nunez Filed: 04/08/24 23:09> Musculoskeletal: Musculoskeletal: Denies back pain and Denies myalgias <CHARLOTTE Nunez Last Filed: 04/08/24 23:09> Integumentary/Breasts: Skin/Breast: Denies rash <KAYLA Nunez Last Filed: 04/08/24 23:09> Neurologic: Denies confusion, Denies headache(s) and Reports seizure-like activity <CHARLOTTE Nunez Last Filed: 04/08/24 23:09> Psychiatric: Psychiatric: Denies anxiety and Denies confusion <CHARLOTTE Nunez Last Filed: 04/08/24 23:09> Endocrine: Endocrine: Denies fatigue <CHARLOTTE Nunez [employer] Last Filed: 04/08/24 23:09> Hematologic/Lymphatic: Hematologic/Lymphatic: Denies easy bleeding <CHARLOTTE Nunez [employer] Last Filed: 04/08/24 23:09> Allergic/Immunologic: Allergic/Immunologic: Denies wheezing <KAYLA Nunez [employer] Last Filed: 04/08/24 23:09> [facility] Medical History: Medical History Hypokalemia Constipation Positive colorectal cancer screening using Cologuard test Cystitis Papanicolaou smear declined Colonoscopy refused Mammogram declined Muscle spasm Lumbar pain Supraclavicular mass Hospital discharge follow-up Hyperlipidemia GERD (gastroesophageal reflux disease) Acute hypokalemia Fall Hematoma Alcohol use disorder, mild, in early remission, abuse Alcoholism Hospital discharge follow-up Uncontrolled hypertension Abnormal EKG Hypertension, essential Breast screening Encounter for general adult medical examination with abnormal findings Anxiety, generalized Hives <Lyndsay Nicholson PA-C - Last Filed: 04/08/24 23:09> Functional capacity: independent ambulation <Lyndsay Nicholson PA-C - Last Filed: 04/08/24 23:09> Family History: Family History Father Cardiac disease Mother Cardiac disease HTN (hypertension) Other Substance use disorder <Lyndsay Nicholson PA-C - Last Filed: 04/08/24 23:09> Surgical History: Surgical History Hx of hand surgery Hx of colonoscopy (08/30/11) History of right breast biopsy (10/31/11) Hx of left inguinal hernia repair (02/25/13) Hx of basal cell carcinoma excision (2011) History of left oophorectomy (09/07/11) Hx of right inguinal hernia repair (2003) <Lyndsay Nicholson PA-C - Last Filed: 04/08/24 23:09> Social History: Social History Household Members: Spouse and Children Housing: House Are you a primary healthcare project manager to a significant other at home: Yes () Do you presently have visiting nurse or other home services: Yes ([facility] for , showers [facility]) Alcohol intake: former Patient Tobacco Use Status: Former Tobacco user Tobacco use type: Cigarette Cigarette Packs Per Day: 1 Cigarettes Per Day: 20.0 Years Smoked: 20 e-Cigarette/Vaping Use: Never Used Second Hand Smoke Exposure: No Substance Use Type: Marijuana Advance Directives: No Advance Directives Information Provided: Yes Do you have a plan to hurt others: No Plan service: No Current occupational status: employed Cognitive needs: No Hearing needs: No Vision needs: No <FRANC Nunez Last Filed: 04/08/24 23:09> Narrative: Drinks 1 sleeve of alcohol per day, smokes marijuana, no illicit drug use or tobacco <FRANC Nunez Last Filed: 04/08/24 23:09> Meds Allergies/Adverse reactions: Allergies Allergy/AdvReac Type Severity Reaction Status Date / Time hydroxychloroquine Allergy Severe hives Verified 04/08/24 19:51 [Plaquenil] bupropion [From WELLBUTRIN] Allergy Intermediate HIVES Verified 04/08/24 19:51 amoxicillin Allergy Mild Rash Verified 04/08/24 19:51 tramadol Allergy Unknown hives, rash Verified 04/08/24 19:51 ENVIRONMENTAL Allergy Unknown ITCHY EYES Uncoded 04/08/24 19:51 <FRANC Nunez Last Filed: 04/08/24 23:09> Active Medications: Current Medications Acetaminophen (Acetaminophen 325 Mg Tablet) 650 mg PO Q6H PRN PRN Reason: Pain, Mild (Pain Scale 1-3), fever or headache Amlodipine Besylate (Amlodipine Besylate 10 Mg Tablet) 10 mg PO DAILY [facility]; Protocol Apixaban (Apixaban 5 Mg Tablet) 5 mg PO BID [facility] Atorvastatin Calcium (Atorvastatin Calcium 40 Mg Tablet) 40 mg PO BEDTIME [facility] Calcium Carbonate (Calcium Carbonate 750 Mg Tab.Chew) 750 mg PO Q4H PRN PRN Reason: Heartburn Loratadine (Loratadine 10 Mg Tablet) 10 mg PO DAILY PRN PRN Reason: for allergies Magnesium Hydroxide (Milk Of Magnesia 30 Ml Oral.Susp) 30 ml PO DAILY PRN PRN Reason: Constipation Magnesium Oxide (Magnesium Oxide 400 Mg Tablet) 400 mg PO BID [facility] Melatonin (Melatonin 3 Mg Tablet) 6 mg PO BEDTIME PRN PRN Reason: Insomnia Metoprolol Succinate (Metoprolol Succinate Er 12.5 Mg Halftab.Er.24h) 12.5 mg PO DAILY [facility]; Protocol Montelukast Sodium (Montelukast Sodium 10 Mg Tablet) 10 mg PO DAILY [facility] Non-Formulary Medication (Potassium Chloride) 10 meq PO DAILY [facility] Omeprazole (Omeprazole 20 Mg Capsule.Dr) 20 mg PO DAILY PRN PRN Reason: Gastric Reflux Ondansetron HCl (Ondansetron Hcl 4 Mg/2 Ml Vial) 4 mg IVPUSH Q8H PRN PRN Reason: Nausea and Vomiting Pharmacy Consult (Consult Rx Etoh Phenob Im/Po) 1 each MISCELLANE ONCE PRN; Protocol PRN Reason: Consult order Phenobarbital (Phenobarbital 15 Mg Tablet) 45 mg PO BID [facility] Stop: 04/10/24 21:01 Phenobarbital (Phenobarbital 15 Mg Tablet) 15 mg PO BID [facility] Stop: 04/12/24 21:01 Phenobarbital (Phenobarbital 15 Mg Tablet) 15 mg PO DAILY [facility] Stop: 04/14/24 09:01 Sodium Chloride (0.9 % Sodium Chloride Flush 3 Ml Syringe) 3 ml IVFLUSH QSHIFT [facility] Thiamine HCl (Thiamine Hcl 100 Mg Tablet) 100 mg PO DAILY [facility] Venlafaxine HCl (Venlafaxine Hcl Er 75 Mg Cap.Er.24h) 75 mg PO DAILY [facility] <Lyndsay Nicholson PA-C - Last Filed: 04/08/24 23:09> Home medications: Home Medications ?Medication ?Instructions ?Recorded ?Confirmed ?Last Taken ?Type omeprazole 20 mg tablet,delayed 20 mg PO DAILY PRN Gastric Reflux 05/27/20 04/08/24 09/20/23 History release acetaminophen 500 mg tablet 1,000 mg PO Q6H PRN Pain 04/04/23 04/08/24 04/09/23 History alendronate 70 mg tablet (Fosamax) 70 mg PO FR 04/08/24 04/08/24 04/05/24 History <Lyndsay Nicholson PA-C - Last Filed: 04/08/24 23:09> Physical Exam Vital Signs and Narrative: Vital Signs: Last Vital Signs Temp 98.1 F 04/08/24 22:00 Pulse 88 04/08/24 22:00 Resp 14 04/08/24 22:00 BP 121/69 04/08/24 22:00 Pulse Ox 92 04/08/24 22:00 O2 Del Method Room Air 04/08/24 22:00 BMI result Body Mass Index 23.7 <Lyndsay Nicholson PA-C - Last Filed: 04/08/24 23:09> General: AOx3, no acute distress Resp: CTA bilaterally CVS: S1, S2, RRR GI: +BS, NT, no distention Skin: Warm, dry Neuro: Cranial nerves II-XII grossly intact bilaterally. Motor grossly intact bilaterally Extremities: No LE edema Psych: Appropriate affect <Lyndsay Nicholson PA-C - Last Filed: 04/08/24 23:09> Const: General: No confusion <Lyndsay Nicholson PA-C - Last Filed: 04/08/24 23:09> Orientation/consciousness: No confusion <Lyndsay Nicholson PA-C - Last Filed: 04/08/24 23:09> Neuro: General: No confusion <Lyndsay Nicholson PA-C - Last Filed: 04/08/24 23:09> Results Labs CBC and Chem 7: 04/08/24 21:04 04/08/24 21:04 <Lyndsay Nicholson PA-C - Last Filed: 04/08/24 23:09> Labs: Laboratory Results - last 24 hr 04/08/24 21:04 MCV 95.2 MCH 33.7 H MCHC 35.4 H RDW 14.6 Plt Count 388 MPV 8.3 L Immature Gran % (Auto) 0.4 Neut % (Auto) 90.7 H Lymph % (Auto) 2.6 L [place] % (Auto) 6.1 Eos % (Auto) 0.0 Baso % (Auto) 0.2 Lymph # (Auto) 0.5 L [place] # (Auto) 1.3 H Eos # (Auto) 0.0 Baso # (Auto) 0.0 Abs Immat Gran (auto) 0.09 H Absolute Neuts (auto) 18.7 H Absolute Nucleated RBC 0.000 Nucleated RBC % (auto) 0.0 Smear Tech's Comments VERIFIED Anion Gap 11 L Estim Creat Clear Calc 77.8 Estimated GFR > 60 Random Glucose 167 H Lactic Acid 1.9 Calcium 8.9 Magnesium 1.9 Total Bilirubin 1.4 H AST 22 ALT 14 Alkaline Phosphatase 102 Total Creatine Kinase 46 Troponin I High Sens 6.4 Total Protein 7.9 Albumin 4.4 Ethyl Alcohol < 10 Influenza Type A (PCR) NEGATIVE Influenza Type B (PCR) NEGATIVE RSV RNA Qual (PCR) NEGATIVE SARS-CoV-2 RNA (RT-PCR) NEGATIVE <Lyndsay Nicholson PA-C - Last Filed: 04/08/24 23:09> Assessment and Plan (1) Syncope: Status: Acute <Lyndsay Nicholson PA-C - Last Filed: 04/08/24 23:09> (2) Atrial fibrillation: Status: Acute <Lyndsay Nicholson PA-C - Last Filed: 04/08/24 23:09> (3) Alcohol abuse: Status: Acute <Lyndsay Nicholson PA-C - Last Filed: 04/08/24 23:09> (4) Alcohol withdrawal: Qualifiers: Complication of substance-induced condition: uncomplicated Qualified Code(s): F10.930 - Alcohol use, unspecified with withdrawal, uncomplicated <Lyndsay Nicholson PA-C - Last Filed: 04/08/24 23:09> Status: Acute <Lyndsay Nicholson PA-C - Last Filed: 04/08/24 23:09> (5) Hypokalemia: Status: Chronic <Lyndsay Nicholson PA-C - Last Filed: 04/08/24 23:09> Patient is a 63-year-old female with a past medical history significant for chronic hypokalemia, alcohol use disorder, HTN, HLD, who reported to the ED today for concern for a possible seizure at 1630. New onset AFib with RVR and syncopal episode -- episode does not sound consistent with seizure, no post ictal state - EKG with new AFib with RVR, rate 146, repeat EKG 1 hour later normal sinus rhythm - CHADS-VASc score 3 - start Eliquis 5 mg PO BID - check TSH tomorrow - echocardiogram - continuous cardiac monitoring Alcohol use disorder/alcohol withdrawal - monitor CIWA - phenobarb protocol - IV thiamine x1 dose then PO daily - K chronically low, given 40 mEq PO x1, continue new daily potassium - patient declines addiction med consult - continue omeprazole Chronic hypokalemia - potassium low, 3.0 - repletion as above, continue daily potassium supplement HTN - continue metoprolol, amlodipine HLD - continue statin Full code VTE prophylaxis: Eliquis Patient with a syncopal episode and alcohol withdrawal requiring admission for at least 2 midnights stay for further workup, monitoring and safe medication withdrawal. <Lyndsay Nicholson PA-C - Last Filed: 04/08/24 23:09> Patient is a 63-year-old female with a past medical history significant for chronic hypokalemia, alcohol use disorder, HTN, HLD, who reported to the ED today for concern for a possible seizure at 1630. Syncope, neurally mediated in the setting of nausea/vomiting -episode does not sound consistent with seizure, no post ictal state Paroxysmal Afib, new onset - EKG with new AFib with RVR, rate 146, repeat EKG 1 hour later normal sinus rhythm - CHADS-VASc score 3 - start Eliquis 5 mg PO BID - check TSH tomorrow - echocardiogram - continuous cardiac monitoring Alcohol use disorder/alcohol withdrawal - monitor CIWA - phenobarb protocol - IV thiamine x1 dose then PO daily - K chronically low, given 40 mEq PO x1, continue new daily potassium - patient declines addiction med consult - continue omeprazole Chronic hypokalemia - potassium as above - continue daily potassium supplement HTN - continue metoprolol, amlodipine HLD - continue statin Full code VTE prophylaxis: Lauraqukrystal Patient with a syncopal episode and alcohol withdrawal requiring admission for at least 2 midnights stay for further workup, monitoring and safe medication withdrawal. <Tonya Ortiz MD - Last Filed: 04/08/24 23:11> Quality Stroke Does the patient have a stroke diagnosis?: No <Lyndsay Nicholson PA-C - Last Filed: 04/08/24 23:09> VTE Prior VTE?: No <Lyndsay Nicholson PA-C - Last Filed: 04/08/24 23:09> VTE Risk Level:: Medical - moderate - high <Lyndsay Nicholson PA-C - Last Filed: 04/08/24 23:09> VTE Device Contraindication: Treatment Not Indicated <Lyndsay Nicholson PA-C - Last Filed: 04/08/24 23:09> VTE Drug Contraindication: N/A - Med Ordered <Lyndsay Nicholson PA-C - Last Filed: 04/08/24 23:09>
[2024-04-08] MEDS: Potassium Chloride Packet 20 MEQ PACKET 40 MEQ PO (23:02)
[2024-04-08] MEDS: 0.9 % Sodium Chloride Flush 3 ML SYRINGE IVFLUSH (23:02)
[2024-04-08 23:28] VITALS: RESP 16
[2024-04-09] VITALS (10 sets, daily range): BP systolic 100–136; BP diastolic 43–84; PULSE 74–93; RESP 16–20; TEMP 36.2–37.4; O2SAT 90–97
--- NOTE | 2024-04-09 03:47 | PC.NURSE ---
this rn assumed care of pt, pt resting in stretcher, no acute distress noted. pt normal sinus on tele 88-90bpm.
--- NOTE | 2024-04-09 04:58 | PC.NURSE ---
pt noted to be 88% on room air, pt placed on 2L nasal cannula.
[2024-04-09 05:18] LABS: MANUAL DIFF FLAG NO
[2024-04-09 05:20] LABS: Basophils Percent Auto 0.3 % (0-2); Eosinophils Absolute Auto 0.1 X10*3/uL (0.0-0.4); Eosinophils Percent Auto 0.5 % (0-4); Hematocrit 35.5 % (37.0-47.0); Hemoglobin 12.3 g/dl (12.0-16.0); Imm Gran Abs Auto 0.05 X10*3/uL (0.00-0.03); Imm Gran Pct Auto 0.4 % (0.0-0.4); Lymphocytes Absolute Auto 1.3 X10*3/uL (1.2-4.9); Lymphocytes Percent Auto 10.1 % (20-40); Mean Corpuscular HGB Conc 34.6 g/dl (31.0-35.0); Mean Corpuscular Hemoglobin 33.5 pg (27.0-33.0); Mean Corpuscular Volume 96.7 fL (80.0-98.0); Mean Platelet Volume 8.3 fL (9.4-12.3); Monocytes Absolute Auto 1.2 X10*3/uL (0.1-1.2); Monocytes Percent Auto 9.4 % (2-11); Neutrophils Absolute Auto 9.8 x10*3/uL (2.0-8.3); Neutrophils Percent Auto 79.3 % (45-73); Platelet Count 332 X10*3/uL (160-400); Red Blood Count 3.67 X10*6/uL (4.20-5.50); Red Cell Distribution Width 14.6 % (11.0-16.0); White Blood Count 12.4 X10*3/uL (4.8-10.8)
[2024-04-09 05:42] LABS: Anion Gap 12 (12-20); Blood Urea Nitrogen 7 mg/dL (9-16); Calcium 8.3 mg/dL (8.4-10.2); Carbon Dioxide 24 mmol/L (22-29); Chloride 107 mmol/L (96-108); Creatinine Clr Calc Pharmacy 71.5; Estimated Glomerular Filt Rate > 60; Glucose Random 108 mg/dL (60-115); Potassium 3.1 mmol/L (3.3-5.1); Sodium 140 mmol/L (135-145)
[2024-04-09 06:00] LABS: Thyroid Stimulating Hormone 3.14 uIU/mL (0.32-4.0)
--- NOTE | 2024-04-09 07:00 | CA_ITS ---
Transthoracic Echocardiogram Patient (Last, First, Middle): Karen Mackenzie C Gender: Female Date of : 1960 Age: 63 Procedure Date: 04/09/2024 Procedure Type: Transthoracic Echocardiogram Location: ER Height: 157.48 cm Weight: 58.51 kg BSA: 1.59 m2 Heart Rate: 82 bpm BP: 122 / 65 mmHg Community Specialist: HERMINIO Referring MD: Tonya Ortiz MD Symptoms: afib new onset Study Quality: Adequate w contrast ECG Rhythm: Sinus Conclusions: - The left ventricular systolic function is normal. The calculated ejection fraction is 65% by biplane method. - The left atrium is moderately dilated. - There is mild mitral valve regurgitation. - There is mild to moderate tricuspid valve regurgitation. - Mild pulmonary hypertension is present. Findings Procedure Information Contrast agent, definity, is being given per protocol without apparent complications. Left Ventricle Normal left ventricular cavity size. There is mildly increased left ventricular wall thickness. The left ventricular systolic function is normal. The calculated ejection fraction is 65% by biplane method. There is no evidence of regional wall motion abnormalities. Diastolic function is normal for age. Right Ventricle Normal right ventricular cavity size and systolic function. Atria The left atrium is moderately dilated. The right atrium is normal in size. Aortic Valve There is a normal trileaflet aortic valve. There is no aortic valve stenosis. There is no aortic valve regurgitation. Mitral Valve The mitral valve appears normal. There is mild mitral valve regurgitation. There is no mitral valve stenosis. Pulmonic Valve The pulmonic valve is likely normal. Tricuspid Valve There is mild to moderate tricuspid valve regurgitation. Mild pulmonary hypertension is present. Great Vessels The asc aorta is normal in size. Venous The inferior vena cava is normal in size and collapses less than 50% with inspiration. Pericardium/Pleural There is no evidence of pericardial effusion. Prior Study Comparison Changes noted compared to prior study dated: 07/14/2020. Increase in left atrial size; evidence of tricuspid regurgitation. Measurements 2D Linear Measurements IVSd: 1.04 0.6-0.9/0.6-1.0 cm LVIDd: 4.30 3.9-5.3/4.2-5.9 cm LVIDd Index: 2.70 2.4-3.2/2.2-3.1 cm/m2 LVIDs: 2.81 2.0-3.6 cm LVPWd: 1.14 0.7-1.1 cm LA Diam: 4.10 2.7-3.8/3.0-4.0 cm LAIDs Index: 2.58 1.5-2.3 cm/m2 LV Mass: 200.29 67-162/88-224 g LV Mass Index: 125.97 43-95/49-115 g/m2 LVOT Diam: 2.00 3.0+(-)1.3 cm 2D Systolic Function EF 4C: 68.40 >55% EF 2C: 60.60 >55% EF BiP: 64.50 >55% Mitral Valve MV Pk E: 0.84 MV PK A: 1.14 MV Decel Time: 211.00 E/A: 0.70 E'Lateral: 8.49 E'Medial: 7.83 E/E' Med: 10.80 E/E' Lat: 9.90 PHT: 62.00 MVA PHT: 3.55 Decel Yancey: 3.99 Aortic Valve AoV Pk Jason: 1.35 AoV Mn Jason: 0.94 AoV VTI: 0.28 AoV Pk Grad: 7.00 Aov Mn Grad: 4.00 HANK Cont.VTI: 2.62 LVOT LVOT Pk Jason: 1.15 LVOT Mn Jason: 0.74 LVOT VTI: 0.23 LVOT Pk Grad: 5.00 LVOT Mn Grad: 2.00 LVOT Diam: 2.00 LVOT Area: 3.14 Diastolic Function MV Pk E: 0.84 MV Pk A: 1.14 E/A: 0.70 E'Medial: 7.83 E/E' Med: 10.80 E' Laterial: 8.49 E/E' Lat: 9.90 Right Ventricle TAPSE (mm): 29.30 TVS' Jason: 16.30 Tricuspid Valve TR Pk Jason: 2.86 TR Pk Grad: 33.00 RA Press: 15.00 RVSP: 48.00 Great Vessels Aorta Sinus of Valsalva: 3.16 2.0-3.5 cm Ao Asc: 3.20 2.1-3.4 cm Updated in Other Vendor System with Status of Final Yves Alba MD electronically signed on 04/09/2024 11:12:55 AM with status of Final
--- NOTE | 2024-04-09 08:21 | PC.NURSE ---
patient resting quietly in ER 5, patient in normal sinus rhythm. CIWA 1, patient is alert and oriented x4, ambulatory. patient sitting up eating breakfast, requested lemonade icey, does not want pancakes.
[2024-04-09] MEDS: Montelukast Sodium 10 MG TABLET PO (08:29)
[2024-04-09] MEDS: Potassium Chloride ER 10 MEQ TABLET.ER PO (08:29)
[2024-04-09] MEDS: amLODIPine Besylate 10 MG TABLET PO (08:50)
[2024-04-09] MEDS: Potassium Chloride ER 20 MEQ TAB.ER.PRT 40 MEQ PO (08:50)
[2024-04-09] MEDS: Apixaban 5 MG TABLET PO ×2 (08:50→20:58)
[2024-04-09] MEDS: PHENobarbitaL 15 MG TABLET 45 MG PO ×2 (08:50→20:58)
[2024-04-09] MEDS: Magnesium Oxide 400 MG TABLET PO ×2 (08:50→20:59)
[2024-04-09] MEDS: Thiamine HCL 100 MG TABLET PO (08:50)
[2024-04-09] MEDS: Venlafaxine HCl ER 75 MG CAP.ER.24H PO (08:50)
[2024-04-09] MEDS: Omeprazole 20 MG CAPSULE.DR PO (08:54)
[2024-04-09] MEDS: Metoprolol Succinate ER 12.5 MG HALFTAB.ER.24H PO (09:42)
[2024-04-09] MEDS: Calcium Carbonate 750 MG TAB.CHEW PO (09:42)
--- NOTE | 2024-04-09 10:14 | P.PNIM_ITS ---
Subjective Subjective Date of Service: 04/09/24 Interval History: tremulous Physical Exam 2 Vital Signs: Vital Signs: Last Vital Signs Temp 98.4 F 04/09/24 07:44 Pulse 93 04/09/24 07:44 Resp 16 04/09/24 07:44 BP 121/84 04/09/24 07:44 Pulse Ox 94 04/09/24 07:44 O2 Del Method Room Air 04/09/24 07:44 O2 Flow Rate 2 04/09/24 06:14 BMI result Body Mass Index 23.7 General: AO X 3, tremulous, anxious Resp: CTA bilateral, no accessory muscles used CVS: S1,S2,RRR GI: soft, non tender, non distended Neuro: motor grossly intact, alert Objective Data Active Medications Acetaminophen (Acetaminophen 325 Mg Tablet) 650 mg PO Q6H PRN PRN Reason: Pain, Mild (Pain Scale 1-3), fever or headache Amlodipine Besylate (Amlodipine Besylate 10 Mg Tablet) 10 mg PO DAILY [facility]; Protocol Last Admin: 04/09/24 08:50 Dose: 10 mg Documented By: WARD Apixaban (Apixaban 5 Mg Tablet) 5 mg PO BID [facility] Last Admin: 04/09/24 08:50 Dose: 5 mg Documented By: WARD Atorvastatin Calcium (Atorvastatin Calcium 40 Mg Tablet) 40 mg PO BEDTIME [facility] Calcium Carbonate (Calcium Carbonate 750 Mg Tab.Chew) 750 mg PO Q4H PRN PRN Reason: Heartburn Last Admin: 04/09/24 09:42 Dose: 750 mg Documented By: WARD Loratadine (Loratadine 10 Mg Tablet) 10 mg PO DAILY PRN PRN Reason: for allergies Magnesium Hydroxide (Milk Of Magnesia 30 Ml Oral.Susp) 30 ml PO DAILY PRN PRN Reason: Constipation Magnesium Oxide (Magnesium Oxide 400 Mg Tablet) 400 mg PO BID [facility] Last Admin: 04/09/24 08:50 Dose: 400 mg Documented By: WARD Melatonin (Melatonin 3 Mg Tablet) 6 mg PO BEDTIME PRN PRN Reason: Insomnia Metoprolol Succinate (Metoprolol Succinate Er 12.5 Mg Halftab.Er.24h) 12.5 mg PO DAILY [facility]; Protocol Last Admin: 04/09/24 09:42 Dose: 12.5 mg Documented By: WARD Montelukast Sodium (Montelukast Sodium 10 Mg Tablet) 10 mg PO DAILY [facility] Omeprazole (Omeprazole 20 Mg Capsule.Dr) 20 mg PO DAILY PRN PRN Reason: Gastric Reflux Last Admin: 04/09/24 08:54 Dose: 20 mg Documented By: WARD Ondansetron HCl (Ondansetron Hcl 4 Mg/2 Ml Vial) 4 mg IVPUSH Q8H PRN PRN Reason: Nausea and Vomiting Pharmacy Consult (Consult Rx Etoh Phenob Im/Po) 1 each MISCELLANE ONCE PRN; Protocol PRN Reason: Consult order Phenobarbital (Phenobarbital 15 Mg Tablet) 45 mg PO BID [facility] Stop: 04/10/24 21:01 Last Admin: 04/09/24 08:50 Dose: 45 mg Documented By: WARD Phenobarbital (Phenobarbital 15 Mg Tablet) 15 mg PO BID [facility] Stop: 04/12/24 21:01 Phenobarbital (Phenobarbital 15 Mg Tablet) 15 mg PO DAILY [facility] Stop: 04/14/24 09:01 Potassium Chloride (Potassium Chloride Er 10 Meq Tablet.Er) 10 meq PO DAILY [facility] Sodium Chloride (0.9 % Sodium Chloride Flush 3 Ml Syringe) 3 ml IVFLUSH QSHIFT [facility] Last Admin: 04/09/24 07:58 Dose: Not Given Documented By: WARD Non-Admin Reason: See Note Thiamine HCl (Thiamine Hcl 100 Mg Tablet) 100 mg PO DAILY [facility] Last Admin: 04/09/24 08:50 Dose: 100 mg Documented By: WARD Venlafaxine HCl (Venlafaxine Hcl Er 75 Mg Cap.Er.24h) 75 mg PO DAILY [facility] Last Admin: 04/09/24 08:50 Dose: 75 mg Documented By: WARD Labs 04/09/24 05:14 04/09/24 05:14 Labs: Laboratory Results - last 24 hr 04/08/24 04/09/24 21:04 05:14 MCV 95.2 96.7 MCH 33.7 H 33.5 H MCHC 35.4 H 34.6 RDW 14.6 14.6 Plt Count 388 332 MPV 8.3 L 8.3 L Immature Gran % (Auto) 0.4 0.4 Neut % (Auto) 90.7 H 79.3 H Lymph % (Auto) 2.6 L 10.1 L [place] % (Auto) 6.1 9.4 Eos % (Auto) 0.0 0.5 Baso % (Auto) 0.2 0.3 Lymph # (Auto) 0.5 L 1.3 [place] # (Auto) 1.3 H 1.2 Eos # (Auto) 0.0 0.1 Baso # (Auto) 0.0 0.0 Abs Immat Gran (auto) 0.09 H 0.05 H Absolute Neuts (auto) 18.7 H 9.8 H Absolute Nucleated RBC 0.000 0.000 Nucleated RBC % (auto) 0.0 0.0 Smear Tech's Comments VERIFIED Anion Gap 11 L 12 Estim Creat Clear Calc 77.8 71.5 Estimated GFR > 60 > 60 Random Glucose 167 H 108 Lactic Acid 1.9 Calcium 8.9 8.3 L D Magnesium 1.9 Total Bilirubin 1.4 H AST 22 ALT 14 Alkaline Phosphatase 102 Total Creatine Kinase 46 Troponin I High Sens 6.4 Total Protein 7.9 Albumin 4.4 TSH 3.14 Ethyl Alcohol < 10 Influenza Type A (PCR) NEGATIVE Influenza Type B (PCR) NEGATIVE RSV RNA Qual (PCR) NEGATIVE SARS-CoV-2 RNA (RT-PCR) NEGATIVE Assessment and Plan (1) Alcohol withdrawal: Status: Acute Plan 63F PMH etoh dependence, htn, hld, mood disorder, presented with seziure Alcohol dependence with acute withdrawal and seizure Phenobarbital, monitor CIWA New onset atrial fibrillation with rapid ventricular response Likely related to withdrawal, now back in normal sinus rhythm Follow up echo Continue Toprol, started on Eliquis Acute on chronic hypokalemia Replace and monitor Hypertension Metoprolol, amlodipine Hyperlipidemia Statin DVT prophylaxis on Eliquis Full Code reason for continued hospitalization: Still having withdrawal Quality Stroke Does the patient have a stroke diagnosis?: No VTE Prior VTE?: No VTE Risk Level:: Medical - moderate - high VTE Device Contraindication: Treatment Not Indicated VTE Drug Contraindication: N/A - Med Ordered
--- NOTE | 2024-04-09 13:47 | MHC.CM.PN ---
Imm 04/09/24, Pt lives with her and son, she has MOW from [facility], and is looking into more services from them, task submitted. PCP confirmed: Ros Lunsford. HCP discussed, pt. declined to complete one. No DME. Pt. can arranged a ride home at [place]. DCP: home, self care. CM to follow for DC needs.
--- NOTE | 2024-04-09 15:51 | PC.NURSE ---
patient resting quietly in ED 7 n stretcher. patient CIWA 2 due to new anxiety, patient states she is bored. patient is alert and oriented x4, ambulatory, able to make needs known. patient states she ate some of her lunch, gave patient chocolate ice cream as requested
[2024-04-09] MEDS: 0.9 % Sodium Chloride Flush 3 ML SYRINGE IVFLUSH ×2 (16:27→23:43)
[2024-04-09] MEDS: Melatonin 3 MG TABLET 6 MG PO (20:59)
[2024-04-09] MEDS: Atorvastatin Calcium 40 MG TABLET PO (20:59)
[2024-04-10 03:56] VITALS: BP 141/89; PULSE 71; RESP 20; TEMP 36.8; O2SAT 93
[2024-04-10 07:12] VITALS: BP 128/74; PULSE 72; RESP 16; TEMP 36.8; O2SAT 94
[2024-04-10 07:17] LABS: Hematocrit 41.3 % (37.0-47.0); Hemoglobin 14.3 g/dl (12.0-16.0); Mean Corpuscular HGB Conc 34.6 g/dl (31.0-35.0); Mean Corpuscular Hemoglobin 33.6 pg (27.0-33.0); Mean Corpuscular Volume 96.9 fL (80.0-98.0); Mean Platelet Volume 8.4 fL (9.4-12.3); Platelet Count 376 X10*3/uL (160-400); Red Blood Count 4.26 X10*6/uL (4.20-5.50); Red Cell Distribution Width 14.4 % (11.0-16.0); White Blood Count 11.1 X10*3/uL (4.8-10.8)
[2024-04-10 07:34] LABS: Alanine Aminotransferase 16 U/L (0-31); Albumin Level 4.3 g/dL (3.5-5.0); Alkaline Phosphatase 95 U/L (39-117); Anion Gap 13 (12-20); Aspartate Amino Transferase 26 U/L (5-31); Bilirubin Direct 0.5 mg/dL (0.0-0.5); Bilirubin Total 1.7 mg/dL (0.0-1.0); Blood Urea Nitrogen 9 mg/dL (9-16); Calcium 8.6 mg/dL (8.4-10.2); Carbon Dioxide 24 mmol/L (22-29); Chloride 104 mmol/L (96-108); Creatinine Clr Calc Pharmacy 79.1; Estimated Glomerular Filt Rate > 60; Glucose Random 97 mg/dL (60-115); Magnesium 2.2 mg/dL (1.6-2.6); Potassium 3.5 mmol/L (3.3-5.1); Sodium 137 mmol/L (135-145); Total Protein 7.7 g/dL (6.5-8.0)
[2024-04-10] MEDS: Thiamine HCL 100 MG TABLET PO (07:39)
[2024-04-10] MEDS: Potassium Chloride ER 10 MEQ TABLET.ER PO (07:39)
[2024-04-10] MEDS: Venlafaxine HCl ER 75 MG CAP.ER.24H PO (07:39)
[2024-04-10] MEDS: amLODIPine Besylate 10 MG TABLET PO (07:39)
[2024-04-10] MEDS: Magnesium Oxide 400 MG TABLET PO (07:39)
[2024-04-10] MEDS: Montelukast Sodium 10 MG TABLET PO (07:39)
[2024-04-10] MEDS: Metoprolol Succinate ER 12.5 MG HALFTAB.ER.24H PO (07:39)
[2024-04-10] MEDS: PHENobarbitaL 15 MG TABLET 45 MG PO (07:40)
[2024-04-10] MEDS: 0.9 % Sodium Chloride Flush 3 ML SYRINGE IVFLUSH (07:40)
--- NOTE | 2024-04-10 08:31 | P.DS_ITS ---
DS: Providers Provider Date of Service: 04/10/24 Date of admission: 04/08/24 22:43 Date of discharge: 04/10/24 Primary care physician: Ros Lunsford MD Consults: 04/09/24 16:42 Addiction Medicine Routine Consulting Provider: Addiction Covering Reason for consultation: alcohol Consult to Wound Care Routine Reason for consultation: ST right elbow DS: Diagnosis Discharge Diagnosis (1) Alcohol withdrawal: Status: Acute DS: Summary Hospital Course Hospital Course: from initial hpi: 63-year-old female with a past medical history significant for hypokalemia, alcohol use disorder, HTN, HLD, who reported to the ED today for concern for a possible seizure at 1630. She reports that she has not been feeling well x1 day with persistent nausea and vomiting. She reports that her vomit has been foamy liquid as she has not been able to eat or drink much. She denies any blood in the vomit. She feels that she vomited about 4 times today. She had 1 episode where she went to the sink in her bathroom to spit up and had a possible seizure-like episode. She reports small amount of urinary incontinence and and upper extremity convulsion witnessed by her son. She reports that she could remember before and after the episode and did not wake him with any grogginess, headache or confusion. She reports 1 other episode many years ago the was very similar in she thought it was a seizure. She does drink 1 sleeve of alcohol per day, she reports her last drink was yesterday. She denies any chest pain, shortness of breath, nausea or vomiting currently. She was found to be in AFib which then converted 1 hour later back to normal sinus rhythm, she denies any previous history of AFib. She denies any headache, confusion, auditory or visual hallucinations currently hospital course: Patient was admitted for alcohol dependence with acute withdrawal and seizure. Was treated with phenobarbital protocol and CIWA improved. Will be discharged on 3 more doses of Librium. Was given counseling and abstinence recommended. Patient was briefly in atrial fibrillation with rapid ventricular response, converted to sinus rhythm and remained in sinus rhythm throughout rest of hospitalization. Echo was unremarkable. Initially started on anticoagulation, however, this appears to be lone AFib associated with alcohol withdrawal, risks of anticoagulation appear to outweigh benefits at this time and will hold off on further anticoagulation. For acute on chronic hypokalemia received replacement. For hypertension was continued on metoprolol and amlodipine. For hyperlipid emia was continued on statin. Patient is feeling better will be discharged home. Time Attestation Discharge Coordination Time (in mins): 32 Quality: Safe Use of Opioids Does Pt have an Active Cancer Diagnosis on the Problem List?: No Quality: Stroke Does the patient have a stroke diagnosis?: No Physical Exam Vital Signs: Vital Signs: Last Vital Signs Temp 98.2 F 04/10/24 07:12 Pulse 72 04/10/24 07:12 Resp 16 04/10/24 07:12 BP 128/74 04/10/24 07:12 Pulse Ox 94 04/10/24 07:12 O2 Del Method Room Air 04/10/24 07:12 O2 Flow Rate 2 04/09/24 06:14 BMI result Body Mass Index 23.7 General: AO X 3, no acute distress Resp: CTA bilateral, no accessory muscles used CVS: S1,S2,RRR GI: soft, non tender, non distended Neuro: motor grossly intact, alert, mild tremor Psych: appropriate affect, appropriate insight DS: Data Data Completed and Pending Completed studies during hospitalization [Text1]: Procedures Detoxification Services for Substance Abuse Treatment (06/19/23) Labs on day of discharge: Laboratory Results - last 24 hr 04/10/24 07:00 WBC 11.1 H RBC 4.26 Hgb 14.3 Hct 41.3 MCV 96.9 MCH 33.6 H MCHC 34.6 RDW 14.4 Plt Count 376 MPV 8.4 L Absolute Nucleated RBC 0.000 Nucleated RBC % (auto) 0.0 Sodium 137 Potassium 3.5 Chloride 104 Carbon Dioxide 24 Anion Gap 13 BUN 9 Creatinine 0.56 Estim Creat Clear Calc 79.1 Estimated GFR > 60 Random Glucose 97 Calcium 8.6 Magnesium 2.2 Total Bilirubin 1.7 H Direct Bilirubin 0.5 AST 26 ALT 16 Alkaline Phosphatase 95 Total Protein 7.7 Albumin 4.3 Discharge Plan Discharge Anticipated Discharge Date/Time: 04/10/24 08:27 Patient Disposition: Home, Self-Care Discharge Diagnosis: etoh withdrawal Referrals: Ros Lunsford MD [Primary Care Provider] - 1 Week Discharge Medications: New chlordiazepoxide HCl 25 mg capsule 50 mg PO BID Qty: 6 0RF Continued atorvastatin 40 mg tablet 40 mg PO BEDTIME 90 Days Qty: 90 0RF venlafaxine 75 mg capsule,extended release 24hr 75 mg PO DAILY Qty: 90 0RF magnesium oxide 400 mg (241.3 mg magnesium) tablet 400 mg PO BID Qty: 60 3RF potassium chloride 10 mEq tablet extended release 10 meq PO DAILY Qty: 90 0RF amlodipine 10 mg tablet 10 mg PO DAILY 90 Days Qty: 90 0RF alendronate [Fosamax] 70 mg tablet 70 mg PO FR acetaminophen 500 mg Tablet 1,000 mg PO Q6H PRN (Reason: Pain) omeprazole 20 mg tablet,delayed release (DR/EC) 20 mg PO DAILY PRN (Reason: Gastric Reflux) metoprolol succinate 25 mg tablet extended release 24 hr 12.5 mg PO DAILY 30 Days Qty: 15 4RF cetirizine 10 mg tablet 10 mg PO DAILY PRN (Reason: for allergies) Qty: 90 0RF montelukast 10 mg tablet 10 mg PO DAILY Qty: 90 0RF Discharge Orders: Discharge Order (Routine); Ordered 04/10/24 Ordered By: Carlos Escobedo Diet: Advance to usual diet Activity on Discharge: As tolerated Stand Alone Forms: Patient Portal Discharge page Print Language: Macanese Care Plan Goals: Recovery Health Concerns: Alcohol dependence Plan of Treatment: 3 more doses of Librium, avoid alcohol Assessment: See above
--- NOTE | 2024-04-10 09:12 | MHC.RECOVRN ---
AUDIT-C Brief Intervention Pt had positive screen for unhealthy alcohol use on admission. Attempted to meet with pt to discuss alcohol use and offer resources, pt declined.
--- NOTE | 2024-04-10 09:13 | MHC.CM.PN ---
Pt has been medically cleared for DC, she will go home via private transport, plan is self care.
[2024-04-10] MEDS: Calcium Carbonate 750 MG TAB.CHEW PO (10:14)
[2024-04-10] MEDS: Omeprazole 20 MG CAPSULE.DR PO (10:14)
== END 2024-04-10 11:16 | disposition home or self-care (01) | DRG 897 ==
LOC: HO.ED 21:12 → HO.EDOVER 22:48 → HO.IMC 04-09 15:44
PROVIDERS: Emergency Medicine; Physician Assistant; Admitting Provider Student in an Organized Health Care Education/Training Program; Emergency Provider Emergency Medicine; PCP Internal Medicine; Visit Provider Internal Medicine
DX: F10.239 Alcohol dependence with withdrawal, unspecified (principal); I48.0 Paroxysmal atrial fibrillation; E87.6 Hypokalemia; E78.5 Hyperlipidemia, unspecified; R56.9 Unspecified convulsions; I10 Essential (primary) hypertension; Z71.41 Alcohol abuse counseling and surveillance of alcoholic; Z20.822 Contact with and (suspected) exposure to COVID-19; Z87.891 Personal history of nicotine dependence; Z79.899 Other long term (current) drug therapy
CPT/HCPCS: 0241U; 36415; 80048; 80053; 80076; 80307; 82550; 83605; 83735; 84443; 84484; 85025; 85027; 93005; 93306; 99285; J2560; J3411; Q9957

== ENCOUNTER → 2024-04-08 19:42 | Outpatient (BNV) | payer MEDICARE, BC, SELFPAY | PROVIDERS: Admitting Provider Student in an Organized Health Care Education/Training Program; Emergency Provider Emergency Medicine; PCP Internal Medicine; Visit Provider Internal Medicine | DX: R56.9 Unspecified convulsions (principal); I48.91 Unspecified atrial fibrillation; R94.31 Abnormal electrocardiogram [ECG] [EKG]; I49.8 Other specified cardiac arrhythmias | CPT/HCPCS: 93010 ==

== ENCOUNTER 2024-04-08 22:43 | Outpatient (BNV) | payer MEDICARE, BC, SELFPAY | END 2024-04-09 07:00 | PROVIDERS: Admitting Provider Student in an Organized Health Care Education/Training Program; Emergency Provider Emergency Medicine; PCP Internal Medicine; Visit Provider Internal Medicine | DX: I36.1 Nonrheumatic tricuspid (valve) insufficiency (principal); I34.0 Nonrheumatic mitral (valve) insufficiency; I27.20 Pulmonary hypertension, unspecified | CPT/HCPCS: 93306 ==

== ENCOUNTER → 2024-04-08 22:43 | Outpatient (BNV) | payer MEDICARE, BC, SELFPAY | PROVIDERS: Admitting Provider Student in an Organized Health Care Education/Training Program; Emergency Provider Emergency Medicine; PCP Internal Medicine; Visit Provider Physician Assistant | DX: R55 Syncope and collapse (principal); I48.91 Unspecified atrial fibrillation; F10.930 Alcohol use, unspecified with withdrawal, uncomplicated; E87.6 Hypokalemia | CPT/HCPCS: 99222; 99232; 99239 ==

== ENCOUNTER 2024-05-14 11:50 | Outpatient (AMB) | payer MEDICARE, BC, SELFPAY ==
[2024-05-14 11:55] VITALS: BP 138/76; PULSE 98; O2SAT 96; BMI 24.2
--- NOTE | 2024-05-14 11:55 | A.OFFPC_ITS ---
Vital Signs 05/14/24 11:55 Height 5 ft 2 in Weight 132 lb 8 oz BMI 24.2 BP 138/76 Blood Pressure Location Rt brachial Position Sitting Pulse 98 Pulse Source Pulse Oximeter Pulse Oximetry (%) 96 Oxygen Delivery Method Room Air Intake Visit Reasons: med management, ?seizure med/etoh Allergies hydroxychloroquine [Plaquenil] Allergy (Severe, Verified 05/14/24 11:56) hives bupropion [From WELLBUTRIN] Allergy (Intermediate, Verified 05/14/24 11:56) HIVES amoxicillin Allergy (Mild, Verified 05/14/24 11:56) Rash tramadol Allergy (Unknown, Verified 05/14/24 11:56) hives, rash ENVIRONMENTAL Allergy (Unknown, Uncoded 04/08/24 19:51) ITCHY EYES Medication List - Last Reconciled 05/14/24 by Ros Lunsford MD acetaminophen 1,000 mg PO Q6H PRN alendronate (Fosamax) 70 mg PO FR amlodipine 10 mg PO DAILY 90 days atorvastatin 40 mg PO BEDTIME 90 days cetirizine 10 mg PO DAILY PRN chlordiazepoxide HCl 50 mg (2 x 25 mg) PO BID magnesium oxide 400 mg PO BID metoprolol succinate ER 12.5 mg (1/2 x 25 mg) PO DAILY 30 days montelukast 10 mg PO DAILY omeprazole 20 mg PO DAILY PRN potassium chloride ER 10 mEq PO DAILY venlafaxine ER 75 mg PO DAILY Tobacco use date assessed: 05/14/24 Fall risk assessment: 1 Fall in past year Last assessed Fall Risk: 05/14/24 Dental Screening Dental Screen Date: 05/14/24 Did you have a dental visit in the last 12 months?: No Did you have a dental problem in the last 6 months where you did not have access to dental care?: No Was dental information given to patient?: Patient has dentist HPI med management, ?seizure med/etoh HPI Details - The patient is a 63-year-old female pr esenting with depression, anxiety, continued to have alcohol use, patient have a long history of alcohol abuse and mood disorder along with severe osteoporosis and chronic back pain - Syncope event in March with symptom s of coughing, phlegm production, feeling hot, followed by gagging and collapse; event witnessed by son. Syncope suspected, advised neurologist consult; patient declined. - Depression persists, exacerbated by ca regiving responsibilities. Regularly attends AA meetings but reports crying daily. - Reports alcohol relapse; had seizure a ssociated with potential alcohol withdrawal. - Osteoporosis confirmed with last bone density showing severe osteoporosis (T- score -3.6). - Ongoing essential hypertension, hyperl ipidemia, GERD, and chronic kidney issues. Previously started on Librium for alcohol cessation. In emergency room in March when patient presented with syncope only 6 tablets Medications - Amlodipine 10 mg for hypertension - Atorvastatin 40 mg for hyperlipidemia - Cetirizine 10 mg for allergic rhinitis - Fosamax (Alendronate) for osteoporosis - Venlafaxine for anxiety - Omeprazole for GERD - Montelukast for allergies - Topiramate (Topamax) as mood stabilize r Problem List - Major Depressive Disorder - Generalized Anxiety Disorder - Alcohol Use Disorder - Syncope - Osteoporosis - Essential Hypertension - Hyperlipidemia - Gastroesophageal Reflux Disease (GERD) - Allergic Rhinitis - Chronic Kidney Disease (not explicitly diagnosed but kidney specialist consulted) - Seizure (not confirmed; differential d iagnosis includes syncope due to coughing) Diagnostic results - Labs from March: No anemia, normal electrolytes - Bone density from July of last year: Severe osteoporosis with a score of minus 3.6 [place] of Care - Son lives with the patient, occasional ly helps with household tasks and caregiving. - has seen industrial plant custodian but do not want to see them anymore - declined to see psychiatrist Patient Instructions - Abstain from alcohol consumption to av oid withdrawal-related complications. - Continue current medications for hyper tension, hyperlipidemia, osteoporosis, GERD, and allergies. - Resume Topiramate twice daily as presc ribed for mood stabilization. - Engage in low-impact weight-bearing ex ercises for osteoporosis management. - Address financial and insurance concer ns with provider for potential assistance. Review of Systems - Psychological: Reports depression, anx iety, daily crying - Neurological: Reports syncope event - Respiratory: Reports coughing and phle gm production - Musculoskeletal: Reports chronic back pain associated with osteoporosis - Gastrointestinal: Reports previous JESI D General: No fever no chills neurological: No headaches no dizziness ear nose throat: No sore throat no hearing difficulty no ear pain cardiovascular: No syncope, no chest pain, no palpitations endocrine: No polyuria polydipsia no heat intolerance genitourinary: No dysuria skin: No new complaints Physical Exam general: No acute distress HEENT: No acute findings neck: Supple respiratory system: Able to talk in full sentences, no audible wheeze, no stridor cardiovascular: S1-S2 gastrointestinal: No pain extremities: No new findings 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: Alert awake oriented x3 motor sensory intact skin: Normal turgor PFSH Medical History Hypokalemia Constipation Positive colorectal cancer screening using Cologuard test Cystitis Papanicolaou smear declined Colonoscopy refused Mammogram declined Muscle spasm Lumbar pain Supraclavicular mass Hospital discharge follow-up Hyperlipidemia GERD (gastroesophageal reflux disease) Acute hypokalemia Fall Hematoma Alcohol use disorder, mild, in early remission, abuse Alcoholism Hospital discharge follow-up Uncontrolled hypertension Abnormal EKG Hypertension, essential Breast screening Encounter for general adult medical examination with abnormal findings Anxiety, generalized Hives Surgical History Hx of hand surgery Hx of colonoscopy (08/30/11) History of right breast biopsy (10/31/11) Hx of left inguinal hernia repair (02/25/13) Hx of basal cell carcinoma excision (2011) History of left oophorectomy (09/07/11) Hx of right inguinal hernia repair (2003) Family History Father Cardiac disease Mother Cardiac disease HTN (hypertension) Other Substance use disorder Social History Household Members: Family Housing: House Are you a primary health care manager to a significant other at home: Yes () Do you presently have visiting nurse or other home services: Yes (NM comes for , showers [facility]) Alcohol intake: current Alcohol intake frequency: 3 or more drinks per day Al cohol type: hard liquor Patient Tobacco Use Status: Former Tobacco user Tobacco use type: Cigarette Cigarette Packs Per Day: 1 Cigarettes Per Day: 20.0 Years Smoked: 20 e-Cigarette/Vaping Use: Never Used Second Hand Smoke Exposure: No Substance Use Type: Marijuana service: No Current occupational status: employed Cognitive needs: No Hearing needs: No Vision needs: No Questionnaire PHQ-9 Over the last 2 weeks, how often have you been bothered by any of the following problems? 1. Little interest or pleasure in doing things: several days 2. Feeling down, depressed, or hopeless: several days 3. Trouble falling or staying asleep, or sleeping too much: several days 4. Feeling tired or having little energy: several days 5. Poor appetite or overeating: several days 6. Feeling bad about yourself - or that you are a failure or have let yourself or your family down: not at all 7. Trouble concentrating on things, such as reading the newspaper or watching television: not at all 8. Moving or speaking so slowly that other people could have noticed. Or the opposite - being so fidgety or restless that you have been moving around a lot more than usual: not at all 9. Thoughts that you would be better off or of hurting yourself in some way: not at all Total score: 5 Depression Screening Interpretation: Negative Depression Screening Done: Yes 09258 - PHQ-9 Billing: Yes Source: Developed by Drs. Sandeep Fletcher, Karen Fonseca, Adan Calle and colleagues, with an educational la from [employer]. Thrive Questionnaire Date Thrive assessed: 05/14/24 I am a: Patient What is your living situation today?: I have a steady place to live Within the past 12 months, did the food you bought not last and you didn't have the money to get more?: Never true Within the past 12 months, did you worry whether your food would run out before you got money to buy more?: Never true Do you have trouble paying for medicines?: No Do you have trouble getting transportation to medical appointments?: No Do you have trouble paying your heating and electricity bill?: No Do you have trouble taking care of your child, family member or friend?: No Do you have trouble with day-to-day activities such as bathing, preparing meals, shopping, managing finances, etc.?: No Are you currently unemployed and looking for a job?: No Are you interested in more education?: No Please select the resources that you would like help with: None Currently or been in a relationship where the following occur: No concerns reported THRIVE Score: 0 AUDIT C Alcohol Use Questionnaire (AUDIT-C) 1. How often do you have a drink containing alcohol?: Monthly or less 2. How many drinks containing alcohol do you have on a typical day when you are drinking?: 1 or 2 3. How often do you have six or more drinks on one occasion?: Never Total Score: 1 Score Reviewed/Action Taken: Yes RENEE-7 AMB Questionnaire RENEE-7 Date RENEE - 7 assessed: 05/14/24 Feeling nervous, anxious, or on edge: 0 = Not at all Not being able to stop or control worryin = Not at all Worrying too much about different things: 0 = Not at all Trouble relaxin = Not at all Being so restless that it is hard to sit still: 0 = Not at all Becoming easily annoyed or irritable: 0 = Not at all Feeling afraid as if something awful might happen: 0 = Not at all Total RENEE-7 score (0-4 normal; 5-9 mild; 10-14 moderate; 15-21 severe): 0 Source: Developed by Drs. Sandeep Fletcher, Karen Fonseca, Adan Calle and colleagues, with an educational la from [employer]. RENEE-7 Assessment Billing RENEE-7 Assessment Tool: RENEE-7 Assessment 96417 Physical exam (Primary Care) Vital Signs: Last Vital Signs Pulse 98 05/14/24 11:55 BP 138/76 05/14/24 11:55 Pulse Ox 96 05/14/24 11:55 Oxygen Delivery Method Room Air 05/14/24 11:55 BMI result Body Mass Index 24.2 Tobacco/Smoking Status: Tobacco use Status Tobacco use date assessed 05/14/24 05/14/24 11:59 Patient Tobacco Use Status Former Tobacco user 05/14/24 11:56 Tobacco use type Cigarette 05/14/24 11:56 e-Cigarette/Vaping Use Never Used 05/14/24 11:56 PHQ-9: PHQ-9 Score PHQ-9: Total score 5 05/14/24 12:17 Depression Screening Interpretation: Negative Thrive Assessment: Date of Thrive Assessment Date Thrive assessed 05/14/24 05/14/24 11:59 Currently or been in a relationship where the following occur: No concerns reported Coding Level of Care Code Est Pt Level 4 (04810) Diagnoses Hypertension, essential I10 Lipid disorder E78.9 Environmental allergies Z91.09 Anxiety, generalized F41.1 History of vertebral fracture Z87.81 Alcohol use disorder, severe, dependence F10.20 Severe episode of recurrent major depressive disorder, without psychotic features F33.2 Psychotic features: without psychotic features Stress at home F43.9 Mood disorder F39 Additional Codes RENEE-7 Assessment Billing - RENEE-7 Assessment Tool: RENEE-7 Assessment [id number] ([id number]) PHQ-9 - 35831 - PHQ-9 Billing: Yes ([id number]) Assessment & Plan Assessment & Plan (1) Hypertension, essential: Code(s): I10 - Essential (primary) hypertension Category: Medical (2) Lipid disorder: Code(s): E78.9 - Disorder of lipoprotein metabolism, unspecified Category: Medical (3) Environmental allergies: Code(s): Z91.09 - Other allergy status, other than to drugs and biological substances Category: Medical (4) Anxiety, generalized: Code(s): F41.1 - Generalized anxiety disorder Category: Medical (5) History of vertebral fracture: Code(s): Z87.81 - Personal history of (healed) traumatic fracture Category: Medical (6) Alcohol use disorder, severe, dependence: Code(s): F10.20 - Alcohol dependence, uncomplicated Category: Medical (7) Depression, major, severe recurrence: Code(s): F33.2 - Major depressive disorder, recurrent severe without psychotic features Category: Medical Qualifiers: Psychotic features: without psychotic features Qualified Code(s): F33.2 - Major depressive disorder, recurrent severe without psychotic features (8) Stress at home: Code(s): F43.9 - Reaction to severe stress, unspecified Category: Social Hx (9) Mood disorder: Code(s): F39 - Unspecified mood [affective] disorder Category: Medical Plan - The patient is a 63-year-old female presenting with depression, anxiety, continued to have alcohol use, patient have a long history of alcohol abuse and mood disorder along with severe osteoporosis and chronic back pain - Syncope event in March with symptoms of coughing, phlegm production, feeling hot, followed by gagging and collapse; event witnessed by son. Syncope suspected, advised neurologist consult; patient declined. - Depression persists, exacerbated by caregiving responsibilities. Regularly attends AA meetings but reports crying daily. - Reports alcohol relapse; had seizure associated with potential alcohol withdrawal. - Osteoporosis confirmed with last bone density showing severe osteoporosis (T- score -3.6). - Ongoing essential hypertension, hyperlipidemia, GERD, and chronic kidney issues. Previously started on Librium for alcohol cessation. In emergency room in March when patient presented with syncope only 6 tablets Medications - Amlodipine 10 mg for hypertension - Atorvastatin 40 mg for hyperlipidemia - Cetirizine 10 mg for allergic rhinitis - Fosamax (Alendronate) for osteoporosis - Venlafaxine for anxiety - Omeprazole for GERD - Montelukast for allergies - Topiramate (Topamax) as mood stabilizer Problem List - Major Depressive Disorder - Generalized Anxiety Disorder - Alcohol Use Disorder - Syncope - Osteoporosis - Essential Hypertension - Hyperlipidemia - Gastroesophageal Reflux Disease (GERD) - Allergic Rhinitis - Chronic Kidney Disease (not explicitly diagnosed but kidney specialist consulted) - Seizure (not confirmed; differential diagnosis includes syncope due to coughing) Diagnostic results - Labs from March: No anemia, normal electrolytes - Bone density from July of last year: Severe osteoporosis with a score of minus 3.6 [place] of Care - Son lives with the patient, occasionally helps with household tasks and caregiving. - has seen industrial plant custodian but do not want to see them anymore - declined to see psychiatrist Patient Instructions - Abstain from alcohol consumption to avoid withdrawal-related complications. - Continue current medications for hypertension, hyperlipidemia, osteoporosis, GERD, and allergies. - Resume Topiramate twice daily as prescribed for mood stabilization. - Engage in low-impact weight-bearing exercises for osteoporosis management. - Address financial and insurance concerns with provider for potential assistance. Medications: Refilled topiramate 25 mg PO BID 90 days 180 tabs 0RF
== END 2024-05-14 12:56 | disposition home or self-care (01) ==
PROVIDERS: PCP Internal Medicine; Visit Provider Internal Medicine
DX: I10 Essential (primary) hypertension (principal); E78.9 Disorder of lipoprotein metabolism, unspecified; Z91.09 Other allergy status, other than to drugs and biological substances; F41.1 Generalized anxiety disorder; Z87.81 Personal history of (healed) traumatic fracture; F10.20 Alcohol dependence, uncomplicated; F33.2 Major depressive disorder, recurrent severe without psychotic features; F43.9 Reaction to severe stress, unspecified; F39 Unspecified mood [affective] disorder

== ENCOUNTER → 2024-05-14 11:50 | Outpatient (BNVA) | payer MEDICARE, BC, SELFPAY | PROVIDERS: PCP Internal Medicine; Visit Provider Internal Medicine | DX: I10 Essential (primary) hypertension (principal); E78.9 Disorder of lipoprotein metabolism, unspecified; F41.1 Generalized anxiety disorder; F10.20 Alcohol dependence, uncomplicated; Z91.09 Other allergy status, other than to drugs and biological substances; Z87.81 Personal history of (healed) traumatic fracture; F33.2 Major depressive disorder, recurrent severe without psychotic features; F43.9 Reaction to severe stress, unspecified; F39 Unspecified mood [affective] disorder | CPT/HCPCS: 96127; 99212 ==

== ENCOUNTER 2024-08-12 10:51 | Emergency (ER) | payer OTHER, SELFPAY ==
--- NOTE | 2024-08-12 | ECG_ITS ---
Test Reason : CHEST PAIN Blood Pressure : */* mmHG Vent. Rate : 91 BPM Atrial Rate : 91 BPM P-R Int : 164 ms QRS Dur : 84 ms QT Int : 380 ms P-R-T Axes : 22 -7 -13 degrees QTcB Int : 467 ms Normal sinus rhythm Normal ECG When compared with ECG of 08-Apr-2024 20:51, No significant change was found Referred By: Generic ED Physician Electronically Signed By: ELIZABETH RAGLAND
--- NOTE | ~2024-08-12 | CT_ITS ---
CLINICAL HISTORY: ? PE CT angiography chest using contrast. 3-D postprocessing Comparison: None Findings: There is good opacification of the main, right and left pulmonary arteries. No CT evidence of pulmonary embolism. Normal caliber thoracic aorta and great vessels. Heart size within normal limits. RV/LV ratio normal. Shotty mediastinal lymph nodes. No lymphadenopathy. Lung echavarria are normally expanded. Bibasilar atelectasis and or infiltrates. No pneumothorax, pleural effusions, pleural plaques or calcifications. No thyroid nodules demonstrated. No chest wall masses. No axillary adenopathy. Small sliding hiatal hernia. Hepatic steatosis. No radiopaque gallstones. Increased stool burden. Two subcentimeter exophytic lesion midpole left kidney correlate with renal ultrasound. Posterior fusion with intrapedicular screws lower thoracic vertebra. Post vertebroplasty T7 vertebra. No acute osseous abnormalities. Impression: 1. No CT evidence of pulmonary embolus. 2. Normal caliber thoracic aorta. 3. Basilar atelectasis versus infiltrates. No lymphadenopathy or pleural effusions. 4. Ancillary findings as described This document has been electronically signed by: Gordon Carroll MD on 08/12/2024 12:52:25
[2024-08-12 11:01] VITALS: BP 147/83; BP 164/77; PULSE 105; PULSE 96; RESP 17; TEMP 36.8; O2SAT 93; O2SAT 98; BMI 25.1
[2024-08-12 11:18] VITALS: O2SAT 90; O2SAT 95
[2024-08-12 11:19] LABS: MANUAL DIFF FLAG NO
[2024-08-12 11:20] LABS: Basophils Percent Auto 0.4 % (0-2); Eosinophils Absolute Auto 0.1 X10*3/uL (0.0-0.4); Eosinophils Percent Auto 1.3 % (0-4); Hematocrit 45.9 % (37.0-47.0); Hemoglobin 15.4 g/dl (12.0-16.0); Imm Gran Abs Auto 0.03 X10*3/uL (0.00-0.03); Imm Gran Pct Auto 0.3 % (0.0-0.4); Lymphocytes Absolute Auto 0.7 X10*3/uL (1.2-4.9); Lymphocytes Percent Auto 6.4 % (20-40); Mean Corpuscular HGB Conc 33.6 g/dl (31.0-35.0); Mean Corpuscular Hemoglobin 30.9 pg (27.0-33.0); Mean Platelet Volume 8.8 fL (9.4-12.3); Monocytes Percent Auto 9.4 % (2-11); Neutrophils Percent Auto 82.2 % (45-73); Platelet Count 490 X10*3/uL (160-400); Red Blood Count 4.99 X10*6/uL (4.20-5.50); Red Cell Distribution Width 14.1 % (11.0-16.0)
[2024-08-12 11:37] LABS: Alanine Aminotransferase 49 U/L (0-31); Albumin Level 4.1 g/dL (3.5-5.0); Anion Gap 16 (12-20); Aspartate Amino Transferase 45 U/L (5-31); Bilirubin Total 1.3 mg/dL (0.0-1.0); Blood Urea Nitrogen 10 mg/dL (9-16); Carbon Dioxide 23 mmol/L (22-29); Chloride 104 mmol/L (96-108); Creatinine Clr Calc Pharmacy 79.7; Estimated Glomerular Filt Rate > 60; Glucose Random 138 mg/dL (60-115); Magnesium 2.2 mg/dL (1.6-2.6); Potassium 3.2 mmol/L (3.3-5.1); Sodium 140 mmol/L (135-145)
[2024-08-12 11:42] LABS: Alkaline Phosphatase 125 U/L (39-117)
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
[2024-08-12 11:45] LABS: Troponin-I High Sensitivity < 2.7 ng/L (<3.5-17.0)
[2024-08-12] MEDS: fentaNYL citrate/PF 100 MCG/2 ML VIAL 50 MCG IVPUSH (12:28)
[2024-08-12] MEDS: iohexoL 350 MG/ML 100 ML INFUS..BTL IV (12:29)
[2024-08-12 13:49] VITALS: BP 146/85; PULSE 95; RESP 17; TEMP 36.5; O2SAT 95
[2024-08-12] MEDS: chlordiazePOXIDE HCl 25 MG CAPSULE PO (13:54)
[2024-08-12 15:31] VITALS: BP 119/75; PULSE 98; RESP 16; TEMP 36.6; O2SAT 92
== END 2024-08-12 15:32 | disposition home or self-care (01) ==
PROVIDERS: Emergency Provider Emergency Medicine; PCP Internal Medicine
DX: R07.89 Other chest pain (principal); Z79.899 Other long term (current) drug therapy; Z87.891 Personal history of nicotine dependence
CPT/HCPCS: 36415; 71275; 80053; 83735; 84484; 85025; 93005; 96374; 99284; 99285; J3010; Q9967

== ENCOUNTER → 2024-08-12 11:14 | Outpatient (BNV) | payer OTHER, SELFPAY | PROVIDERS: Emergency Provider Emergency Medicine; PCP Internal Medicine; Visit Provider Internal Medicine | DX: R07.9 Chest pain, unspecified (principal) | CPT/HCPCS: 93010 ==

== ENCOUNTER → 2024-08-12 11:41 | Outpatient (BNV) | payer BC, MEDICARE, SELFPAY | PROVIDERS: Emergency Provider Emergency Medicine; PCP Internal Medicine; Visit Provider Radiology Diagnostic Radiology | DX: R07.89 Other chest pain (principal) | CPT/HCPCS: 71275 ==

== ENCOUNTER 2024-08-27 09:43 | Outpatient (AMB) | payer OTHER, SELFPAY ==
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
[2024-08-27 09:48] VITALS: BP 134/72; PULSE 107; O2SAT 97; BMI 24.9
== END 2024-08-27 12:55 | disposition home or self-care (01) ==
LOC: HO.HMCC 09:44
PROVIDERS: PCP Internal Medicine; Visit Provider Internal Medicine
DX: R07.89 Other chest pain (principal); V89.2XXA Person injured in unspecified motor-vehicle accident, traffic, initial encounter; W22.11XA Striking against or struck by driver side automobile airbag, initial encounter; Z04.3 Encounter for examination and observation following other accident; M94.0 Chondrocostal junction syndrome [Tietze]

== ENCOUNTER → 2024-08-27 09:43 | Outpatient (BNVA) | payer OTHER, SELFPAY | PROVIDERS: PCP Internal Medicine; Visit Provider Internal Medicine | DX: Z13.89 Encounter for screening for other disorder (principal) ==

== ENCOUNTER 2024-11-06 13:59 | Outpatient (AMB) | payer MEDICARE, BC, SELFPAY ==
--- NOTE | 2024-11-06 14:09 | MHC.PC.OV ---
Vital Signs 11/06/24 14:10 Height 5 ft 2 in Weight 137 lb BMI 25.1 BP 144/80 H Blood Pressure Location Lt brachial Position Sitting Pulse 98 Pulse Source Pulse Oximeter Temp 98.8 F Temp Source Temporal Artery Scan Pulse Oximetry (%) 96 Oxygen Delivery Method Room Air Intake Visit Reasons: Annual PE Allergies hydroxychloroquine (Plaquenil) Allergy (Severe, Verified 11/06/24 14:11) hives bupropion (From WELLBUTRIN) Allergy (Intermediate, Verified 11/06/24 14:11) HIVES amoxicillin Allergy (Mild, Verified 11/06/24 14:11) Rash tramadol Allergy (Unknown, Verified 11/06/24 14:11) hives, rash ENVIRONMENTAL Allergy (Unknown, Uncoded 08/27/24 09:48) ITCHY EYES Medication List - Last Reconciled 11/06/24 by Ros Lunsford MD acetaminophen 1,000 mg PO Q6H PRN alendronate (Fosamax) 70 mg PO QWEEK 90 days amlodipine 10 mg PO DAILY 90 days atorvastatin 40 mg PO BEDTIME 90 days cetirizine 10 mg PO DAILY PRN chlordiazepoxide HCl 50 mg (2 x 25 mg) PO BID diclofenac sodium 75 mg PO BID 10 days magnesium oxide 400 mg PO BID metoprolol succinate ER 12.5 mg (1/2 x 25 mg) PO DAILY 30 days montelukast 10 mg PO DAILY omeprazole 20 mg PO DAILY PRN potassium chloride ER 10 mEq PO DAILY topiramate 25 mg PO BID 90 days venlafaxine ER 75 mg PO DAILY Tobacco use date assessed: 08/27/24 Fall risk assessment: No Falls in past year Last assessed Fall Risk: 11/06/24 Dental Screening Dental Screen Date: 08/27/24 HPI Annual PE HPI Details Physical exam appointment - The patient is a 63-year-old female presenting for a follow-up visit to address multiple chronic conditions. - She reports persistent back pain attributed to previous fractures and osteoporosis. She states the pain is exacerbated by coughing or sneezing and describes the pain as persistent over time. The patient is currently taking a weekly osteoporosis medication. Fosamax - She has noticed a skin lesion that has increased in size and is dark in color. The lesion began as a small dot and has become more prominent over the past few months. - She reports sternum pain, persistent but less severe than in the past, likely exacerbated by previous accidents. - Patient's recent blood pressure was 144/80 mmHg, elevated secondary to pain. - Lab work from July revealed low potassium (3.2 mmol/L) and elevated liver enzymes. The patient acknowledges alcohol consumption as a contributing factor to her liver issues. - She has refused a recent mammogram and colonoscopy despite prior positive Cologuard test. In 2022, urgent referral to gastroenterology was placed but I do not see the patient followed up I have placed a new referral today - The patient is under significant stress caring for her and acknowledges using alcohol to cope. Medical History: - Essential Hypertension - Hypokalemia/taking potassium supplement - Osteoporosis - History of Back Fracture - Liver Enzyme Elevation - Alcohol Use Disorder - positive Cologuard Social History: - Currently caring for her , who requires significant assistance and use of incontinence supplies. - Reports significant stress related to caretaking responsibilities with limited external support. - Engages in reading as a coping mechanism, often purchasing books and reading regularly. - Admits to occasional alcohol consumption, which has impacted liver enzyme levels. Health Maintenance - Refused mammogram due to soreness. Around sternal area chronic - Cologuard test conducted in July 2022 was positive; however, the patient did not follow up with a recommended colonoscopy. - Previous labs showed elevated liver enzymes and low potassium. [place] of Care - Support from Cristin, a family friend, who assists with transportation and shopping needs. Medications - Fosamax (Alendronate) for Osteoporosis - Amlodipine 10 mg for Hypertension - Atorvastatin 48 mg for Hyperlipidemia - Prednisolone 10 mg (assumed mention of ?sterozin? should be prednisone) for Inflammatory Conditions - Magnesium Supplement - Metoprolol 12.5 mg (Likely for Hypertension) - Montelukast for Allergies or Asthma - Omeprazole for GERD - Topamax (Topiramate), for migraine or other off-label use - Venlafaxine (Benlafax) for Depression or Anxiety - Potassium supplement for Hypokalemia Diagnostic results - Labs from July 2022 showed low potassium at 3.2 mmol/L and elevated liver enzymes. - Blood pressure at visit: 144/80 mmHg - Random blood glucose: 138 mg/dL Patient Instructions - Attend the lab for follow-up liver enzyme and potassium blood tests. - Consider reducing alcohol intake due to its impact on liver health. - Wear a back brace during the day to manage back pain. - Schedule an appointment with a tight barrel inspector for evaluation of the enlarging skin lesion. - Continue taking medications as prescribed. - Seek assistance for stress management and caregiving support resources. - schedule appointment with gastroenterology Review of Systems - General: No fever no chills - Neurological: No headaches no dizziness - Ear nose throat: No sore throat no hearing difficulty no ear pain - Cardiovascular: No syncope, no chest pain, no palpitations - Gastrointestinal: No nausea vomiting or diarrhea - Endocrine: No polyuria polydipsia no heat intolerance - Genitourinary: No dysuria - Skin: No new complaints Physical Exam General: Cooperative, healthy appearing, comfortable, no acute distress Orientation: Patient oriented x3 Head: Normal to inspection Ears: Within normal limit visually Nose: Normal external nose present Face and sinus: Normal facial exam Eyes: Appearance normal, extraocular movement intact pupils reactive Neck: Normal visual inspection and supple Respiratory: Normal respiratory effort and able to speak in complete sentences. Clear to auscultation, no stridor Chest: Tendon over sternum with pressure chronic Cardiovascular: S1 and S2 RRR GI: Normal to inspection. Soft to palpation and nontender Skin: Turgor normal, raised dark mole chest left side size of pea Neuro: Patient oriented x3, motor sensory intact, balance intact, tandem failed Extremities: Some puffiness observed in feet, otherwise normal to inspection [facility] Medical History Positive colorectal cancer screening using Cologuard test Encounter for general adult medical examination with abnormal findings Hypokalemia Constipation Cystitis Papanicolaou smear declined Colonoscopy refused Mammogram declined Muscle spasm Lumbar pain Supraclavicular mass Hospital discharge follow-up Hyperlipidemia GERD (gastroesophageal reflux disease) Acute hypokalemia Fall Hematoma Alcohol use disorder, mild, in early remission, abuse Alcoholism Hospital discharge follow-up Uncontrolled hypertension Abnormal EKG Hypertension, essential Breast screening Anxiety, generalized Hives Surgical History Hx of hand surgery Hx of colonoscopy (08/30/11) History of right breast biopsy (10/31/11) Hx of left inguinal hernia repair (02/25/13) Hx of basal cell carcinoma excision (2011) History of left oophorectomy (09/07/11) Hx of right inguinal hernia repair (2003) Family History Father Cardiac disease Mother Cardiac disease HTN (hypertension) Other Substance use disorder Social History Household Members: Family Housing: House Are you a primary laboratory animal care veterinarian to a significant other at home: Yes () Do you presently have visiting nurse or other home services: Yes ([facility] comes for , showers ryan) Unable to assess alcohol history related to: Unknown Alcohol intake: unknown Patient Tobacco Use Status: Former Tobacco user Tobacco use type: Cigarette Cigarette Packs Per Day: 1 Cigarettes Per Day: 20.0 Years Smoked: 20 e-Cigarette/Vaping Use: Never Used Second Hand Smoke Exposure: No Substance Use Type: Marijuana service: No Current occupational status: employed Cognitive needs: No Hearing needs: No Vision needs: No Questionnaire Thrive Questionnaire Date Thrive assessed: 05/14/24 RENEE-7 AMB Questionnaire RENEE-7 Date REENE - 7 assessed: 05/14/24 Source: Developed by Drs. Sandeep Fletcher, Karen Fonseca, Adan Calle and colleagues, with an educational la from [employer]. Physical exam (Primary Care) Vital Signs: Last Vital Signs Temp 98.8 F 11/06/24 14:10 Pulse 98 11/06/24 14:10 BP 144/80 H 11/06/24 14:10 Pulse Ox 96 11/06/24 14:10 Oxygen Delivery Method Room Air 11/06/24 14:10 BMI result Body Mass Index 25.1 Tobacco/Smoking Status: Tobacco use Status Tobacco use date assessed 08/27/24 11/06/24 14:14 Patient Tobacco Use Status Former Tobacco user 11/06/24 14:14 Tobacco use type Cigarette 11/06/24 14:14 e-Cigarette/Vaping Use Never Used 11/06/24 14:14 Thrive Assessment: Date of Thrive Assessment Date Thrive assessed 05/14/24 11/06/24 14:14 Coding Level of Care Code Est Pt Level 3 (94071) Est Pt Prev Care >65y(39658) Diagnoses Encounter for general adult medical examination with abnormal findings Z00.01 Change in mole D22.9 Hypertension, essential I10 Electrolyte abnormality E87.8 Positive colorectal cancer screening using Cologuard test R19.5 Stress at home F43.9 Costochondritis M94.0 Age-related osteoporosis with current pathological fracture with routine healing, subsequent encounter M80.00XD Encounter type: subsequent encounter Fracture healing: with routine healing Osteoporosis type: age-related Presence of current pathological fracture: with current pathological fracture Lipid disorder E78.9 Alcohol use disorder, severe, dependence F10.20 Anxiety, generalized F41.1 Environmental allergies Z91.09 Other closed fracture of thoracic vertebra, unspecified thoracic vertebral level, sequela S22.008S Encounter type: sequela Thoracic vertebra fracture level: unspecified thoracic vertebra Fracture type: closed Fracture morphology: other fracture Assessment & Plan Assessment & Plan (1) Encounter for general adult medical examination with abnormal findings: Code(s): Z00.01 - Encounter for general adult medical examination with abnormal findings Category: Medical (2) Change in mole: Code(s): D22.9 - Melanocytic nevi, unspecified Category: Medical (3) Hypertension, essential: Code(s): I10 - Essential (primary) hypertension Category: Medical (4) Electrolyte abnormality: Code(s): E87.8 - Other disorders of electrolyte and fluid balance, not elsewhere classified Category: Medical (5) Positive colorectal cancer screening using Cologuard test: Code(s): R19.5 - Other fecal abnormalities Category: Medical (6) Stress at home: Code(s): F43.9 - Reaction to severe stress, unspecified Category: Social Hx (7) Costochondritis: Code(s): M94.0 - Chondrocostal junction syndrome [Tietze] Category: Medical (8) Osteoporosis: Code(s): M81.0 - Age-related osteoporosis without current pathological fracture Category: Medical Qualifiers: Encounter type: subsequent encounter Fracture healing: with routine healing Osteoporosis type: age-related Presence of current pathological fracture: with current pathological fracture Qualified Code(s): M80.00XD - Age-related osteoporosis with current pathological fracture, unspecified site, subsequent encounter for fracture with routine healing (9) Lipid disorder: Code(s): E78.9 - Disorder of lipoprotein metabolism, unspecified Category: Medical (10) Alcohol use disorder, severe, dependence: Code(s): F10.20 - Alcohol dependence, uncomplicated Category: Medical (11) Anxiety, generalized: Code(s): F41.1 - Generalized anxiety disorder Category: Medical (12) Environmental allergies: Code(s): Z91.09 - Other allergy status, other than to drugs and biological substances Category: Medical (13) Thoracic vertebral fracture: Code(s): S22.009A - Unspecified fracture of unspecified thoracic vertebra, initial encounter for closed fracture Category: Medical Qualifiers: Encounter type: sequela Thoracic vertebra fracture level: unspecified thoracic vertebra Fracture type: closed Fracture morphology: other fracture Qualified Code(s): S22.008S - Other fracture of unspecified thoracic vertebra, sequela Plan Physical exam appointment - The patient is a 63-year-old female presenting for a follow-up visit to address multiple chronic conditions. - She reports persistent back pain attributed to previous fractures and osteoporosis. She states the pain is exacerbated by coughing or sneezing and describes the pain as persistent over time. The patient is currently taking a weekly osteoporosis medication. Fosamax - She has noticed a skin lesion that has increased in size and is dark in color. The lesion began as a small dot and has become more prominent over the past few months. - She reports sternum pain, persistent but less severe than in the past, likely exacerbated by previous accidents. - Patient's recent blood pressure was 144/80 mmHg, elevated secondary to pain. - Lab work from July revealed low potassium (3.2 mmol/L) and elevated liver enzymes. The patient acknowledges alcohol consumption as a contributing factor to her liver issues. - She has refused a recent mammogram and colonoscopy despite prior positive Cologuard test. In 2022, urgent referral to gastroenterology was placed but I do not see the patient followed up I have placed a new referral today - The patient is under significant stress caring for her and acknowledges using alcohol to cope. Medical History: - Essential Hypertension - Hypokalemia/taking potassium supplement - Osteoporosis - History of Back Fracture - Liver Enzyme Elevation - Alcohol Use Disorder - positive Cologuard Social History: - Currently caring for her , who requires significant assistance and use of incontinence supplies. - Reports significant stress related to caretaking responsibilities with limited external support. - Engages in reading as a coping mechanism, often purchasing books and reading regularly. - Admits to occasional alcohol consumption, which has impacted liver enzyme levels. Health Maintenance - Refused mammogram due to soreness. Around sternal area chronic - Cologuard test conducted in July 2022 was positive; however, the patient did not follow up with a recommended colonoscopy. - Previous labs showed elevated liver enzymes and low potassium. [place] of Care - Support from Cristin, a family friend, who assists with transportation and shopping needs. Medications - Fosamax (Alendronate) for Osteoporosis - Amlodipine 10 mg for Hypertension - Atorvastatin 48 mg for Hyperlipidemia - Prednisolone 10 mg (assumed mention of ?sterozin? should be prednisone) for Inflammatory Conditions - Magnesium Supplement - Metoprolol 12.5 mg (Likely for Hypertension) - Montelukast for Allergies or Asthma - Omeprazole for GERD - Topamax (Topiramate), for migraine or other off-label use - Venlafaxine (Benlafax) for Depression or Anxiety - Potassium supplement for Hypokalemia Diagnostic results - Labs from July 2022 showed low potassium at 3.2 mmol/L and elevated liver enzymes. - Blood pressure at visit: 144/80 mmHg - Random blood glucose: 138 mg/dL Patient Instructions - Attend the lab for follow-up liver enzyme and potassium blood tests. - Consider reducing alcohol intake due to its impact on liver health. - Wear a back brace during the day to manage back pain. - Schedule an appointment with a tight barrel inspector for evaluation of the enlarging skin lesion. - Continue taking medications as prescribed. - Seek assistance for stress management and caregiving support resources. - schedule appointment with gastroenterology Orders: Orders Complete Blood Count Auto Diff Today E78.9 - Disorder of lipoprotein metabolism, unspecified, E87.8 - Other disorders of electrolyte and fluid balance, not elsewhere classified, F10.20 - Alcohol dependence, uncomplicated, F41.1 - Generalized anxiety disorder, F43.9 - Reaction to severe stress, unspecified, I10 - Essential (primary) hypertension, M80.00XD - Age-related osteoporosis with current pathological fracture, unspecified site, subsequent encounter for fracture with routine healing, M94.0 - Chondrocostal junction syndrome [Tietze], S22.009A - Unspecified fracture of unspecified thoracic vertebra, initial encounter for closed fracture, Z00.01 - Encounter for general adult medical examination with abnormal findings, Z91.09 - Other allergy status, other than to drugs and biological substances Comprehensive Met. Panel Today E78.9 - Disorder of lipoprotein metabolism, unspecified, E87.8 - Other disorders of electrolyte and fluid balance, not elsewhere classified, F10.20 - Alcohol dependence, uncomplicated, F41.1 - Generalized anxiety disorder, F43.9 - Reaction to severe stress, unspecified, I10 - Essential (primary) hypertension, M80.00XD - Age-related osteoporosis with current pathological fracture, unspecified site, subsequent encounter for fracture with routine healing, M94.0 - Chondrocostal junction syndrome [Tietze], S22.009A - Unspecified fracture of unspecified thoracic vertebra, initial encounter for closed fracture, Z00.01 - Encounter for general adult medical examination with abnormal findings, Z91.09 - Other allergy status, other than to drugs and biological substances Referrals Dermatology Referral D22.9 - Melanocytic nevi, unspecified Gastroenterology Referral R19.5 - Other fecal abnormalities Medications: New omeprazole 20 mg PO DAILY PRN 90 tabs 0RF Gastric Reflux Discontinued diclofenac sodium Discontinued Reason: Change Referral Type 75 mg PO BID 10 days 20 tabs 0RF pain
[2024-11-06 14:10] VITALS: BP 144/80; PULSE 98; TEMP 37.1; O2SAT 96; BMI 25.1
== END 2024-11-06 14:35 | disposition home or self-care (01) ==
LOC: HO.HMCC 14:00
PROVIDERS: PCP Internal Medicine; Visit Provider Internal Medicine
DX: Z00.01 Encounter for general adult medical examination with abnormal findings (principal); D22.9 Melanocytic nevi, unspecified; F10.20 Alcohol dependence, uncomplicated; I10 Essential (primary) hypertension; E87.8 Other disorders of electrolyte and fluid balance, not elsewhere classified; R19.5 Other fecal abnormalities; F43.9 Reaction to severe stress, unspecified; M94.0 Chondrocostal junction syndrome [Tietze]; M80.00XD Age-related osteoporosis with current pathological fracture, unspecified site, subsequent encounter for fracture with routine healing; E78.9 Disorder of lipoprotein metabolism, unspecified; F41.1 Generalized anxiety disorder; Z91.09 Other allergy status, other than to drugs and biological substances

== ENCOUNTER 2024-11-06 13:59 | Outpatient (REF) | payer MEDICARE, BC, SELFPAY ==
[2024-11-06 16:08] LABS: MANUAL DIFF FLAG NO
[2024-11-06 16:15] LABS: Hematocrit 42.7 % (37.0-47.0); Hemoglobin 14.6 g/dl (12.0-16.0); Imm Gran Abs Auto 0.06 X10*3/uL (0.00-0.03); Imm Gran Pct Auto 0.4 % (0.0-0.4); Lymphocytes Absolute Auto 1.1 X10*3/uL (1.2-4.9); Mean Corpuscular HGB Conc 34.2 g/dl (31.0-35.0); Mean Corpuscular Hemoglobin 30.9 pg (27.0-33.0); Mean Corpuscular Volume 90.5 fL (80.0-98.0); NRBC Abs Auto 0.000 X10*3/uL (0.0-0.012); NRBC Pct Auto 0.0 /100WBC (0.0-0.2); Platelet Count 471 X10*3/uL (160-400); Red Blood Count 4.72 X10*6/uL (4.20-5.50); White Blood Count 14.7 X10*3/uL (4.8-10.8)
[2024-11-06 16:34] LABS: Alanine Aminotransferase 34 U/L (0-31); Albumin Level 4.8 g/dL (3.5-5.0); Alkaline Phosphatase 102 U/L (39-117); Anion Gap 14 (12-20); Aspartate Amino Transferase 40 U/L (5-31); Blood Urea Nitrogen 9 mg/dL (9-16); Calcium 8.6 mg/dL (8.4-10.2); Carbon Dioxide 23 mmol/L (22-29); Chloride 106 mmol/L (96-108); Estimated Glomerular Filt Rate > 60; Potassium 3.3 mmol/L (3.3-5.1); Sodium 140 mmol/L (135-145); Total Protein 8.2 g/dL (6.5-8.0)
== END 2024-11-06 14:00 | disposition home or self-care (01) ==
LOC: HO.HMGCLDS 13:59
PROVIDERS: PCP Internal Medicine; Visit Provider Internal Medicine
DX: Z00.01 Encounter for general adult medical examination with abnormal findings (principal); D22.9 Melanocytic nevi, unspecified; I10 Essential (primary) hypertension; E87.8 Other disorders of electrolyte and fluid balance, not elsewhere classified; R19.5 Other fecal abnormalities; F43.9 Reaction to severe stress, unspecified; M94.0 Chondrocostal junction syndrome [Tietze]; M80.00XD Age-related osteoporosis with current pathological fracture, unspecified site, subsequent encounter for fracture with routine healing; E78.9 Disorder of lipoprotein metabolism, unspecified; F10.20 Alcohol dependence, uncomplicated; F41.1 Generalized anxiety disorder; Z91.09 Other allergy status, other than to drugs and biological substances; S22.008S Other fracture of unspecified thoracic vertebra, sequela
CPT/HCPCS: 36415; 80053; 85025; 99212; 99397

== ENCOUNTER 2024-12-12 09:20 | Inpatient (IN) | payer MEDICARE, BC, SELFPAY ==
[2024-12-12] VITALS (7 sets, daily range): BP systolic 119–160; BP diastolic 75–88; PULSE 78–99; RESP 13–20; TEMP 36.4–36.9; O2SAT 92–99; BMI 25.6; BMI 25.2
--- NOTE | 2024-12-12 | ECG_ITS ---
Test Reason : SYNCOPE Blood Pressure : */* mmHG Vent. Rate : 90 BPM Atrial Rate : 90 BPM P-R Int : 174 ms QRS Dur : 80 ms QT Int : 390 ms P-R-T Axes : 26 -5 -8 degrees QTcB Int : 477 ms Normal sinus rhythm Normal ECG When compared with ECG of 12-Aug-2024 11:14, No significant change was found Referred By: Skyla Kelsey Electronically Signed By: ANNALISE LOZADA MD
--- NOTE | ~2024-12-12 | XR_ITS ---
EXAMINATION: XR CHEST CLINICAL INFORMATION: cough [id number] COMPARISON: June 19, 2023 TECHNIQUE: Frontal view of the chest was obtained. FINDINGS: Lung volumes are low. Lungs are clear aside from minimal left basilar atelectasis. Chronic size is within normal limits. Posterior pedicle screws and rods are present in the lower thoracic spine with cement noted T10 vertebral body, unchanged. XR/XR chest 1V IMPRESSION: No acute disease, minimal left basilar atelectasis. Posterior interbody fusion T9-11 across a T10 fracture post kyphoplasty, stable. Electronically signed by: Charles Roberto MD 12/12/2024 10:19 AM EDT
--- NOTE | ~2024-12-12 | CT_ITS ---
EXAMINATION: CT HEAD WITHOUT CONTRAST CLINICAL INFORMATION: syncope, unsure of HS, no thinner COMPARISON: March 04, 2023 TECHNIQUE: Contiguous axial imaging was performed from the skull base to vertex without intravenous administration of contrast. This CT examination was performed using dose optimization techniques as appropriate, variously including the following: *Automated exposure control *Adjustment of mA and/or kV according to patient size (this includes techniques or standardized protocols for targeted exams where dose is matched to indication/reason for exam; i.e. extremities or head) *Use of iterative reconstruction technique DLP: 620 mGy-cm FINDINGS: No acute fracture, bony calvarium. Traumatic deformities, nasal bones, old. No acute intracranial hemorrhage, mass effect, midline shift, hydrocephalus or herniation. Alcocer-white matter differentiation is normal. Bilateral patchy deep periventricular white matter hypodensities. Probable old lacunar infarcts, basal ganglia and mid francois. Calcified plaques in the cavernous supracavernous segments both ICAs. Sellar/suprasellar region demonstrated no gross masses or hemorrhage. Craniocervical junction demonstrates normal position of the cerebellar tonsils. Mucosal thickening, maxillary sinuses. Tympanic cavities and mastoid air cells are aerated. 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 CT/CT head/brain wo IV con IMPRESSION: No acute fracture, bony calvarium. No acute intracranial hemorrhage. Small vessel occlusive disease. Old traumatic deformities, nasal bones. Electronically signed by: Dominic Almonte MD 12/12/2024 11:02 AM EDT
--- NOTE | 2024-12-12 09:33 | ED_ITS ---
HPI - General Adult General Chief complaint: Syncope Stated complaint: coughing passed out, seizure? Time Seen by Provider: 12/12/24 09:24 Source: patient, EMS, RN notes reviewed and old records reviewed Mode of arrival: EMS Limitations: no limitations History of Present Illness ED Provider: Laure Crum PA-C HPI narrative: 64-year-old female with medical history of HTN, anxiety, depression, HLD, GERD, alcohol use disorder presents to the ED by EMS due to cough, and 2 syncopal episodes. Patient states this morning when she woke up she had a coughing fit, became dizzy while coughing and had 2 syncopal episodes, is not anticoagulated. First syncopal episode occurred while she was on the couch, denies fall or head strike. Second syncopal episode occurred while patient was standing, and her son caught her and lowered her to the ground, patient is unsure of head strike with this episode. Patient denies post ictal phase after syncope. Patient states she has had a cough for approximately 1 month with clear sputum. Patient has alcohol history and drinks 1 sleeve per day for the last 3 years. Patient states she only drank 5 nips yesterday as she is trying to decrease her drinking. This morning she has been feeling tremulous and ?just feeling off?. Patient denies alcohol withdrawal seizures. Reports last drink was yesterday evening. Patient denies sick contacts, chest pain, shortness of breath, difficulty breathing, abdominal pain, vomiting, diarrhea, dark/tarry stool, headache, visual/tactile hallucinations, palpitations MD complaint: syncope Related Data Home Medications ?Medication ?Instructions ?Recorded ?Confirmed acetaminophen 500 mg tablet 1,000 mg PO Q6H PRN Pain 1 06/05/22 11/06/24 Previous Rx's ?Medication ?Instructions ?Recorded metoprolol succinate 25 mg 12.5 mg (1/2 x 25 mg) PO DA RIVERA 30 08/25/23 tablet,extended release 24 hr days #15 tabs chlordiazepoxide HCl 25 mg capsule 50 mg (2 x 25 mg) P O BID #6 caps 04/10/24 atorvastatin 40 mg tablet 40 mg PO BEDTIME 90 days #90 tabs 08/27/24 cetirizine 10 mg tablet 10 mg PO DAILY PRN for aller gies 08/27/24 #90 tabs magnesium oxide 400 mg (241.3 mg 400 mg PO BID #60 tab s 08/27/24 magnesium) tablet alendronate 70 mg tablet (Fosamax) 70 mg PO QWEEK 90 d ays #13 tabs 09/16/24 montelukast 10 mg tablet 10 mg PO DAILY #90 tabs 08/23 10/16 potassium chloride 10 mEq 10 meq PO DAILY #90 tabs tablet,extended release amlodipine 10 mg tablet 10 mg PO DAILY 90 days #90 t abs 09/30/24 venlafaxine 75 mg capsule,extended 75 mg PO DAILY #90 caps 10/08/24 release 24 hr omeprazole 20 mg tablet,delayed 20 mg PO DAILY PRN Gas tric Reflux 11/06/24 release #90 tabs topiramate 25 mg tablet 25 mg PO BID 90 days #180 ta bs 11/11/24 Allergies Allergy/AdvReac Type Severity Reaction Status Date / Time hydroxychloroquine Allergy Severe hives Verified 12/12/24 09:33 (Plaquenil) bupropion (From WELLBUTRIN) Allergy Intermediate HIVES Verified 12/12/24 09:33 amoxicillin Allergy Mild Rash Verified 12/12/24 09:33 tramadol Allergy Unknown hives, rash Verified 12/12/24 09:33 ENVIRONMENTAL Allergy Unknown ITCHY EYES Uncoded 12/12/24 09:33 Review of Systems 2 Review of Systems: CONST: Negative for fever, body aches and chills. HENT: Negative for neck pain/stiffness, headache, congestion, sore throat, swelling. EYES: Negative for discharge/pain or vision changes. RESP: Negative hemoptysis and shortness of breath. POS cough with clear sputum CV: Negative chest pain, difficulty breathing, palpitations. ABD: Negative pain, vomiting. POS nausea : Negative increase frequency, dysuria, blood in urine or stool. MUSC: Negative for muscle aches, edema. SKIN: Negative rash, lesions/sores. NEURO: Negative headache, dizziness, weakness. [facility] Past Medical History Attestation statement: The following information was validated with the patient. Source: old records reviewed and nursing notes reviewed Medical History Positive colorectal cancer screening using Cologuard test Encounter for general adult medical examination with abnormal findings Hypokalemia Constipation Cystitis Papanicolaou smear declined Colonoscopy refused Mammogram declined Muscle spasm Lumbar pain Supraclavicular mass Hospital discharge follow-up Hyperlipidemia GERD (gastroesophageal reflux disease) Acute hypokalemia Fall Hematoma Alcohol use disorder, mild, in early remission, abuse Alcoholism Hospital discharge follow-up Uncontrolled hypertension Abnormal EKG Hypertension, essential Breast screening Anxiety, generalized Hives Surgical History Hx of hand surgery Hx of colonoscopy (08/30/11) History of right breast biopsy (10/31/11) Hx of left inguinal hernia repair (02/25/13) Hx of basal cell carcinoma excision (2011) History of left oophorectomy (09/07/11) Hx of right inguinal hernia repair (2003) Family History Family History Father Cardiac disease Mother Cardiac disease HTN (hypertension) Other Substance use disorder Social History Social History Household Members: Family Housing: House Are you a primary acute care surgeon to a significant other at home: Yes () Do you presently have visiting nurse or other home services: Yes ([facility] comes for , sven davis) Unable to assess alcohol history related to: Unknown Alcohol intake: unknown Patient Tobacco Use Status: Former Tobacco user Tobacco use type: Cigarette Cigarette Packs Per Day: 1 Cigarettes Per Day: 20.0 Years Smoked: 20 Smoked in Last 30 Days: No e-Cigarette/Vaping Use: Never Used Second Hand Smoke Exposure: No Use of substances other than those prescribed or required for medical reasons: Yes Substance Use Type: Marijuana Substance Use Frequency: Occasionally Last Used Substance: Unknown Any prior treatment program specific to substance use: No Advance Directives: No Advance Directives Information Provided: Yes Do you have a plan to hurt others: No Plan service: No Current occupational status: employed Cognitive needs: No Hearing needs: No Vision needs: No Physical Exam ED Vital Signs: Vital Signs - 24 hr 12/12/24 09:30 12/12/24 10:23 Temperature 98.4 F Pulse Rate 99 89 Respiratory Rate 16 13 Blood Pressure 144/88 H 130/75 Pulse Oximetry 98 93 Oxygen Delivery Method Room Air Room Air BMI result Body Mass Index 25.6 GENERAL APPEARANCE: ?AxOx4, no acute distress. HEENT: ?NC, AT. MMM. EOMI, clear conjunctiva, oropharynx clear. NECK: ?Supple without lymphadenopathy.? No stiffness or restricted ROM. HEART:? Normal rate and regular rhythm, normal S1/S2, no m/r/g LUNGS:? CTAB, moving air well. No crackles or wheezes are heard. ABDOMEN: ?Soft, nontender, nondistended with good bowel sounds heard. BACK: No CVAT, no obvious deformity. EXTREMITIES: ?Without cyanosis, clubbing or edema. NEUROLOGICAL: ?Grossly nonfocal. Alert and oriented, moving all 4 extremities. Tremulous Skin: ?Warm and dry without any rash. Medications Administered Discontinued Medications Generic Name Dose Route Start Last Admin Trade Name Freq PRN Reason Stop Dose Admin Lactated Ringer's 1,000 mls @ 999 mls/hr 12/12/24 09:49 12/12/24 10:17 Lr IV 12/12/24 10:49 999 mls/hr .Q1H1M ONE Administration Thiamine HCl 200 mg/ Sodium 102 mls @ 204 mls/hr 12/12/24 09:49 12/12/24 10:17 Chloride IV 12/12/24 10:18 204 mls/hr ONCE ONE Administration Ondansetron HCl 4 mg 12/12/24 10:32 12/12/24 11:00 Ondansetron Hcl 4 Mg/2 Ml Vial IVPUSH 12/12/24 10:33 4 mg ONCE ONE Administration Phenobarbital Sodium 240 mg 12/12/24 11:00 12/12/24 11:00 Phenobarbital Sodium 130 Mg/Ml Im Once IM 12/12/24 11:01 240 mg ONCE ONE Administration Medical Decision Making Medical Decision Making MDM Narrative: 4-year-old female with medical history of HTN, anxiety, depression, HLD, GERD, alcohol use disorder presents to the ED by EMS due to cough, and 2 syncopal episodes. Patient states this morning when she woke up she had a coughing fit, became dizzy while coughing and had 2 syncopal episodes, is not anticoagulated. First syncopal episode occurred while she was on the couch, denies fall or head strike. Second syncopal episode occurred while patient was standing, and her son caught her and lowered her to the ground, patient is unsure of head strike with this episode. Patient denies post ictal phase after syncope. Patient states she has had a cough for approximately 1 month with clear sputum. Patient has alcohol history and drinks 1 sleeve per day for the last 3 years. Patient states she only drank 5 nips yesterday as she is trying to decrease her drinking. This morning she has been feeling tremulous and ?just feeling off?. Patient denies alcohol withdrawal seizures. Reports last drink was yesterday evening. Patient denies sick contacts VS on initial observation- normotensive with BP 130/75, pulse rate of 89, respiratory rate of 13, afebrile with oral temp of 98.4?, O2 saturation 95% on RA. Patient is non toxic appearing, mildly tremulous with nausea. Lungs clear to auscultation bilaterally without wheezes, rales, crackles or rhonchi, cardiac exam reveals normal rate and rhythm, no murmurs/rubs/gallops, abdomen soft nontender. Extremities without edema. No focal neurological deficits Plan: Labs, UA, EKG, CT head/brain, CXR, ED recovery team consult for alcohol detox Course 11:42- CIWA score of 11, patient started on IV fluids, 4mg IV zofran, thiamine, 12mg/kg phenobarb protocol for alcohol withdrawal. On chart review patient has been hospitalized for withdrawal in the past worse recently 04/16. Labs without leukocytosis, H and H stable, hypokalemia of 3.0, transaminitis with AST of 57, ALT of 49, ethanol level <10, viral serology negative- patient being medicated with 40 mEq p.o. potassium EKG reveals normal sinus rhythm, no ST-elevation/depression, T-wave abnormality or dysrhythmia, appropriate QT (390)/QTc (477) interval, initial troponin undetectable at < 2.7 CXR with minimal left basilar atelectasis, no acute cardiopulmonary processes. CT head/brain without acute intracranial abnormalities I spoke about patient with Hospitalist CHARLOTTE Samson who will admit to medicine for management of alcohol withdrawal Differential Diagnosis Differential Diagnoses: The differential diagnosis associated with the presentation includes Viral illness Alcohol intoxication Alcohol withdrawal Dysrhythmia Admission/Observation Consideration of admission/observation: Escalation of care including admission/observation considered Consult Healthcare Provider Management of the patient was discussed with: Hospitalist (FRANC Samson) Lab Data MDM Lab Attestation statement: I reviewed the patient's lab results. 12/12/24 10:21 12/12/24 10:21 Labs: Lab Results 12/12/24 12/12/24 Range/Units 10:21 10:53 WBC 8.2 (4.8-10.8) X10*3/uL RBC 4.32 (4.20-5.50) X10*6/uL Hgb 14.0 (12.0-16.0) g/dl Hct 40.0 (37.0-47.0) % MCV 92.6 (80.0-98.0) fL MCH 32.4 (27.0-33.0) pg MCHC 35.0 (31.0-35.0) g/dl RDW 14.2 (11.0-16.0) % Plt Count 346 D (160-400) X10*3/uL MPV 8.4 L (9.4-12.3) fL Immature Gran % (Auto) 0.5 H (0.0-0.4) % Neut % (Auto) 83.4 H (45-73) % Lymph % (Auto) 6.5 L (20-40) % [place] % (Auto) 9.0 (2-11) % Eos % (Auto) 0.1 (0-4) % Baso % (Auto) 0.5 (0-2) % Lymph # (Auto) 0.5 L (1.2-4.9) X10*3/uL [place] # (Auto) 0.7 (0.1-1.2) X10*3/uL Eos # (Auto) 0.0 (0.0-0.4) X10*3/uL Baso # (Auto) 0.0 (0.0-0.2) X10*3/uL Abs Immat Gran (auto) 0.04 H (0.00-0.03) X10*3/uL Absolute Neuts (auto) 6.8 (2.0-8.3) x10*3/uL Absolute Nucleated RBC 0.000 (0.0-0.012) X10*3/uL Nucleated RBC % (auto) 0.0 (0.0-0.2) /100WBC Sodium 140 (135-145) mmol/L Potassium 3.0 L (3.3-5.1) mmol/L Chloride 106 (96-108) mmol/L Carbon Dioxide 25 (22-29) mmol/L Anion Gap 12 (12-20) BUN 7 L (9-16) mg/dL Creatinine 0.49 L (0.5-1.4) mg/dL Estim Creat Clear Calc 98.9 Estimated GFR > 60 Fasting Glucose 135 H (60-99) mg/dL Calcium 8.4 (8.4-10.2) mg/dL Total Bilirubin 1.1 H (0.0-1.0) mg/dL AST 57 H (5-31) U/L ALT 49 H (0-31) U/L Alkaline Phosphatase 94 (39-117) U/L Troponin I High Sens < 2.7 (<3.5-17.0) ng/L Total Protein 7.4 (6.5-8.0) g/dL Albumin 4.3 (3.5-5.0) g/dL Lipase 22 (8-78) U/L Ethyl Alcohol < 10 mg/dL Influenza Type A (PCR) NEGATIVE (Negative) Influenza Type B (PCR) NEGATIVE (Negative) RSV RNA Qual (PCR) NEGATIVE (Negative) SARS-CoV-2 RNA (RT-PCR) NEGATIVE (Negative) Independent Interpretation I performed an independent interpretation of an: EKG Interpretation: I personally interpreted the EKG which revealed normal sinus rhythm without ST elevation/depression, T-wave abnormality, dysrhythmia Vent. Rate : 90 BPM Atrial Rate : 90 BPM P-R Int : 174 ms QRS Dur : 80 ms QT Int : 390 ms P-R-T Axes : 26 -5 -8 degrees QTcB Int : 477 ms Normal sinus rhythm Normal ECG When compared with ECG of 12-Aug-2024 11:14, No significant change was found I personally interpreted the CXR which reveals appropriate cardiomediastinal silhouette, no pulmonary edema, no pulmonary effusion, no infiltrates or consolidations, I agree with the radiologist's interpretation Radiology Impression Discussion of test interpretation with radiology: I have reviewed the radiologist's reading. Radiologist Impression: CT head brain FINDINGS: No acute fracture, bony calvarium. Traumatic deformities, nasal bones, old. No acute intracranial hemorrhage, mass effect, midline shift, hydrocephalus or herniation. [place]-white matter differentiation is normal. Bilateral patchy deep periventricular white matter hypodensities. Probable old lacunar infarcts, basal ganglia and mid francois. Calcified plaques in the cavernous supracavernous segments both ICAs. Sellar/suprasellar region demonstrated no gross masses or hemorrhage. Craniocervical junction demonstrates normal position of the cerebellar tonsils. Mucosal thickening, maxillary sinuses. Tympanic cavities and mastoid air cells are aerated. 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 CT/CT head/brain wo IV con IMPRESSION: No acute fracture, bony calvarium. No acute intracranial hemorrhage. Small vessel occlusive disease. Old traumatic deformities, nasal bones. Electronically signed by: Dominic Almonte MD 12/12/2024 11:02 AM EDT RP Dictated By: Dominic Bauman MD Signed By: <Electronically signed by Dominic Gurrola MD in [place]> 12/12/24 1102 CXR FINDINGS: Lung volumes are low. Lungs are clear aside from minimal left basilar atelectasis. Chronic size is within normal limits. Posterior pedicle screws and rods are present in the lower thoracic spine with cement noted T10 vertebral body, unchanged. XR/XR chest 1V IMPRESSION: No acute disease, minimal left basilar atelectasis. Posterior interbody fusion T9-11 across a T10 fracture post kyphoplasty, stable. Electronically signed by: Charles Roberto MD 12/12/2024 10:19 AM EDT RP Dictated By: Charles Roberto MD Signed By: <Electronically signed by Charles Roberto MD in [place]> 12/12/24 1019 Independent Historian Clinical information obtained from an independent historian. History obtained from or confirmed by: EMS External Record Review External record reviewed: Inpatient record, Office record and Outpatient record Chronic Conditions Patient?s care impacted by: Hypertension and Other (Major depressive disorder, anxiety, alcohol use disorder, HLD, GERD) Critical Care Time Critical Care Time Critical Care Time: Yes Total Critical Care Time: 32 Attestation: I personally provided 32 minutes of critical care time exclusive of separately billable procedures, for the evaluation and management of a patient with severe alcohol withdrawal requiring phenobarbital therapy. The patient was at significant risk for life-threatening complication accusing seizures, delirium tremens, respiratory failure, and hemodynamic instability. My care included continuous monitoring mental status, vitals, and respiratory function. Administration and titration of phenobarbital for alcohol withdrawal. Discharge Plan Discharge Clinical Impression: Alcohol withdrawal, Alcohol use disorder, severe, dependence Print Language: Thai
[2024-12-12] MEDS: Thiamine HCL 200 MG in 0.9 % Sodium Chloride 100 ML 204 MG IV (10:17)
[2024-12-12] MEDS: Lactated Ringers 1,000 ML 999 ML IV (10:17)
[2024-12-12 10:29] LABS: MANUAL DIFF FLAG NO
[2024-12-12 10:30] LABS: Hematocrit 40.0 % (37.0-47.0); Hemoglobin 14.0 g/dl (12.0-16.0); Imm Gran Abs Auto 0.04 X10*3/uL (0.00-0.03); Imm Gran Pct Auto 0.5 % (0.0-0.4); Lymphocytes Absolute Auto 0.5 X10*3/uL (1.2-4.9); Mean Corpuscular HGB Conc 35.0 g/dl (31.0-35.0); Mean Corpuscular Hemoglobin 32.4 pg (27.0-33.0); Mean Corpuscular Volume 92.6 fL (80.0-98.0); NRBC Abs Auto 0.000 X10*3/uL (0.0-0.012); NRBC Pct Auto 0.0 /100WBC (0.0-0.2); Platelet Count 346 X10*3/uL (160-400); Red Blood Count 4.32 X10*6/uL (4.20-5.50); White Blood Count 8.2 X10*3/uL (4.8-10.8)
[2024-12-12 10:48] LABS: Alanine Aminotransferase 49 U/L (0-31); Albumin Level 4.3 g/dL (3.5-5.0); Alkaline Phosphatase 94 U/L (39-117); Anion Gap 12 (12-20); Aspartate Amino Transferase 57 U/L (5-31); Blood Urea Nitrogen 7 mg/dL (9-16); Calcium 8.4 mg/dL (8.4-10.2); Carbon Dioxide 25 mmol/L (22-29); Chloride 106 mmol/L (96-108); Creatinine Clr Calc Pharmacy 98.9; Estimated Glomerular Filt Rate > 60; Lipase 22 U/L (8-78); Potassium 3.0 mmol/L (3.3-5.1); Sodium 140 mmol/L (135-145); Total Protein 7.4 g/dL (6.5-8.0)
[2024-12-12 10:56] LABS: Troponin-I High Sensitivity < 2.7 ng/L (<3.5-17.0)
[2024-12-12] MEDS: PHENobarbitaL sodium 130 MG/ML IM ONCE 240 MG IM (11:00)
[2024-12-12 11:35] LABS: Resp Syncy Virus RNA Qual PCR NEGATIVE (Negative); SARS COV2 PCR INHOUSE NEGATIVE (Negative)
[2024-12-12 12:22] LABS: Appearance Urine Clear; Glucose Urine UA Negative (Negative); PH >= 9.0 (5.0-9.0); Specific Gravity - Urine <= 1.005 (1.005-1.025)
[2024-12-12] MEDS: Potassium Chloride ER 20 MEQ TAB.ER.PRT 40 MEQ PO (12:49)
--- NOTE | 2024-12-12 12:49 | MHC.CARE ---
REFERRAL FOR [facility] COMPLETE
--- NOTE | 2024-12-12 13:26 | PM.IMHP ---
History of Present Illness Date of Service: 12/12/24 Attending physician on admission: Elijah Dover Chief Complaint: Syncope Pt is a 64-year-old female with a PMH significant for?HTN, HLD, hx of ischemic bowel, osteoporosis, alcohol use disorder with hx of alcohol withdrawal seizures, hx of AFib related to alcohol withdrawal not on anticoagulation, anxiety and depression who presents to the ED with?2 episodes of syncope earlier this morning. Pt reports this morning was sitting on the couch when she had a ?coughing fit? and became dizzy and passed out. Woke up and was incontinent of urine but did not fall. Pt reports the 2nd episode occurred an hour to later when she was sitting on the couch and again began coughing and felt lightheaded and dizzy. Fell off the couch on the floor. Denies head strike. Pt reports has been coughing up phlegm for the past month. No fever or chills. Some nausea but no vomiting or abdominal pain. Reports has been experiencing ?the shakes? in the mornings until she drinks alcohol. Has been lately drinking 1+ sleeve daily. Has been trying to cut back and last drink was yesterday afternoon around 02:00. Some increased anxiety as well as diaphoresis. Denies auditory or visual hallucinations. No tactile disturbances. Denies chest pain/pressure, palpitations. In the ED pt was mildly tachycardic at 99, vitals otherwise WNL. Labs were significant for potassium 3.0, T bili 1.1, AST 57, ALT 49. Otherwise grossly unremarkable. No leukocytosis. Renal function baseline. UA negative. Tested negative for ethyl alcohol. Negative for flu, COVID, RSV. CXR showed negative for acute cardiopulmonary disease. CT?of head negative for acute process. EKG demonstrated normal sinus rhythm without evidence of ST elevations or depressions. Pt was treated in the ED with IVF, thiamine IV, ondansetron, potassium chloride 40 mEq p.o., and started on phenobarb protocol. Pt is admitted to the hospital for post-tussive syncope treatment and further evaluation of acute alcohol withdrawal. Review of Systems Review of Systems: Negative except for that which is stated in the [facility] Medical History Positive colorectal cancer screening using Cologuard test Encounter for general adult medical examination with abnormal findings Hypokalemia Constipation Cystitis Papanicolaou smear declined Colonoscopy refused Mammogram declined Muscle spasm Lumbar pain Supraclavicular mass Hospital discharge follow-up Hyperlipidemia GERD (gastroesophageal reflux disease) Acute hypokalemia Fall Hematoma Alcohol use disorder, mild, in early remission, abuse Alcoholism Hospital discharge follow-up Uncontrolled hypertension Abnormal EKG Hypertension, essential Breast screening Anxiety, generalized Hives Family History Father Cardiac disease Mother Cardiac disease HTN (hypertension) Other Substance use disorder Surgical History Hx of hand surgery Hx of colonoscopy (08/30/11) History of right breast biopsy (10/31/11) Hx of left inguinal hernia repair (02/25/13) Hx of basal cell carcinoma excision (2011) History of left oophorectomy (09/07/11) Hx of right inguinal hernia repair (2003) Social History Household Members: Family Housing: House Are you a primary healthcare administrative assistant to a significant other at home: Yes () Do you presently have visiting nurse or other home services: Yes ([facility] , sven dav[facility]) Unable to assess alcohol history related to: Unknown Alcohol intake: unknown Patient Tobacco Use Status: Former Tobacco user Tobacco use type: Cigarette Cigarette Packs Per Day: 1 Cigarettes Per Day: 20.0 Years Smoked: 20 Smoked in Last 30 Days: No e-Cigarette/Vaping Use: Never Used Second Hand Smoke Exposure: No Use of substances other than those prescribed or required for medical reasons: Yes Substance Use Type: Marijuana Substance Use Frequency: Occasionally Last Used Substance: Unknown Any prior treatment program specific to substance use: No Advance Directives: No Advance Directives Information Provided: Yes Do you have a plan to hurt others: No Plan service: No Current occupational status: employed Cognitive needs: No Hearing needs: No Vision needs: No Meds Allergies Allergy/AdvReac Type Severity Reaction Status Date / Time hydroxychloroquine Allergy Severe hives Verified 12/12/24 09:33 (Plaquenil) bupropion (From WELLBUTRIN) Allergy Intermediate HIVES Verified 12/12/24 09:33 amoxicillin Allergy Mild Rash Verified 12/12/24 09:33 tramadol Allergy Unknown hives, rash Verified 12/12/24 09:33 ENVIRONMENTAL Allergy Unknown ITCHY EYES Uncoded 12/12/24 09:33 Active Medications: Current Medications Pharmacy Consult (Consult Rx Etoh Phenob Im/Po) 1 each MISCELLANE ONCE PRN; Protocol PRN Reason: Consult order Phenobarbital (Phenobarbital 15 Mg Tablet) 45 mg PO BID SORAYA Stop: 12/14/24 21:01 Phenobarbital (Phenobarbital 15 Mg Tablet) 15 mg PO BID SORAYA Stop: 12/16/24 21:01 Phenobarbital (Phenobarbital 15 Mg Tablet) 15 mg PO DAILY SORAYA Stop: 12/18/24 09:01 Phenobarbital Sodium (Phenobarbital Sodium 130 Mg/Ml Vial Im Q3hx2) 180 mg IM Q3H SORAYA Stop: 12/12/24 17:01 Home Medications ?Medication ?Instructions ?Recorded ?Confirmed ?Last Taken ?Type alendronate 70 mg tablet (Fosamax) 70 mg PO FR 12/12/24 12/12/24 12/06/24 History ibuprofen 800 mg tablet 400 mg PO DAILY PRN Pain 12/12/24 12/12/24 Unknown History omeprazole 20 mg tablet,delayed 20 mg PO DAILY@0630 PRN Acid Reflux 12/12/24 12/12/24 12/12/24 History release Physical Exam Vital Signs and Narrative: Vital Signs: Last Vital Signs Temp 98.4 F 12/12/24 09:30 Pulse 79 12/12/24 12:24 Resp 16 12/12/24 12:24 BP 124/78 12/12/24 12:24 Pulse Ox 94 12/12/24 12:24 O2 Del Method Room Air 12/12/24 12:24 BMI result Body Mass Index 25.6 General: AOx3, no acute distress Resp: CTA bilaterally CVS: S1, S2, RRR GI: +BS, NT, no distention Skin: Warm, dry Neuro: Cranial nerves II-XII grossly intact bilaterally. Motor grossly intact bilaterally. Mild upper extremity tremors noted. Extremities: No edema Psych: Appropriate affect Results Labs 12/12/24 10:21 12/12/24 10:21 Labs: Laboratory Results - last 24 hr 12/12/24 12/12/24 12/12/24 10:21 10:53 12:06 MCV 92.6 MCH 32.4 MCHC 35.0 RDW 14.2 Plt Count 346 D MPV 8.4 L Immature Gran % (Auto) 0.5 H Neut % (Auto) 83.4 H Lymph % (Auto) 6.5 L [place] % (Auto) 9.0 Eos % (Auto) 0.1 Baso % (Auto) 0.5 Lymph # (Auto) 0.5 L [place] # (Auto) 0.7 Eos # (Auto) 0.0 Baso # (Auto) 0.0 Abs Immat Gran (auto) 0.04 H Absolute Neuts (auto) 6.8 Absolute Nucleated RBC 0.000 Nucleated RBC % (auto) 0.0 Anion Gap 12 Estim Creat Clear Calc 98.9 Estimated GFR > 60 Fasting Glucose 135 H Calcium 8.4 Total Bilirubin 1.1 H AST 57 H ALT 49 H Alkaline Phosphatase 94 Total Protein 7.4 Albumin 4.3 Lipase 22 Urine Color Yellow Urine Appearance Clear Urine pH >= 9.0 Ur Specific [place] <= 1.005 Urine Protein Negative Urine Glucose (UA) Negative Urine Ketones Negative Urine Blood Negative Urine Nitrite Negative Ur Leukocyte Esterase Negative Ethyl Alcohol < 10 Influenza Type A (PCR) NEGATIVE Influenza Type B (PCR) NEGATIVE RSV RNA Qual (PCR) NEGATIVE SARS-CoV-2 RNA (RT-PCR) NEGATIVE Imaging Radiologist's Impressions: Impressions Chest X-Ray 12/12/24 09:04 IMPRESSION: No acute disease, minimal left basilar atelectasis. Posterior interbody fusion T9-11 across a T10 fracture post kyphoplasty, stable. Electronically signed by: Charles Roberto MD 12/12/2024 10:[address] 12/12/24 10:34 IMPRESSION: No acute fracture, bony calvarium. No acute intracranial hemorrhage. Small vessel occlusive disease. Old traumatic deformities, nasal bones. Electronically signed by: Dominic Almonte MD 12/12/2024 11:02 AM EDT [employer] Assessment and Plan (1) Alcohol withdrawal: Qualifiers: Complication of substance-induced condition: uncomplicated Qualified Code(s): F10.930 - Alcohol use, unspecified with withdrawal, uncomplicated Status: Acute Plan Pt is a 64-year-old female with a PMH significant for?HTN, HLD, hx of ischemic bowel, osteoporosis, alcohol use disorder with hx of alcohol withdrawal seizures, hx of AFib related to alcohol withdrawal not on anticoagulation, anxiety and depression who presents to the ED with?2 episodes of syncope earlier this morning. Pt is admitted to the hospital for post-tussive syncope treatment and further evaluation of acute alcohol withdrawal. Acute alcohol withdrawal Pt drinking 1+ sleeves daily, reports morning tremors; hx of withdrawal with seizures; has been trying to cut back with last drink yesterday afternoon Continue Phenobarb protocol Daily multivitamin, folic acid, thiamine, famotidine Follow lytes, Mag, BMP CIWA scale Seizure precautions Addiction medicine consult Monitor on telemetry ?Posttussive syncope x2 episodes earlier this morning Lightheadedness and dizziness associated with coughing Possibly in the setting of above Treat as above, guaifenesin Acute on chronic hypokalemia Potassium 3.0 at time of presentation Only occasionally compliant with home potassium chloride pills Supplemented with potassium in the ED Continue home potassium chloride HTN Continue amlodipine HLD Continue statin GERD Continue PPI Migraines Continue topiramate Mood disorder Continue venlafaxine Full Code Attending:?Dr. Dover DVT Prophylaxis: Lovenox Pt will require a hospitalization of at least two nights for treatment of posttussive syncope setting of acute alcohol withdrawal. Quality Stroke Does the patient have a stroke diagnosis?: No VTE Prior VTE?: No VTE Risk Level:: Medical - moderate - high VTE Device Contraindication: Treatment Not Indicated VTE Drug Contraindication: N/A - Med Ordered
[2024-12-12] MEDS: PHENobarbitaL sodium 130 MG/ML VIAL IM Q3Hx2 180 MG IM ×2 (14:48→17:28)
--- NOTE | 2024-12-12 15:47 | PHA.MEDREC ---
Addendum entered by Natalia Goss RPh 12/12/24 15:58: Reviewed by formerly [facility] Original Note: Pharmacy Consult ? Medication Reconciliation Pharmacy has completed the medication reconciliation. Spoke with pt and she had a list on hand she read to me. Pt states she has and takes on occasion, when she remembers Atorvastatin 40mg tabs 1 tab at bedtime; pt states last took ~1 ago and she confirmed her Alendronate once a week on Fridays; pt last took 12/06.
--- NOTE | 2024-12-12 16:44 | PC.NURSE ---
Late chart entry: seizure precautions initiated on pt arrival to ER
--- NOTE | 2024-12-12 19:04 | PC.NURSE ---
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 Met with the patient after she was admitted to med floor for withdrawal management. Karen shared that she may be able to arrange care for her enabling her to attend an inpatient recovery program- advised inpatient addiction team to consult and will follow up with her when discharge planning is nearer.?
[2024-12-12] MEDS: 0.9 % Sodium Chloride Flush 3 ML SYRINGE IVFLUSH (21:08)
[2024-12-13 03:24] VITALS: BP 120/83; PULSE 79; RESP 20; TEMP 36.3; O2SAT 94
[2024-12-13 07:23] VITALS: BP 138/76; PULSE 78; RESP 16; TEMP 36.5; O2SAT 93
[2024-12-13 08:17] LABS: Anion Gap 11 (12-20); Blood Urea Nitrogen 8 mg/dL (9-16); Calcium 8.8 mg/dL (8.4-10.2); Carbon Dioxide 26 mmol/L (22-29); Chloride 106 mmol/L (96-108); Creatinine Clr Calc Pharmacy 78.8; Estimated Glomerular Filt Rate > 60; Magnesium 2.0 mg/dL (1.6-2.6); Potassium 3.2 mmol/L (3.3-5.1); Sodium 140 mmol/L (135-145)
[2024-12-13 09:30] VITALS: BP 135/76
[2024-12-13] MEDS: Potassium Chloride Packet 20 MEQ PACKET 40 MEQ PO (09:30)
[2024-12-13] MEDS: Venlafaxine HCl ER 75 MG CAP.ER.24H PO (09:32)
[2024-12-13] MEDS: 0.9 % Sodium Chloride Flush 3 ML SYRINGE IVFLUSH (09:34)
[2024-12-13] MEDS: Potassium Chloride ER 10 MEQ TABLET.ER PO (09:34)
[2024-12-13] MEDS: Milk of Magnesia 30 ML ORAL.SUSP PO (09:41)
[2024-12-13 11:40] VITALS: BP 126/83; PULSE 98; RESP 16; TEMP 36.7; O2SAT 93
--- NOTE | 2024-12-13 12:01 | MHC.CM.PN ---
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 PT VERIFIES PCP ON FILE, PT EDUCATED ON AND DECLINES TO COMPLETE A HCP AT THIS TIME, PT AWARE IF SHE CHANGES HER MIND SHE CAN ASK FOR CM.
[2024-12-13 13:06] VITALS: BP 126/83; PULSE 98; O2SAT 93
--- NOTE | 2024-12-13 14:23 | P.DS_ITS ---
DS: Providers Provider Date of Service: 12/13/24 Date of admission: 12/12/24 12:29 Date of discharge: 12/13/24 Primary care physician: Ros Lunsford MD Consults: 12/12/24 10:35 ED Recovery Team Consult Stat Comment: Reason for consultation: alcohol withdrawal, looking for resources 12/12/24 12:51 Consult to Comprehensive Care Stat Consulting Provider: [facility] DS: Diagnosis Discharge Diagnosis (1) Alcohol withdrawal: Status: Acute DS: Summary Hospital Course Hospital Course: 64-year-old female with a PMH significant for?HTN, HLD, hx of ischemic bowel, osteoporosis, alcohol use disorder with hx of alcohol withdrawal seizures, hx of AFib related to alcohol withdrawal not on anticoagulation, anxiety and depression who presents to the ED with?2 episodes of syncope earlier this morning. Pt reports this morning was sitting on the couch when she had a ?coughing fit? and became dizzy and passed out. Woke up and was incontinent of urine but did not fall. Pt reports the 2nd episode occurred an hour to later when she was sitting on the couch and again began coughing and felt lightheaded and dizzy. Fell off the couch on the floor. Denies head strike. Pt reports has been coughing up phlegm for the past month. No fever or chills. Some nausea but no vomiting or abdominal pain. Reports has been experiencing ?the shakes? in the mornings until she drinks alcohol. Has been lately drinking 1+ sleeve daily. Has been trying to cut back and last drink was yesterday afternoon around 02:00. Some increased anxiety as well as diaphoresis. Hospital Course Patient admitted to general medical floor with a monitor failed to demonstrate any acute dysrhythmias. She was monitored on the CIWA scale without issue. Patient is requesting discharge however was noted by nursing to be somewhat unsteady on her feet. CIWA was 0-1. Screened by Physical therapy; patient does not meet requirements for acute PT in his safe to go home. As such she will be discharged home to follow up as outlined with care team and abstain from alcohol Time Attestation Discharge Coordination Time (in mins): 35 Quality: Safe Use of Opioids Does Pt have an Active Cancer Diagnosis on the Problem List?: No Quality: Stroke Does the patient have a stroke diagnosis?: No Physical Exam Vital Signs: Vital Signs: Last Vital Signs Temp 98.0 F 12/13/24 11:40 Pulse 98 12/13/24 13:06 Resp 16 12/13/24 11:40 BP 126/83 12/13/24 13:06 Pulse Ox 93 12/13/24 13:06 O2 Del Method Room Air 12/13/24 11:40 O2 Flow Rate 94 12/13/24 11:40 BMI result Body Mass Index 25.2 Const: Other: Awake alert no acute distress Resp: Other: Clear to auscultation bilaterally no rales rhonchi or wheezes Cardio: Other: No S4; positive S1-S2; no S3 murmurs rubs or gallops GI: Other: Soft nontender nondistended normoactive bowel sounds Extrem: Other: No edema bilaterally DS: Data Data Completed and Pending Completed studies during hospitalization [Text1]: Procedures Detoxification Services for Substance Abuse Treatment (04/08/24) Labs on day of discharge: Laboratory Results - last 24 hr 12/13/24 07:10 Sodium 140 Potassium 3.2 L Chloride 106 Carbon Dioxide 26 Anion Gap 11 L BUN 8 L Creatinine 0.61 Estim Creat Clear Calc 78.8 Estimated GFR > 60 Random Glucose 96 Calcium 8.8 Magnesium 2.0 Discharge Plan Discharge Anticipated Discharge Date/Time: 12/13/24 14:20 Patient Disposition: Home, Self-Care Discharge Diagnosis: Alcohol withdrawal Referrals: Ros Lunsford MD [Primary Care Provider, Internal Medicine] - 1 Week Discharge Medications: Continued montelukast 10 mg tablet 10 mg PO DAILY Qty: 90 0RF potassium chloride 10 mEq tablet extended release 10 meq PO DAILY Qty: 90 0RF amlodipine 10 mg tablet 10 mg PO DAILY 90 Days Qty: 90 0RF venlafaxine 75 mg capsule,extended release 24hr 75 mg PO DAILY Qty: 90 0RF topiramate 25 mg tablet 25 mg PO BID 90 Days Qty: 180 0RF omeprazole 20 mg tablet,delayed release (DR/EC) 20 mg PO DAILY@0630 PRN (Reason: Acid Reflux) ibuprofen 800 mg Tablet 400 mg PO DAILY PRN (Reason: Pain) alendronate [Fosamax] 70 mg tablet 70 mg PO FR atorvastatin 40 mg tablet 40 mg PO BEDTIME 90 Days Qty: 90 0RF cetirizine 10 mg tablet 10 mg PO DAILY PRN (Reason: for allergies) Qty: 90 0RF magnesium oxide 400 mg (241.3 mg magnesium) tablet 400 mg PO BID Qty: 60 3RF Discharge Orders: Discharge Order (Routine); Ordered 12/13/24 Ordered By: Elijah Dover Diet: Advance to usual diet Activity on Discharge: As tolerated Stand Alone Forms: Patient Portal Discharge page Print Language: Gabonese Care Plan Goals: Resume all medications as taken prior to hospitalization Health Concerns: Continued to pursue outpatient rehab as your family has started Plan of Treatment: Avoid alcohol. Follow up with PCP next available Assessment: See discharge summary
== END 2024-12-13 15:50 | disposition home or self-care (01) | DRG 897 ==
LOC: HO.ED 09:52 → HO.EDOVER 12:30 → HO.IMC 16:03
PROVIDERS: Student in an Organized Health Care Education/Training Program; Admitting Provider Physician Assistant Medical; Emergency Provider Emergency Medicine; PCP Internal Medicine; Visit Provider Hospitalist
DX: F10.239 Alcohol dependence with withdrawal, unspecified (principal); E87.6 Hypokalemia; I10 Essential (primary) hypertension; R55 Syncope and collapse; E78.5 Hyperlipidemia, unspecified; F39 Unspecified mood [affective] disorder; K21.9 Gastro-esophageal reflux disease without esophagitis; G43.909 Migraine, unspecified, not intractable, without status migrainosus; Z20.822 Contact with and (suspected) exposure to COVID-19; Z87.891 Personal history of nicotine dependence; Z79.899 Other long term (current) drug therapy
CPT/HCPCS: 36415; 70450; 71045; 80048; 80053; 80307; 81003; 83690; 83735; 84484; 85025; 87637; 93005; 97161; 99285; J1650; J2405; J2560; J3411; J7120; S9485

== ENCOUNTER → 2024-12-12 09:42 | Outpatient (BNV) | payer MEDICARE, BC, SELFPAY | PROVIDERS: Emergency Provider Emergency Medicine; PCP Internal Medicine; Visit Provider Internal Medicine Cardiovascular Disease | DX: R55 Syncope and collapse (principal) | CPT/HCPCS: 93010 ==

== ENCOUNTER → 2024-12-12 09:43 | Outpatient (BNV) | payer MEDICARE, BC, SELFPAY | PROVIDERS: Emergency Provider Emergency Medicine; PCP Internal Medicine; Visit Provider Radiology Diagnostic Radiology | DX: R55 Syncope and collapse (principal); I67.82 Cerebral ischemia | CPT/HCPCS: 70450 ==

== ENCOUNTER → 2024-12-12 12:29 | Outpatient (BNV) | payer MEDICARE, BC, SELFPAY | PROVIDERS: Admitting Provider Physician Assistant Medical; Emergency Provider Emergency Medicine; PCP Internal Medicine; Visit Provider Student in an Organized Health Care Education/Training Program | DX: F10.930 Alcohol use, unspecified with withdrawal, uncomplicated (principal) | CPT/HCPCS: 99223; 99239 ==

== ENCOUNTER 2025-02-19 12:11 | Outpatient (AMB) | payer MEDICARE, BC, SELFPAY ==
--- NOTE | 2025-02-19 12:12 | A.OFFPC_ITS ---
Vital Signs 02/19/25 12:14 Height 5 ft 2 in Weight 136 lb BMI 24.9 BP 134/84 Blood Pressure Location Rt brachial Position Sitting Respiration 15 Pulse 111 H Pulse Source Pulse Oximeter Temp 97.8 F Temp Source Oral Pulse Oximetry (%) 97 Oxygen Delivery Method Room Air Intake Visit Reasons: 3m follow up Allergies hydroxychloroquine (Plaquenil) Allergy (Severe, Verified 12/12/24 09:33) hives bupropion (From WELLBUTRIN) Allergy (Intermediate, Verified 12/12/24 09:33) HIVES amoxicillin Allergy (Mild, Verified 12/12/24 09:33) Rash tramadol Allergy (Unknown, Verified 12/12/24 09:33) hives, rash ENVIRONMENTAL Allergy (Unknown, Uncoded 12/12/24 09:33) ITCHY EYES Medication List - Last Reconciled 02/19/25 by Ros Lunsford MD alendronate 70 mg PO QWEEK amlodipine 10 mg PO DAILY 90 days atorvastatin 40 mg PO BEDTIME 90 days cetirizine 10 mg PO DAILY PRN ibuprofen 400 mg PO DAILY PRN magnesium oxide 400 mg PO BID montelukast 10 mg PO DAILY omeprazole 20 mg PO DAILY@0630 PRN potassium chloride ER 10 mEq PO DAILY topiramate 25 mg PO BID 90 days venlafaxine ER 75 mg PO DAILY Tobacco use date assessed: 08/27/24 Dental Screening Dental Screen Date: 08/27/24 HPI 3m follow up HPI Details Patient is 64-year-old female who was last seen by me in October She was in hospital again in November due to alcohol abuse Patient have a history significant of hypertension, ischemic bowel, osteoporosis chronic alcohol use disorder with history of alcohol withdrawal seizures History of atrial fibrillation related to alcohol withdrawal not on anticoagulation History of anxiety and depression She presented to emergency room on December 12 with 2 episodes of syncope which happened after a coughing fit 1st time she woke up and she was incontinent of urine Second episode occurred an hour later when she started coughing again and got lightheaded and dizzy fell on floor from couch. There was no head trauma She was admitted in our hospital Patient requested discharge however was noted by nursing to be somewhat unsteady on her feet. Was evaluated by Physical therapy and it was determined that it is safe for patient to be discharged. She is taking the following medications Montelukast for allergies Amlodipine 10 mg for hypertension Venlafaxine 75 mg for anxiety Topamax as a mood stabilizer omeprazole for GERD alendronate for osteoporosis atorvastatin for lipid disorder cetirizine for allergies she is also taking magnesium and potassium supplement Her blood pressure is stable today at 134 x 84 however heart rate is elevated She had labs done in November which showed normal hemoglobin Metabolic profile showed potassium of 3.2 she is on supplement she is to continue that kidney functions were intact her liver enzymes are elevated bilirubin 1.1 AST 57 and ALT 49 We will repeat labs again before her appointment in March Patient was instructed to consult with pharmacy regarding the vaccines which are due She tells me that she is drinking still but not as much once again we had a discussion about assistance that is available to her She has been having vertigo for the past few days, patient says that it has happened before as well And physical therapy did help her. I have placed order for physical therapy Meanwhile patient was instructed to move slow There is no associated nausea or vomiting PFSH Medical History Alcohol use disorder, severe, dependence Positive colorectal cancer screening using Cologuard test Encounter for general adult medical examination with abnormal findings Hypokalemia Constipation Cystitis Papanicolaou smear declined Colonoscopy refused Mammogram declined Muscle spasm Lumbar pain Supraclavicular mass Hospital discharge follow-up Hyperlipidemia GERD (gastroesophageal reflux disease) Acute hypokalemia Fall Hematoma Alcohol use disorder, mild, in early remission, abuse Alcoholism Hospital discharge follow-up Uncontrolled hypertension Abnormal EKG Hypertension, essential Breast screening Anxiety, generalized Hives Surgical History Hx of hand surgery Hx of colonoscopy (08/30/11) History of right breast biopsy (10/31/11) Hx of left inguinal hernia repair (02/25/13) Hx of basal cell carcinoma excision (2011) History of left oophorectomy (09/07/11) Hx of right inguinal hernia repair (2003) Family History Father Cardiac disease Mother Cardiac disease HTN (hypertension) Other Substance use disorder Social History Household Members: Spouse and Family Housing: House Are you a primary director of health care marketing to a significant other at home: Yes () Do you presently have visiting nurse or other home services: No Unable to assess alcohol history related to: Unknown Alcohol intake: unknown Patient Tobacco Use Status: Former Tobacco user Tobacco use type: Cigarette Cigarette Packs Per Day: 1 Cigarettes Per Day: 20.0 Years Smoked: 20 Packs Per Year: 20 Packs per year/per ci.00 e-Cigarette/Vaping Use: Never Used Second Hand Smoke Exposure: No Substance Use Type: Marijuana service: No Current occupational status: employed Cognitive needs: No Hearing needs: No Vision needs: No Questionnaire Thrive Questionnaire Date Thrive assessed: 12/13/24 RENEE-7 AMB Questionnaire RENEE-7 Date RENEE - 7 assessed: 05/14/24 Source: Developed by Drs. Sandeep Fletcher, Karen Fonseca, Adan Calle and colleagues, with an educational la from [employer]. Review of Systems Const Denies chills and Denies fever(s) ENT Denies epistaxis and Denies nasal discharge Card Denies chest pain Resp Denies chest congestion, Denies cough and Denies hemoptysis GI Denies diarrhea and Denies nausea Skin/Breast Denies rash Neuro Reports no additional complaints Psych Reports no additional complaints Endo Reports no additional complaints Physical exam (Primary Care) Vital Signs: Last Vital Signs Temp 97.8 F 02/19/25 12:14 Pulse 111 H 02/19/25 12:14 Resp 15 02/19/25 12:14 BP 134/84 02/19/25 12:14 Pulse Ox 97 02/19/25 12:14 Oxygen Delivery Method Room Air 02/19/25 12:14 BMI result Body Mass Index 24.9 Tobacco/Smoking Status: Tobacco use Status Tobacco use date assessed 08/27/24 02/19/25 12:17 Patient Tobacco Use Status Former Tobacco user 02/19/25 12:17 Tobacco use type Cigarette 02/19/25 12:17 e-Cigarette/Vaping Use Never Used 02/19/25 12:17 Thrive Assessment: Date of Thrive Assessment Date Thrive assessed 12/13/24 02/19/25 12:17 Const General: cooperative, comfortable and no acute distress Orientation/consciousness: patient oriented x3 HENMT Head: Yes normocephalic Eyes General: appearance normal, both eyes and all related structures Neck Neck: Yes supple Resp Effort & Inspection: normal respiratory effort, no cough and no stridor Cardio Rhythm: regular rhythm Heart sounds: S1 normal heart sound present and S2 normal heart sound present Skin General skin exam: turgor normal Neuro Other: Vertigo test positive General: patient oriented x3, tone normal and moves all extremities Extrem Right lower extremity: no edema Left lower extremity: no edema Coding Level of Care Code Est Pt Level 4 (90196) Complex EM visit Add On G2211 Diagnoses Benign paroxysmal positional vertigo, unspecified laterality H81.10 Laterality: unspecified laterality Tachycardia R00.0 Lipid disorder E78.9 Hypertension, essential I10 Electrolyte abnormality E87.8 Age-related osteoporosis with current pathological fracture with routine healing, subsequent encounter M80.00XD Osteoporosis type: age-related Presence of current pathological fracture: with current pathological fracture Encounter type: subsequent encounter Fracture healing: with routine healing Alcohol abuse F10.10 Severe episode of recurrent major depressive disorder, without psychotic features F33.2 Psychotic features: without psychotic features Anxiety, generalized F41.1 Environmental allergies Z91.09 Assessment & Plan Assessment & Plan (1) Benign positional vertigo: Code(s): H81.10 - Benign paroxysmal vertigo, unspecified ear Category: Medical Qualifiers: Laterality: unspecified laterality Qualified Code(s): H81.10 - Benign paroxysmal vertigo, unspecified ear (2) Tachycardia: Code(s): R00.0 - Tachycardia, unspecified Category: Medical (3) Lipid disorder: Code(s): E78.9 - Disorder of lipoprotein metabolism, unspecified Category: Medical (4) Hypertension, essential: Code(s): I10 - Essential (primary) hypertension Category: Medical (5) Electrolyte abnormality: Code(s): E87.8 - Other disorders of electrolyte and fluid balance, not elsewhere classified Category: Medical (6) Osteoporosis: Code(s): M81.0 - Age-related osteoporosis without current pathological fracture Category: Medical Qualifiers: Osteoporosis type: age-related Presence of current pathological fracture: with current pathological fracture Encounter type: subsequent encounter Fracture healing: with routine healing Qualified Code(s): M80.00XD - Age-related osteoporosis with current pathological fracture, unspecified site, subsequent encounter for fracture with routine healing (7) Alcohol abuse: Code(s): F10.10 - Alcohol abuse, uncomplicated Category: Social Hx (8) Depression, major, severe recurrence: Code(s): F33.2 - Major depressive disorder, recurrent severe without psychotic features Category: Medical Qualifiers: Psychotic features: without psychotic features Qualified Code(s): F33.2 - Major depressive disorder, recurrent severe without psychotic features (9) Anxiety, generalized: Code(s): F41.1 - Generalized anxiety disorder Category: Medical (10) Environmental allergies: Code(s): Z91.09 - Other allergy status, other than to drugs and biological substances Category: Medical Plan Patient is 64-year-old female who was last seen by me in October She was in hospital again in November due to alcohol abuse Patient have a history significant of hypertension, ischemic bowel, osteoporosis chronic alcohol use disorder with history of alcohol withdrawal seizures History of atrial fibrillation related to alcohol withdrawal not on anticoagulation History of anxiety and depression She presented to emergency room on December 12 with 2 episodes of syncope which happened after a coughing fit 1st time she woke up and she was incontinent of urine Second episode occurred an hour later when she started coughing again and got lightheaded and dizzy fell on floor from couch. There was no head trauma She was admitted in our hospital Patient requested discharge however was noted by nursing to be somewhat unsteady on her feet. Was evaluated by Physical therapy and it was determined that it is safe for patient to be discharged. She is taking the following medications Montelukast for allergies Amlodipine 10 mg for hypertension Venlafaxine 75 mg for anxiety Topamax as a mood stabilizer omeprazole for GERD alendronate for osteoporosis atorvastatin for lipid disorder cetirizine for allergies she is also taking magnesium and potassium supplement Her blood pressure is stable today at 134 x 84 however heart rate is elevated She had labs done in November which showed normal hemoglobin Metabolic profile showed potassium of 3.2 she is on supplement she is to continue that kidney functions were intact her liver enzymes are elevated bilirubin 1.1 AST 57 and ALT 49 We will repeat labs again before her appointment in March Patient was instructed to consult with pharmacy regarding the vaccines which are due She tells me that she is drinking still but not as much once again we had a discussion about assistance that is available to her She has been having vertigo for the past few days, patient says that it has happened before as well And physical therapy did help her. I have placed order for physical therapy Meanwhile patient was instructed to move slow There is no associated nausea or vomiting Orders: Orders PT Evaluation and Treatment Today H81.10 - Benign paroxysmal vertigo, unspecified ear Complete Blood Count Auto Diff Today E78.9 - Disorder of lipoprotein metabolism, unspecified, E87.8 - Other disorders of electrolyte and fluid balance, not elsewhere classified, I10 - Essential (primary) hypertension, M80.00XD - Age-related osteoporosis with current pathological fracture, unspecified site, subsequent encounter for fracture with routine healing, R00.0 - Tachycardia, unspecified Comprehensive Met. Panel Today E78.9 - Disorder of lipoprotein metabolism, unspecified, E87.8 - Other disorders of electrolyte and fluid balance, not elsewhere classified, I10 - Essential (primary) hypertension, M80.00XD - Age- related osteoporosis with current pathological fracture, unspecified site, subsequent encounter for fracture with routine healing, R00.0 - Tachycardia, unspecified Magnesium Today E78.9 - Disorder of lipoprotein metabolism, unspecified, E87.8 - Other disorders of electrolyte and fluid balance, not elsewhere classified, I10 - Essential (primary) hypertension, M80.00XD - Age-related osteoporosis with current pathological fracture, unspecified site, subsequent encounter for fracture with routine healing, R00.0 - Tachycardia, unspecified Medications: Refilled magnesium oxide 400 mg PO BID 60 tabs 3RF atorvastatin 40 mg PO BEDTIME 90 tabs 0RF 90 days E78.9 - Disorder of lipoprotein metabolism, unspecified potassium chloride ER 10 mEq PO DAILY 90 tabs 0RF
[2025-02-19 12:14] VITALS: BP 134/84; PULSE 111; RESP 15; TEMP 36.6; O2SAT 97; BMI 24.9
== END 2025-02-19 13:06 | disposition home or self-care (01) ==
LOC: HO.HMCC 12:11
PROVIDERS: PCP Internal Medicine; Visit Provider Internal Medicine
DX: R00.0 Tachycardia, unspecified (principal); F33.2 Major depressive disorder, recurrent severe without psychotic features; E78.9 Disorder of lipoprotein metabolism, unspecified; I10 Essential (primary) hypertension; E87.8 Other disorders of electrolyte and fluid balance, not elsewhere classified; M80.00XD Age-related osteoporosis with current pathological fracture, unspecified site, subsequent encounter for fracture with routine healing; F10.10 Alcohol abuse, uncomplicated; F41.1 Generalized anxiety disorder; Z91.09 Other allergy status, other than to drugs and biological substances; H81.10 Benign paroxysmal vertigo, unspecified ear

== ENCOUNTER → 2025-02-19 12:11 | Outpatient (BNVA) | payer MEDICARE, BC, SELFPAY | PROVIDERS: PCP Internal Medicine; Visit Provider Internal Medicine | DX: H81.10 Benign paroxysmal vertigo, unspecified ear (principal); R00.0 Tachycardia, unspecified; E78.9 Disorder of lipoprotein metabolism, unspecified; E87.8 Other disorders of electrolyte and fluid balance, not elsewhere classified; F10.10 Alcohol abuse, uncomplicated; F33.2 Major depressive disorder, recurrent severe without psychotic features; F41.1 Generalized anxiety disorder; Z91.09 Other allergy status, other than to drugs and biological substances | CPT/HCPCS: 99212 ==